=== PATIENT | female | born 1980 | race Caucasian/White ===

== ENCOUNTER → 2017-03-05 08:34 | Outpatient (CLI) | payer OTHER, SELFPAY ==
[2017-03-05 11:10] LABS: Color, Urine Yellow (Yellow); Glucose, Dipstick Normal (Normal); Ketone-Dipstick Negative (Negative); Leukocyte Esterase-Dipstick Negative /ul (Negative); Nitrite-Dipstick Negative (Negative); Occult Blood-Urine 150 /ul (Negative); Protein-Dipstick 15 mg/dl (Negative); Urine Bilirubin Dipstick Negative (Negative); Urine Clarity Clear (Clear); Urine Urobilinogen Normal (Normal)
[2017-03-05 11:21] LABS: Protein:Creat Ratio 314 mg/g CRE (0-200)
[2017-03-05 11:22] LABS: Hematocrit 36.5 % (37-47); Hemoglobin 11.8 g/dl (12.0-15.0); Mean Corp Hgb Conc 32.3 g/gl (32-36); Mean Corpuscular Volume 89.7 fL (81-99); Red Blood Count 4.07 M/mm3 (4.2-5.4)
[2017-03-05 11:23] LABS: Absolute Lymphocyte Count 0.65 X10^3/ul (0.83-4.51); Basophil# 0.01 X10^3/uL; Basophil% 0.3 % (0-1); Eosinophil# 0.11 X10^3/uL; Eosinophils% 3.7 % (0-5); Lymphocyte # 0.65 X10^3/ul (4.0); Lymphocyte % 21.9 % (19-41); Mean Platelet Vol. 11.8 fl (6.2-12.0); Monocyte# 0.16 X10^3/uL; Monocyte% 5.4 % (0-10); Neutrophil # 2.03 X10^3/uL (2.7-7.7); Neutrophil % 68.4 % (47-70); Platelet Count 138 K/mm3 (150-450); RBC Distribution Width SD 45.2 fl (35.1-43.9)
[2017-03-05 11:26] LABS: POSITIVE COUNT NO; POSITIVE DIFFERENTIAL NO; POSITIVE MORPHOLOGY NO
[2017-03-05 11:36] LABS: ALB/GLOB Ratio 0.8 RATIO (0.9-2.4); AST(SGOT) 31 U/L (15-37); Alanine Aminotransfer ALT/SGPT 32 U/L (13-56); Albumin, Serum 3.1 g/dL (3.2-5.0); Alkaline Phosphatase 56 U/L (45-117); Anion Gap 8 (5-15); BUN 14 mg/dL (7-18); Calcium,Total 8.2 mg/dL (8.5-10.1); Chloride 105 mmol/L (98-107); Creatinine, Serum 0.58 mg/dL (0.55-1.02); EST Glomerular Filtration Rate 124 mL/min (>60); Est Glom Filt Rate - Afr Amer 150 mL/min (>60); Globulin 3.9 g/dL (2.2-4.2); Glucose 83 mg/dL (70-110); Potassium 3.7 mmol/L (3.5-5.1); Sodium Level 140 mmol/L (136-145)
[2017-03-06 08:32] LABS: Complement C3 63 mg/dL (82-167)
[2017-03-06 16:20] LABS: Anti-dsDNA Ab 191 IU/mL (0-9)
== END ==
PROVIDERS: Family Provider Internal Medicine; PCP Internal Medicine; Visit Provider Internal Medicine Rheumatology
DX: M32.9 Systemic lupus erythematosus, unspecified (principal); M22.40 Chondromalacia patellae, unspecified knee; G40.909 Epilepsy, unspecified, not intractable, without status epilepticus; I10 Essential (primary) hypertension; M21.40 Flat foot [pes planus] (acquired), unspecified foot
CPT/HCPCS: 36415; 80053; 81002; 82570; 84156; 85025; 86160; 86225

== ENCOUNTER → 2017-05-25 07:34 | Outpatient (CLI) | payer OTHER, SELFPAY ==
[2017-05-25 10:05] LABS: Eosinophil# 0.14 X10^3/uL; Eosinophils% 4.4 % (0-5); Hemoglobin 11.6 g/dl (12.0-15.0); Lymphocyte % 22.2 % (19-41); Mean Corp Hgb Conc 33.1 g/gl (32-36); Mean Corpuscular Hgb 30.2 pg (27.0-32.0); Mean Corpuscular Volume 91.1 fL (81-99); Mean Platelet Vol. 11.2 fl (6.2-12.0); Monocyte# 0.31 X10^3/uL; Monocyte% 9.8 % (0-10); Neutrophil % 63.3 % (47-70); Platelet Count 159 K/mm3 (150-450); RBC Distribution Width CV 13.9 % (11.6-14.6); RBC Distribution Width SD 45.6 fl (35.1-43.9); Red Blood Count 3.84 M/mm3 (4.2-5.4); White Blood Count 3.2 K/mm3 (4.4-11.0)
[2017-05-25 10:07] LABS: POSITIVE COUNT NO; POSITIVE DIFFERENTIAL NO; POSITIVE MORPHOLOGY NO
[2017-05-25 10:14] LABS: Color, Urine Yellow (Yellow); Glucose, Dipstick Normal (Normal); Ketone-Dipstick Negative (Negative); Leukocyte Esterase-Dipstick Negative /ul (Negative); Nitrite-Dipstick Negative (Negative); Occult Blood-Urine 250 /ul (Negative); Protein-Dipstick 30 mg/dl (Negative); Urine Bilirubin Dipstick Negative (Negative); Urine Clarity Sl. Cloudy (Clear); Urine Urobilinogen Normal (Normal)
[2017-05-25 10:26] LABS: ALB/GLOB Ratio 0.8 RATIO (0.9-2.4); AST(SGOT) 34 U/L (15-37); Alanine Aminotransfer ALT/SGPT 35 U/L (13-56); Albumin, Serum 3.1 g/dL (3.2-5.0); Alkaline Phosphatase 60 U/L (45-117); Anion Gap 7 (5-15); BUN 13 mg/dL (7-18); BUN/Creat Ratio 23.7 RATIO (10-20); Calcium,Total 8.2 mg/dL (8.5-10.1); Chloride 111 mmol/L (98-107); Creatinine, Serum 0.55 mg/dL (0.55-1.02); EST Glomerular Filtration Rate 133 mL/min (>60); Est Glom Filt Rate - Afr Amer 161 mL/min (>60); Glucose 64 mg/dL (74-106); Potassium 3.7 mmol/L (3.5-5.1); Protein, Total 7.1 g/dL (6.4-8.2); Protein, Urine (Random) 58.7 mg/dL (<11.9); Protein:Creat Ratio 497 mg/g CRE (0-200); Sodium Level 145 mmol/L (136-145)
[2017-05-26 11:18] LABS: Complement C3 70 mg/dL (82-167)
[2017-05-29 11:09] LABS: Anti-dsDNA Ab 202 IU/mL (0-9)
== END ==
PROVIDERS: Family Provider Internal Medicine; PCP Internal Medicine; Visit Provider Internal Medicine Rheumatology
DX: M32.9 Systemic lupus erythematosus, unspecified (principal); M22.42 Chondromalacia patellae, left knee; M22.41 Chondromalacia patellae, right knee; G40.909 Epilepsy, unspecified, not intractable, without status epilepticus; I10 Essential (primary) hypertension; M21.40 Flat foot [pes planus] (acquired), unspecified foot
CPT/HCPCS: 36415; 80053; 81002; 82570; 84156; 85025; 86160; 86225

== ENCOUNTER → 2017-09-10 09:31 | Outpatient (CLI) | payer OTHER, SELFPAY ==
[2017-09-10 12:00] LABS: Color, Urine Yellow (Yellow); Glucose, Dipstick Normal (Normal); Ketone-Dipstick Negative (Negative); Leukocyte Esterase-Dipstick 25 /ul (Negative); Nitrite-Dipstick Negative (Negative); Occult Blood-Urine 250 /ul (Negative); Protein-Dipstick 100 mg/dl (Negative); Urine Bilirubin Dipstick Negative (Negative); Urine Clarity Cloudy (Clear); Urine Urobilinogen Normal (Normal)
[2017-09-10 12:06] LABS: ALB/GLOB Ratio 0.7 RATIO (0.9-2.4); AST(SGOT) 30 U/L (15-37); Absolute Lymphocyte Count 0.72 X10^3/ul (0.83-4.51); Absolute Neutrophil Count 2.1 X10^3/uL (2.0-7.7); Alanine Aminotransfer ALT/SGPT 27 U/L (13-56); Albumin, Serum 3.2 g/dL (3.2-5.0); Alkaline Phosphatase 68 U/L (45-117); Anion Gap 5 (5-15); BUN 13 mg/dL (7-18); BUN/Creat Ratio 21.5 RATIO (10-20); Basophil# 0.01 X10^3/uL; Basophil% 0.3 % (0-1); Calcium,Total 8.6 mg/dL (8.5-10.1); Chloride 109 mmol/L (98-107); EST Glomerular Filtration Rate 119 mL/min (>60); Eosinophil# 0.11 X10^3/uL; Eosinophils% 3.4 % (0-5); Est Glom Filt Rate - Afr Amer 144 mL/min (>60); Globulin 4.3 g/dL (2.2-4.2); Glucose 79 mg/dL (74-106); Hematocrit 35.2 % (37-47); Hemoglobin 11.4 g/dl (12.0-15.0); Lymphocyte # 0.72 X10^3/ul (4.0); Lymphocyte % 22.1 % (19-41); Mean Corp Hgb Conc 32.4 g/gl (32-36); Mean Corpuscular Hgb 29.7 pg (27.0-32.0); Mean Corpuscular Volume 91.7 fL (81-99); Mean Platelet Vol. 10.9 fl (6.2-12.0); Monocyte# 0.27 X10^3/uL; Monocyte% 8.3 % (0-10); Neutrophil # 2.14 X10^3/uL (2.7-7.7); Neutrophil % 65.6 % (47-70); Platelet Count 195 K/mm3 (150-450); Potassium 3.9 mmol/L (3.5-5.1); Protein, Total 7.5 g/dL (6.4-8.2); RBC Distribution Width CV 13.4 % (11.6-14.6); RBC Distribution Width SD 44.3 fl (35.1-43.9); Red Blood Count 3.84 M/mm3 (4.2-5.4); Sodium Level 143 mmol/L (136-145); White Blood Count 3.3 K/mm3 (4.4-11.0)
[2017-09-10 12:11] LABS: POSITIVE COUNT NO; POSITIVE DIFFERENTIAL NO; POSITIVE MORPHOLOGY NO
[2017-09-10 12:18] LABS: Protein, Urine (Random) 111.4 mg/dL (<11.9); Protein:Creat Ratio 675 mg/g CRE (0-200)
[2017-09-12 11:16] LABS: Anti-dsDNA Ab 153 IU/mL (0-9)
[2017-09-12 13:44] LABS: Complement C3 71 mg/dL (82-167)
== END ==
PROVIDERS: Family Provider Internal Medicine; PCP Internal Medicine; Visit Provider Internal Medicine Rheumatology
DX: M32.9 Systemic lupus erythematosus, unspecified (principal); M22.40 Chondromalacia patellae, unspecified knee; G40.909 Epilepsy, unspecified, not intractable, without status epilepticus; I10 Essential (primary) hypertension; M21.40 Flat foot [pes planus] (acquired), unspecified foot
CPT/HCPCS: 36415; 80053; 81002; 82570; 84156; 85025; 86160; 86225

== ENCOUNTER → 2018-02-13 11:12 | Outpatient (CLI) | payer OTHER, SELFPAY ==
[2018-02-13 14:50] LABS: Color, Urine Yellow (Yellow); Glucose, Dipstick Normal (Normal); Ketone-Dipstick Negative (Negative); Leukocyte Esterase-Dipstick Negative /ul (Negative); Nitrite-Dipstick Negative (Negative); Occult Blood-Urine 50 /ul (Negative); Protein-Dipstick Negative (Negative); Urine Bilirubin Dipstick Negative (Negative); Urine Clarity Sl. Cloudy (Clear); Urine Urobilinogen Normal (Normal)
[2018-02-13 15:01] LABS: Protein, Urine (Random) 25.6 mg/dL (<11.9)
[2018-02-13 15:02] LABS: Protein:Creat Ratio 318 mg/g CRE (0-200)
== END ==
PROVIDERS: Family Provider Internal Medicine; PCP Internal Medicine; Referring Provider Internal Medicine Rheumatology; Visit Provider Internal Medicine Rheumatology
DX: M32.9 Systemic lupus erythematosus, unspecified (principal); Z79.899 Other long term (current) drug therapy; M22.42 Chondromalacia patellae, left knee; M22.41 Chondromalacia patellae, right knee; G40.909 Epilepsy, unspecified, not intractable, without status epilepticus; I10 Essential (primary) hypertension; M21.40 Flat foot [pes planus] (acquired), unspecified foot
CPT/HCPCS: 81002; 82570; 84156

== ENCOUNTER → 2018-05-15 10:26 | Outpatient (CLI) | payer OTHER, SELFPAY ==
[2018-05-15 12:20] LABS: Absolute Lymphocyte Count 0.94 X10^3/ul (0.83-4.51); Absolute Neutrophil Count 2.6 X10^3/uL (2.0-7.7); Basophil# 0.01 X10^3/uL; Basophil% 0.2 % (0-1); Eosinophil# 0.23 X10^3/uL; Eosinophils% 5.7 % (0-5); Hematocrit 37.3 % (37-47); Lymphocyte # 0.94 X10^3/ul (4.0); Lymphocyte % 23.3 % (19-41); Mean Corp Hgb Conc 32.2 g/gl (32-36); Mean Corpuscular Hgb 28.8 pg (27.0-32.0); Mean Corpuscular Volume 89.7 fL (81-99); Mean Platelet Vol. 10.1 fl (6.2-12.0); Monocyte# 0.27 X10^3/uL; Monocyte% 6.7 % (0-10); Neutrophil # 2.59 X10^3/uL (2.7-7.7); Neutrophil % 64.1 % (47-70); Platelet Count 210 K/mm3 (150-450); RBC Distribution Width CV 13.7 % (11.6-14.6); RBC Distribution Width SD 44.8 fl (35.1-43.9); Red Blood Count 4.16 M/mm3 (4.2-5.4)
[2018-05-15 12:24] LABS: POSITIVE COUNT NO; POSITIVE DIFFERENTIAL NO; POSITIVE MORPHOLOGY NO
[2018-05-15 12:33] LABS: Protein, Urine (Random) 19.8 mg/dL (<11.9); Protein:Creat Ratio 234 mg/g CRE (0-200)
[2018-05-15 12:41] LABS: ALB/GLOB Ratio 0.8 RATIO (0.9-2.4); AST(SGOT) 26 U/L (15-37); Albumin, Serum 3.2 g/dL (3.2-5.0); Alkaline Phosphatase 87 U/L (45-117); BUN 10 mg/dL (7-18); BUN/Creat Ratio 14.8 RATIO (10-20); Calcium,Total 8.2 mg/dL (8.5-10.1); Creatinine, Serum 0.67 mg/dL (0.55-1.02); EST Glomerular Filtration Rate 104 mL/min (>60); Est Glom Filt Rate - Afr Amer 126 mL/min (>60); Globulin 3.9 g/dL (2.2-4.2); Glucose 84 mg/dL (74-106); Protein, Total 7.1 g/dL (6.4-8.2)
[2018-05-15 12:42] LABS: Alanine Aminotransfer ALT/SGPT 24 U/L (13-56); Anion Gap 7 (5-15); Chloride 105 mmol/L (98-107); Potassium 3.6 mmol/L (3.5-5.1); Sodium Level 142 mmol/L (136-145)
[2018-05-15 12:48] LABS: Color, Urine Yellow (Yellow); Glucose, Dipstick Normal (Normal); Ketone-Dipstick Negative (Negative); Leukocyte Esterase-Dipstick Negative /ul (Negative); Nitrite-Dipstick Negative (Negative); Occult Blood-Urine 50 /ul (Negative); Protein-Dipstick Negative (Negative); Specific Gravity, Urine 1.015 (1.002-1.030); Urine Bilirubin Dipstick Negative (Negative); Urine Clarity Clear (Clear); Urine Urobilinogen Normal (Normal)
== END ==
PROVIDERS: Family Provider Internal Medicine; PCP Internal Medicine; Referring Provider Internal Medicine Rheumatology; Visit Provider Internal Medicine Rheumatology
DX: M32.9 Systemic lupus erythematosus, unspecified (principal); M22.40 Chondromalacia patellae, unspecified knee; G40.909 Epilepsy, unspecified, not intractable, without status epilepticus; I10 Essential (primary) hypertension; M21.40 Flat foot [pes planus] (acquired), unspecified foot; Z79.899 Other long term (current) drug therapy
CPT/HCPCS: 36415; 80053; 81002; 82570; 84156; 85025

== ENCOUNTER → 2018-08-19 | Outpatient (CLI) | payer OTHER, SELFPAY ==
[2018-08-19 10:39] LABS: Absolute Lymphocyte Count 1.11 X10^3/ul (0.83-4.51); Absolute Neutrophil Count 3.3 X10^3/uL (2.0-7.7); Basophil# 0.01 X10^3/uL; Basophil% 0.2 % (0-1); Eosinophil# 0.15 X10^3/uL; Eosinophils% 3.1 % (0-5); Hematocrit 40.9 % (37-47); Hemoglobin 13.4 g/dl (12.0-15.0); Lymphocyte # 1.11 X10^3/ul (4.0); Lymphocyte % 22.9 % (19-41); Mean Corp Hgb Conc 32.8 g/gl (32-36); Mean Corpuscular Hgb 28.6 pg (27.0-32.0); Mean Corpuscular Volume 87.4 fL (81-99); Mean Platelet Vol. 10.5 fl (6.2-12.0); Monocyte# 0.28 X10^3/uL; Monocyte% 5.8 % (0-10); Neutrophil # 3.28 X10^3/uL (2.7-7.7); Neutrophil % 67.8 % (47-70); Platelet Count 207 K/mm3 (150-450); RBC Distribution Width SD 40.5 fl (35.1-43.9); Red Blood Count 4.68 M/mm3 (4.2-5.4); White Blood Count 4.8 K/mm3 (4.4-11.0)
[2018-08-19 10:40] LABS: POSITIVE COUNT NO; POSITIVE DIFFERENTIAL NO; POSITIVE MORPHOLOGY NO
[2018-08-19 10:42] LABS: Color, Urine Yellow (Yellow); Glucose, Dipstick Normal (Normal); Ketone-Dipstick Negative (Negative); Leukocyte Esterase-Dipstick Negative /ul (Negative); Nitrite-Dipstick Negative (Negative); Occult Blood-Urine 250 /ul (Negative); Protein-Dipstick 15 mg/dl (Negative); Urine Bilirubin Dipstick Negative (Negative); Urine Clarity Sl. Cloudy (Clear); Urine Urobilinogen Normal (Normal)
[2018-08-19 11:04] LABS: ALB/GLOB Ratio 0.8 RATIO (0.9-2.4); AST(SGOT) 24 U/L (15-37); Alanine Aminotransfer ALT/SGPT 23 U/L (13-56); Albumin, Serum 3.3 g/dL (3.2-5.0); Alkaline Phosphatase 87 U/L (45-117); Anion Gap 8 (5-15); BUN 14 mg/dL (7-18); BUN/Creat Ratio 26.2 RATIO (10-20); Chloride 105 mmol/L (98-107); Creatinine, Serum 0.53 mg/dL (0.55-1.02); EST Glomerular Filtration Rate 136 mL/min (>60); Est Glom Filt Rate - Afr Amer 165 mL/min (>60); Globulin 4.2 g/dL (2.2-4.2); Glucose 88 mg/dL (74-106); Potassium 3.6 mmol/L (3.5-5.1); Protein, Total 7.5 g/dL (6.4-8.2); Sodium Level 140 mmol/L (136-145)
[2018-08-19 11:11] LABS: Protein, Urine (Random) 35.1 mg/dL (<11.9); Protein:Creat Ratio 351 mg/g CRE (0-200)
[2018-08-20 12:19] LABS: Complement C3 102 mg/dL (82-167)
== END | disposition home or self-care (01) ==
LOC: MTLAB 08:35
PROVIDERS: Family Provider Internal Medicine; PCP Internal Medicine; Referring Provider Internal Medicine Rheumatology; Visit Provider Internal Medicine Rheumatology
DX: M32.9 Systemic lupus erythematosus, unspecified (principal); Z79.899 Other long term (current) drug therapy; M22.40 Chondromalacia patellae, unspecified knee; G40.909 Epilepsy, unspecified, not intractable, without status epilepticus; I10 Essential (primary) hypertension; M21.40 Flat foot [pes planus] (acquired), unspecified foot
CPT/HCPCS: 36415; 80053; 81002; 82570; 84156; 85025; 86160

== ENCOUNTER → 2018-11-26 09:15 | Outpatient (CLI) | payer OTHER, SELFPAY ==
[2018-11-26 10:42] LABS: Absolute Lymphocyte Count 1.07 X10^3/uL (0.83-4.51); Absolute Neutrophil Count 4.9 X10^3/uL (2.0-7.7); Basophil# 0.02 X10^3/uL; Basophil% 0.3 % (0-1); Eosinophil# 0.15 X10^3/uL; Eosinophils% 2.3 % (0-5); Hematocrit 40.4 % (37-47); Hemoglobin 12.8 g/dL (12.0-15.0); Lymphocyte # 1.07 X10^3/ul (4.0); Lymphocyte % 16.2 % (19-41); Mean Corp Hgb Conc 31.7 g/dL (32-36); Mean Corpuscular Hgb 28.7 pg (27.0-32.0); Mean Corpuscular Volume 90.6 fL (81-99); Mean Platelet Vol. 10.9 fl (6.2-12.0); Monocyte# 0.47 X10^3/uL; Monocyte% 7.1 % (0-10); NRBC Flagged by Analyzer 0 % (0-5); Neutrophil # 4.86 X10^3/uL (2.7-7.7); Neutrophil % 73.8 % (47-70); Platelet Count 182 K/mm3 (150-450); RBC Distribution Width SD 42.8 fl (35.1-43.9); Red Blood Count 4.46 M/mm3 (4.2-5.4); White Blood Count 6.6 K/mm3 (4.4-11.0)
[2018-11-26 10:52] LABS: Color, Urine Yellow (Yellow); Glucose, Dipstick Normal (Normal); Ketone-Dipstick Negative (Negative); Leukocyte Esterase-Dipstick Negative /ul (Negative); Nitrite-Dipstick Negative (Negative); Occult Blood-Urine 10 /ul (Negative); Protein-Dipstick Negative (Negative); Urine Bilirubin Dipstick Negative (Negative); Urine Clarity Sl. Cloudy (Clear); Urine Urobilinogen Normal (Normal)
[2018-11-26 11:02] LABS: ALB/GLOB Ratio 0.9 RATIO (0.9-2.4); AST(SGOT) 23 U/L (15-37); Alanine Aminotransfer ALT/SGPT 23 U/L (13-56); Albumin, Serum 3.4 g/dL (3.2-5.0); Alkaline Phosphatase 81 U/L (45-117); Anion Gap 4 (5-15); BUN 13 mg/dL (7-18); BUN/Creat Ratio 24.4 RATIO (10-20); Calcium,Total 8.8 mg/dL (8.5-10.1); Chloride 107 mmol/L (98-107); Creatinine, Serum 0.53 mg/dL (0.55-1.02); EST Glomerular Filtration Rate 137 mL/min (>60); Est Glom Filt Rate - Afr Amer 165 mL/min (>60); Globulin 3.8 g/dL (2.2-4.2); Glucose 79 mg/dL (74-106); Potassium 3.6 mmol/L (3.5-5.1); Protein, Total 7.2 g/dL (6.4-8.2); Sodium Level 141 mmol/L (136-145)
[2018-11-26 11:07] LABS: Vitamin D,25 Hydroxy 25.5 ng/mL (29.95-100.01)
[2018-11-26 11:14] LABS: Microalbumin,Random Urine 7.8 mg/L (NO RANGE EST.); Microalbumin:Creatinine Ratio 17.7 mg/g CRE (<30 mg/g CRE); Protein, Urine (Random) 12.8 mg/dL (<11.9); Protein:Creat Ratio 290 mg/g CRE (0-200)
[2018-11-27 15:28] LABS: Complement C3 90 mg/dL (82-167)
== END ==
PROVIDERS: Family Provider Internal Medicine; PCP Internal Medicine; Referring Provider Internal Medicine Rheumatology; Visit Provider Internal Medicine Rheumatology
DX: M32.9 Systemic lupus erythematosus, unspecified (principal); Z79.899 Other long term (current) drug therapy; M22.40 Chondromalacia patellae, unspecified knee; G40.909 Epilepsy, unspecified, not intractable, without status epilepticus; M21.40 Flat foot [pes planus] (acquired), unspecified foot; R80.9 Proteinuria, unspecified; I12.9 Hypertensive chronic kidney disease with stage 1 through stage 4 chronic kidney disease, or unspecified chronic kidney disease; N18.1 Chronic kidney disease, stage 1; D63.1 Anemia in chronic kidney disease; E55.9 Vitamin D deficiency, unspecified
CPT/HCPCS: 36415; 80053; 81002; 82043; 82306; 82570; 83970; 84100; 84156; 85025; 86160

== ENCOUNTER → 2019-02-18 10:37 | Outpatient (CLI) | payer OTHER, SELFPAY ==
[2019-02-18 12:13] LABS: Color, Urine Yellow (Yellow); Glucose, Dipstick Normal (Normal); Ketone-Dipstick Negative (Negative); Leukocyte Esterase-Dipstick Negative /ul (Negative); Nitrite-Dipstick Negative (Negative); Occult Blood-Urine 25 /ul (Negative); Protein-Dipstick Negative (Negative); Specific Gravity, Urine 1.025 (1.002-1.030); Urine Bilirubin Dipstick Negative (Negative); Urine Clarity Sl. Cloudy (Clear); Urine Urobilinogen Normal (Normal)
[2019-02-18 12:22] LABS: Absolute Lymphocyte Count 1.22 X10^3/uL (0.83-4.51); Absolute Neutrophil Count 4.3 X10^3/uL (2.0-7.7); Basophil# 0.03 X10^3/uL; Basophil% 0.5 % (0-1); Eosinophil# 0.19 X10^3/uL; Eosinophils% 3.1 % (0-5); Hematocrit 44.4 % (37-47); Hemoglobin 14.2 g/dL (12.0-15.0); Lymphocyte # 1.22 X10^3/ul (4.0); Lymphocyte % 19.9 % (19-41); Mean Corpuscular Hgb 28.6 pg (27.0-32.0); Mean Corpuscular Volume 89.3 fL (81-99); Mean Platelet Vol. 10.6 fl (6.2-12.0); Monocyte# 0.41 X10^3/uL; Monocyte% 6.7 % (0-10); NRBC Flagged by Analyzer 0 % (0-5); Neutrophil # 4.26 X10^3/uL (2.7-7.7); Neutrophil % 69.6 % (47-70); Platelet Count 205 K/mm3 (150-450); RBC Distribution Width SD 42.2 fl (35.1-43.9); Red Blood Count 4.97 M/mm3 (4.2-5.4); White Blood Count 6.1 K/mm3 (4.4-11.0)
[2019-02-18 12:27] LABS: Protein, Urine (Random) 16.1 mg/dL (<11.9); Protein:Creat Ratio 230 mg/g CRE (0-200)
[2019-02-18 12:44] LABS: ALB/GLOB Ratio 0.9 RATIO (0.9-2.4); AST(SGOT) 23 U/L (15-37); Alanine Aminotransfer ALT/SGPT 27 U/L (13-56); Albumin, Serum 3.6 g/dL (3.2-5.0); Alkaline Phosphatase 83 U/L (45-117); Anion Gap 3 (5-15); BUN 13 mg/dL (7-18); BUN/Creat Ratio 20.4 RATIO (10-20); Chloride 108 mmol/L (98-107); Creatinine, Serum 0.64 mg/dL (0.55-1.02); EST Glomerular Filtration Rate 111 mL/min (>60); Est Glom Filt Rate - Afr Amer 135 mL/min (>60); Globulin 4.2 g/dL (2.2-4.2); Glucose 90 mg/dL (74-106); Potassium 3.9 mmol/L (3.5-5.1); Protein, Total 7.8 g/dL (6.4-8.2); Sodium Level 140 mmol/L (136-145)
[2019-02-19 12:40] LABS: Complement C3 106 mg/dL (82-167)
== END ==
PROVIDERS: Family Provider Internal Medicine; PCP Internal Medicine; Referring Provider Internal Medicine Rheumatology; Visit Provider Internal Medicine Rheumatology
DX: M32.9 Systemic lupus erythematosus, unspecified (principal); Z79.899 Other long term (current) drug therapy; M22.40 Chondromalacia patellae, unspecified knee; G40.909 Epilepsy, unspecified, not intractable, without status epilepticus; I10 Essential (primary) hypertension; M21.40 Flat foot [pes planus] (acquired), unspecified foot
CPT/HCPCS: 36415; 80053; 81002; 82570; 84156; 85025; 86160

== ENCOUNTER → 2019-04-14 16:14 | Outpatient (CLI) | payer OTHER, SELFPAY ==
[2019-04-14 18:00] LABS: Absolute Lymphocyte Count 1.59 X10^3/uL (0.83-4.51); Absolute Neutrophil Count 4.4 X10^3/uL (2.0-7.7); Basophil# 0.02 X10^3/uL; Basophil% 0.3 % (0-1); Eosinophil# 0.15 X10^3/uL; Eosinophils% 2.2 % (0-5); Hematocrit 38.2 % (37-47); Hemoglobin 12.4 g/dL (12.0-15.0); Lymphocyte # 1.59 X10^3/ul (4.0); Lymphocyte % 23.8 % (19-41); Mean Corp Hgb Conc 32.5 g/dL (32-36); Mean Corpuscular Hgb 28.4 pg (27.0-32.0); Mean Corpuscular Volume 87.4 fL (81-99); Mean Platelet Vol. 10.7 fl (6.2-12.0); Monocyte# 0.47 X10^3/uL; NRBC Flagged by Analyzer 0 % (0-5); Neutrophil # 4.43 X10^3/uL (2.7-7.7); Neutrophil % 66.6 % (47-70); Platelet Count 184 K/mm3 (150-450); RBC Distribution Width CV 13.4 % (11.6-14.6); RBC Distribution Width SD 42.3 fl (35.1-43.9); Red Blood Count 4.37 M/mm3 (4.2-5.4); White Blood Count 6.7 K/mm3 (4.4-11.0)
[2019-04-14 18:11] LABS: ALB/GLOB Ratio 0.9 RATIO (0.9-2.4); AST(SGOT) 23 U/L (15-37); Alanine Aminotransfer ALT/SGPT 24 U/L (13-56); Albumin, Serum 3.5 g/dL (3.2-5.0); Alkaline Phosphatase 71 U/L (45-117); Anion Gap 6 (5-15); BUN 13 mg/dL (7-18); BUN/Creat Ratio 25.5 RATIO (10-20); Calcium,Total 8.6 mg/dL (8.5-10.1); Chloride 106 mmol/L (98-107); Creatinine, Serum 0.51 mg/dL (0.55-1.02); EST Glomerular Filtration Rate 143 mL/min (>60); Est Glom Filt Rate - Afr Amer 174 mL/min (>60); Globulin 3.8 g/dL (2.2-4.2); Glucose 78 mg/dL (74-106); Potassium 3.1 mmol/L (3.5-5.1); Protein, Total 7.3 g/dL (6.4-8.2); Sodium Level 140 mmol/L (136-145)
[2019-04-14 18:16] LABS: Protein, Urine (Random) 29.6 mg/dL (<11.9); Protein:Creat Ratio 210 mg/g CRE (0-200)
[2019-04-14 18:44] LABS: Color, Urine Yellow (Yellow); Glucose, Dipstick Normal (Normal); Ketone-Dipstick Negative (Negative); Leukocyte Esterase-Dipstick Negative /ul (Negative); Nitrite-Dipstick Negative (Negative); Occult Blood-Urine 25 /ul (Negative); Protein-Dipstick Negative (Negative); Specific Gravity, Urine 1.025 (1.002-1.030); Urine Bilirubin Dipstick Negative (Negative); Urine Clarity Clear (Clear); Urine Urobilinogen Normal (Normal)
[2019-04-16 13:14] LABS: Complement C3 97 mg/dL (82-167)
== END ==
PROVIDERS: PCP Internal Medicine; Referring Provider Internal Medicine Rheumatology; Visit Provider Internal Medicine Rheumatology
DX: M32.9 Systemic lupus erythematosus, unspecified (principal); Z79.899 Other long term (current) drug therapy; M22.40 Chondromalacia patellae, unspecified knee; G40.909 Epilepsy, unspecified, not intractable, without status epilepticus; I10 Essential (primary) hypertension; M21.40 Flat foot [pes planus] (acquired), unspecified foot
CPT/HCPCS: 36415; 80053; 81002; 82570; 84156; 85025; 86160

== ENCOUNTER → 2019-05-30 11:19 | Outpatient (CLI) | payer OTHER, SELFPAY ==
[2019-05-30 15:22] LABS: Absolute Lymphocyte Count 1.35 X10^3/uL (0.83-4.51); Absolute Neutrophil Count 3.2 X10^3/uL (2.0-7.7); Basophil# 0.03 X10^3/uL; Basophil% 0.6 % (0-1); Eosinophil# 0.21 X10^3/uL; Hematocrit 43.3 % (37-47); Hemoglobin 13.8 g/dL (12.0-15.0); Lymphocyte # 1.35 X10^3/ul (4.0); Lymphocyte % 25.8 % (19-41); Mean Corp Hgb Conc 31.9 g/dL (32-36); Mean Corpuscular Hgb 28.5 pg (27.0-32.0); Mean Corpuscular Volume 89.5 fL (81-99); Mean Platelet Vol. 10.7 fl (6.2-12.0); Monocyte% 7.6 % (0-10); NRBC Flagged by Analyzer 0 % (0-5); Neutrophil # 3.23 X10^3/uL (2.7-7.7); Neutrophil % 61.8 % (47-70); Platelet Count 218 K/mm3 (150-450); RBC Distribution Width CV 12.6 % (11.6-14.6); RBC Distribution Width SD 41.5 fl (35.1-43.9); Red Blood Count 4.84 M/mm3 (4.2-5.4); White Blood Count 5.2 K/mm3 (4.4-11.0)
[2019-05-30 15:37] LABS: Protein, Urine (Random) 10.1 mg/dL (<11.9); Protein:Creat Ratio 258 mg/g CRE (0-200)
[2019-05-30 15:41] LABS: Color, Urine Yellow (Yellow); Glucose, Dipstick Normal (Normal); Ketone-Dipstick Negative (Negative); Leukocyte Esterase-Dipstick Negative /ul (Negative); Nitrite-Dipstick Negative (Negative); Occult Blood-Urine 250 /ul (Negative); Protein-Dipstick Negative (Negative); Specific Gravity, Urine 1.015 (1.002-1.030); Urine Bilirubin Dipstick Negative (Negative); Urine Clarity Clear (Clear); Urine Urobilinogen Normal (Normal)
[2019-05-30 15:46] LABS: ALB/GLOB Ratio 0.9 RATIO (0.9-2.4); AST(SGOT) 24 U/L (15-37); Alanine Aminotransfer ALT/SGPT 27 U/L (13-56); Albumin, Serum 3.5 g/dL (3.2-5.0); Alkaline Phosphatase 80 U/L (45-117); Anion Gap 6 (5-15); BUN 13 mg/dL (7-18); BUN/Creat Ratio 26.9 RATIO (10-20); Calcium,Total 8.9 mg/dL (8.5-10.1); Chloride 107 mmol/L (98-107); Creatinine, Serum 0.48 mg/dL (0.55-1.02); EST Glomerular Filtration Rate 153 mL/min (>60); Est Glom Filt Rate - Afr Amer 185 mL/min (>60); Globulin 3.9 g/dL (2.2-4.2); Glucose 78 mg/dL (74-106); Potassium 3.8 mmol/L (3.5-5.1); Protein, Total 7.4 g/dL (6.4-8.2); Sodium Level 140 mmol/L (136-145)
[2019-06-01 08:45] LABS: Complement C3 105 mg/dL (82-167)
== END ==
PROVIDERS: PCP Internal Medicine; Referring Provider Internal Medicine Rheumatology; Visit Provider Internal Medicine Rheumatology
DX: M32.9 Systemic lupus erythematosus, unspecified (principal); Z79.899 Other long term (current) drug therapy; M22.40 Chondromalacia patellae, unspecified knee; G40.909 Epilepsy, unspecified, not intractable, without status epilepticus; I10 Essential (primary) hypertension; M21.40 Flat foot [pes planus] (acquired), unspecified foot; M32.10 Systemic lupus erythematosus, organ or system involvement unspecified
CPT/HCPCS: 36415; 80053; 81002; 82570; 84156; 85025; 86160

== ENCOUNTER → 2019-09-03 15:00 | Outpatient (CLI) | payer OTHER, SELFPAY ==
[2019-09-03 17:51] LABS: Color, Urine Yellow (Yellow); Glucose, Dipstick Normal (Normal); Ketone-Dipstick Negative (Negative); Leukocyte Esterase-Dipstick Negative /ul (Negative); Nitrite-Dipstick Negative (Negative); Occult Blood-Urine Negative /ul (Negative); Protein-Dipstick Negative (Negative); Urine Bilirubin Dipstick Negative (Negative); Urine Clarity Clear (Clear); Urine Urobilinogen Normal (Normal)
[2019-09-03 17:54] LABS: Absolute Neutrophil Count 4.2 X10^3/uL (2.0-7.7); Basophil# 0.03 X10^3/uL; Basophil% 0.4 % (0-1); Eosinophils% 2.9 % (0-5); Hemoglobin 13.3 g/dL (12.0-15.0); Lymphocyte % 26.5 % (19-41); Mean Corp Hgb Conc 32.4 g/dL (32-36); Mean Corpuscular Hgb 28.4 pg (27.0-32.0); Mean Corpuscular Volume 87.4 fL (81-99); Mean Platelet Vol. 11.3 fl (6.2-12.0); Monocyte# 0.52 X10^3/uL; Monocyte% 7.6 % (0-10); NRBC Flagged by Analyzer 0 % (0-5); Neutrophil # 4.23 X10^3/uL (2.7-7.7); Neutrophil % 62.3 % (47-70); Platelet Count 198 K/mm3 (150-450); RBC Distribution Width CV 12.9 % (11.6-14.6); RBC Distribution Width SD 40.8 fl (35.1-43.9); Red Blood Count 4.69 M/mm3 (4.2-5.4); White Blood Count 6.8 K/mm3 (4.4-11.0)
[2019-09-03 17:57] LABS: Protein, Urine (Random) 21.6 mg/dL (<11.9); Protein:Creat Ratio 234 mg/g CRE (0-200)
[2019-09-03 18:06] LABS: ALB/GLOB Ratio 0.9 RATIO (0.9-2.4); AST(SGOT) 24 U/L (15-37); Alanine Aminotransfer ALT/SGPT 29 U/L (13-56); Albumin, Serum 3.5 g/dL (3.2-5.0); Alkaline Phosphatase 69 U/L (45-117); Anion Gap 4 (5-15); BUN 11 mg/dL (7-18); BUN/Creat Ratio 20.4 RATIO (10-20); Calcium,Total 8.8 mg/dL (8.5-10.1); Chloride 106 mmol/L (98-107); Creatinine, Serum 0.54 mg/dL (0.55-1.02); EST Glomerular Filtration Rate 134 mL/min (>60); Est Glom Filt Rate - Afr Amer 162 mL/min (>60); Globulin 3.7 g/dL (2.2-4.2); Glucose 73 mg/dL (74-106); Potassium 3.1 mmol/L (3.5-5.1); Protein, Total 7.2 g/dL (6.4-8.2); Sodium Level 138 mmol/L (136-145)
[2019-09-10 20:43] LABS: Complement C3 95 mg/dL (82-167)
== END ==
PROVIDERS: PCP Internal Medicine; Referring Provider Internal Medicine Rheumatology; Visit Provider Internal Medicine Rheumatology
DX: M32.9 Systemic lupus erythematosus, unspecified (principal); Z79.899 Other long term (current) drug therapy; M22.40 Chondromalacia patellae, unspecified knee; G40.909 Epilepsy, unspecified, not intractable, without status epilepticus; I10 Essential (primary) hypertension; M21.40 Flat foot [pes planus] (acquired), unspecified foot
CPT/HCPCS: 36415; 80053; 81002; 82570; 84156; 85025; 86160

== ENCOUNTER → 2019-12-17 16:02 | Outpatient (CLI) | payer OTHER, SELFPAY ==
[2019-12-17 18:27] LABS: Absolute Lymphocyte Count 1.51 X10^3/uL (0.83-4.51); Absolute Neutrophil Count 5.5 X10^3/uL (2.0-7.7); Basophil# 0.02 X10^3/uL; Basophil% 0.3 % (0-1); Eosinophil# 0.19 X10^3/uL; Eosinophils% 2.4 % (0-5); Hematocrit 40.8 % (37-47); Hemoglobin 13.1 g/dL (12.0-15.0); Lymphocyte # 1.51 X10^3/ul (4.0); Lymphocyte % 19.1 % (19-41); Mean Corp Hgb Conc 32.1 g/dL (32-36); Mean Corpuscular Hgb 28.7 pg (27.0-32.0); Mean Corpuscular Volume 89.5 fL (81-99); Mean Platelet Vol. 10.8 fl (6.2-12.0); Monocyte# 0.64 X10^3/uL; Monocyte% 8.1 % (0-10); NRBC Flagged by Analyzer 0 % (0-5); Neutrophil # 5.54 X10^3/uL (2.7-7.7); Neutrophil % 69.8 % (47-70); Platelet Count 203 K/mm3 (150-450); RBC Distribution Width CV 12.9 % (11.6-14.6); Red Blood Count 4.56 M/mm3 (4.2-5.4); White Blood Count 7.9 K/mm3 (4.4-11.0)
[2019-12-17 18:40] LABS: Protein, Urine (Random) 46.2 mg/dL (<11.9); Protein:Creat Ratio 246 mg/g CRE (0-200)
[2019-12-17 18:47] LABS: ALB/GLOB Ratio 0.9 RATIO (0.9-2.4); AST(SGOT) 25 U/L (15-37); Alanine Aminotransfer ALT/SGPT 27 U/L (13-56); Albumin, Serum 3.5 g/dL (3.2-5.0); Alkaline Phosphatase 78 U/L (45-117); Anion Gap 6 (5-15); BUN 14 mg/dL (7-18); Calcium,Total 8.6 mg/dL (8.5-10.1); Chloride 106 mmol/L (98-107); Creatinine, Serum 0.64 mg/dL (0.55-1.02); EST Glomerular Filtration Rate 111 mL/min (>60); Est Glom Filt Rate - Afr Amer 134 mL/min (>60); Globulin 3.9 g/dL (2.2-4.2); Glucose 75 mg/dL (74-106); Potassium 3.6 mmol/L (3.5-5.1); Protein, Total 7.4 g/dL (6.4-8.2); Sodium Level 141 mmol/L (136-145)
[2019-12-17 18:49] LABS: Color, Urine Yellow (Yellow); Glucose, Dipstick Normal (Normal); Ketone-Dipstick Negative (Negative); Leukocyte Esterase-Dipstick Negative /ul (Negative); Nitrite-Dipstick Negative (Negative); Occult Blood-Urine 25 /ul (Negative); Protein-Dipstick 30 mg/dl (Negative); Specific Gravity, Urine 1.025 (1.002-1.030); Urine Bilirubin Dipstick Negative (Negative); Urine Clarity Clear (Clear); Urine Urobilinogen Normal (Normal)
[2019-12-19 08:49] LABS: Complement C3 106 mg/dL (82-167)
== END ==
PROVIDERS: PCP Internal Medicine; Referring Provider Internal Medicine Rheumatology; Visit Provider Internal Medicine Rheumatology
DX: M32.9 Systemic lupus erythematosus, unspecified (principal); Z79.899 Other long term (current) drug therapy; M22.40 Chondromalacia patellae, unspecified knee; G40.909 Epilepsy, unspecified, not intractable, without status epilepticus; I10 Essential (primary) hypertension; M21.40 Flat foot [pes planus] (acquired), unspecified foot
CPT/HCPCS: 36415; 80053; 81002; 82570; 84156; 85025; 86160

== ENCOUNTER → 2020-03-15 15:49 | Outpatient (CLI) | payer OTHER, SELFPAY ==
[2020-03-15 18:22] LABS: Color, Urine Yellow (Yellow); Glucose, Dipstick Normal (Normal); Ketone-Dipstick Negative (Negative); Leukocyte Esterase-Dipstick Negative /ul (Negative); Nitrite-Dipstick Negative (Negative); Occult Blood-Urine 150 /ul (Negative); Protein-Dipstick 30 mg/dl (Negative); Specific Gravity, Urine 1.025 (1.002-1.030); Urine Bilirubin Dipstick Negative (Negative); Urine Clarity Clear (Clear); Urine Urobilinogen Normal (Normal)
[2020-03-15 18:25] LABS: Absolute Lymphocyte Count 1.63 X10^3/uL (0.83-4.51); Absolute Neutrophil Count 4.2 X10^3/uL (2.0-7.7); Basophil# 0.05 X10^3/uL; Basophil% 0.8 % (0-1); Eosinophil# 0.24 X10^3/uL; Eosinophils% 3.7 % (0-5); Hemoglobin 13.9 g/dL (12.0-15.0); Lymphocyte # 1.63 X10^3/ul (4.0); Mean Corp Hgb Conc 32.3 g/dL (32-36); Mean Corpuscular Hgb 28.1 pg (27.0-32.0); Mean Platelet Vol. 10.8 fl (6.2-12.0); Monocyte% 6.1 % (0-10); NRBC Flagged by Analyzer 0 % (0-5); Neutrophil # 4.17 X10^3/uL (2.7-7.7); Neutrophil % 64.1 % (47-70); Platelet Count 204 K/mm3 (150-450); RBC Distribution Width CV 12.6 % (11.6-14.6); RBC Distribution Width SD 40.1 fl (35.1-43.9); Red Blood Count 4.94 M/mm3 (4.2-5.4); White Blood Count 6.5 K/mm3 (4.4-11.0)
[2020-03-15 18:43] LABS: Protein, Urine (Random) 49.9 mg/dL (<11.9); Protein:Creat Ratio 324 mg/g CRE (0-200)
[2020-03-15 18:51] LABS: AST(SGOT) 25 U/L (15-37); Alanine Aminotransfer ALT/SGPT 29 U/L (13-56); Albumin, Serum 3.6 g/dL (3.2-5.0); Alkaline Phosphatase 82 U/L (45-117); Anion Gap 6 (5-15); BUN 14 mg/dL (7-18); BUN/Creat Ratio 24.6 RATIO (10-20); Calcium,Total 8.6 mg/dL (8.5-10.1); Chloride 107 mmol/L (98-107); Creatinine, Serum 0.57 mg/dL (0.55-1.02); EST Glomerular Filtration Rate 126 mL/min (>60); Est Glom Filt Rate - Afr Amer 152 mL/min (>60); Globulin 3.7 g/dL (2.2-4.2); Glucose 82 mg/dL (74-106); Potassium 3.5 mmol/L (3.5-5.1); Protein, Total 7.3 g/dL (6.4-8.2); Sodium Level 141 mmol/L (136-145)
[2020-03-17 12:23] LABS: Complement C3 103 mg/dL (82-167)
== END ==
PROVIDERS: PCP Internal Medicine; Referring Provider Internal Medicine Rheumatology; Visit Provider Internal Medicine Rheumatology
DX: M32.9 Systemic lupus erythematosus, unspecified (principal); Z79.899 Other long term (current) drug therapy; M22.40 Chondromalacia patellae, unspecified knee; G40.909 Epilepsy, unspecified, not intractable, without status epilepticus; I10 Essential (primary) hypertension; M21.40 Flat foot [pes planus] (acquired), unspecified foot
CPT/HCPCS: 36415; 80053; 81002; 82570; 84156; 85025; 86160

== ENCOUNTER → 2020-06-11 16:02 | Outpatient (CLI) | payer OTHER, SELFPAY ==
[2020-06-11 17:23] LABS: Absolute Lymphocyte Count 1.77 X10^3/uL (0.83-4.51); Absolute Neutrophil Count 3.8 X10^3/uL (2.0-7.7); Basophil# 0.03 X10^3/uL; Basophil% 0.5 % (0-1); Eosinophil# 0.21 X10^3/uL; Eosinophils% 3.3 % (0-5); Hematocrit 41.4 % (37-47); Hemoglobin 13.1 g/dL (12.0-15.0); Lymphocyte # 1.77 X10^3/ul (0.83-4.51); Lymphocyte % 27.7 % (19-41); Mean Corp Hgb Conc 31.6 g/dL (32-36); Mean Corpuscular Hgb 28.2 pg (27.0-32.0); Mean Platelet Vol. 10.6 fl (6.2-12.0); Monocyte% 7.8 % (0-10); NRBC Flagged by Analyzer 0 % (0-5); Neutrophil # 3.84 X10^3/uL (2.7-7.7); Neutrophil % 60.2 % (47-70); Platelet Count 207 K/mm3 (150-450); RBC Distribution Width CV 13.4 % (11.6-14.6); RBC Distribution Width SD 43.6 fl (35.1-43.9); Red Blood Count 4.65 M/mm3 (4.2-5.4); White Blood Count 6.4 K/mm3 (4.4-11.0)
[2020-06-11 17:38] LABS: Color, Urine Yellow (Yellow); Glucose, Dipstick Normal (Normal); Ketone-Dipstick Negative (Negative); Leukocyte Esterase-Dipstick Negative /ul (Negative); Nitrite-Dipstick Negative (Negative); Occult Blood-Urine 10 /ul (Negative); Protein-Dipstick Negative (Negative); Specific Gravity, Urine 1.025 (1.002-1.030); Urine Bilirubin Dipstick Negative (Negative); Urine Clarity Clear (Clear); Urine Urobilinogen Normal (Normal)
[2020-06-11 17:49] LABS: AST(SGOT) 26 U/L (15-37); Alanine Aminotransfer ALT/SGPT 27 U/L (13-56); Albumin, Serum 3.6 g/dL (3.2-5.0); Alkaline Phosphatase 87 U/L (45-117); Anion Gap 5 (5-15); BUN 14 mg/dL (7-18); BUN/Creat Ratio 25.2 RATIO (10-20); Calcium,Total 8.5 mg/dL (8.5-10.1); Chloride 107 mmol/L (98-107); Creatinine, Serum 0.56 mg/dL (0.55-1.02); EST Glomerular Filtration Rate 129 mL/min (>60); Est Glom Filt Rate - Afr Amer 156 mL/min (>60); Globulin 3.7 g/dL (2.2-4.2); Glucose 78 mg/dL (74-106); Potassium 3.6 mmol/L (3.5-5.1); Protein, Total 7.3 g/dL (6.4-8.2); Sodium Level 141 mmol/L (136-145)
[2020-06-11 17:50] LABS: Protein, Urine (Random) 25.1 mg/dL (<11.9); Protein:Creat Ratio 273 mg/g CRE (0-200)
[2020-06-13 13:49] LABS: Complement C3 106 mg/dL (82-167)
== END ==
PROVIDERS: PCP Internal Medicine; Referring Provider Internal Medicine Rheumatology; Visit Provider Internal Medicine Rheumatology
DX: M32.9 Systemic lupus erythematosus, unspecified (principal); Z79.899 Other long term (current) drug therapy; M22.40 Chondromalacia patellae, unspecified knee; G40.909 Epilepsy, unspecified, not intractable, without status epilepticus; I10 Essential (primary) hypertension; M21.40 Flat foot [pes planus] (acquired), unspecified foot
CPT/HCPCS: 36415; 80053; 81002; 82570; 84156; 85025; 86160

== ENCOUNTER → 2020-09-13 15:50 | Outpatient (CLI) | payer OTHER, SELFPAY ==
[2020-09-13 19:44] LABS: Absolute Neutrophil Count 4.5 X10^3/uL (2.0-7.7); Basophil# 0.04 X10^3/uL; Basophil% 0.6 % (0-1); Eosinophil# 0.17 X10^3/uL; Eosinophils% 2.4 % (0-5); Hematocrit 44.1 % (37-47); Hemoglobin 14.3 g/dL (12.0-15.0); Lymphocyte % 27.7 % (19-41); Mean Corp Hgb Conc 32.4 g/dL (32-36); Mean Corpuscular Hgb 28.4 pg (27.0-32.0); Mean Corpuscular Volume 87.5 fL (81-99); Monocyte# 0.51 X10^3/uL; Monocyte% 7.1 % (0-10); NRBC Flagged by Analyzer 0 % (0-5); Neutrophil # 4.47 X10^3/uL (2.7-7.7); Neutrophil % 61.9 % (47-70); Platelet Count 223 K/mm3 (150-450); RBC Distribution Width CV 12.9 % (11.6-14.6); RBC Distribution Width SD 41.1 fl (35.1-43.9); Red Blood Count 5.04 M/mm3 (4.2-5.4); White Blood Count 7.2 K/mm3 (4.4-11.0)
[2020-09-13 19:51] LABS: Color, Urine Yellow (Yellow); Glucose, Dipstick Normal (Normal); Ketone-Dipstick Negative (Negative); Leukocyte Esterase-Dipstick Negative /ul (Negative); Nitrite-Dipstick Negative (Negative); Occult Blood-Urine 10 /ul (Negative); Protein-Dipstick 30 mg/dl (Negative); Specific Gravity, Urine 1.025 (1.002-1.030); Urine Bilirubin Dipstick Negative (Negative); Urine Clarity Clear (Clear); Urine Urobilinogen Normal (Normal)
[2020-09-13 20:01] LABS: Protein, Urine (Random) 32.9 mg/dL (<11.9); Protein:Creat Ratio 359 mg/g CRE (0-200)
[2020-09-13 20:07] LABS: ALB/GLOB Ratio 1.1 RATIO (0.9-2.4); AST(SGOT) 28 U/L (15-37); Alanine Aminotransfer ALT/SGPT 37 U/L (13-56); Albumin, Serum 3.9 g/dL (3.2-5.0); Alkaline Phosphatase 74 U/L (45-117); Anion Gap 6 (5-15); BUN 14 mg/dL (7-18); BUN/Creat Ratio 26.1 RATIO (10-20); Calcium,Total 8.8 mg/dL (8.5-10.1); Chloride 107 mmol/L (98-107); Creatinine, Serum 0.54 mg/dL (0.55-1.02); EST Glomerular Filtration Rate 134 mL/min (>60); Est Glom Filt Rate - Afr Amer 162 mL/min (>60); Globulin 3.5 g/dL (2.2-4.2); Glucose 76 mg/dL (74-106); Potassium 3.6 mmol/L (3.5-5.1); Protein, Total 7.4 g/dL (6.4-8.2); Sodium Level 140 mmol/L (136-145)
[2020-09-15 10:06] LABS: Complement C3 100 mg/dL (82-167)
== END ==
PROVIDERS: PCP Internal Medicine; Referring Provider Internal Medicine Rheumatology; Visit Provider Internal Medicine Rheumatology
DX: M32.9 Systemic lupus erythematosus, unspecified (principal); Z79.899 Other long term (current) drug therapy; M22.42 Chondromalacia patellae, left knee; M22.41 Chondromalacia patellae, right knee; G40.909 Epilepsy, unspecified, not intractable, without status epilepticus; I10 Essential (primary) hypertension; M21.40 Flat foot [pes planus] (acquired), unspecified foot
CPT/HCPCS: 36415; 80053; 81002; 82570; 84156; 85025; 86160

== ENCOUNTER → 2020-12-10 15:05 | Outpatient (CLI) | payer OTHER, SELFPAY ==
[2020-12-10 17:51] LABS: Absolute Neutrophil Count 5.8 X10^3/uL (2.0-7.7); Basophil# 0.04 X10^3/uL; Basophil% 0.5 % (0-1); Eosinophil# 0.17 X10^3/uL; Hematocrit 40.6 % (37-47); Hemoglobin 13.6 g/dL (12.0-15.0); Lymphocyte % 22.3 % (19-41); Mean Corp Hgb Conc 33.5 g/dL (32-36); Mean Corpuscular Hgb 29.6 pg (27.0-32.0); Mean Corpuscular Volume 88.5 fL (81-99); Mean Platelet Vol. 11.1 fl (6.2-12.0); Monocyte# 0.63 X10^3/uL; Monocyte% 7.4 % (0-10); NRBC Flagged by Analyzer 0 % (0-5); Neutrophil # 5.76 X10^3/uL (2.7-7.7); Neutrophil % 67.4 % (47-70); Platelet Count 182 K/mm3 (150-450); RBC Distribution Width CV 13.2 % (11.6-14.6); RBC Distribution Width SD 42.8 fl (35.1-43.9); Red Blood Count 4.59 M/mm3 (4.2-5.4); White Blood Count 8.5 K/mm3 (4.4-11.0)
[2020-12-10 17:52] LABS: Color, Urine Yellow (Yellow); Glucose, Dipstick Normal (Normal); Ketone-Dipstick Negative (Negative); Leukocyte Esterase-Dipstick Negative /ul (Negative); Nitrite-Dipstick Negative (Negative); Occult Blood-Urine 25 /ul (Negative); Protein-Dipstick 15 mg/dl (Negative); Specific Gravity, Urine 1.025 (1.002-1.030); Urine Bilirubin Dipstick Negative (Negative); Urine Clarity Clear (Clear); Urine Urobilinogen Normal (Normal)
[2020-12-10 18:02] LABS: Protein, Urine (Random) 24.9 mg/dL (<11.9); Protein:Creat Ratio 275 mg/g CRE (0-200)
[2020-12-10 18:14] LABS: ALB/GLOB Ratio 0.9 RATIO (0.9-2.4); AST(SGOT) 24 U/L (15-37); Alanine Aminotransfer ALT/SGPT 31 U/L (13-56); Albumin, Serum 3.3 g/dL (3.2-5.0); Alkaline Phosphatase 85 U/L (45-117); Anion Gap 2 (5-15); BUN 15 mg/dL (7-18); Calcium,Total 8.8 mg/dL (8.5-10.1); Chloride 107 mmol/L (98-107); Creatinine, Serum 0.71 mg/dL (0.55-1.02); EST Glomerular Filtration Rate 97 mL/min (>60); Est Glom Filt Rate - Afr Amer 117 mL/min (>60); Globulin 3.8 g/dL (2.2-4.2); Glucose 63 mg/dL (74-106); Potassium 3.5 mmol/L (3.5-5.1); Protein, Total 7.1 g/dL (6.4-8.2); Sodium Level 139 mmol/L (136-145)
[2020-12-12 12:03] LABS: Complement C3 103 mg/dL (82-167)
== END ==
PROVIDERS: PCP Internal Medicine; Referring Provider Internal Medicine Rheumatology; Visit Provider Internal Medicine Rheumatology
DX: M32.9 Systemic lupus erythematosus, unspecified (principal); Z79.899 Other long term (current) drug therapy; M22.40 Chondromalacia patellae, unspecified knee; G40.909 Epilepsy, unspecified, not intractable, without status epilepticus; I10 Essential (primary) hypertension; M21.40 Flat foot [pes planus] (acquired), unspecified foot
CPT/HCPCS: 36415; 80053; 81002; 82570; 84156; 85025; 86160

== ENCOUNTER 2021-03-14 14:42 | Outpatient (CLI) | payer OTHER, SELFPAY ==
[2021-03-14 17:44] LABS: Absolute Lymphocyte Count 1.92 X10^3/uL (0.83-4.51); Absolute Neutrophil Count 5.3 X10^3/uL (2.0-7.7); Basophil# 0.04 X10^3/uL; Basophil% 0.5 % (0-1); Eosinophils% 3.7 % (0-5); Hematocrit 39.3 % (37-47); Hemoglobin 13.2 g/dL (12.0-15.0); Lymphocyte # 1.92 X10^3/ul (0.83-4.51); Lymphocyte % 23.6 % (19-41); Mean Corp Hgb Conc 33.6 g/dL (32-36); Mean Corpuscular Hgb 29.5 pg (27.0-32.0); Mean Corpuscular Volume 87.9 fL (81-99); Mean Platelet Vol. 10.5 fl (6.2-12.0); Monocyte# 0.51 X10^3/uL; Monocyte% 6.3 % (0-10); NRBC Flagged by Analyzer 0 % (0-5); Neutrophil # 5.34 X10^3/uL (2.7-7.7); Neutrophil % 65.5 % (47-70); Platelet Count 199 K/mm3 (150-450); RBC Distribution Width SD 44.3 fl (35.1-43.9); Red Blood Count 4.47 M/mm3 (4.2-5.4); White Blood Count 8.1 K/mm3 (4.4-11.0)
[2021-03-14 17:58] LABS: Color, Urine Yellow (Yellow); Glucose, Dipstick Normal (Normal); Ketone-Dipstick Negative (Negative); Leukocyte Esterase-Dipstick Negative /ul (Negative); Nitrite-Dipstick Negative (Negative); Occult Blood-Urine Negative /ul (Negative); Protein-Dipstick 15 mg/dl (Negative); Urine Bilirubin Dipstick Negative (Negative); Urine Clarity Sl. Cloudy (Clear); Urine Urobilinogen Normal (Normal)
[2021-03-14 18:23] LABS: Protein, Urine (Random) 24.1 mg/dL (<11.9); Protein:Creat Ratio 256 mg/g CRE (0-200)
[2021-03-14 18:47] LABS: ALB/GLOB Ratio 0.8 RATIO (0.9-2.4); AST(SGOT) 24 U/L (15-37); Alanine Aminotransfer ALT/SGPT 32 U/L (13-56); Albumin, Serum 3.4 g/dL (3.2-5.0); Alkaline Phosphatase 72 U/L (45-117); Anion Gap 8 (5-15); BUN 15 mg/dL (7-18); BUN/Creat Ratio 27.1 RATIO (10-20); Calcium,Total 8.6 mg/dL (8.5-10.1); Chloride 107 mmol/L (98-107); Creatinine, Serum 0.55 mg/dL (0.55-1.02); EST Glomerular Filtration Rate 129 mL/min (>60); Est Glom Filt Rate - Afr Amer 156 mL/min (>60); Glucose 82 mg/dL (74-106); Potassium 3.3 mmol/L (3.5-5.1); Protein, Total 7.4 g/dL (6.4-8.2); Sodium Level 140 mmol/L (136-145)
[2021-03-16 13:39] LABS: Complement C3 99 mg/dL (82-167)
== END 2021-03-14 23:59 | disposition home or self-care (01) ==
PROVIDERS: PCP Internal Medicine; Referring Provider Internal Medicine Rheumatology; Visit Provider Internal Medicine Rheumatology
DX: M32.9 Systemic lupus erythematosus, unspecified (principal); G40.909 Epilepsy, unspecified, not intractable, without status epilepticus; Z79.899 Other long term (current) drug therapy; M22.40 Chondromalacia patellae, unspecified knee; I10 Essential (primary) hypertension; M21.40 Flat foot [pes planus] (acquired), unspecified foot
CPT/HCPCS: 36415; 80053; 81002; 82570; 84156; 85025; 86160

== ENCOUNTER → 2021-06-14 | Outpatient (CLI) | payer OTHER, SELFPAY ==
[2021-06-14 17:57] LABS: Absolute Lymphocyte Count 1.78 X10^3/uL (0.83-4.51); Absolute Neutrophil Count 4.5 X10^3/uL (2.0-7.7); Basophil# 0.03 X10^3/uL; Basophil% 0.4 % (0-1); Eosinophil# 0.21 X10^3/uL; Hematocrit 42.9 % (37-47); Hemoglobin 14.1 g/dL (12.0-15.0); Lymphocyte # 1.78 X10^3/ul (0.83-4.51); Lymphocyte % 25.7 % (19-41); Mean Corp Hgb Conc 32.9 g/dL (32-36); Mean Corpuscular Hgb 28.8 pg (27.0-32.0); Mean Corpuscular Volume 87.6 fL (81-99); Mean Platelet Vol. 10.7 fl (6.2-12.0); Monocyte# 0.43 X10^3/uL; Monocyte% 6.2 % (0-10); NRBC Flagged by Analyzer 0 % (0-5); Neutrophil # 4.45 X10^3/uL (2.7-7.7); Neutrophil % 64.3 % (47-70); Platelet Count 220 K/mm3 (150-450); RBC Distribution Width CV 12.4 % (11.6-14.6); RBC Distribution Width SD 39.8 fl (35.1-43.9); White Blood Count 6.9 K/mm3 (4.4-11.0)
[2021-06-14 18:25] LABS: AST(SGOT) 29 U/L (15-37); Alanine Aminotransfer ALT/SGPT 34 U/L (13-56); Albumin, Serum 3.7 g/dL (3.2-5.0); Alkaline Phosphatase 72 U/L (45-117); Anion Gap 8 (5-15); BUN 18 mg/dL (7-18); BUN/Creat Ratio 28.3 RATIO (10-20); Calcium,Total 9.1 mg/dL (8.5-10.1); Chloride 106 mmol/L (98-107); Creatinine, Serum 0.64 mg/dL (0.55-1.02); EST Glomerular Filtration Rate 110 mL/min (>60); Est Glom Filt Rate - Afr Amer 133 mL/min (>60); Globulin 3.6 g/dL (2.2-4.2); Glucose 85 mg/dL (74-106); Potassium 3.7 mmol/L (3.5-5.1); Protein, Total 7.3 g/dL (6.4-8.2); Sodium Level 141 mmol/L (136-145)
[2021-06-14 18:26] LABS: Protein, Urine (Random) 30.4 mg/dL (<11.9); Protein:Creat Ratio 253 mg/g CRE (0-200)
[2021-06-15 15:06] LABS: Color, Urine Yellow (Yellow); Glucose, Dipstick Normal (Normal); Ketone-Dipstick Negative (Negative); Leukocyte Esterase-Dipstick 25 /ul (Negative); Nitrite-Dipstick Negative (Negative); Occult Blood-Urine 10 /ul (Negative); Protein-Dipstick 15 mg/dl (Negative); Specific Gravity, Urine 1.025 (1.002-1.030); Urine Bilirubin Dipstick Negative (Negative); Urine Clarity Cloudy (Clear); Urine Urobilinogen Normal (Normal)
[2021-06-16 16:15] LABS: Complement C3 103 mg/dL (82-167)
== END | disposition home or self-care (01) ==
LOC: MTLAB 15:51
PROVIDERS: PCP Internal Medicine; Referring Provider Internal Medicine Rheumatology; Visit Provider Internal Medicine Rheumatology
DX: M32.9 Systemic lupus erythematosus, unspecified (principal); G40.909 Epilepsy, unspecified, not intractable, without status epilepticus; Z79.899 Other long term (current) drug therapy; M22.40 Chondromalacia patellae, unspecified knee; I10 Essential (primary) hypertension; M21.40 Flat foot [pes planus] (acquired), unspecified foot
CPT/HCPCS: 36415; 80053; 81002; 82570; 84156; 85025; 86160

== ENCOUNTER → 2021-09-09 | Outpatient (CLI) | payer OTHER, SELFPAY ==
[2021-09-09 17:34] LABS: Absolute Lymphocyte Count 1.85 X10^3/uL (0.83-4.51); Absolute Neutrophil Count 3.6 X10^3/uL (2.0-7.7); Basophil# 0.04 X10^3/uL; Basophil% 0.7 % (0-1); Eosinophil# 0.15 X10^3/uL; Eosinophils% 2.5 % (0-5); Hematocrit 41.9 % (37-47); Lymphocyte # 1.85 X10^3/ul (0.83-4.51); Lymphocyte % 30.6 % (19-41); Mean Corp Hgb Conc 33.4 g/dL (32-36); Mean Corpuscular Hgb 29.6 pg (27.0-32.0); Mean Corpuscular Volume 88.6 fL (81-99); Mean Platelet Vol. 10.6 fl (6.2-12.0); Monocyte# 0.38 X10^3/uL; Monocyte% 6.3 % (0-10); NRBC Flagged by Analyzer 0 % (0-5); Neutrophil # 3.62 X10^3/uL (2.7-7.7); Neutrophil % 59.7 % (47-70); Platelet Count 186 K/mm3 (150-450); RBC Distribution Width SD 42.4 fl (35.1-43.9); Red Blood Count 4.73 M/mm3 (4.2-5.4); White Blood Count 6.1 K/mm3 (4.4-11.0)
[2021-09-09 17:38] LABS: Color, Urine Yellow (Yellow); Glucose, Dipstick Normal (Normal); Ketone-Dipstick Negative (Negative); Leukocyte Esterase-Dipstick Negative /ul (Negative); Nitrite-Dipstick Negative (Negative); Occult Blood-Urine 10 /ul (Negative); Protein-Dipstick 30 mg/dl (Negative); Specific Gravity, Urine 1.025 (1.002-1.030); Urine Bilirubin Dipstick Negative (Negative); Urine Clarity Clear (Clear); Urine Urobilinogen Normal (Normal)
[2021-09-09 17:49] LABS: Protein, Urine (Random) 57.4 mg/dL (<11.9); Protein:Creat Ratio 445 mg/g CRE (0-200)
[2021-09-09 18:02] LABS: ALB/GLOB Ratio 1.1 RATIO (0.9-2.4); AST(SGOT) 24 U/L (15-37); Alanine Aminotransfer ALT/SGPT 31 U/L (13-56); Albumin, Serum 3.7 g/dL (3.2-5.0); Alkaline Phosphatase 66 U/L (45-117); Anion Gap 5 (5-15); BUN 16 mg/dL (7-18); BUN/Creat Ratio 25.9 RATIO (10-20); Calcium,Total 8.5 mg/dL (8.5-10.1); Chloride 108 mmol/L (98-107); Creatinine, Serum 0.62 mg/dL (0.55-1.02); EST Glomerular Filtration Rate 114 mL/min (>60); Est Glom Filt Rate - Afr Amer 138 mL/min (>60); Globulin 3.5 g/dL (2.2-4.2); Glucose 82 mg/dL (74-106); Potassium 3.4 mmol/L (3.5-5.1); Protein, Total 7.2 g/dL (6.4-8.2); Sodium Level 140 mmol/L (136-145)
[2021-09-11 10:50] LABS: Complement C3 104 mg/dL (82-167)
== END | disposition home or self-care (01) ==
LOC: MTLAB 14:41
PROVIDERS: PCP Internal Medicine; Referring Provider Internal Medicine Rheumatology; Visit Provider Internal Medicine Rheumatology
DX: M32.9 Systemic lupus erythematosus, unspecified (principal); G40.909 Epilepsy, unspecified, not intractable, without status epilepticus; M22.40 Chondromalacia patellae, unspecified knee; I10 Essential (primary) hypertension; M21.40 Flat foot [pes planus] (acquired), unspecified foot; Z79.899 Other long term (current) drug therapy
CPT/HCPCS: 36415; 80053; 81002; 82570; 84156; 85025; 86160

== ENCOUNTER → 2021-12-07 | Outpatient (CLI) | payer OTHER, SELFPAY ==
[2021-12-07 10:33] LABS: Color, Urine Yellow (Yellow); Glucose, Dipstick Normal (Normal); Ketone-Dipstick Negative (Negative); Leukocyte Esterase-Dipstick Negative /ul (Negative); Nitrite-Dipstick Negative (Negative); Occult Blood-Urine 10 /ul (Negative); Protein-Dipstick 15 mg/dl (Negative); Specific Gravity, Urine 1.025 (1.002-1.030); Urine Bilirubin Dipstick Negative (Negative); Urine Clarity Sl. Cloudy (Clear); Urine Urobilinogen Normal (Normal)
[2021-12-07 10:38] LABS: Absolute Lymphocyte Count 1.84 X10^3/uL (0.83-4.51); Absolute Neutrophil Count 4.4 X10^3/uL (2.0-7.7); Basophil# 0.04 X10^3/uL; Basophil% 0.6 % (0-1); Eosinophil# 0.18 X10^3/uL; Eosinophils% 2.5 % (0-5); Hematocrit 42.6 % (37-47); Hemoglobin 14.3 g/dL (12.0-15.0); Lymphocyte # 1.84 X10^3/ul (0.83-4.51); Mean Corp Hgb Conc 33.6 g/dL (32-36); Mean Corpuscular Hgb 29.9 pg (27.0-32.0); Mean Corpuscular Volume 89.1 fL (81-99); Mean Platelet Vol. 11.2 fl (6.2-12.0); Monocyte# 0.57 X10^3/uL; Monocyte% 8.1 % (0-10); NRBC Flagged by Analyzer 0 % (0-5); Neutrophil # 4.43 X10^3/uL (2.7-7.7); Neutrophil % 62.5 % (47-70); Platelet Count 200 K/mm3 (150-450); RBC Distribution Width CV 12.8 % (11.6-14.6); RBC Distribution Width SD 41.7 fl (35.1-43.9); Red Blood Count 4.78 M/mm3 (4.2-5.4); White Blood Count 7.1 K/mm3 (4.4-11.0)
[2021-12-07 10:49] LABS: Protein, Urine (Random) 28.4 mg/dL (<11.9); Protein:Creat Ratio 263 mg/g CRE (0-200)
[2021-12-07 11:03] LABS: ALB/GLOB Ratio 0.9 RATIO (0.9-2.4); AST(SGOT) 21 U/L (15-37); Alanine Aminotransfer ALT/SGPT 28 U/L (13-56); Albumin, Serum 3.5 g/dL (3.2-5.0); Alkaline Phosphatase 87 U/L (45-117); Anion Gap 5 (5-15); BUN 18 mg/dL (7-18); BUN/Creat Ratio 32.8 RATIO (10-20); Calcium,Total 8.8 mg/dL (8.5-10.1); Chloride 107 mmol/L (98-107); Creatinine, Serum 0.55 mg/dL (0.55-1.02); EST Glomerular Filtration Rate 130 mL/min (>60); Est Glom Filt Rate - Afr Amer 157 mL/min (>60); Glucose 90 mg/dL (74-106); Potassium 3.5 mmol/L (3.5-5.1); Protein, Total 7.5 g/dL (6.4-8.2); Sodium Level 140 mmol/L (136-145)
[2021-12-08 16:19] LABS: Complement C3 113 mg/dL (82-167)
== END | disposition home or self-care (01) ==
PROVIDERS: PCP Internal Medicine; Referring Provider Internal Medicine Rheumatology; Visit Provider Internal Medicine Rheumatology
DX: M32.9 Systemic lupus erythematosus, unspecified (principal); G40.909 Epilepsy, unspecified, not intractable, without status epilepticus; M22.40 Chondromalacia patellae, unspecified knee; I10 Essential (primary) hypertension; M21.40 Flat foot [pes planus] (acquired), unspecified foot; Z79.899 Other long term (current) drug therapy
CPT/HCPCS: 36415; 80053; 81002; 82570; 84156; 85025; 86160

== ENCOUNTER → 2022-03-07 | Outpatient (CLI) | payer OTHER, SELFPAY ==
[2022-03-07 10:08] LABS: Absolute Lymphocyte Count 1.79 X10^3/uL (0.83-4.51); Absolute Neutrophil Count 3.6 X10^3/uL (2.0-7.7); Basophil# 0.03 X10^3/uL; Basophil% 0.5 % (0-1); Eosinophil# 0.19 X10^3/uL; Eosinophils% 3.1 % (0-5); Hematocrit 41.9 % (37-47); Hemoglobin 13.8 g/dL (12.0-15.0); Lymphocyte # 1.79 X10^3/ul (0.83-4.51); Lymphocyte % 29.5 % (19-41); Mean Corp Hgb Conc 32.9 g/dL (32-36); Mean Corpuscular Hgb 28.9 pg (27.0-32.0); Mean Corpuscular Volume 87.7 fL (81-99); Mean Platelet Vol. 10.7 fl (6.2-12.0); Monocyte# 0.48 X10^3/uL; Monocyte% 7.9 % (0-10); NRBC Flagged by Analyzer 0 % (0-5); Neutrophil # 3.57 X10^3/uL (2.7-7.7); Neutrophil % 58.8 % (47-70); Platelet Count 172 K/mm3 (150-450); RBC Distribution Width CV 12.9 % (11.6-14.6); RBC Distribution Width SD 41.4 fl (35.1-43.9); Red Blood Count 4.78 M/mm3 (4.2-5.4); White Blood Count 6.1 K/mm3 (4.4-11.0)
[2022-03-07 10:16] LABS: Protein, Urine (Random) 15.8 mg/dL (<11.9); Protein:Creat Ratio 216 mg/g CRE (0-200)
[2022-03-07 10:24] LABS: AST(SGOT) 19 U/L (15-37); Alanine Aminotransfer ALT/SGPT 24 U/L (13-56); Albumin, Serum 3.4 g/dL (3.2-5.0); Alkaline Phosphatase 68 U/L (45-117); Anion Gap 6 (5-15); BUN 14 mg/dL (7-18); BUN/Creat Ratio 23.7 RATIO (10-20); Calcium,Total 8.7 mg/dL (8.5-10.1); Chloride 107 mmol/L (98-107); Creatinine, Serum 0.59 mg/dL (0.55-1.02); EST Glomerular Filtration Rate 119 mL/min (>60); Est Glom Filt Rate - Afr Amer 144 mL/min (>60); Globulin 3.4 g/dL (2.2-4.2); Glucose 82 mg/dL (74-106); Potassium 3.9 mmol/L (3.5-5.1); Protein, Total 6.8 g/dL (6.4-8.2); Sodium Level 141 mmol/L (136-145)
[2022-03-07 10:39] LABS: Color, Urine Yellow (Yellow); Glucose, Dipstick Normal (Normal); Ketone-Dipstick Negative (Negative); Leukocyte Esterase-Dipstick Negative /ul (Negative); Nitrite-Dipstick Negative (Negative); Occult Blood-Urine Negative /ul (Negative); Protein-Dipstick Negative (Negative); Urine Bilirubin Dipstick Negative (Negative); Urine Clarity Clear (Clear); Urine Urobilinogen Normal (Normal)
[2022-03-10 21:25] LABS: Complement C3 101 mg/dL (82-167)
== END | disposition home or self-care (01) ==
LOC: MTLAB 07:57
PROVIDERS: PCP Internal Medicine; Referring Provider Internal Medicine Rheumatology; Visit Provider Internal Medicine Rheumatology
DX: M32.9 Systemic lupus erythematosus, unspecified (principal); Z79.899 Other long term (current) drug therapy
CPT/HCPCS: 36415; 80053; 81002; 82570; 84156; 85025; 86160

== ENCOUNTER → 2022-05-31 | Outpatient (CLI) | payer OTHER, SELFPAY ==
[2022-05-31 10:33] LABS: Color, Urine Yellow (Yellow); Glucose, Dipstick Normal (Normal); Ketone-Dipstick Negative (Negative); Leukocyte Esterase-Dipstick Negative /ul (Negative); Nitrite-Dipstick Negative (Negative); Occult Blood-Urine 10 /ul (Negative); Protein-Dipstick 15 mg/dl (Negative); Specific Gravity, Urine 1.025 (1.002-1.030); Urine Bilirubin Dipstick Negative (Negative); Urine Clarity Clear (Clear); Urine Urobilinogen Normal (Normal)
[2022-05-31 10:36] LABS: Absolute Lymphocyte Count 1.67 X10^3/uL (0.83-4.51); Absolute Neutrophil Count 4.7 X10^3/uL (2.0-7.7); Basophil# 0.03 X10^3/uL; Basophil% 0.4 % (0-1); Eosinophil# 0.13 X10^3/uL; Eosinophils% 1.8 % (0-5); Hematocrit 44.1 % (37-47); Hemoglobin 14.2 g/dL (12.0-15.0); Lymphocyte # 1.67 X10^3/ul (0.83-4.51); Lymphocyte % 23.3 % (19-41); Mean Corp Hgb Conc 32.2 g/dL (32-36); Mean Corpuscular Hgb 28.8 pg (27.0-32.0); Mean Corpuscular Volume 89.5 fL (81-99); Mean Platelet Vol. 10.5 fl (6.2-12.0); Monocyte# 0.66 X10^3/uL; Monocyte% 9.2 % (0-10); NRBC Flagged by Analyzer 0 % (0-5); Neutrophil # 4.67 X10^3/uL (2.7-7.7); Neutrophil % 65.2 % (47-70); Platelet Count 216 K/mm3 (150-450); RBC Distribution Width CV 13.1 % (11.6-14.6); RBC Distribution Width SD 42.8 fl (35.1-43.9); Red Blood Count 4.93 M/mm3 (4.2-5.4); White Blood Count 7.2 K/mm3 (4.4-11.0)
[2022-05-31 11:03] LABS: AST(SGOT) 23 U/L (15-37); Alanine Aminotransfer ALT/SGPT 32 U/L (13-56); Albumin, Serum 3.7 g/dL (3.2-5.0); Alkaline Phosphatase 63 U/L (45-117); Anion Gap 4 (5-15); BUN 17 mg/dL (7-18); BUN/Creat Ratio 28.5 RATIO (10-20); Calcium,Total 8.9 mg/dL (8.5-10.1); Chloride 106 mmol/L (98-107); EST Glomerular Filtration Rate 118 mL/min (>60); Est Glom Filt Rate - Afr Amer 143 mL/min (>60); Globulin 3.6 g/dL (2.2-4.2); Glucose 80 mg/dL (74-106); Potassium 3.9 mmol/L (3.5-5.1); Protein, Total 7.3 g/dL (6.4-8.2); Sodium Level 137 mmol/L (136-145)
[2022-05-31 11:08] LABS: Protein, Urine (Random) 27.9 mg/dL (<11.9); Protein:Creat Ratio 211 mg/g CRE (0-200)
[2022-06-01 05:07] LABS: Complement C3 100 mg/dL (82-167)
== END | disposition home or self-care (01) ==
LOC: MTLAB 08:39
PROVIDERS: PCP Internal Medicine; Referring Provider Internal Medicine Rheumatology; Visit Provider Internal Medicine Rheumatology
DX: M32.9 Systemic lupus erythematosus, unspecified (principal); G40.909 Epilepsy, unspecified, not intractable, without status epilepticus; Z79.899 Other long term (current) drug therapy; M22.40 Chondromalacia patellae, unspecified knee; I10 Essential (primary) hypertension; M21.40 Flat foot [pes planus] (acquired), unspecified foot
CPT/HCPCS: 36415; 80053; 81002; 82570; 84156; 85025; 86160

== ENCOUNTER → 2022-08-22 | Outpatient (CLI) | payer OTHER, SELFPAY ==
[2022-08-22 13:02] LABS: ALB/GLOB Ratio 0.9 RATIO (0.9-2.4); AST(SGOT) 21 U/L (15-37); Alanine Aminotransfer ALT/SGPT 23 U/L (13-56); Albumin, Serum 3.3 g/dL (3.2-5.0); Alkaline Phosphatase 70 U/L (45-117); Anion Gap 6 (5-15); BUN 14 mg/dL (7-18); BUN/Creat Ratio 21.7 RATIO (10-20); Calcium,Total 8.6 mg/dL (8.5-10.1); Chloride 111 mmol/L (98-107); Creatinine, Serum 0.64 mg/dL (0.55-1.02); EST Glomerular Filtration Rate 108 mL/min (>60); Est Glom Filt Rate - Afr Amer 130 mL/min (>60); Globulin 3.6 g/dL (2.2-4.2); Glucose 105 mg/dL (74-106); Potassium 3.8 mmol/L (3.5-5.1); Protein, Total 6.9 g/dL (6.4-8.2); Sodium Level 140 mmol/L (136-145)
[2022-08-22 13:45] LABS: Color, Urine Yellow (Yellow); Glucose, Dipstick Normal (Normal); Ketone-Dipstick Negative (Negative); Leukocyte Esterase-Dipstick Negative /ul (Negative); Nitrite-Dipstick Negative (Negative); Occult Blood-Urine Negative /ul (Negative); Protein-Dipstick Negative (Negative); Specific Gravity, Urine 1.015 (1.002-1.030); Urine Bilirubin Dipstick Negative (Negative); Urine Clarity Clear (Clear); Urine Urobilinogen Normal (Normal)
[2022-08-22 13:49] LABS: Absolute Lymphocyte Count 1.65 X10^3/uL (0.83-4.51); Absolute Neutrophil Count 4.7 X10^3/uL (2.0-7.7); Basophil# 0.03 X10^3/uL; Basophil% 0.4 % (0-1); Eosinophil# 0.15 X10^3/uL; Eosinophils% 2.2 % (0-5); Hematocrit 42.2 % (37-47); Hemoglobin 13.5 g/dL (12.0-15.0); Lymphocyte # 1.65 X10^3/ul (0.83-4.51); Lymphocyte % 23.7 % (19-41); Mean Corpuscular Hgb 28.6 pg (27.0-32.0); Mean Corpuscular Volume 89.4 fL (81-99); Mean Platelet Vol. 10.3 fl (6.2-12.0); Monocyte# 0.44 X10^3/uL; Monocyte% 6.3 % (0-10); NRBC Flagged by Analyzer 0 % (0-5); Neutrophil # 4.66 X10^3/uL (2.7-7.7); Platelet Count 185 K/mm3 (150-450); RBC Distribution Width SD 42.5 fl (35.1-43.9); Red Blood Count 4.72 M/mm3 (4.2-5.4)
[2022-08-22 14:13] LABS: Protein, Urine (Random) 11.4 mg/dL (<11.9); Protein:Creat Ratio 173 mg/g CRE (0-200)
[2022-08-23 05:07] LABS: Complement C3 113 mg/dL (82-167)
== END | disposition home or self-care (01) ==
LOC: MTLAB 10:46
PROVIDERS: PCP Internal Medicine; Referring Provider Internal Medicine Rheumatology; Visit Provider Internal Medicine Rheumatology
DX: M32.9 Systemic lupus erythematosus, unspecified (principal); Z79.899 Other long term (current) drug therapy
CPT/HCPCS: 36415; 80053; 81002; 82570; 84156; 85025; 86160

== ENCOUNTER → 2023-02-08 | Outpatient (CLI) | payer OTHER, SELFPAY ==
--- OUTSIDE RECORDS SUMMARY | 2023-02-08 07:52 | XMS RPT_ITS | CCD ---
Author Name Unknown Address [address] [place] [address] Organization [facility] Care Team Providers Care Deicer Element Winder Machine Name Role Phone EFRAIN PEREA Unavailable Unavailable EFRAIN PEREA Unavailable Unavailable Luis Enrique CUENCA, Rhett Lafleur Primary Care Provider [phone] Rhett Dudley MD Primary Care Provider [phone] Rhett Dudley MD Primary Care Provider [phone] RHETT DUDLEY Primary Care Unavailable FLEDAVID, RHETT LAFLEUR Primary Care Unavailable LUIS ENRIQUE, RHETT LAFLEUR Primary Care Unavailable RHETT DUDLEY Referring Unavailable FLEDAVID, RHETT LAFLEUR Primary Care Unavailable FLEAK, RHETT LAFLEUR Primary Care Unavailable LUIS ENRIQUE, RHETT LAFLEUR Primary Care Unavailable Rhett Dudley MD Primary Care Provider [phone] Rhett Dudley MD Primary Care Provider [phone] RHETT DUDLEY Primary Care Unavailable FLEDAVID, RHETT MIQUEL Primary Care Unavailable FLEDAVID, RHETT MIQUEL Primary Care Unavailable FLEAK, RHETT MIQUEL Primary Care Unavailable FLEAK, RHETT MIQUEL Primary Care Unavailable FLEAK, RHETT MIQUEL Primary Care Unavailable JACK, TERA Attending Unavailable LUIS ENRIQUE, RHETT LAFLEUR Primary Care Unavailable FLEDAVID, RHETT MIQUEL Primary Care Unavailable FLEDAVID, RHETT MIQUEL Primary Care Unavailable FLEAK, RHETT MIQUEL Primary Care Unavailable RHETT DUDLEY Attending Unavailable FLEAK, RHETT MIQUEL Primary Care Unavailable FLEAK, RHETT MIQUEL Primary Care Unavailable RHETT DUDLEY Primary Care Unavailable RHETT DUDLEY MD Referring Unavailable DIDI MCCARTY DO Admitting Unavailable DIDI MCCARTY DO Primary Care Unavailable DIDI MCCARTY DO Attending Unavailable RHETT DUDLEY MD Consulting Unavailable PROVIDER, UNKNOWN Consulting Unavailable RHETT DUDLEY MD Consulting Unavailable JAKOB DOVER MD Admitting Unava ilable STANISLAW, JAKOB CUENCA Primary Care Unava ilable JAKOB DOVER MD Attending Unava ilable PROVIDER, UNKNOWN Consulting Unavailable JAKOB DOVER MD Admitting Unava ilable BUCKTOWARSINFlavio, JAKOB CUENCA Primary Care Unava ilable STANISLAW, JAKOB CUENCA Attending Unava ilable AINL GRIFFITH MD Referring Unavailable RHETT DUDLEY MD Consulting Unavailable PROVIDER, UNKNOWN Consulting Unavailable RHETT DUDLEY Primary Care Unavailable RHETT DUDLEY Primary Care Unavailable RHETT DUDLEY Primary Care Unavailable RHETT DUDLEY Primary Care Unavailable RHETT DUDLEY Attending Unavailable RHETT DUDLEY Primary Care Unavailable RHETT DUDLEY Primary Care Unavailable Allergies Allergy Classification Reported Allergen(s) Allergy Type Date of Onset Reaction(s) Facility (1 source) Adhesive Tape; Translations: [ADHESIVE TAPE (ROSINS)] Propensity to adverse reactions (disorder) [facility] Repository (20 sources) cephalexin; Translations: [CEPHALEXIN] Drug Allergy 8 [facility] Repository (20 sources) etidronate; Translations: [ETIDRONATE DISODIUM] Drug Allergy 8 [facility] Repository (20 sources) levoFLOXacin; Translations: [LEVOFLOXACIN] Drug Allergy 8 [facility] Repository (20 sources) Acetaminophen / HYDROcodone; Translations: [HYDROCODONE-ACET AMINOPHEN] Drug Allergy 1 [facility] (20 sources) Adhesive Tape-Silicones; Translations: [ADHESIVE TAPE-SILICONES] Drug Allergy 9 [facility] (20 sources) Adhesive agent; Translations: [ADHESIVE] Drug Allergy 2 [facility] (1 source) Adhesive Tape; Translations: [TAPE] Propensity to adverse reactions (disorder) [facility] Repository (1 source) Cephalexin Drug Allergy [facility] Repository Medications Current Medications Medication Drug Class(es) Dates Sig (Normalized) Sig (Original) warfarin sodium 10 mg oral tablet (20 sources) Vitamin K Antagonist Start: 04-25-2022 End: 06-17-2023 take 1 tablet by mouth once daily warfarin (COUMADIN) 10 mg tablet Take 1 tablet by mouth once daily. 90 tablet 1 12/19/2022 06/17/2023 Active Completed/Discontinued Medications Medication Drug Class(es) Dates Sig (Normalized) Sig (Original) amLODIPine 10 mg oral tablet (20 sources) Dihydropyridine Calcium Channel David Start: 12-24-2020 take 1 tablet by mouth once daily amLODIPine (NORVASC) 10 mg tablet Take 10 mg by mouth once daily. 0 12/24/2020 Active Problems Active Problems Problem Classification Problem Date Documented Date Episodic/Chronic Chronic kidney disease (20 sources) Chronic kidney disease stage 1; Translations: [Anemia] Onset: 8 08-19-2021 Chronic Coagulation and hemorrhagic disorders (20 sources) Antiphospholipid syndrome; Translations: [Antiphospholipid syndrome] Onset: 2 08-19-2021 Chronic Epilepsy; convulsions (20 sources) Generalized epilepsy; Translations: [Generalized idiopathic epilepsy and epileptic syndromes, not intractable, without status epilepticus] Onset: 7 01-07-2021 Chronic Essential hypertension (20 sources) Essential hypertension; Translations: [Essential (primary) hypertension] Onset: 7 08-19-2021 Chronic Hypertension with complications and secondary hypertension (20 sources) Chronic kidney disease due to hypertension; Translations: [Hypertensive chronic kidney disease with stage 1 through stage 4 chronic kidney disease, or unspecified chronic kidney disease] Onset: 2 08-19-2021 Chronic Nutritional deficiencies (20 sources) Vitamin D deficiency; Translations: [Vitamin D deficiency, unspecified] Onset: 2 08-19-2021 Chronic Other inflammatory condition of skin (20 sources) Lupus erythematosus; Translations: [Discoid lupus erythematosus] Onset: 7 08-19-2021 Chronic Other nervous system disorders (20 sources) Idiopathic peripheral neuropathy; Translations: [Hereditary and idiopathic neuropathy, unspecified] Onset: 8 08-19-2021 Chronic Other nervous system disorders (2 sources) Hereditary and idiopathic neuropathy, unspecified; Translations: [Idiopathic neuropathy] Onset: 2 Chronic Other nervous system disorders (1 source) Neuropathy; Translations: [Hereditary and idiopathic neuropathy, unspecified] 12-18-2022 Chronic Other nutritional; endocrine; and metabolic disorders (20 sources) Obesity; Translations: [Obesity, unspecified] Onset: 7 08-19-2021 Chronic Other screening for suspected conditions (not mental disorders or infectious disease) (2 sources) Patient encounter status; Translations: [Encounter for screening mammogram for malignant neoplasm of breast] Onset: 3 12-19-2022 Episodic Phlebitis; thrombophlebitis and thromboembolism (20 sources) History of thromboembolism of vein; Translations: [Personal history of other venous thrombosis and embolism] Onset: 7 Episodic Systemic lupus erythematosus and connective tissue disorders (20 sources) SLE glomerulonephritis syndrome; 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] Onset: 2 08-19-2021 Chronic Unclassified (1 source) Unknown / UNK(Unknown) Onset: 8 Unclassified (1 source) Cough, unspecified; Translations: [Cough, unspecified] Onset: 3 Past or Other Problems Problem Classification Problem Date Documented Da te Episodic/Chronic Genitourinary symptoms and ill-defined conditions (20 sources) Proteinuria; Translations: [Proteinuria, unspecified] Onset: 08-19-2021 08-19-2021 Episodic Other aftercare (1 source) buttermaker (current) use of anticoagulants; Translations: [buttermaker (current) use of anticoagulants] Onset: 05-16-2022 Episodic Other ear and sense organ disorders (20 sources) Impacted cerumen; Translations: [Impacted cerumen, unspecified ear] Onset: 12-07-2006 08-19-2021 Episodic Unclassified (1 source) Cough, unspecified; Translations: [Cough, unspecified] Onset: 05-16-2022 Viral infection (1 source) Viral infection, unspecified; Translations: [Viral infection, unspecified] Onset: 05-16-2022 Episodic Results Test Name Value Interpretation Reference Range Facil ity Vital Signs Date Time Vital Sign Value Performing Clinician Mike hardin 12-19-2022 08:54-0500 Body height 180.3 cm Rhett Dudley MD Work Phone: [facility] 12-19-2022 08:54-0500 Body weight 127.01 kg Rhett Dudley MD Work Phone: [facility] 12-19-2022 08:54-0500 Diastolic blood pressure 83 mm[Hg] Rhett Dudley MD Work Phone: [facility] 12-19-2022 08:54-0500 Heart rate 70 /min Rhett Dudley MD Work Phone: [facility] 12-19-2022 08:54-0500 Respiratory rate 15 /min Rhett Dudley MD Work Phone: [facility] 12-19-2022 08:54-0500 SaO2% (BldA) [Mass fraction] 99 % Rhett Dudley MD Work Phone: [facility] 12-19-2022 08:54-0500 Systolic blood pressure 119 mm[Hg] Rhett Dudley MD Work Phone: [facility] 09-02-2021 15:29-0400 Body height 171.5 cm Nurse [facility] 09-02-2021 15:29-0400 Body weight 119.75 kg Nurse [facility] 08-19-2021 15:31-0400 Body height 171.5 cm Nurse [facility] 08-19-2021 15:31-0400 Body weight 119.75 kg Nurse [facility] Encounters Encounter Date Encounter Type Care Provider Facility Start: 01-16-2023 End: 01-16-2023 ambulatory RHETT DUDLEY Facility:[id number] Start: 01-16-2023 End: 01-16-2023 Patient encounter procedure Nurse Chana Abel Work Phone: [facility] Internal Medicine Procedures Date Procedure Procedure Detail Performing Clinician Start: 01-16-2023 Prothrombin time [facility] ovider Start: 01-02-2023 Prothrombin time [facility] ov[facility] Start: 12-14-2022 Prothrombin time [facility] ov[facility] Start: 12-05-2022 Prothrombin time [facility] ov[facility] Start: 11-13-2022 Urinalysis RHETT ROQUE CARMENVivek Plan of Treatment Date Care Activity Detail Author Start: 03-16-2025 PAP TESTING PAP TESTING [facility] Start: 03-16-2025 Screening for malign ant neoplasm of cervix Pap Testing [facility] Start: 12-20-2023 Annual PCP Team Human Resources Consultant elan Disease Visit Annual PCP Team Chronic Disease Visit [facility] Start: 12-20-2023 Covid-19 Vaccine (#1) Covid-19 Vacci ne (#1) [facility] Payers Date Payer Category Payer Unknown [id number] 2020 Unknown [id number] 2020 Unknown [id number] 1981 Unknown [id number] 1981 Unknown [id number] 1981 Unknown [id number] Unknown [id number] Social History Date Type Detail Facility Start: 01-07-2021 End: 12-13-2021 Tobacco smoking status NHIS Ex-smoker [facility] History of tobacco use Cigarette Smoker [facility] Start: 01-07-2021 End: 12-13-2021 Tobacco use and exposure [facility] Start: 03-31-2021 End: 12-19-2022 Alcohol intake Ex-drinker (finding) [facility] Start: 01-07-2021 History SDOH Alcohol Comment occasionally [facility] Start: 01-07-2021 End: 12-13-2021 Tobacco Comment off and on smoker previously [facility] Start: 1980 Sex Assigned At Not on file [facility] Start: 07-16-2021 End: 12-20-2021 Exposure to SARS-CoV-2 (event) Not sure [facility] History of tobacco use Current smoker [facility] Start: 02-21-2022 End: 07-04-2022 History of Social function [facility] Start: 02-21-2022 End: 07-04-2022 Tobacco use panel [facility] Adult Depression Screening Assessment 0 [facility] Tobacco smoking stat us [facility] Tobacco smoking consumption unknown [facility] Clinical Notes 07-26-2021 to 01-16-2023 Paty Matthew LPN - 01/16/2023 11:26 AM ESTPatient Paty Calero LPN - 01/02/2023 10:18 AM ESTPatient Rhett Ignacio MD - 12/19/2022 9:15 AM EST Note Date & Type Note Facility 01-16-2023 Note HNO ID: [id number] Author: Paty Matthew LPN Service: ? Author Type: LICENSED NURSE Type: Progress Notes Filed: 01/16/2023 11:27 AM Note Text: INR 2.1 no change RECHECK 1 MONTH Paty Matthew LPN [facility] 01-16-2023 History of Presen t illness Narrative INR 2.1 no change RECHECK 1 MONTH Paty Matthew LPN documented in this encounter [facility] 01-16-2023 Instructions Paty Matthew LPN - 01/16/2023 11:06 AM EST PT TO CONTINUE 5MG DAILY EXCEPT 10MG MONDAYS/WEDNESDAYS/FRIDAYS documented in this encounter [facility] 01-02-2023 Note HNO ID: [id number] Author: Paty Matthew LPN Service: ? Author Type: LICENSED NURSE Type: Progress Notes Filed: 01/02/2023 10:19 AM Note Text: INR 3.0 decrease TO TAKE 5MG DAILY EXCEPT 10MG MON/SUN/SUN. RECHECK 2 WEEKS. Paty Matthew LPN [facility] 01-02-2023 History of Presen t illness Narrative INR 3.0 decrease TO TAKE 5MG DAILY EXCEPT 10MG MON/SUN/SUN. RECHECK 2 WEEKS. Paty Matthew LPN documented in this encounter [facility] 01-02-2023 Instructions Paty Matthew LPN - 01/02/2023 10:16 AM EST PT TO TAKE 5MG DAILY EXCEPT 10MG MONDAYS/WEDNESDAYS/FRIDAYS documented in this encounter [facility] 12-19-2022 Note HNO ID: [id number] Author: Rhett Dudley MD Service: ? Author Type: Physician Type: Progress Notes Filed: 12/19/2022 9:11 AM Note Text: VISIT TYPE: ANNUAL WELL VISIT Nursing Notes: Ant Araya MA 12/19/2022 9:01 AM Signed physical CHIEF COMPLAINT: Patient presents with: Physical Hypertension HPI: Rogers Rodríguez is a 41 year old female here for an Annual Well Visit. No new issues/complaints. History reviewed below. Hypertension. Taking medication as prescribed. No medication side effects noted. Present for years. Condition has been well controlled since last visit. Average out of office BP has been 130/80. SLE. Following with Dr Griffith, manager purchasing in [place] for her Lupus. She is still on Plaquenil. She underwent renal biopsy. She was dx with nephritis and put on cellcept. Following with Dr Cross. 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 He added lisinopril due to increased protein. Seizure Disorder. Following with Dr Pozo. Stable on dilantin for years. She went back for a follow up and he advised she stay on this. Recurrent DVT/chronic coumadin. Patient remains stable on coumadin. She says they are using condoms for control. DUB. Had DANDC in 06/[address] Pena. She improved for awhile, but then it got worse again. She underewent lap hyster 04/15/20. No complications. No issues since. fatigue/mild [place]. Deferred CPAP and wanted to work on behavioral modifications. hypokalemia. Nephro started on replacement. REVIEW OF SYSTEMS: Review of Systems Constitutional: Negative for chills, fatigue, fever and unexpected weight change. HENT: Negative for ear pain, sinus pressure, sinus pain and sore throat. Eyes: Negative for visual disturbance. Respiratory: Negative for cough, shortness of breath and wheezing. Cardiovascular: Negative for chest pain, palpitations and leg swelling. Gastrointestinal: Negative for abdominal pain, constipation, diarrhea, nausea and vomiting. Endocrine: Negative for cold intolerance and heat intolerance. Genitourinary: Negative for dysuria and frequency. Musculoskeletal: Negative for arthralgias and myalgias. Allergic/Immunologic: Negative for environmental allergies. Neurological: Negative for dizziness, weakness and headaches. Psychiatric/Behavioral: Negative for sleep disturbance. The patient is not nervous/anxious. Current Outpatient Medications Medication Sig Dispense Refill ferrous sulfate (SLOW FE) 140 mg (45 mg iron) TbER Take 1 tablet by mouth once daily. warfarin (COUMADIN) 10 mg tablet Take 1 tablet by mouth once daily. 30 tablet 3 phenytoin ER (DILANTIN) 100 mg ER capsule Take 2 capsules by mouth twice daily. 120 capsule 11 lisinopril (ZESTRIL, PRINIVIL) 5 mg tablet Take 5 mg by mouth once daily. amLODIPine (NORVASC) 10 mg tablet Take 10 mg by mouth once daily. mycophenolate Mofetil (CELLCEPT) 500 mg tablet Take 1,000 mg by mouth twice daily. potassium chloride 20 mEq TbER Take 1 tablet by mouth once daily. predniSONE (DELTASONE) 10 mg tablet as needed. gabapentin (NEURONTIN) 300 mg capsule Take 300 mg by mouth daily at bedtime. hydrOXYchloroQUINE (PLAQUENIL) 200 mg tablet Take 2 tablets by mouth once daily. No current facility-administered medications for this visit. ALLERGIES Allergen Reactions Adhesive Unknown Adhesive Tape-Silic* Rash Didronel [Etidronat* Rash Keflex [Cephalexin] Hives Levaquin [Levofloxa* Hives [place] [Hydrocodone-* Hives PAST MEDICAL HISTORY Diagnosis Date DUB (dysfunctional uterine bleeding) Dr Pena HTN (hypertension) Hypokalemia Idiopathic peripheral neuropathy Lupus (HCC) Sees Dr Inder koo [place] (obstructive sleep apnea) Mild- deferred CPAP Recurrent deep vein thrombosis (DVT) (HCC) Seizure disorder (HCC) PAST SURGICAL HISTORY Procedure Laterality Date HYSTERECTOMY HX 04/15/2020 for DUB KIDNEY BIOPSY 2018 RENAL BIOPSY 2003 FAMILY HISTORY Problem Relation Age of Onset Hyperlipidemia Mother Hypertension Mother Diabetes Mother No Known Problems Father Social History Tobacco Use Smoking status: Former Types: Cigarettes Smokeless tobacco: Never Tobacco comments: off and on smoker previously Vaping Use Vaping Use: Never used Substance Use Topics Alcohol use: Not Currently Comment: occasionally Drug use: Never Employer And Job Title: [employer] Years Of Education Completed: Not specified Marital Status: with no children Social History Social History Narrative Mother lives with her and her . PHYSICAL EXAM BP 119/83 (BP Site: Right Arm, BP Position: Sitting, BP Cuff Size: Large Adult) Pulse 70 Resp 15 Ht 180.3 cm (5' 11 ) Wt 127 kg (280 lb) SpO2 99% BMI 39.05 kg/m? Physical Exam Constitutional: General: She is not in acute distress. Appearance: Normal appearance. She is obese. HENT: Head: Normoceph (more 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 [facility] 12-19-2022 History of Presen t illness Narrative VISIT TYPE: ANNUAL WELL VISIT Nursing Notes: Ant Araya MA 12/19/2022 9:01 AM Signed physical CHIEF COMPLAINT: Patient presents with: Physical Hypertension HPI: Rogers Rodríguez is a 41 year old female here for an Annual Well Visit. No new issues/complaints. History reviewed below. Hypertension. Taking medication as prescribed. No medication side effects noted. Present for years. Condition has been well controlled since last visit. Average out of office BP has been 130/80. SLE. Following with Dr Griffith, manager purchasing in [place] for her Lupus. She is still on Plaquenil. She underwent renal biopsy. She was dx with nephritis and put on cellcept. Following with Dr Cross. 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 He added lisinopril due to increased protein. Seizure Disorder. Following with Dr Pozo. Stable on dilantin for years. She went back for a follow up and he advised she stay on this. Recurrent DVT/chronic coumadin. Patient remains stable on coumadin. She says they are using condoms for control. DUB. Had D&C in 06/[address] Pena. She improved for awhile, but then it got worse again. She underewent lap hyster 04/15/20. No complications. No issues since. fatigue/mild [place]. Deferred CPAP and wanted to work on behavioral modifications. hypokalemia. Nephro started on replacement. REVIEW OF SYSTEMS: Review of Systems Constitutional: Negative for chills, fatigue, fever and unexpected weight change. HENT: Negative for ear pain, sinus pressure, sinus pain and sore throat. Eyes: Negative for visual disturbance. Respiratory: Negative for cough, shortness of breath and wheezing. Cardiovascular: Negative for chest pain, palpitations and leg swelling. Gastrointestinal: Negative for abdominal pain, constipation, diarrhea, nausea and vomiting. Endocrine: Negative for cold intolerance and heat intolerance. Genitourinary: Negative for dysuria and frequency. Musculoskeletal: Negative for arthralgias and myalgias. Allergic/Immunologic: Negative for environmental allergies. Neurological: Negative for dizziness, weakness and headaches. Psychiatric/Behavioral: Negative for sleep disturbance. The patient is not nervous/anxious. Current Outpatient Medications Medication Sig Dispense Refill ferrous sulfate (SLOW FE) 140 mg (45 mg iron) TbER Take 1 tablet by mouth once daily. warfarin (COUMADIN) 10 mg tablet Take 1 tablet by mouth once daily. 30 tablet 3 phenytoin ER (DILANTIN) 100 mg ER capsule Take 2 capsules by mouth twice daily. 120 capsule 11 lisinopril (ZESTRIL, PRINIVIL) 5 mg tablet Take 5 mg by mouth once daily. amLODIPine (NORVASC) 10 mg tablet Take 10 mg by mouth once daily. mycophenolate Mofetil (CELLCEPT) 500 mg tablet Take 1,000 mg by mouth twice daily. potassium chloride 20 mEq TbER Take 1 tablet by mouth once daily. predniSONE (DELTASONE) 10 mg tablet as needed. gabapentin (NEURONTIN) 300 mg capsule Take 300 mg by mouth daily at bedtime. hydrOXYchloroQUINE (PLAQUENIL) 200 mg tablet Take 2 tablets by mouth once daily. No current facility-administered medications for this visit. ALLERGIES Allergen Reactions Adhesive Unknown Adhesive Tape-Silic* Rash Didronel [Etidronat* Rash Keflex [Cephalexin] Hives Levaquin [Levofloxa* Hives [place] [Hydrocodone-* Hives PAST MEDICAL HISTORY Diagnosis Date DUB (dysfunctional uterine bleeding) Dr Pena HTN (hypertension) Hypokalemia Idiopathic peripheral neuropathy Lupus (HCC) Sees Dr Inder koo [place] (obstructive sleep apnea) Mild- deferred CPAP Recurrent deep vein thrombosis (DVT) (HCC) Seizure disorder (HCC) PAST SURGICAL HISTORY Procedure Laterality Date HYSTERECTOMY HX 04/15/2020 for DUB KIDNEY BIOPSY 2018 RENAL BIOPSY 2003 FAMILY HISTORY Problem Relation Age of Onset Hyperlipidemia Mother Hypertension Mother Diabetes Mother No Known Problems Father Social History Tobacco Use Smoking status: Former Types: Cigarettes Smokeless tobacco: Never Tobacco comments: off and on smoker previously Vaping Use Vaping Use: Never used Substance Use Topics Alcohol use: Not Currently Comment: occasionally Drug use: Never Employer And Job Title: [employer] Years Of Education Completed: Not specified Marital Status: with no children Social History Social History Narrative Mother lives with her and her . PHYSICAL EXAM BP 119/83 (BP Site: Right Arm, BP Position: Sitting, BP Cuff Size: Large Adult) Pulse 70 Resp 15 Ht 180.3 cm (5' 11 ) Wt 127 kg (280 lb) SpO2 99% BMI 39.05 kg/m Physical Exam Constitutional: General: She is not in acute distress. Appearance: Normal appearance. She is obese. HENT: Head: Normocephalic and atraumatic. Right Ear: Ear canal and external ear normal. There is impacted cerumen. Left Ear: Ear canal and external ear normal. There is impacted cerumen. Ears: Comments: Tms not visible Nose: Nose normal. Mouth/Throat: Mouth: Mucous membranes are moist. Pharynx: Oropharynx is clear. No oropharyngeal exudate or posterior oropharyngeal erythema. Eyes: Extraocular Movements: Extraocular movements intact. Conjunctiva/sclera: Conjunctivae normal. Pupils: Pupils are equal, round, and reactive to light. Neck: Vascular: No carotid bruit. Cardiovascular: Rate and Rhythm: Normal rate and regular rhythm. Pulses: Normal pulses. Heart sounds: Normal heart sounds. No murmur heard. Pulmonary: Effort: Pulmonary effort is normal. No respiratory distress. Breath sounds: Normal breath sounds. No wheezing, rhonchi or rales. Abdominal: General: Abdomen is flat. Bowel sounds are normal. There is no distension. Palpations: Abdomen is soft. Tenderness: There is no abdominal tenderness. There is no guarding or rebound. Musculoskeletal: General: No swelling. Normal range of motion. Cervical back: Normal range of motion and neck supple. No tenderness. Skin: General: Skin is warm and dry. Neurological: General: No focal deficit present. Mental Status: She is alert and oriented to person, place, and time. Psychiatric: Mood and Affect: Mood normal. Behavior: Behavior normal. Thought Content: Thought content normal. Judgment: Judgment normal. DIAGNOSTICS REVIEWED Labs done through Nephrology - see progress note 11/22/22 under scanned documents. IMPRESSION / PLAN ASSESSMENT/PLAN: 1. Wellness examination - ICD9: V70.0, ICD10: Z00.00 (primary diagnosis) Here for annual wellness exam. History and physical reviewed and updated. Health maintenance screenings and vaccine recommendations were reviewed. Chronic issues addressed below. 2. Essential hypertension, benign - ICD9: 401.1, ICD10: I10 On norvasc and lisinopril - Controlled - Continue current medications - Recommend home blood pressure monitoring, to bring results to next visit - Encouraged sodium restriction, DASH or Mediterranean diet - Recommend regular aerobic exercise 3. Systemic lupus erythematosus, unspecified SLE type, unspecified organ involvement status (HCC) - ICD9: 710.0, ICD10: M32.[address] Griffith in [place]. On plaquenil, prednisone and mycophenolate. 4. Idiopathic neuropathy - ICD9: 355.9, ICD10: G60.9 On gabapentin. 5. Other generalized epilepsy, not intractable, without status epilepticus (HCC) - ICD9: 345.90, ICD10: G40.409 On dilantin. Follows with Dr Pozo. 6. Personal history of other venous thrombosis and embolism - ICD9: V12.51, ICD10: Z86.718 On lifelong anticoagulation with coumadin. Rhett Dudley MD Follow up 1 year. documented in this encounter [facility] 12-19-2022 Nurse Note physical documented in this encounter [facility] 12-14-2022 Note HNO ID: [id number] Author: Paty Matthew LPN Service: ? Author Type: LICENSED NURSE Type: Progress Notes Filed: 12/14/2022 10:36 AM Note Text: INR 2.0 increase TO TAKE 10MG DAILY EXCEPT 5MG TUES/THURS/SAT. RECHECK 2 WEEKS. Paty Matthew LPN [facility] 12-14-2022 History of Presen t illness Narrative INR 2.0 increase TO TAKE 10MG DAILY EXCEPT 5MG TUES/THURS/SAT. RECHECK 2 WEEKS. Paty Matthew LPN documented in this encounter [facility] 12-14-2022 Instructions Paty Matthew LPN - 12/14/2022 10:28 AM EST PT TO TAKE 10MG DAILY EXCEPT 5MG TUESDAYS/THURSDAYS/SATURDAYS documented in this encounter [facility] 12-07-2022 Note HNO ID: [id number] Author: Paty Matthew LPN Service: ? Author Type: LICENSED NURSE Type: Progress Notes Filed: 12/07/2022 10:44 AM Note Text: INR 2.0 PT TO TAKE 5MG DAILY EXCEPT 10MG MON/SUN/FRI. RECHECK 1 WEEK. Paty Matthew LPN [facility] 12-05-2022 Note HNO ID: [id number] Author: Paty Matthew LPN Service: ? Author Type: LICENSED NURSE Type: Progress Notes Filed: 12/05/2022 11:09 AM Note Text: INR 5.4 HOLD X 2 RECHECK SUNDAY. Paty Matthew LPN [facility] 12-05-2022 History of Presen t illness Narrative INR 5.4 HOLD X 2 RECHECK SUNDAY. Paty Matthew LPN documented in this encounter [facility] 12-05-2022 Instructions Paty Matthew LPN - 12/05/2022 11:05 AM EDT PT TO HOLD TODAY AND TOMORROW AND RECHECK SUNDAY documented in this encounter [facility] 10-12-2022 Miscellaneous Notes Patient phones requesting refills as follows: Requested Prescriptions Pending Prescriptions Disp Refills warfarin (COUMADIN) 10 mg tablet 30 tablet 3 Sig: Take 1 tablet by mouth once daily. Please review and advise. Nicol Aleman LPN documented in this encounter [facility] 10-03-2022 Note HNO ID: [id number] Author: Paty Matthew LPN Service: ? Author Type: LICENSED NURSE Type: Progress Notes Filed: 10/03/2022 11:00 AM Note Text: INR 2.2 no change RECHECK 1 MONTH Paty Matthew LPN [facility] 10-03-2022 History of Presen t illness Narrative INR 2.2 no change RECHECK 1 MONTH Paty Matthew LPN documented in this encounter [facility] 10-03-2022 Instructions Paty Matthew LPN - 10/03/2022 10:47 AM EDT PT TO CONTINUE 10MG DAILY EXCEPT 5MG SATURDAYS/SUNDAYS documented in this encounter [facility] 08-30-2022 Note HNO ID: [id number] Author: Paty Matthew LPN Service: ? Author Type: LICENSED NURSE Type: Progress Notes Filed: 08/30/2022 10:34 AM Note Text: INR 2.1 no change RECHECK 1 MONTH Paty Matthew LPN [facility] 08-02-2022 Note HNO ID: [id number] Author: Paty Matthew LPN Service: ? Author Type: LICENSED NURSE Type: Progress Notes Filed: 08/02/2022 10:35 AM Note Text: INR 2.4 no change RECHECK 1 MONTH Paty Matthew LPN [facility] 08-02-2022 History of Presen t illness Narrative INR 2.4 no change RECHECK 1 MONTH Paty Matthew LPN documented in this encounter [facility] 08-02-2022 Instructions Paty Matthew LPN - 08/02/2022 10:31 AM EDT PT TO CONTINUE 10MG DAILY EXCEPT 5MG SATURDAYS/SUNDAYS documented in this encounter [facility] 07-05-2022 Note HNO ID: [id number] Author: Paty Matthew LPN Service: ? Author Type: LICENSED NURSE Type: Progress Notes Filed: 07/05/2022 9:54 AM Note Text: INR 2.6 no change RECHECK 1 MONTH Paty Matthew LPN [facility] 07-05-2022 History of Presen t illness Narrative INR 2.6 no change RECHECK 1 MONTH Paty Matthew LPN documented in this encounter [facility] 07-05-2022 Instructions Paty Matthew LPN - 07/05/2022 9:51 AM EDT PT TO CONTINUE 10MG DAILY EXCEPT 5MG SATURDAYS/SUNDAYS documented in this encounter [facility] 05-30-2022 Note HNO ID: [id number] Author: Paty Matthew LPN Service: ? Author Type: LICENSED NURSE Type: Progress Notes Filed: 05/30/2022 11:32 AM Note Text: INR 2.7 no change RECHECK 1 MONTH Paty Matthew LPN [facility] 05-30-2022 History of Presen t illness Narrative INR 2.7 no change RECHECK 1 MONTH Paty Matthew LPN documented in this encounter [facility] 05-30-2022 Instructions Paty Matthew LPN - 05/30/2022 11:07 AM EDT PT TO CONTINUE 10MG DAILY EXCEPT 5MG SATURDAYS/SUNDAYS documented in this encounter [facility] 05-25-2022 Miscellaneous Notes Summary: REFILL Patient phones requesting refills as follows: Requested Prescriptions Pending Prescriptions Disp Refills warfarin (COUMADIN) 10 mg tablet 30 tablet 3 Sig: Take 1 tablet by mouth once daily. Please review and advise. Elizabeth Barbosa MA documented in this encounter [facility] 05-02-2022 Note HNO ID: [id number] Author: Paty Matthew LPN Service: ? Author Type: LICENSED NURSE Type: Progress Notes Filed: 05/02/2022 11:23 AM Note Text: INR 2.5 no change RECHECK 1 MONTH Paty Matthew LPN [facility] 04-04-2022 Note HNO ID: [id number] Author: Paty Matthew LPN Service: ? Author Type: LICENSED NURSE Type: Progress Notes Filed: 04/04/2022 11:06 AM Note Text: INR 2.3 no change RECHECK 1 MONTH Paty Matthew LPN [facility] 04-04-2022 History of Presen t illness Narrative INR 2.3 no change RECHECK 1 MONTH Paty Matthew LPN documented in this encounter [facility] 04-04-2022 Instructions Paty Matthew LPN - 04/04/2022 11:03 AM EST PT TO CONTINUE 10MG DAILY EXCEPT 5MG SATURDAYS/SUNDAYS documented in this encounter [facility] 03-07-2022 Note HNO ID: [id number] Author: Paty Matthew LPN Service: ? Author Type: LICENSED NURSE Type: Progress Notes Filed: 03/07/2022 11:13 AM Note Text: INR 2.0 no change RECHECK 1 MONTH Paty Matthew LPN [facility] 03-07-2022 History of Presen t illness Narrative INR 2.0 no change RECHECK 1 MONTH Paty Matthew LPN documented in this encounter [facility] 03-07-2022 Instructions Paty Matthew LPN - 03/07/2022 11:02 AM EST PT TO CONTINUE 10MG DAILY EXCEPT 5MG SATURDAYS/SUNDAYS documented in this encounter [facility] 02-23-2022 Miscellaneous Notes Patient called needing a jury duty excuse. Letter was faxed to the court at [phone] and patient was advised. documented in this encounter [facility] 02-21-2022 Miscellaneous Notes Pharmacy called and stated that they cannot get Dilantin 200 mg capsules, so we have to order it as 100 mg 2 capsules twice daily New order is attached. documented in this encounter [facility] 02-21-2022 Note HNO ID: [id number] Author: Tera Pozo MD Service: ? Author Type: Physician Type: Progress Notes Filed: 02/21/2022 8:56 AM Note Text: Referring Provider: No ref. provider found Date: February 21, 2022 Chief Complaint: Seizures HISTORY OF PRESENT ILLNESS: Rogers Rodríguez is a 41 year old female who follows for seizures. Patient is a left handed, woman. 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 She has been to Dr. Pozo previously in the for seizures and was put on Dilantin. She is currently living with her mother and . The patient is taking Dilantin 100 mg 2 capsules twice daily with no medication side effects. She has been seizures free but she has been getting frequent headaches. She takes tylenol for them which relieve them. She denies any nausea, light or noise sensitivity, and any depression. I, Lori Tony MA, transcribing for Tera Pozo MD. ALLERGIES Allergen Reactions Adhesive Unknown Adhesive Tape-Silic* Rash Didronel [Etidronat* Rash Keflex [Cephalexin] Hives Levaquin [Levofloxa* Hives [place] [Hydrocodone-* Hives PAST MEDICAL HISTORY: PAST MEDICAL HISTORY Diagnosis Date DUB (dysfunctional uterine bleeding) Dr Pena HTN (hypertension) Hypokalemia Idiopathic peripheral neuropathy Lupus (HCC) Sees Dr Inder koo [place] (obstructive sleep apnea) Mild- deferred CPAP Recurrent deep vein thrombosis (DVT) (HCC) Seizure disorder (HCC) PAST SURGICAL HISTORY Procedure Laterality Date HYSTERECTOMY HX 04/15/2020 for DUB KIDNEY BIOPSY 2018 RENAL BIOPSY 2003 FAMILY HISTORY Problem Relation Age of Onset Hyperlipidemia Mother Hypertension Mother No Known Problems Father SOCIAL HISTORY: Tobacco Use: Types: Cigarettes Alcohol Use: Not Currently (occasionally) Drug Use: Never Employer And Job Title: [employer] Years Of Education Completed: Not specified Marital Status: MEDICATIONS: Current Outpatient Medications Medication Sig warfarin (COUMADIN) 10 mg tablet Take 1 tablet by mouth daily as directed. lisinopril (ZESTRIL, PRINIVIL) 5 mg tablet Take 5 mg by mouth once daily. phenytoin ER (DILANTIN) 100 mg ER capsule Take 2 capsules by mouth twice daily. amLODIPine (NORVASC) 10 mg tablet Take 10 mg by mouth once daily. potassium chloride 20 mEq TbER Take 1 tablet by mouth once daily. predniSONE (DELTASONE) 10 mg tablet as needed. gabapentin (NEURONTIN) 300 mg capsule Take 300 mg by mouth daily at bedtime. hydrOXYchloroQUINE (PLAQUENIL) 200 mg tablet Take 2 tablets by mouth once daily. ferrous sulfate 325 mg (65 mg iron) tablet Take 325 mg by mouth daily with breakfast. mycophenolate Mofetil (CELLCEPT) 500 mg tablet Take 1,000 mg by mouth twice daily. No current facility-administered medications for this visit. I have personally reviewed the patients past medical history including social, family, surgical, diagnostics, and medications./AB Review of Systems Constitutional: Negative for chills, fever and unexpected weight change. HENT: Negative for congestion, facial swelling, trouble swallowing and voice change. Eyes: Negative for visual disturbance. Respiratory: Negative for shortness of breath. Cardiovascular: Negative for chest pain. Gastrointestinal: Negative for diarrhea, nausea and vomiting. Musculoskeletal: Negative for gait problem and myalgias. Allergic/Immunologic: Negative. Negative for immunocompromised state. Neurological: Positive for seizures. Negative for dizziness, syncope and light-headedness. Psychiatric/Behavioral: Negative. Negative for hallucinations and self-injury. Vitals: BP 119/80 Pulse (!) 59 Ht 180.3 cm (5' 11 ) Wt 122 kg (269 lb) BMI 37.52 kg/m? PHYSICAL EXAM:: The physical exam findings are as follows: General General Appearance - Well groomed. Obese. Orientation: Oriented to time, oriented to place, and oriented to person. Higher Cortical Function: Awake and alert. Language functions are intact. Patient names well and repeats well, spontaneous speech as well as comprehension is normal and fund of knowledge is intact for the patient level of education. Attention span and concentration are normal and as expected for patient's age. Neurologic CRANIAL NERVES: ll - Makes and sustains eye contact. Visual meier are full to confrontation testing. lll, lV, Vl - Pupils are 2 -3 mm in size and reactive. External ocular movements are full and there is no nystagmus. V - Facial sensation to light touch and pin prick, normal. Vll - No facial asymmetry Vlll - Normal hearing. lX - Palatal movements, normal. Xl - Good and equal shoulder shrugs. Xll - Tongue protrusion, midline. Motor Exam Bulk/Size: Normal Strength Exam: Upper Extremity Right Left Deltoid 5 5 Biceps 5 5 Triceps 5 5 Wrist Extensor 5 5 Wrist Flexor 5 5 APB 5 5 FDI 5 5 Lower Extremity Right Left Flexor hip (more 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 [facility] 02-02-2022 Note HNO ID: [id number] Author: Paty Matthew LPN Service: ? Author Type: LICENSED NURSE Type: Progress Notes Filed: 02/02/2022 11:14 AM Note Text: INR 2.8 no change RECHECK 1 MONTH Paty Matthew LPN [facility] 02-02-2022 History of Presen t illness Narrative INR 2.8 no change RECHECK 1 MONTH Paty Matthew LPN documented in this encounter [facility] 02-02-2022 Instructions Paty Matthew LPN - 02/02/2022 11:12 AM EST PT TO CONTINUE 10MG DAILY EXCEPT 5MG SATURDAYS/SUNDAYS documented in this encounter [facility] 01-05-2022 Note HNO ID: [id number] Author: Paty Matthew LPN Service: ? Author Type: LICENSED NURSE Type: Progress Notes Filed: 01/05/2022 3:36 PM Note Text: INR 2.3 no change RECHECK 1 MONTH Paty Matthew LPN [facility] 01-05-2022 History of Presen t illness Narrative INR 2.3 no change RECHECK 1 MONTH Paty Matthew LPN documented in this encounter [facility] 01-05-2022 Instructions Paty Matthew LPN - 01/05/2022 1:54 PM EST PT TO CONTINUE 10MG DAILY EXCEPT 5MG SATURDAYS/SUNDAYS documented in this encounter [facility] 01-05-2022 Miscellaneous Notes DDM CALEB Patient phones requesting refills as follows: Requested Prescriptions Pending Prescriptions Disp Refills warfarin (COUMADIN) 10 mg tablet 30 tablet 3 Sig: Take 1 tablet by mouth daily as directed. Please review and advise. Ayesha Freedman MA documented in this encounter [facility] 12-20-2021 Note HNO ID: [id number] Author: Paty Matthew LPN Service: ? Author Type: LICENSED NURSE Type: Progress Notes Filed: 12/20/2021 11:15 AM Note Text: INR 3.0 decrease TO TAKE 10MG DAILY EXCEPT 5MG SAT/SUN. RECHECK 2 WEEKS. Paty Matthew LPN [facility] 12-20-2021 History of Presen t illness Narrative INR 3.0 decrease TO TAKE 10MG DAILY EXCEPT 5MG SAT/SUN. RECHECK 2 WEEKS. Paty Matthew LPN documented in this encounter [facility] 12-20-2021 Instructions Paty Matthew LPN - 12/20/2021 11:09 AM EST PT TO TAKE 10MG DAILY EXCEPT 5MG SATURDAYS AND SUNDAYS documented in this encounter [facility] 12-13-2021 Note HNO ID: [id number] Author: Rhett Dudley MD Service: ? Author Type: Physician Type: Progress Notes Filed: 12/13/2021 11:20 AM Note Text: VISIT TYPE: ANNUAL WELL VISIT Nursing Notes: Nisa Ruiz LPN 12/13/2021 10:34 AM Signed No concerns Has not had blood work done, patient is fasting today CHIEF COMPLAINT: Patient presents with: Physical HPI: Rogers Rodríguez is a 41 year old female here for an Annual Well Visit. No new issues/complaints. History reviewed below. Hypertension. Taking medication as prescribed. No medication side effects noted. Present for years. Condition has been well controlled since last visit. Average out of office BP has been 130/80. SLE. Following with Dr Griffith, manager purchasing in [place] for her Lupus. She is still on Plaquenil. She underwent renal biopsy. She was dx with nephritis and put on cellcept. Following with Dr Cross. 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 He added lisinopril due to increased protein. Seizure Disorder. Following with Dr Pozo. Stable on dilantin for years. She went back for a follow up and he advised she stay on this. Recurrent DVT/chronic coumadin. Patient remains stable on coumadin. She says they are using condoms for control. DUB. Had DANDC in 06/[address] Pena. She improved for awhile, but then it got worse again. She underewent lap hyster 04/15/20. No complications. No issues since. fatigue/mild [place]. Deferred CPAP and wanted to work on behavioral modifications. hypokalemia. Nephro started on replacement. REVIEW OF SYSTEMS: Review of Systems Constitutional: Negative for chills, fatigue, fever and unexpected weight change. HENT: Negative for ear pain, sinus pressure, sinus pain and sore throat. Eyes: Negative for visual disturbance. Respiratory: Negative for cough, shortness of breath and wheezing. Cardiovascular: Negative for chest pain, palpitations and leg swelling. Gastrointestinal: Negative for abdominal pain, constipation, diarrhea, nausea and vomiting. Endocrine: Negative for cold intolerance and heat intolerance. Genitourinary: Negative for dysuria and frequency. Musculoskeletal: Negative for arthralgias and myalgias. Allergic/Immunologic: Negative for environmental allergies. Neurological: Negative for dizziness, weakness and headaches. Psychiatric/Behavioral: Negative for sleep disturbance. The patient is not nervous/anxious. Current Outpatient Medications Medication Sig Dispense Refill lisinopril (ZESTRIL, PRINIVIL) 5 mg tablet Take 5 mg by mouth once daily. phenytoin ER (DILANTIN) 100 mg ER capsule Take 2 capsules by mouth twice daily. 120 capsule 11 amLODIPine (NORVASC) 10 mg tablet Take 10 mg by mouth once daily. mycophenolate Mofetil (CELLCEPT) 500 mg tablet Take 1,000 mg by mouth twice daily. potassium chloride 20 mEq TbER Take 1 tablet by mouth once daily. predniSONE (DELTASONE) 10 mg tablet as needed. gabapentin (NEURONTIN) 300 mg capsule Take 300 mg by mouth daily at bedtime. hydrOXYchloroQUINE (PLAQUENIL) 200 mg tablet Take 2 tablets by mouth once daily. warfarin (COUMADIN) 10 mg tablet Take 10 mg by mouth daily as directed. ferrous sulfate 325 mg (65 mg iron) tablet Take 325 mg by mouth daily with breakfast. No current facility-administered medications for this visit. ALLERGIES Allergen Reactions Adhesive Unknown Adhesive Tape-Silic* Rash Didronel [Etidronat* Rash Keflex [Cephalexin] Hives Levaquin [Levofloxa* Hives [place] [Hydrocodone-* Hives PAST MEDICAL HISTORY Diagnosis Date DUB (dysfunctional uterine bleeding) Dr Pena HTN (hypertension) Hypokalemia Idiopathic peripheral neuropathy Lupus (HCC) Sees Dr Inder koo [place] (obstructive sleep apnea) Mild- deferred CPAP Recurrent deep vein thrombosis (DVT) (HCC) Seizure disorder (HCC) PAST SURGICAL HISTORY Procedure Laterality Date HYSTERECTOMY HX 04/15/2020 for DUB KIDNEY BIOPSY 2018 RENAL BIOPSY 2003 FAMILY HISTORY Problem Relation Age of Onset Hyperlipidemia Mother Hypertension Mother No Known Problems Father Social History Tobacco Use Smoking status: Former Types: Cigarettes Smokeless tobacco: Never Tobacco comments: off and on smoker previously Vaping Use Vaping Use: Never used Substance Use Topics Alcohol use: Not Currently Comment: occasionally Drug use: Never Employer And Job Title: [employer] Years Of Education Completed: Not specified Marital Status: Social History Social History Narrative Not on file PHYSICAL EXAM BP 112/77 (BP Site: Left Arm, BP Position: Sitting, BP Cuff Size: Regular Adult) Pulse 66 Resp 16 Ht 180.3 cm (5' 11 ) Wt 122.4 kg (269 lb 12.8 oz) SpO2 98% BMI 37.63 kg/m? Physical Exam Constitutional: General: She is not in acute distress. Appearance: Normal appearance. She is obese. HENT: Head: Normocephalic and atraumatic. Ri (more 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 [facility] 11-29-2021 Note HNO ID: [id number] Author: Paty Matthew LPN Service: ? Author Type: LICENSED NURSE Type: Progress Notes Filed: 11/29/2021 11:29 AM Note Text: INR 1.9 no change RECHECK 2 WEEKS. Paty Matthew LPN [facility] 11-15-2021 Note HNO ID: [id number] Author: Paty Matthew LPN Service: ? Author Type: LICENSED NURSE Type: Progress Notes Filed: 11/15/2021 11:17 AM Note Text: INR 1.8 increase TO 10MG DAILY EXCEPT 5MG SAT. RECHECK 2 WEEKS. Paty Matthew LPN [facility] 11-15-2021 History of Presen t illness Narrative INR 1.8 increase TO 10MG DAILY EXCEPT 5MG SAT. RECHECK 2 WEEKS. Paty Matthew LPN documented in this encounter [facility] 11-15-2021 Instructions Paty Matthew LPN - 11/15/2021 11:07 AM EDT PT TO TAKE 10MG DAILY EXCEPT 5MG ON SATURDAYS documented in this encounter [facility] 11-01-2021 Note HNO ID: [id number] Author: Paty Matthew LPN Service: ? Author Type: LICENSED NURSE Type: Progress Notes Filed: 11/01/2021 9:04 AM Note Text: INR 1.8 increase TO 10MG DAILY EXCEPT 5MG SAT/SUN. RECHECK 2 WEEKS. Paty Matthew LPN [facility] 11-01-2021 History of Presen t illness Narrative INR 1.8 increase TO 10MG DAILY EXCEPT 5MG SAT/SUN. RECHECK 2 WEEKS. Paty Matthew LPN documented in this encounter [facility] 11-01-2021 Instructions Paty Matthew LPN - 11/01/2021 9:00 AM EDT PT TO TAKE 10MG DAILY EXCEPT 5MG SATURDAYS/SUNDAYS documented in this encounter [facility] 09-29-2021 Note HNO ID: [id number] Author: Paty Matthew LPN Service: ? Author Type: LICENSED NURSE Type: Progress Notes Filed: 09/29/2021 8:21 AM Note Text: INR 2.7 no change RECHECK 1 MONTH Paty Matthew LPN [facility] 09-29-2021 History of Presen t illness Narrative INR 2.7 no change RECHECK 1 MONTH Paty Matthew LPN documented in this encounter [facility] 09-29-2021 Instructions Paty Matthew LPN - 09/29/2021 8:07 AM EDT PT TO CONTINUE 10MG DAILY EXCEPT 5MG WEDNESDAYS/SATURDAYS/SUNDAYS documented in this encounter [facility] 08-25-2021 Note HNO ID: [id number] Author: Paty Matthew LPN Service: ? Author Type: LICENSED NURSE Type: Progress Notes Filed: 08/25/2021 3:58 PM Note Text: INR 2.1 no change RECHECK 1 MONTH Paty Matthew LPN [facility] 07-27-2021 Instructions Paty Matthew LPN - 07/27/2021 11:03 AM EDT PT TO CONTINUE 10MG DAILY EXCEPT 5MG SUN/SUN/SUN. documented in this encounter [facility] 07-26-2021 History of Presen t illness Narrative INR 2.0 no change RECHECK 1 MONTH Paty Matthew LPN documented in this encounter [facility] Diagnosis Personal history of venous thrombosis and embolism- Primary [facility] Diagnosis Personal history of venous thrombosis and embolism- Primary [facility] Diagnosis Personal history of DVT (deep vein thrombosis)- Primary Personal history of venous thrombosis and embolism [facility] Diagnosis Generalized epilepsy (HCC) Unspecified epilepsy without mention of intractable epilepsy [facility] Diagnosis Personal history of other venous thrombosis and embolism- Primary [facility] Diagnosis Personal history of other venous thrombosis and embolism- Primary [facility] Diagnosis Personal history of other venous thrombosis and embolism- Primary [facility] Diagnosis Wellness examination- Primary Essential hypertension, benign Systemic lupus erythematosus, unspecified SLE type, unspecified organ involvement status (HCC) Idiopathic neuropathy Mononeuritis of unspecified site Other generalized epilepsy, not intractable, without status epilepticus (HCC) Personal history of other venous thrombosis and embolism Encounter for screening mammogram for malignant neoplasm of breast Other screening mammogram [facility] referral (narrative)* Diagnostic Procedure Only (Routine) - Authorized Specialty Diagnoses / Procedures Referred By Yan atkinson Referred To Contact [facility] Diagnoses Encounter for screening mammogram for malignant neoplasm of breast Procedures [facility] SCREENING SCREENING MAMMOGRAPHY BI 2-VIEW BREAST INC CAD Rhett Dudley MD [address] [place] [address] [phone] [facility] [address] [place] [address] Referral ID Status Reason Start Date Expiration Date Visits Requested Visits Authorized [id number] Authorized Auto-Generat ed Referral 3 01/18/2024 1 1 [facility] Summary Purpose Family History No Family History Records FoundNo Family History Records FoundNo Family History Records FoundNo Family History Records FoundNo Family History Records FoundNo Family History Records FoundNo Family History Records FoundNo Family History Records Found Advance Directives No Advanced Directives Records FoundDocuments on File Type Date Recorded Patient Director Mission Expl anation Advance Directive(s) 11/06/2017 7:21 AM Documents on File Type Date Recorded Patient Director Mission Expl anation Advance Directive(s) 11/06/2017 7:21 AM Health Concerns Infection Onset Date Last Indicated Resolved Time COVID-19 Rule-Out 04/12/2020 04/12/2020 04/13/2020 2:42 PM EST Additional Source Comments INFORMATION SOURCE (unrecogn ized section and content) DATE CREATED AUTHOR AUTHOR'S ORGANIZ ATION 11/06/2019 [facility] DATE CREATED AUTHOR AUTHOR'S ORGANIZ ATION 12/10/2020 [facility] DATE CREATED AUTHOR AUTHOR'S ORGANIZ ATION 07/13/2021 [facility] DATE CREATED AUTHOR AUTHOR'S ORGANIZ ATION 11/30/2021 [facility] DATE CREATED AUTHOR AUTHOR'S ORGANIZ ATION 11/15/2022 [facility] DATE CREATED AUTHOR AUTHOR'S ORGANIZ ATION 11/17/[address] [facility] DATE CREATED AUTHOR AUTHOR'S ORGANIZ ATION 01/18/2023 [facility] Source Comments (unrecognize d section and content) In the event this informatio n is protected by the Federal Confidentiality of Alcohol and Drug Abuse Patient Records regulations: The Federal rules restrict any use of the information to criminally investigate or prosecute any alcohol or drug abuse patient.[facility] the event this information is protected by the Federal Confidentiality of Alcohol and Drug Abuse Patient Records regulations: The Federal rules restrict any use of the information to criminally investigate or prosecute any alcohol or drug abuse patient.[facility] Hospital[facility] the event this information is protected by the Federal Confidentiality of Alcohol and Drug Abuse Patient Records regulations: The Federal rules restrict any use of the information to criminally investigate or prosecute any alcohol or drug abuse patient.[facility] Hospital[facility] the event this information is protected by the Federal Confidentiality of Alcohol and Drug Abuse Patient Records regulations: The Federal rules restrict any use of the information to criminally investigate or prosecute any alcohol or drug abuse patient.[facility] Hospital[facility] the event this information is protected by the Federal Confidentiality of Alcohol and Drug Abuse Patient Records regulations: The Federal rules restrict any use of the information to criminally investigate or prosecute any alcohol or drug abuse patient.[facility] Hospital[facility] the event this information is protected by the Federal Confidentiality of Alcohol and Drug Abuse Patient Records regulations: The Federal rules restrict any use of the information to criminally investigate or prosecute any alcohol or drug abuse patient.[facility] Hospital[facility] the event this information is protected by the Federal Confidentiality of Alcohol and Drug Abuse Patient Records regulations: The Federal rules restrict any use of the information to criminally investigate or prosecute any alcohol or drug abuse patient.[facility] Hospital[facility] the event this information is protected by the Federal Confidentiality of Alcohol and Drug Abuse Patient Records regulations: The Federal rules restrict any use of the information to criminally investigate or prosecute any alcohol or drug abuse patient.[facility] Hospital[facility] the event this information is protected by the Federal Confidentiality of Alcohol and Drug Abuse Patient Records regulations: The Federal rules restrict any use of the information to criminally investigate or prosecute any alcohol or drug abuse patient.[facility] Hospital[facility] the event this information is protected by the Federal Confidentiality of Alcohol and Drug Abuse Patient Records regulations: The Federal rules restrict any use of the information to criminally investigate or prosecute any alcohol or drug abuse patient.[facility] HospitalIn the event this information is protected by the Federal Confidentiality of Alcohol and Drug Abuse Patient Records regulations: The Federal rules restrict any use of the information to criminally investigate or prosecute any alcohol or drug abuse patient.[facility] HospitalIn the event this information is protected by the Federal Confidentiality of Alcohol and Drug Abuse Patient Records regulations: The Federal rules restrict any use of the information to criminally investigate or prosecute any alcohol or drug abuse patient.[facility] Hospital[facility] the event this information is protected by the Federal Confidentiality of Alcohol and Drug Abuse Patient Records regulations: The Federal rules restrict any use of the information to criminally investigate or prosecute any alcohol or drug abuse patient.[facility] HospitalIn the event this information is protected by the Federal Confidentiality of Alcohol and Drug Abuse Patient Records regulations: The Federal rules restrict any use of the information to criminally investigate or prosecute any alcohol or drug abuse patient.[facility] HospitalIn the event this information is protected by the Federal Confidentiality of Alcohol and Drug Abuse Patient Records regulations: The Federal rules restrict any use of the information to criminally investigate or prosecute any alcohol or drug abuse patient.[facility] HospitalIn the event this information is protected by the Federal Confidentiality of Alcohol and Drug Abuse Patient Records regulations: The Federal rules restrict any use of the information to criminally investigate or prosecute any alcohol or drug abuse patient.[facility] HospitalIn the event this information is protected by the Federal Confidentiality of Alcohol and Drug Abuse Patient Records regulations: The Federal rules restrict any use of the information to criminally investigate or prosecute any alcohol or drug abuse patient.[facility] HospitalIn the event this information is protected by the Federal Confidentiality of Alcohol and Drug Abuse Patient Records regulations: The Federal rules restrict any use of the information to criminally investigate or prosecute any alcohol or drug abuse patient.[facility] HospitalIn the event this information is protected by the Federal Confidentiality of Alcohol and Drug Abuse Patient Records regulations: The Federal rules restrict any use of the information to criminally investigate or prosecute any alcohol or drug abuse patient.[facility] HospitalIn the event this information is protected by the Federal Confidentiality of Alcohol and Drug Abuse Patient Records regulations: The Federal rules restrict any use of the information to criminally investigate or prosecute any alcohol or drug abuse patient.[facility] HospitalIn the event this information is protected by the Federal Confidentiality of Alcohol and Drug Abuse Patient Records regulations: The Federal rules restrict any use of the information to criminally investigate or prosecute any alcohol or drug abuse patient.[facility] HospitalIn the event this information is protected by the Federal Confidentiality of Alcohol and Drug Abuse Patient Records regulations: The Federal rules restrict any use of the information to criminally investigate or prosecute any alcohol or drug abuse patient.[facility] HospitalIn the event this information is protected by the Federal Confidentiality of Alcohol and Drug Abuse Patient Records regulations: The Federal rules restrict any use of the information to criminally investigate or prosecute any alcohol or drug abuse patient.[facility] HospitalIn the event this information is protected by the Federal Confidentiality of Alcohol and Drug Abuse Patient Records regulations: The Federal rules restrict any use of the information to criminally investigate or prosecute any alcohol or drug abuse patient.[facility] HospitalIn the event this information is protected by the Federal Confidentiality of Alcohol and Drug Abuse Patient Records regulations: The Federal rules restrict any use of the information to criminally investigate or prosecute any alcohol or drug abuse patient.[facility] HospitalIn the event this information is protected by the Federal Confidentiality of Alcohol and Drug Abuse Patient Records regulations: The Federal rules restrict any use of the information to criminally investigate or prosecute any alcohol or drug abuse patient.[facility] HospitalIn the event this information is protected by the Federal Confidentiality of Alcohol and Drug Abuse Patient Records regulations: The Federal rules restrict any use of the information to criminally investigate or prosecute any alcohol or drug abuse patient.[facility] Care Teams (unrecognized sec tion and content) [employer] Relationship Specialty Start Date End Date Rhett Dudley MD [address] [employer] [address] [phone] PCP - General Internal Medicine 10/23/17 [employer] Relationship Specialty Start Date End Date Rhett Dudley MD [address] [phone] PCP - General Internal Medicine 10/23/17 [employer] Relationship Specialty Start Date End Date Rhett Dudley MD [address] [place] [phone] PCP - General Internal Medicine 10/23/17 [employer] Relationship Specialty Start Date End Date Rhett Dudley MD [address] [place] [phone] PCP - General Internal Medicine 10/23/17 [employer] Relationship Specialty Start Date End Date Rhett Dudley MD [address] [place] [phone] PCP - General Internal Medicine 10/23/17 [employer] Relationship Specialty Start Date End Date Rhett Dudley MD [address] [place] [phone] PCP - General Internal Medicine 10/23/17 [employer] Relationship Specialty Start Date End Date Rhett Dudley MD [address] [place] [phone] PCP - General Internal Medicine 10/23/17 [employer] Relationship Specialty Start Date End Date Rhett Dudley MD [address] [place] [phone] PCP - General Internal Medicine 10/23/17 [employer] Relationship Specialty Start Date End Date Rhett Dudley MD [address] [place] [phone] PCP - General Internal Medicine 10/23/17 [employer] Relationship Specialty Start Date End Date Rhett Dudley MD [address] [place] [phone] PCP - General Internal Medicine 10/23/17 [employer] Relationship Specialty Start Date End Date Rhett Dudley MD [address], [address] [phone] PCP - General Internal Medicine 10/23/17 [employer] Relationship Specialty Start Date End Date Rhett Dudley MD [address] [place] [address] AVE, [address] [phone] PCP - General Internal Medicine 10/23/17 [employer] Relationship Specialty Start Date End Date Rhett Dudley MD [address] [place], [place] [address]E, [address] [phone] PCP - General Internal Medicine 10/23/17 [employer] Relationship Specialty Start Date End Date Rhett Dudley MD [address] [place] [address], [address] [phone] PCP - General Internal Medicine 10/23/17 Reason for Visit (unrecogniz ed section and content) Referral ID Status Reason Start Date Expiration Date Visits Re quested Visits Authorized [id number] Closed 07/26/2021 02/04/2022 1 1 Specialty Diagnoses / Procedures Referred By Contac t Referred To Contact [facility] Diagnoses 1 MON Procedures NURSE VISIT Self, [address] [phone] Referral ID Status Reason Start Date Expiration Date Visits Re quested Visits Authorized [id number] Closed 07/26/2021 02/04/2022 2 2 Specialty Diagnoses / Procedures Referred By Contac t Referred To Contact [facility] Diagnoses Protime monitoring PROTIME Procedures OFFICE/OUTPATIENT ESTABLISHED MOD MDM 30-39 MIN NURSE VISIT Self Intm [address] [phone] Referral ID Status Reason Start Date Expiration Date Visits Re quested Visits Authorized [id number] Closed 11/01/2021 02/04/2022 1 1 Specialty Diagnoses / Procedures Referred By Contac t Referred To Contact [facility] Diagnoses PROTIME Procedures OFFICE/OUTPATIENT ESTABLISHED MOD MDM 30-39 MIN NURSE VISIT Self Intm [address] [facility] [address] [place] [address] Referral ID Status Reason Start Date Expiration Date V isits Requested Visits Authorized [id number] Authorized 11/15/2021 02/04/2022 2 2 Reason Onset Date Comments Refill Request 01/05/2022 Reason Comments Medication Problem Reason Comments Letter Reason Onset Date Comments Refill Request 05/25/2022 Reason Onset Date Comments Refill Request 10/12/2022 Reason Comments Physical Hypertension FOR RECORDS PERTAINING TO PATIENTS WHO ARE OR HAVE BEEN ENROLLED IN A CHEMICAL DEPENDENCY/SUBSTANCEABUSE PROGRAM, SOME INFORMATION MAY BE OMITTED. This clinical summary was aggregated from multiple sources. Caution should be exercised in using it in the provision of clinical care. This summary normalizes information from multiple sources, and as a consequence, information in this document may materially change the coding, format and clinical context of patient data. In addition, data may be omitted in some cases. CLINICAL DECISIONS SHOULD BE BASED ON THE PRIMARY CLINICAL RECORDS. [facility] [employer] [facility]. provides no warranty or guarantee of the accuracy or completeness of information in this document.
[2023-02-08 10:25] LABS: Absolute Lymphocyte Count 2.17 X10^3/uL (0.83-4.51); Absolute Neutrophil Count 4.9 X10^3/uL (2.0-7.7); Basophil# 0.05 X10^3/uL; Basophil% 0.6 % (0-1); Eosinophil# 0.18 X10^3/uL; Eosinophils% 2.3 % (0-5); Hemoglobin 13.3 g/dL (12.0-15.0); Lymphocyte # 2.17 X10^3/ul (0.83-4.51); Lymphocyte % 27.4 % (19-41); Mean Corp Hgb Conc 31.7 g/dL (32-36); Mean Corpuscular Hgb 28.4 pg (27.0-32.0); Mean Corpuscular Volume 89.6 fL (81-99); Mean Platelet Vol. 10.8 fl (6.2-12.0); Monocyte# 0.64 X10^3/uL; Monocyte% 8.1 % (0-10); NRBC Flagged by Analyzer 0 % (0-5); Neutrophil # 4.88 X10^3/uL (2.7-7.7); Neutrophil % 61.5 % (47-70); Platelet Count 202 K/mm3 (150-450); RBC Distribution Width SD 42.3 fl (35.1-43.9); Red Blood Count 4.69 M/mm3 (4.2-5.4); White Blood Count 7.9 K/mm3 (4.4-11.0)
[2023-02-08 10:32] LABS: Protein, Urine (Random) 27.1 mg/dL (<11.9); Protein:Creat Ratio 207 mg/g CRE (0-200)
[2023-02-08 10:37] LABS: Glucose, Dipstick Normal (Normal); Ketone-Dipstick Negative (Negative); Leukocyte Esterase-Dipstick Negative /ul (Negative); Nitrite-Dipstick Negative (Negative); Occult Blood-Urine Negative /ul (Negative); Protein-Dipstick Negative (Negative); Specific Gravity, Urine 1.025 (1.002-1.030); Urine Bilirubin Dipstick Negative (Negative); Urine Urobilinogen Normal (Normal)
[2023-02-08 10:53] LABS: Color, Urine Yellow (Yellow); Urine Clarity Clear (Clear)
[2023-02-08 11:01] LABS: ALB/GLOB Ratio 0.9 RATIO (0.9-2.4); AST(SGOT) 25 U/L (15-37); Alanine Aminotransfer ALT/SGPT 25 U/L (13-56); Albumin, Serum 3.4 g/dL (3.2-5.0); Alkaline Phosphatase 72 U/L (45-117); Anion Gap 6 (5-15); BUN 13 mg/dL (7-18); BUN/Creat Ratio 20.3 RATIO (10-20); Calcium,Total 8.6 mg/dL (8.5-10.1); Chloride 107 mmol/L (98-107); Creatinine, Serum 0.64 mg/dL (0.55-1.02); EST Glomerular Filtration Rate 108 mL/min (>60); Est Glom Filt Rate - Afr Amer 131 mL/min (>60); Globulin 3.7 g/dL (2.2-4.2); Glucose 81 mg/dL (74-106); Potassium 3.9 mmol/L (3.5-5.1); Protein, Total 7.1 g/dL (6.4-8.2); Sodium Level 139 mmol/L (136-145)
[2023-02-09 04:06] LABS: Complement C3 105 mg/dL (82-167)
== END | disposition home or self-care (01) ==
LOC: MTLAB 07:32
PROVIDERS: PCP Internal Medicine; Referring Provider Internal Medicine Rheumatology; Visit Provider Internal Medicine Rheumatology
DX: M32.9 Systemic lupus erythematosus, unspecified (principal); Z79.899 Other long term (current) drug therapy
CPT/HCPCS: 36415; 80053; 81002; 82570; 84156; 85025; 86160

== ENCOUNTER → 2023-04-26 | Outpatient (CLI) | payer OTHER, SELFPAY ==
[2023-04-26 15:14] LABS: Absolute Neutrophil Count 4.6 X10^3/uL (2.0-7.7); Basophil# 0.04 X10^3/uL; Basophil% 0.6 % (0-1); Eosinophil# 0.16 X10^3/uL; Eosinophils% 2.2 % (0-5); Hematocrit 42.2 % (37-47); Hemoglobin 13.2 g/dL (12.0-15.0); Lymphocyte % 23.7 % (19-41); Mean Corp Hgb Conc 31.3 g/dL (32-36); Mean Corpuscular Hgb 27.8 pg (27.0-32.0); Mean Corpuscular Volume 88.8 fL (81-99); Mean Platelet Vol. 10.8 fl (6.2-12.0); Monocyte# 0.68 X10^3/uL; Monocyte% 9.5 % (0-10); NRBC Flagged by Analyzer 0 % (0-5); Neutrophil # 4.57 X10^3/uL (2.7-7.7); Neutrophil % 63.7 % (47-70); Platelet Count 186 K/mm3 (150-450); RBC Distribution Width CV 12.8 % (11.6-14.6); Red Blood Count 4.75 M/mm3 (4.2-5.4); White Blood Count 7.2 K/mm3 (4.4-11.0)
[2023-04-26 15:28] LABS: Color, Urine Yellow (Yellow); Glucose, Dipstick Normal (Normal); Ketone-Dipstick Negative (Negative); Leukocyte Esterase-Dipstick Negative /ul (Negative); Nitrite-Dipstick Negative (Negative); Occult Blood-Urine 10 /ul (Negative); Protein-Dipstick 15 mg/dl (Negative); Specific Gravity, Urine 1.015 (1.002-1.030); Urine Bilirubin Dipstick Negative (Negative); Urine Clarity Clear (Clear); Urine Urobilinogen Normal (Normal); Urine pH 6.5 (5.0 - 8.0)
[2023-04-26 15:32] LABS: Protein, Urine (Random) 21.2 mg/dL (<11.9); Protein:Creat Ratio 214 mg/g CRE (0-200)
[2023-04-26 15:42] LABS: ALB/GLOB Ratio 0.9 RATIO (0.9-2.4); AST(SGOT) 20 U/L (15-37); Alanine Aminotransfer ALT/SGPT 30 U/L (13-56); Albumin, Serum 3.2 g/dL (3.2-5.0); Alkaline Phosphatase 67 U/L (45-117); Anion Gap 5 (5-15); BUN 14 mg/dL (7-18); BUN/Creat Ratio 26.4 RATIO (10-20); Calcium,Total 8.4 mg/dL (8.5-10.1); Chloride 109 mmol/L (98-107); Creatinine, Serum 0.53 mg/dL (0.55-1.02); EST Glomerular Filtration Rate 134 mL/min (>60); Est Glom Filt Rate - Afr Amer 163 mL/min (>60); Globulin 3.6 g/dL (2.2-4.2); Glucose 80 mg/dL (74-106); Potassium 3.9 mmol/L (3.5-5.1); Protein, Total 6.8 g/dL (6.4-8.2); Sodium Level 141 mmol/L (136-145)
[2023-04-28 05:07] LABS: Complement C3 102 mg/dL (82-167)
== END | disposition home or self-care (01) ==
LOC: MTLAB 12:31
PROVIDERS: PCP Internal Medicine; Referring Provider Internal Medicine Rheumatology; Visit Provider Internal Medicine Rheumatology
DX: M32.9 Systemic lupus erythematosus, unspecified (principal); Z79.899 Other long term (current) drug therapy
CPT/HCPCS: 36415; 80053; 81002; 82570; 84156; 85025; 86160

== ENCOUNTER → 2023-08-01 | Outpatient (CLI) | payer OTHER, SELFPAY ==
[2023-08-01 10:18] LABS: Absolute Lymphocyte Count 2.19 X10^3/uL (0.83-4.51); Absolute Neutrophil Count 4.6 X10^3/uL (2.0-7.7); Basophil# 0.06 X10^3/uL; Basophil% 0.8 % (0-1); Color, Urine Yellow (Yellow); Eosinophil# 0.16 X10^3/uL; Eosinophils% 2.1 % (0-5); Glucose, Dipstick Normal (Normal); Hematocrit 40.8 % (37-47); Ketone-Dipstick Negative (Negative); Leukocyte Esterase-Dipstick Negative /ul (Negative); Lymphocyte # 2.19 X10^3/ul (0.83-4.51); Lymphocyte % 28.6 % (19-41); Mean Corp Hgb Conc 31.9 g/dL (32-36); Mean Corpuscular Volume 87.7 fL (81-99); Mean Platelet Vol. 10.9 fl (6.2-12.0); Monocyte# 0.66 X10^3/uL; Monocyte% 8.6 % (0-10); NRBC Flagged by Analyzer 0 % (0-5); Neutrophil # 4.57 X10^3/uL (2.7-7.7); Neutrophil % 59.6 % (47-70); Nitrite-Dipstick Negative (Negative); Occult Blood-Urine Negative /ul (Negative); Platelet Count 199 K/mm3 (150-450); Protein-Dipstick Negative (Negative); RBC Distribution Width CV 12.9 % (11.6-14.6); RBC Distribution Width SD 41.1 fl (35.1-43.9); Red Blood Count 4.65 M/mm3 (4.2-5.4); Specific Gravity, Urine 1.025 (1.002-1.030); Urine Bilirubin Dipstick Negative (Negative); Urine Clarity Clear (Clear); Urine Urobilinogen Normal (Normal); White Blood Count 7.7 K/mm3 (4.4-11.0)
[2023-08-01 10:25] LABS: Protein, Urine (Random) 28.6 mg/dL (<11.9); Protein:Creat Ratio 207 mg/g CRE (0-200)
[2023-08-01 10:48] LABS: AST(SGOT) 16 U/L (15-37); Alanine Aminotransfer ALT/SGPT 26 U/L (13-56); Albumin, Serum 3.3 g/dL (3.2-5.0); Alkaline Phosphatase 65 U/L (45-117); Anion Gap 3 (5-15); BUN 13 mg/dL (7-18); BUN/Creat Ratio 20.2 RATIO (10-20); Calcium,Total 8.6 mg/dL (8.5-10.1); Chloride 108 mmol/L (98-107); Creatinine, Serum 0.64 mg/dL (0.55-1.02); EST Glomerular Filtration Rate 108 mL/min (>60); Est Glom Filt Rate - Afr Amer 130 mL/min (>60); Globulin 3.2 g/dL (2.2-4.2); Glucose 83 mg/dL (74-106); Potassium 3.9 mmol/L (3.5-5.1); Protein, Total 6.5 g/dL (6.4-8.2); Sodium Level 137 mmol/L (136-145)
[2023-08-02 05:07] LABS: Complement C3 101 mg/dL (82-167)
== END | disposition home or self-care (01) ==
LOC: MTLAB 08:22
PROVIDERS: PCP Internal Medicine; Referring Provider Internal Medicine Rheumatology; Visit Provider Internal Medicine Rheumatology
DX: M32.9 Systemic lupus erythematosus, unspecified (principal); Z79.899 Other long term (current) drug therapy
CPT/HCPCS: 36415; 80053; 81002; 82570; 84156; 85025; 86160

== ENCOUNTER → 2023-11-02 | Outpatient (CLI) | payer OTHER, SELFPAY ==
[2023-11-02 15:14] LABS: Absolute Lymphocyte Count 1.53 X10^3/uL (0.83-4.51); Absolute Neutrophil Count 3.3 X10^3/uL (2.0-7.7); Basophil# 0.05 X10^3/uL; Basophil% 0.9 % (0-1); Eosinophil# 0.11 X10^3/uL; Hematocrit 42.5 % (37-47); Hemoglobin 13.3 g/dL (12.0-15.0); Lymphocyte # 1.53 X10^3/ul (0.83-4.51); Lymphocyte % 27.9 % (19-41); Mean Corp Hgb Conc 31.3 g/dL (32-36); Mean Corpuscular Hgb 28.1 pg (27.0-32.0); Mean Corpuscular Volume 89.7 fL (81-99); Mean Platelet Vol. 10.5 fl (6.2-12.0); Monocyte# 0.43 X10^3/uL; Monocyte% 7.8 % (0-10); NRBC Flagged by Analyzer 0 % (0-5); Neutrophil # 3.34 X10^3/uL (2.7-7.7); Neutrophil % 60.9 % (47-70); Platelet Count 171 K/mm3 (150-450); RBC Distribution Width CV 13.3 % (11.6-14.6); RBC Distribution Width SD 43.7 fl (35.1-43.9); Red Blood Count 4.74 M/mm3 (4.2-5.4); White Blood Count 5.5 K/mm3 (4.4-11.0)
[2023-11-02 15:36] LABS: Color, Urine Yellow (Yellow); Glucose, Dipstick Normal (Normal); Ketone-Dipstick Negative (Negative); Leukocyte Esterase-Dipstick Negative /ul (Negative); Nitrite-Dipstick Negative (Negative); Occult Blood-Urine Negative /ul (Negative); Protein-Dipstick Negative (Negative); Specific Gravity, Urine 1.015 (1.002-1.030); Urine Bilirubin Dipstick Negative (Negative); Urine Clarity Clear (Clear); Urine Urobilinogen Normal (Normal)
[2023-11-02 15:47] LABS: Protein, Urine (Random) 10.1 mg/dL (<11.9); Protein:Creat Ratio 197 mg/g CRE (0-200)
[2023-11-02 16:03] LABS: ALB/GLOB Ratio 0.9 RATIO (0.9-2.4); AST(SGOT) 15 U/L (15-37); Alanine Aminotransfer ALT/SGPT 25 U/L (13-56); Albumin, Serum 3.4 g/dL (3.2-5.0); Alkaline Phosphatase 63 U/L (45-117); Anion Gap 4 (5-15); BUN 13 mg/dL (7-18); BUN/Creat Ratio 19.5 RATIO (10-20); Calcium,Total 9.1 mg/dL (8.5-10.1); Chloride 108 mmol/L (98-107); Creatinine, Serum 0.67 mg/dL (0.55-1.02); EST Glomerular Filtration Rate 103 mL/min (>60); Est Glom Filt Rate - Afr Amer 124 mL/min (>60); Globulin 3.6 g/dL (2.2-4.2); Glucose 74 mg/dL (74-106); Potassium 3.9 mmol/L (3.5-5.1); Sodium Level 140 mmol/L (136-145)
[2023-11-04 07:07] LABS: Complement C3 123 mg/dL (82-167)
== END | disposition home or self-care (01) ==
LOC: MTLAB 11:30
PROVIDERS: PCP Internal Medicine; Referring Provider Internal Medicine Rheumatology; Visit Provider Internal Medicine Rheumatology
DX: M32.9 Systemic lupus erythematosus, unspecified (principal); G40.909 Epilepsy, unspecified, not intractable, without status epilepticus; Z79.899 Other long term (current) drug therapy; M22.40 Chondromalacia patellae, unspecified knee; I10 Essential (primary) hypertension
CPT/HCPCS: 36415; 80053; 81002; 82570; 84156; 85025; 86160

== ENCOUNTER → 2024-02-04 | Outpatient (CLI) | payer OTHER, SELFPAY ==
[2024-02-04 10:11] LABS: Color, Urine Yellow (Yellow); Glucose, Dipstick Normal (Normal); Ketone-Dipstick Negative (Negative); Leukocyte Esterase-Dipstick 25 /ul (Negative); Nitrite-Dipstick Negative (Negative); Occult Blood-Urine Negative /ul (Negative); Protein-Dipstick Negative (Negative); Specific Gravity, Urine 1.015 (1.002-1.030); Urine Bilirubin Dipstick Negative (Negative); Urine Clarity Clear (Clear); Urine Urobilinogen Normal (Normal)
[2024-02-04 10:14] LABS: Protein, Urine (Random) 13.6 mg/dL (<11.9); Protein:Creat Ratio 252 mg/g CRE (0-200)
[2024-02-04 10:19] LABS: Absolute Lymphocyte Count 1.81 X10^3/uL (0.83-4.51); Absolute Neutrophil Count 3.3 X10^3/uL (2.0-7.7); Basophil# 0.05 X10^3/uL; Basophil% 0.9 % (0-1); Eosinophil# 0.13 X10^3/uL; Eosinophils% 2.3 % (0-5); Hematocrit 41.2 % (37-47); Hemoglobin 13.1 g/dL (12.0-15.0); Lymphocyte # 1.81 X10^3/ul (0.83-4.51); Lymphocyte % 31.9 % (19-41); Mean Corp Hgb Conc 31.8 g/dL (32-36); Mean Corpuscular Hgb 28.4 pg (27.0-32.0); Mean Corpuscular Volume 89.4 fL (81-99); Mean Platelet Vol. 10.7 fl (6.2-12.0); Monocyte# 0.42 X10^3/uL; Monocyte% 7.4 % (0-10); NRBC Flagged by Analyzer 0 % (0-5); Neutrophil # 3.26 X10^3/uL (2.7-7.7); Neutrophil % 57.3 % (47-70); Platelet Count 165 K/mm3 (150-450); RBC Distribution Width CV 12.9 % (11.6-14.6); RBC Distribution Width SD 42.1 fl (35.1-43.9); Red Blood Count 4.61 M/mm3 (4.2-5.4); White Blood Count 5.7 K/mm3 (4.4-11.0)
[2024-02-04 10:27] LABS: ALB/GLOB Ratio 0.9 RATIO (0.9-2.4); AST(SGOT) 23 U/L (15-37); Alanine Aminotransfer ALT/SGPT 32 U/L (13-56); Albumin, Serum 3.3 g/dL (3.2-5.0); Alkaline Phosphatase 65 U/L (45-117); Anion Gap 5 (5-15); BUN 17 mg/dL (7-18); BUN/Creat Ratio 25.2 RATIO (10-20); Calcium,Total 8.8 mg/dL (8.5-10.1); Chloride 109 mmol/L (98-107); Creatinine, Serum 0.68 mg/dL (0.55-1.02); EST Glomerular Filtration Rate 101 mL/min (>60); Est Glom Filt Rate - Afr Amer 123 mL/min (>60); Globulin 3.5 g/dL (2.2-4.2); Glucose 96 mg/dL (74-106); Protein, Total 6.8 g/dL (6.4-8.2); Sodium Level 140 mmol/L (136-145)
[2024-02-05 04:06] LABS: Complement C3 118 mg/dL (82-167)
== END | disposition home or self-care (01) ==
PROVIDERS: PCP Internal Medicine; Referring Provider Internal Medicine Rheumatology; Visit Provider Internal Medicine Rheumatology
DX: M32.9 Systemic lupus erythematosus, unspecified (principal); Z79.899 Other long term (current) drug therapy
CPT/HCPCS: 36415; 80053; 81002; 82570; 84156; 85025; 86160

== ENCOUNTER → 2024-04-18 | Outpatient (CLI) | payer OTHER, SELFPAY ==
[2024-04-18 10:22] LABS: Absolute Lymphocyte Count 1.61 X10^3/uL (0.83-4.51); Absolute Neutrophil Count 3.5 X10^3/uL (2.0-7.7); Basophil# 0.04 X10^3/uL; Basophil% 0.7 % (0-1); Eosinophil# 0.15 X10^3/uL; Eosinophils% 2.6 % (0-5); Hematocrit 43.6 % (37-47); Hemoglobin 13.9 g/dL (12.0-15.0); Lymphocyte # 1.61 X10^3/ul (0.83-4.51); Lymphocyte % 27.7 % (19-41); Mean Corp Hgb Conc 31.9 g/dL (32-36); Mean Corpuscular Hgb 28.9 pg (27.0-32.0); Mean Corpuscular Volume 90.6 fL (81-99); Mean Platelet Vol. 10.7 fl (6.2-12.0); Monocyte# 0.47 X10^3/uL; Monocyte% 8.1 % (0-10); NRBC Flagged by Analyzer 0 % (0-5); Neutrophil # 3.54 X10^3/uL (2.7-7.7); Neutrophil % 60.7 % (47-70); Platelet Count 189 K/mm3 (150-450); RBC Distribution Width CV 13.5 % (11.6-14.6); RBC Distribution Width SD 45.2 fl (35.1-43.9); Red Blood Count 4.81 M/mm3 (4.2-5.4); White Blood Count 5.8 K/mm3 (4.4-11.0)
[2024-04-18 10:40] LABS: ALB/GLOB Ratio 1.4 RATIO (0.9-2.4); AST(SGOT) 24 U/L (<=31); Alanine Aminotransfer ALT/SGPT 20 U/L (<=34); Albumin, Serum 4.2 g/dL (3.5-5.0); Alkaline Phosphatase 67 U/L (35-104); Anion Gap 11 (5-15); BUN 13 mg/dL (4-19); BUN/Creat Ratio 20.5 RATIO (10-20); Calcium,Total 8.8 mg/dL (7.6-11.0); Carbon Dioxide 22.8 mmol/L (21.0-32.0); Chloride 105 mmol/L (98-108); Creatinine, Serum 0.62 mg/dL (0.70-1.20); EST Glomerular Filtration Rate 113 (>60); Globulin 3.1 g/dL (2.2-4.2); Glucose 93 mg/dL (70-99); Potassium 4.3 mmol/L (3.3-5.1); Protein, Total 7.3 g/dL (5.9-8.4); Sodium Level 139 mmol/L (133-145); Total Bilirubin 0.28 mg/dL (0.00-1.30)
[2024-04-18 10:51] LABS: Color, Urine Yellow (Yellow); Glucose, Dipstick Normal (Normal); Ketone-Dipstick Negative (Negative); Leukocyte Esterase-Dipstick Negative /ul (Negative); Nitrite-Dipstick Negative (Negative); Occult Blood-Urine 10 /ul (Negative); Protein-Dipstick Negative (Negative); Urine Bilirubin Dipstick Negative (Negative); Urine Clarity Clear (Clear); Urine Urobilinogen Normal (Normal)
[2024-04-18 11:16] LABS: Protein, Urine (Random) 14.4 mg/dL (0.0-12.0); Protein:Creat Ratio 135 mg/g CRE (0-200)
[2024-04-19 09:08] LABS: Complement C3 115 mg/dL (82-167)
== END | disposition home or self-care (01) ==
LOC: MTLAB 08:31
PROVIDERS: PCP Internal Medicine; Referring Provider Internal Medicine Rheumatology; Visit Provider Internal Medicine Rheumatology
DX: M32.9 Systemic lupus erythematosus, unspecified (principal); Z79.899 Other long term (current) drug therapy
CPT/HCPCS: 36415; 80053; 81002; 82570; 84156; 85025; 86160

== ENCOUNTER → 2024-07-14 | Outpatient (CLI) | payer OTHER, SELFPAY ==
[2024-07-14 12:17] LABS: Absolute Lymphocyte Count 1.81 X10^3/uL (0.83-4.51); Absolute Neutrophil Count 4.5 X10^3/uL (2.0-7.7); Basophil# 0.04 X10^3/uL; Basophil% 0.6 % (0-1); Eosinophil# 0.18 X10^3/uL; Eosinophils% 2.5 % (0-5); Hematocrit 40.3 % (37-47); Hemoglobin 13.1 g/dL (12.0-15.0); Lymphocyte # 1.81 X10^3/ul (0.83-4.51); Lymphocyte % 25.1 % (19-41); Mean Corp Hgb Conc 32.5 g/dL (32-36); Mean Corpuscular Volume 89.4 fL (81-99); Mean Platelet Vol. 10.6 fl (6.2-12.0); Monocyte# 0.65 X10^3/uL; NRBC Flagged by Analyzer 0 % (0-5); Neutrophil % 62.4 % (47-70); Platelet Count 197 K/mm3 (150-450); RBC Distribution Width CV 12.9 % (11.6-14.6); RBC Distribution Width SD 42.3 fl (35.1-43.9); Red Blood Count 4.51 M/mm3 (4.2-5.4); White Blood Count 7.2 K/mm3 (4.4-11.0)
[2024-07-14 12:45] LABS: Color, Urine Yellow (Yellow); Glucose, Dipstick Normal (Normal); Ketone-Dipstick Negative (Negative); Leukocyte Esterase-Dipstick Negative /ul (Negative); Nitrite-Dipstick Negative (Negative); Occult Blood-Urine Negative /ul (Negative); Protein-Dipstick 15 mg/dl (Negative); Specific Gravity, Urine 1.015 (1.002-1.030); Urine Bilirubin Dipstick Negative (Negative); Urine Clarity Sl. Cloudy (Clear); Urine Urobilinogen Normal (Normal)
[2024-07-14 12:52] LABS: ALB/GLOB Ratio 1.4 RATIO (0.9-2.4); AST(SGOT) 24 U/L (<=31); Alanine Aminotransfer ALT/SGPT 22 U/L (<=34); Alkaline Phosphatase 69 U/L (35-104); Anion Gap 10 (5-15); BUN 17 mg/dL (4-19); BUN/Creat Ratio 24.6 RATIO (10-20); Calcium,Total 9.1 mg/dL (7.6-11.0); Carbon Dioxide 25.6 mmol/L (21.0-32.0); Chloride 104 mmol/L (98-108); Creatinine, Serum 0.67 mg/dL (0.70-1.20); EST Glomerular Filtration Rate 111 (>60); Globulin 2.8 g/dL (2.2-4.2); Glucose 80 mg/dL (70-99); Potassium 4.2 mmol/L (3.3-5.1); Protein, Total 6.8 g/dL (5.9-8.4); Sodium Level 140 mmol/L (133-145); Total Bilirubin 0.18 mg/dL (0.00-1.30)
[2024-07-14 13:05] LABS: Protein, Urine (Random) 9.1 mg/dL (0.0-12.0); Protein:Creat Ratio 122 mg/g CRE (0-200)
[2024-07-15 05:07] LABS: Complement C3 121 mg/dL (82-167)
== END | disposition home or self-care (01) ==
LOC: MTLAB 10:31
PROVIDERS: PCP Internal Medicine; Referring Provider Internal Medicine Rheumatology; Visit Provider Internal Medicine Rheumatology
DX: M32.9 Systemic lupus erythematosus, unspecified (principal); Z79.899 Other long term (current) drug therapy
CPT/HCPCS: 36415; 80053; 81002; 82570; 84156; 85025; 86160

== ENCOUNTER → 2024-10-02 | Outpatient (CLI) | payer OTHER, SELFPAY ==
[2024-10-02 16:14] LABS: Hematocrit 39.8 % (37-47); Hemoglobin 13.3 g/dL (12.0-15.0); Immature Granulocytes Count 0.010 X10^3/uL (0.0-0.0); Mean Corp Hgb Conc 33.4 g/dL (32-36); Mean Corpuscular Volume 87.5 fL (81-99); Mean Platelet Vol. 11.1 fl (6.2-12.0); NRBC Flagged by Analyzer 0 % (0-5); Platelet Count 200 K/mm3 (150-450); RBC Distribution Width CV 13.0 % (11.6-14.6); RBC Distribution Width SD 41.3 fl (35.1-43.9); Red Blood Count 4.55 M/mm3 (4.2-5.4); White Blood Count 6.4 K/mm3 (4.4-11.0)
[2024-10-02 16:29] LABS: Color, Urine Yellow (Yellow); Glucose, Dipstick Normal (Normal); Ketone-Dipstick Negative (Negative); Leukocyte Esterase-Dipstick Negative /ul (Negative); Nitrite-Dipstick Negative (Negative); Occult Blood-Urine 10 /ul (Negative); Protein-Dipstick 15 mg/dl (Negative); Specific Gravity, Urine 1.025 (1.002-1.030); Urine Bilirubin Dipstick Negative (Negative)
[2024-10-02 17:00] LABS: AST(SGOT) 28 U/L (<=31); Alanine Aminotransfer ALT/SGPT 26 U/L (<=34); Albumin, Serum 4.2 g/dL (3.5-5.0); Alkaline Phosphatase 69 U/L (35-104); Anion Gap 11 (5-15); BUN 15 mg/dL (4-19); BUN/Creat Ratio 23.7 RATIO (10-20); Calcium,Total 9.0 mg/dL (7.6-11.0); Carbon Dioxide 23.7 mmol/L (21.0-32.0); Chloride 105 mmol/L (98-108); Globulin 3.0 g/dL (2.2-4.2); Glucose 86 mg/dL (70-99); Potassium 3.9 mmol/L (3.3-5.1)
[2024-10-02 17:05] LABS: Creatinine, Urine (random) 162.00 mg/dL (28.00-217.00); Protein, Urine (Random) 11.4 mg/dL (0.0-12.0); Protein:Creat Ratio 70 mg/g CRE (0-200)
== END | disposition home or self-care (01) ==
LOC: MTLAB 11:14
PROVIDERS: PCP Internal Medicine; Referring Provider Internal Medicine Rheumatology; Visit Provider Internal Medicine Rheumatology
DX: M32.9 Systemic lupus erythematosus, unspecified (principal); Z79.899 Other long term (current) drug therapy
CPT/HCPCS: 36415; 80053; 81002; 82570; 84156; 85025; 86160

== ENCOUNTER → 2025-01-02 | Outpatient (CLI) | payer OTHER, SELFPAY ==
--- OUTSIDE RECORDS SUMMARY | 2025-01-02 07:08 | XMS RPT_ITS | CCD ---
Author Organization [facility] Care Team Providers Care Legend Maker Name Role Phone EFRAIN PEREA Unavailable Unavailable EFRAIN PEREA Unavailable Unavailable Elva CUENCA, Rhett Velez Primary Care Provider [phone] Rhett Stevenson MD Primary Care Provider [phone] Rhett Stevenson MD Primary Care Provider [phone] RHETT STEVENSON Primary Care Unavailable RHETT STEVENSON Primary Care Unavailable RHETT STEVENSON Primary Care Unavailable RHETT STEVENSON Referring Unavailable RHETT STEVENSON Primary Care Unavailable RHETT STEVENSON Primary Care Unavailable ELVA, RHETT VELEZ Primary Care Unavailable Rhett Stevenson MD Primary Care Provider [phone] Rhett Stevenson MD Primary Care Provider [phone] RHETT STEVENSON Primary Care Unavailable RHETT STEVENSON Primary Care Unavailable FLEDAVID, RHETT MIQUEL Primary Care Unavailable FLEDAIVD, RHETT MIQUEL Primary Care Unavailable FLERHETT HERNANDEZ Primary Care Unavailable FLERHETT HERNANDEZ Primary Care Unavailable NELSON POZO Attending Unavailable RHETT STEVENSON Primary Care Unavailable RHETT STEVENSON Primary Care Unavailable FLEDAVID, RHETT VELEZ Primary Care Unavailable ELVA, RHETT MIQUEL Primary Care Unavailable RHETT STEVENSON Attending Unavailable RHETT STEVENSON MIQUEL Primary Care Unavailable RHETT STEVENSON Primary Care Unavailable RHETT STEVENSON MIQUEL Primary Care Unavailable RHETT STEVENSON MD Referring Unavailable VENCZEL, JOSÉ DO Admitting Unavailable VENCZEL, JOSÉ DO Primary Care Unavailable VENLUCIE, JOSÉ DO Attending Unavailable RHETT STEVENSON MD Consulting Unavailable PROVIDER, UNKNOWN Consulting Unavailable RHETT STEVENSON MD Consulting Unavailable LOVELYTOJAKOB PEREZ MD Admitting Unava ilable BUCKTOWARSINFlavio, JAKOB CUENCA Primary Care Unava ilable JOSE, JAKOB CUENCA Attending Unava ilable PROVIDER, UNKNOWN Consulting Unavailable BUCKTOCHRIS, JAKOB CUENCA Admitting Unava ilable BUCKTOWARSINFlavio, JAKOB CUENCA Primary Care Unava ilable LOVELYTOWARESTELITA, JAKOB CUENCA Attending Unava ilable VONNIE GRIFFITH MD Referring Unavailable RHETT STEVENSON MD Consulting Unavailable PROVIDER, UNKNOWN Consulting Unavailable Elva CUENCA, Rhett Velez Primary Care Provider Vonnie Griffith L Unavailable Sánchez CUENCA, Nelson Unavailable Jose CUENCA, Rodnish Unavailable [phone] Elva CUENCA, Dr. Delaney Primary Care Provider Dr. Vonnie Griffith MD Attending Provider Nacho CUENCA, Dr. Shankar Referring Provider Elva CUENCA, Dr. Delaney Primary Care Provider Dr. Vonnie Griffith MD Attending Provider Dr. Vonnie Griffith MD Referring Provider Elva CUENCA, Dr. Delaney Primary Care Provider Nacho CUENCA, Dr. Shankar Attending Provider Nacho CUENCA, Dr. Shankar Referring Provider Vonnie Griffith Attending Unavailable Vonnie Griffith Referring Unavailable Rhett Stevenson Primary Care Unavailable Vonnie Griffith Attending Unavailable Vonnie Griffith Referring Unavailable Rhett Stevenson Primary Care Unavailable Vonnie Griffith Referring Unavailable Vonnie Griffith Attending Unavailable Rhett Stevenson Primary Care Unavailable Vonnie Griffith Referring Unavailable Vonnie Griffith Attending Unavailable Fleak, Rhett Primary Care Unavailable Vellanki, Vonnie Attending Unavailable Vellanki, Vonnie Referring Unavailable Fleak, Rhett Primary Care Unavailable FLEAK, RHETT MIQUEL Referring Unavailable FLEAK, RHETT MIQUEL Primary Care Unavailable FLEAK, RHETT MIQUEL Referring Unavailable FLEAK, RHETT MIQUEL Primary Care Unavailable FLEAK, RHETT MIQUEL Referring Unavailable FLEAK, RHETT MIQUEL Primary Care Unavailable FLEAK, RHETT MIQUEL Referring Unavailable FLEAK, RHETT MIQUEL Primary Care Unavailable FLEAK, RHETT MIQUEL Referring Unavailable FLEAK, RHETT MIQUEL Primary Care Unavailable FLEAK, RHETT MIQUEL Referring Unavailable FLEAK, RHETT MIQUEL Primary Care Unavailable FLEAK, RHETT MIQUEL Referring Unavailable FLEAK, RHETT MIQUEL Primary Care Unavailable FLEAK, RHETT MIQUEL Referring Unavailable FLEAK, RHETT MIQUEL Primary Care Unavailable FLEAK, RHETT MIQUEL Referring Unavailable FLEAK, RHETT MIQUEL Primary Care Unavailable FLEAK, RHETT MIQUEL Referring Unavailable FLEAK, RHETT MIQUEL Primary Care Unavailable FLEAK, RHETT MIQUEL Referring Unavailable FLEAK, RHETT MIQUEL Primary Care Unavailable SÁNCHEZ, NELSON Attending Unavailable FLEAK, RHETT MIQUEL Primary Care Unavailable FLEAK, RHETT MIQUEL Referring Unavailable FLEAK, RHETT MIQUEL Primary Care Unavailable FLEAK, RHETT MIQUEL Referring Unavailable FLEAK, RHETT MIQUEL Primary Care Unavailable FLEAK, RHETT MIQUEL Referring Unavailable FLEAK, RHETT MIQUEL Primary Care Unavailable FLEAK, RHETT MIQUEL Attending Unavailable FLEAK, RHETT MIQUEL Primary Care Unavailable FLEAK, RHETT MIQUEL Primary Care Unavailable Allergies Allergy Classification Reported Allergen(s) Allergy Type Date of Onset Reaction(s) Facility (1 source) Adhesive Tape; Translations: [ADHESIVE TAPE (ROSINS)] Propensity to adverse reactions (disorder) [facility] Repository (20 sources) cephalexin; Translations: [CEPHALEXIN] Drug Allergy 8 [facility] Repository (20 sources) etidronate; Translations: [ETIDRONATE DISODIUM] Drug Allergy 8 Rash [facility] Repository (20 sources) levoFLOXacin; Translations: [LEVOFLOXACIN] Drug Allergy 8 [facility] Repository (20 sources) Acetaminophen / HYDROcodone; Translations: [HYDROCODONE-ACET AMINOPHEN] Drug Allergy 1 Hives [facility] (20 sources) Adhesive Tape-Silicones; Translations: [ADHESIVE TAPE-SILICONES] Drug Allergy 9 Rash [facility] (20 sources) Adhesive agent; Translations: [ADHESIVE] Drug Allergy 2 Unknown [facility] (1 source) Adhesive Tape; Translations: [TAPE] Propensity to adverse reactions (disorder) [facility] Repository (1 source) Cephalexin Drug Allergy [facility] Repository (4 sources) Adhesive agent Drug Allergy 2 Unknown [facility] Medications Current Medications Medication Drug Class(es) Dates Sig (Normalized) Sig (Original) amLODIPine 10 mg oral tablet (20 sources) Dihydropyridine Calcium Channel David Start: 12-24-2020 End: 10-11-2024 take 1 tablet by mouth once daily amLODIPine (NORVASC) 10 mg tablet Indications: Essential hypertension, benign TAKE 1 TABLET BY MOUTH ONCE DAILY 90 tablet 1 08/01/2024 Active Comment on above: Take 10 mg by mouth once daily. ferrous sulfate 140 mg extended release oral tablet (20 sources) take 1 tablet by mouth once daily ferrous sulfate (SLOW FE) 140 mg (45 mg iron) TbER Take 1 tablet by mouth once daily. Active End: 12-19-2022 take 1 tablet by mouth once daily at breakfast ferrous sulfate 325 mg (65 mg iron) tablet Take 325 mg by mouth daily with breakfast. 0 12/19/2022 Discontinued (Dosage adjustment) Comment on above: Take 325 mg by mouth daily with breakfast. Take 1 tablet by thi once daily. gabapentin 300 mg oral capsule (20 sources) Anti-epileptic Agent Start: 2020 take 1 capsule by mouth once daily at bedtime gabapentin (NEURONTIN) 300 mg capsule Take 300 mg by mouth daily at bedtime. 11/23/2020 Active Comment on above: Take 300 mg by mouth daily at bedtime. hydroxychloroquine sulfate 200 mg oral tablet (20 sources) Antimalarial, Antirheumatic Agent take 2 tablets by mouth once daily hydrOXYchloroQUINE (PLAQUENIL) 200 mg tablet Take 2 tablets by mouth once daily. Active Comment on above: Take 2 tablets by mo [facility] once daily. lisinopril 5 mg oral tablet (20 sources) Angiotensin Converting Enzyme Inhibitor Start: 2021 End: 2025 take 1 tablet by mouth once daily lisinopril (ZESTRIL) 5 mg tablet Take 1 tablet by mouth once daily. 90 tablet 1 10/17/2024 04/15/2025 Active Comment on above: Take 5 mg by mouth o nce daily. mycophenolate mofetil 500 mg oral tablet (20 sources) Start: 2020 take 2 tablets by mouth twice daily mycophenolate Mofetil (CELLCEPT) 500 mg tablet Take 1,000 mg by mouth twice daily. 12/03/2020 Active Comment on above: Take 1,000 mg by thi th twice daily. phenytoin sodium 100 mg extended release oral capsule (20 sources) Anti-epileptic Agent Start: 2023 End: 2025 take 2 capsules by mouth twice daily phenytoin ER (DILANTIN) 100 mg ER capsule Take 2 capsules by mouth two times a day. 360 capsule 3 02/28/2024 02/27/2025 Active Start: 02-21-2022 End: 02-21-2022 take 1 capsule by mouth twice daily phenytoin ER 200 mg ER capsule Indications: Generalized epilepsy (HCC) Take 1 capsule by mouth twice daily. 60 capsule 11 02/21/2022 02/21/2022 Discontinued (Course of therapy completed) Start: 03-31-2021 End: 03-31-2022 take 2 capsules by mouth twice daily phenytoin ER (DILANTIN) 100 mg ER capsule Indications: epilepsy Take 2 capsules by mouth twice daily. 120 capsule 11 02/22/2022 Active Comment on above: Take 2 capsules by m outh twice daily. Take 1 capsule by mo uth twice daily. Take 2 capsules by m outh two times a day. potassium chloride 20 meq extended release oral tablet (20 sources) Start: 12-24-2020 End: 01-07-2025 take 1 tablet by mouth once daily potassium chloride 20 mEq TbER Take 1 tablet by mouth once daily. 90 tablet 10/09/2024 01/07/2025 Active Comment on above: Take 1 tablet by thi th once daily. predniSONE 10 mg oral tablet (20 sources) Start: 12-20-2020 predniSONE (DELTASONE) 10 mg tablet as needed. 12/20/2020 Active Comment on above: as needed. Take by mouth. warfarin sodium 10 mg oral tablet (20 sources) Vitamin K Antagonist Start: 04-25-2022 End: 11-05-2024 take 1 tablet by mouth once daily warfarin (COUMADIN) 10 mg tablet Take 1 tablet by mouth once daily. 90 tablet 1 05/09/2024 11/05/2024 Active Start: 01-05-2022 End: 01-05-2022 take 1 tablet by mouth once daily warfarin (COUMADIN) 10 mg tablet Take 1 tablet by mouth daily as directed. 30 tablet 3 01/05/2022 Active Comment on above: Take 10 mg by mouth daily as directed. Take 1 tablet by thi th daily as directed. Take 1 tablet by thi th once daily. TAKE 1 TABLET BY THI TH ONCE DAILY DIRECTED Completed/Discontinued Medications Medication Drug Class(es) Dates Sig (Normalized) Sig (Original) cefuroxime 250 mg oral tablet (5 sources) Cephalosporin Antibacterial cefUROXime (CEFTIN) 250 mg tablet Problems Active Problems Problem Classification Problem Date [...] Onset: 2 Chronic Other nervous system disorders (2 sources) Neuropathy; Translations: [Hereditary and idiopathic neuropathy, unspecified] 12-18-2022 Chronic Other nutritional; endocrine; and metabolic disorders (20 sources) Obesity; Translations: [Obesity, unspecified] Onset: 7 08-19-2021 Chronic Phlebitis; thrombophlebitis and thromboembolism (2 sources) Chronic deep venous thrombosis of left lower extremity; Translations: [Chronic embolism and thrombosis of unspecified deep veins of left lower extremity] Onset: 5 02-28-2024 Chronic Systemic lupus erythematosus and connective tissue disorders [...] 08-19-2021 08-19-2021 Episodic Other aftercare (1 source) 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; Translations: [MCFP (current) use of anticoagulants] Onset: 05-16-2022 Episodic Other ear and sense organ disorders (20 sources) Impacted cerumen; Translations: [Impacted cerumen, unspecified ear] Onset: 12-07-2006 08-19-2021 Episodic Other screening for suspected conditions (not mental disorders or infectious disease) (7 sources) Patient encounter status; Translations: [Encounter for screening mammogram for malignant neoplasm of breast] Onset: 04-08-2024 12-19-2022 Episodic Phlebitis; thrombophlebitis and thromboembolism (20 sources) History of thromboembolism of vein; Translations: [Personal history of other venous thrombosis and embolism] Onset: 12-07-2006 Episodic Screening and history of mental health and substance abuse codes (2 sources) Encounter for screening for depression; Translations: [Encounter for screening examination for other mental health and behavioral disorders] Onset: 01-10-2024 Episodic Unclassified (1 source) Cough, unspecified; Translations: [Cough, unspecified] Onset: 05-16-2022 Viral infection (1 source) Viral infection, unspecified; Translations: [Viral infection, unspecified] Onset: 05-16-2022 Episodic Results Test Name Value Interpretation Reference Range Facility PT panel Coag (PPP)on 2024 INR Coag (PPP) [Relative time] 2.1 {INR} High 0.9-1.3 [facility] Comment on above: Order Comment: Bob rogers Type: BLOOD SPECIMENOrdering Facility: [facility] Address: [address] [place] [address] Result Comment: Celina min K Antagonist (VKA) Therapeutic Range: INR 2 to 3 (Target INR of 2.5) Note: For patients treated with VKA drugs, such as warfarin, the [place] [employer] 2012 Guideline recommends a therapeutic INR range of 2 to 3 (target INR of 2.5). This recommendation includes high-risk patients with antiphospholipid syndrome with previous arterial or venous thromboembolism, current-generation mechanical or bioprosthetic aortic heart valve replacement. Note: Patients with mechanical aortic valve replacement and additional risk factors for thromboembolic events (atrial fibrillation, previous thromboembolism, LV dysfunction, hypercoagulable conditions) or an older generation mechanical AVR (i.e., ball in-Cage) or any mechanical MVR should have a INR therapeutic range of 2.5 to 3.5 (target INR of 3). Olimpia MORENO, et al. Chest 2012, 141:7S-47S Miguel Angel RA, et al. JACC 2017, 70: 252-289 Performed By: #### 3 4528-0 ####[facility] [id number] [place] [address] [place] PT Coag (PPP) [Time] 22.8 s High 9.4-12.5 [facility] Comment on above: Order Comment: Bob rogers Type: BLOOD SPECIMENOrdering Facility: [facility] Address: [address] [place] [address] Performed By: #### 3 4528-0 ####[facility] LABIA [id number] [place] [address] [facility] ROGERS CORTES ([id number]) 1980 F Date Time Provider Department 11/17/24 RHETT STEVENSON INTMUQue During your visit today, we recorded the following information about you: Paty Matthew LPN 11/17/2024 4:03 PM Signed HOME INR: 2.2 PATIENT TAKES 5MG DAILY EXCEPT 10MG MON/SUN/FRI. PATIENT TO CONTINUE SAME. RECHECK 1 MONTH. RAVINDRA Newman Michele Dawn, MD 11/17/2024 4:18 PM Signed ok Allergies As of Date: 11/17/2024 Noted Allergy Reaction ADHESIVE 09/02/2021 16 - Unknown ADHESIVE TAPE-SILICONES 06/18/2018 2 - Rash DIDRONEL (ETIDRONATE DISODIUM) 11/06/2017 2 - Rash KEFLEX (CEPHALEXIN) 11/05/2017 4 - Hives LEVAQUIN (LEVOFLOXACIN) 11/05/2017 4 - Hives NORCO (HYDROCODONE-ACETAMINOPHEN ) 01/07/2021 4 - Hives Date Reviewed: 02/28/2024 Reviewed by: Gabbi Meza MA - Fully Assessed Reason for Visit: Results [95] Cmt: INR Prescriptions as of 11/17/2024 - lisinopril (ZESTRIL) 5 mg tablet Take 1 tablet by mouth once daily. - potassium chloride 20 mEq TbER Take 1 tablet by mouth once daily. - amLODIPine (NORVASC) 10 mg tablet TAKE 1 TABLET BY MOUTH ONCE DAILY - warfarin (COUMADIN) 10 mg tablet Take 1 tablet by mouth once daily. - phenytoin ER (DILANTIN) 100 mg ER capsule Take 2 capsules by mouth two times a day. - ferrous sulfate (SLOW FE) 140 mg (45 mg iron) TbER Take 1 tablet by mouth once daily. - mycophenolate Mofetil (CELLCEPT) 500 mg tablet Take 1,000 mg by mouth twice daily. - predniSONE (DELTASONE) 10 mg tablet as needed. - gabapentin (NEURONTIN) 300 mg capsule Take 300 mg by mouth daily at bedtime. - hydrOXYchloroQUINE (PLAQUENIL) 200 mg tablet Take 2 tablets by mouth once daily. 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] 08/19/2021 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 Stage 1 chronic kidney disease [N18.1] 08/19/2021 Vitamin D deficiency [E55.9] 08/19/2021 Epileptic seizures (HCC) [G40.909] 10/24/2017 Generalized convulsive epilepsy (HCC) [G40.309] 12/07/2006 Encounter Status:Closed by PATY MATTHEW on 11/17/24 [facility] PT panel Coag (PPP)on 2024 INR Coag (PPP) [Relative time] 2.2 {INR} High 0.9-1.3 [facility] Comment on above: Order Comment: Speci men Type: BLOOD SPECIMENOrdering Facility: [facility] Address: [address] [place] [id number] Result Comment: Celina min K Antagonist (VKA) Therapeutic Range: INR 2 to 3 (Target INR of 2.5) Note: For patients treated with VKA drugs, such as warfarin, the [place] [employer] 2012 Guideline recommends a therapeutic INR range of 2 to 3 (target INR of 2.5). This recommendation includes high-risk patients with antiphospholipid syndrome with previous arterial or venous thromboembolism, current-generation mechanical or bioprosthetic aortic heart valve replacement. Note: Patients with mechanical aortic valve replacement and additional risk factors for thromboembolic events (atrial fibrillation, previous thromboembolism, LV dysfunction, hypercoagulable conditions) or an older generation mechanical AVR (i.e., ball in-Cage) or any mechanical MVR should have a INR therapeutic range of 2.5 to 3.5 (target INR of 3). Olimpia MORENO, et al. Chest 2012, 141:7S-47S Miguel Angel RA, et al. [facility] 2017, 70: 252-289 Performed By: #### 3 4528-0 ####[facility] [id number] [place] [address] [place] PT Coag (PPP) [Time] 23.4 s High 9.4-12.5 [facility] Comment on above: Order Comment: Speci men Type: BLOOD SPECIMENOrdering Facility: [facility] Address: [address] [place] [address] Performed By: #### 3 4528-0 ####[facility] [id number] [address] [place] 10-16-2024 [facility] Telephone ([facility]) -- ROGERS CORTES ([id number]) 1980 F Date Time Provider Department 10/16/24 RHETT STEVENSON During your visit today, we recorded the following information about you: Paty Matthew LPN 10/16/2024 3:20 PM Signed 10/13/24 HOME INR: 2.3 PATIENT TAKES 5MG DAILY EXCEPT 10MG MON/SUN/FRI. PATIENT TO CONTINUE SAME. RECHECK 1 MONTH. CALLED CELL # AND LM ADVISING. RAVINDRA Newman Michele Dawn, MD 10/17/2024 6:40 AM Signed ok Allergies As of Date: 10/16/2024 Noted Allergy Reaction ADHESIVE 09/02/2021 16 - Unknown ADHESIVE TAPE-SILICONES 06/18/2018 2 - Rash DIDRONEL (ETIDRONATE DISODIUM) 11/06/2017 2 - Rash KEFLEX (CEPHALEXIN) 11/05/2017 4 - Hives LEVAQUIN (LEVOFLOXACIN) 11/05/2017 4 - Hives NORCO (HYDROCODONE-ACETAMINOPHEN ) 01/07/2021 4 - Hives Date Reviewed: 02/28/2024 Reviewed by: Gabbi Meza MA - Fully Assessed Reason for Visit: Results [95] Cmt: INR Prescriptions as of 10/17/2024 - lisinopril (ZESTRIL) 5 mg tablet Take 1 tablet by mouth once daily. - potassium chloride 20 mEq TbER Take 1 tablet by mouth once daily. - amLODIPine (NORVASC) 10 mg tablet TAKE 1 TABLET BY MOUTH ONCE DAILY - warfarin (COUMADIN) 10 mg tablet Take 1 tablet by mouth once daily. - phenytoin ER (DILANTIN) 100 mg ER capsule Take 2 capsules by mouth two times a day. - ferrous sulfate (SLOW FE) 140 mg (45 mg iron) TbER Take 1 tablet by mouth once daily. - mycophenolate Mofetil (CELLCEPT) 500 mg tablet Take 1,000 mg by mouth twice daily. - predniSONE (DELTASONE) 10 mg tablet as needed. - gabapentin (NEURONTIN) 300 mg capsule Take 300 mg by mouth daily at bedtime. - hydrOXYchloroQUINE (PLAQUENIL) 200 mg tablet Take 2 tablets by mouth once daily. 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] 08/19/2021 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 Stage 1 chronic kidney disease [N18.1] 08/19/2021 Vitamin D deficiency [E55.9] 08/19/2021 Epileptic seizures (HCC) [G40.909] 10/24/2017 Generalized convulsive epilepsy (HCC) [G40.309] 12/07/2006 Encounter Status:Closed by NICOL SILVA on 10/17/24 [facility] PT panel Coag (PPP)on 2024 INR Coag (PPP) [Relative time] 2.3 {INR} High 0.9-1.3 [facility] Comment on above: Order Comment: Speci men Type: BLOOD SPECIMEN [facility] Address: [address] [place] [address] Result Comment: Celina min K Antagonist (VKA) Therapeutic Range: INR 2 to 3 (Target INR of 2.5) Note: For patients treated with VKA drugs, such as warfarin, the [employer] [employer] 2012 Guideline recommends a therapeutic INR range of 2 to 3 (target INR of 2.5). This recommendation includes high-risk patients with antiphospholipid syndrome with previous arterial or venous thromboembolism, current-generation mechanical or bioprosthetic aortic heart valve replacement. Note: Patients with mechanical aortic valve replacement and additional risk factors for thromboembolic events (atrial fibrillation, previous thromboembolism, LV dysfunction, hypercoagulable conditions) or an older generation mechanical AVR (i.e., ball in-Cage) or any mechanical MVR should have a INR therapeutic range of 2.5 to 3.5 (target INR of 3). Olimpia GH, et al. Chest 2012, 141:7S-47S Miguel Angel RA, et al. [facility] 2017, 70: 252-289 Performed By: #### 3 4528-0 #### [facility] CLIA [id number] [address] [place] [address] [place] PT Coag (PPP) [Time] 25.2 s High 9.4-12.5 [facility] Comment on above: Order Comment: Speci men Type: BLOOD SPECIMEN [facility] Address: [address] [place] [address] Performed By: #### 3 4528-0 #### [facility] CLIA [id number] [address] [place] [address] [place] Complement C3on 10-04-2024 COMP C3 118 mg/dL Normal 82-167 [facility] Comment on above: Result Comment: Perf ormed at: CB - [facility] [place] [id number] [place], [place] [id number] [employer]plant[employer] Crew: Dionisio Guevara PhD, Phone: [phone] Performed By: #### L 400.2010, L500.4050, L501.0900, L3100.5700, L3100.5800, L100.0100 #### [facility] [address] [place], [place], [id number] Complement C4on 10-04-2024 COMPLEMENT, C4 20 mg/dL Normal 12-38 [facility] Comment on above: Performed By: #### L 400.2010, L500.4050, L501.0900, L3100.5700, L3100.5800, L100.0100 #### [facility] [address] [place], [place], [id number] Absolute lymphocyte countOrd ered By: Vonnie Griffith on 10-02-2024 Lymphocytes Auto (Unsp spec) [#/Vol] 1.71 10*3/uL 0.83-4.51 [facility] Absolute neutrophil countOrd ered By: Vonnie Griffith on 10-02-2024 Neutrophils (Bld) [#/Vol] 3.9 10*3/uL 2.0-7.7 [facility] Anion gap in Serum or Plasma Ordered By: Vonnie Griffith on 10-02-2024 Anion gap [Moles/Vol] 11 mmol/L 5-15 [facility] Automated lymphocyte count a s percentage of total leukocytesOrdered By: Vonnie Griffith on 10-02-2024 Lymphocytes/100 WBC Auto (Unsp spec) 26.9 % 19-41 [facility] BUN/creatinine ratioOrdered By: Vonnievazquez Griffith on 10-02-2024 Urea nitrogen/Creatinine [Mass ratio] 23.7 mg/mg High 10-20 [facility] Basophil percentageOrdered B y: Vonnie Griffith on 10-02-2024 Basophils/100 WBC (Bld) 0.6 % 0-1 [facility] Bilirubin Test strip Ql (U)O rdered By: Vonnie Griffith on 10-02-2024 Bilirubin Ql (U) Negative Negative [facility] Bilirubin, totalOrdered By: Vonnievazquez Griffith on 10-02-2024 Bilirubin [Mass/Vol] 0.25 mg/dL Normal 0.00-1.30 [facility] Comment on above: Performed By: #### L , L500.4050, L501.0900, L3100.5700, L3100.5800, L100.0100 #### [facility] [address] [place], [place], [id number] CBC W/Diff, Automatedon 09-06 Absolute Lymph 1.71 X10 3/uL Normal 0.83-4.51 [facility] Comment on above: Performed By: #### L 400.2010, L500.4050, L501.0900, L3100.5700, L3100.5800, L100.0100 #### [facility] [address] [place], [address] Absolute Neut 3.9 X10 3/uL Normal 2.0-7.7 [facility] Comment on above: Performed By: #### L 400.2010, L500.4050, L501.0900, L3100.5700, L3100.5800, L100.0100 #### [facility] [address] [place], [address] Basophils/100 WBC (Bld) 0.6 % Normal 0-1 [facility] Comment on above: Performed By: #### L 400, L500.4050, L501.0900, L3100.5700, L3100.5800, L100.0100 #### [facility] [address] [place], [address] Eosinophils/100 WBC (Bld) 2.2 % Normal 0-5 [facility] Comment on above: Performed By: #### L 400, L500.4050, L501.0900, L3100.5700, L3100.5800, L100.0100 #### [facility] [address] [place], [address] Erythrocyte distribution width (RBC) [Ratio] 13.0 % Normal 11.6-14.6 [facility] Comment on above: Performed By: #### L 400, L500.4050, L501.0900, L3100.5700, L3100.5800, L100.0100 #### [facility] [address] [place], [address] Hematocrit (Bld) [Volume fraction] 39.8 % Normal 37-47 [facility] Comment on above: Performed By: #### L 400, L500.4050, L501.0900, L3100.5700, L3100.5800, L100.0100 #### [facility] [address] [place], [address] Hemoglobin (Bld) [Mass/Vol] 13.3 g/dL Normal 12.0-15.0 [facility] Comment on above: Performed By: #### L 400.2010, L500.4050, L501.0900, L3100.5700, L3100.5800, L100.0100 #### [facility] [address] [place], [address] IG% 0.200 Normal 0.0-0.9 [facility] Comment on above: Result Comment: IG% - Immature Granulocytes (promyelocytes, myelocytes and metamyelocytes) > 1% indicates that a LEFT SHIFT is Present. Performed By: #### L 400.2010, L500.4050, L501.0900, L3100.5700, L3100.5800, L100.0100 #### [facility] [address] [place], [address] Lymphocytes/100 WBC (Bld) 26.9 % Normal 19-41 [facility] Comment on above: Performed By: #### L 400, L500.4050, L501.0900, L3100.5700, L3100.5800, L100.0100 #### [facility] [address] [place], [address] MCH (RBC) [Entitic mass] 29.2 pg Normal 27.0-32.0 [facility] Comment on above: Performed By: #### L 400, L500.4050, L501.0900, L3100.5700, L3100.5800, L100.0100 #### [facility] [address] [place], [address] MCHC (RBC) [Mass/Vol] 33.4 g/dL Normal 32-36 [facility] Comment on above: Performed By: #### L 400, L500.4050, L501.0900, L3100.5700, L3100.5800, L100.0100 #### [facility] [address] [place], [address] MCV (RBC) [Entitic vol] 87.5 fL Normal 81-99 [facility] Comment on above: Performed By: #### L 400.2010, L500.4050, L501.0900, L3100.5700, L3100.5800, L100.0100 #### [facility] [address] [place], [address] Monocytes/100 WBC (Bld) 8.6 % Normal 0-10 [facility] Comment on above: Performed By: #### L 400, L500.4050, L501.0900, L3100.5700, L3100.5800, L100.0100 #### [facility] [address] [place], [address] Neutrophils/100 WBC (Bld) 61.5 % Normal 47-70 [facility] Comment on above: Performed By: #### L , L500.4050, L501.0900, L3100.5700, L3100.5800, L100.0100 #### [facility] [address] [place], [address] Nucleated RBC (Bld) [#/Vol] 0 10*3/uL Normal 0-5 [facility] Comment on above: Performed By: #### L , L500.4050, L501.0900, L3100.5700, L3100.5800, L100.0100 #### [facility] [address] [place], [address] Platelet mean volume (Bld) [Entitic vol] 11.1 fL Normal 6.2-12.0 [facility] Comment on above: Performed By: #### L 400, L500.4050, L501.0900, L3100.5700, L3100.5800, L100.0100 #### [facility] [address] [place], [address] Platelets (Bld) [#/Vol] 200 10*3/uL Normal 150-450 [facility] Comment on above: Performed By: #### L 400.2010, L500.4050, L501.0900, L3100.5700, L3100.5800, L100.0100 #### [facility] [address] [place], [address] RBC (Bld) [#/Vol] 4.55 10*6/uL Normal 4.2-5.4 [facility] Comment on above: Performed By: #### L 400.2010, L500.4050, L501.0900, L3100.5700, L3100.5800, L100.0100 #### [facility] [address] [place], [address] RDW SD 41.3 fl Normal 35.1-43.9 [facility] Comment on above: Performed By: #### L 400, L500.4050, L501.0900, L3100.5700, L3100.5800, L100.0100 #### [facility] [address] [place], [address] WBC (Bld) [#/Vol] 6.4 10*3/uL Normal 4.4-11.0 [facility] Comment on above: Performed By: #### L 400.2010, L500.4050, L501.0900, L3100.5700, L3100.5800, L100.0100 #### [facility] [address] [place], [address] Carbon dioxide, total [Moles /volume] in Central venous bloodOrdered By: Vonnie Griffith on 10-02-2024 CO2 [Moles/Vol] 23.7 mmol/L Normal 21.0-32.0 [facility] Comment on above: Performed By: #### L 400, L500.4050, L501.0900, L3100.5700, L3100.5800, L100.0100 #### [facility] [address] [place], [address] Chloride assayOrdered By: Jim Griffith on 10-02-2024 Chloride [Moles/Vol] 105 mmol/L Normal 98-108 [facility] Comment on above: Performed By: #### L 400.2010, L500.4050, L501.0900, L3100.5700, L3100.5800, L100.0100 #### [facility] [address] [place], [address] Comprehensive Metabolic Prof ilon 10-02-2024 ALK PHOS 69 U/L Normal 35-104 [facility] Comment on above: Performed By: #### L 400.2010, L500.4050, L501.0900, L3100.5700, L3100.5800, L100.0100 #### [facility] [address] [place], [address] BUN/CRE 23.7 RATIO High 10-20 [facility] Comment on above: Performed By: #### L 400.2010, L500.4050, L501.0900, L3100.5700, L3100.5800, L100.0100 #### [facility] [address] [place], [address] GAP 11 Normal 5-15 [facility] Comment on above: Performed By: #### L 400.2010, L500.4050, L501.0900, L3100.5700, L3100.5800, L100.0100 #### [facility] [address] [place], [address] Potassium [Moles/Vol] 3.9 mmol/L Normal 3.3-5.1 [facility] Comment on above: Performed By: #### L 400.2010, L500.4050, L501.0900, L3100.5700, L3100.5800, L100.0100 #### [facility] [address] [place], [address] T PROT 7.2 g/dL Normal 5.9-8.4 [facility] Comment on above: Performed By: #### L 400.2010, L500.4050, L501.0900, L3100.5700, L3100.5800, L100.0100 #### [facility] [address] [place], [address] Comprehensive Metabolic Prof ilOrdered By: Vonnie Griffith on 10-02-2024 AST [Catalytic activity/Vol] 28 U/L Normal <=31 [facility] Comment on above: Performed By: #### L 400.2010, L500.4050, L501.0900, L3100.5700, L3100.5800, L100.0100 #### [facility] [address] [place], [place], [id number] Eosinophil percentageOrdered By: Vonnie Griffith on 10-02-2024 Eosinophils/100 WBC (Bld) 2.2 % 0-5 [facility] Erythrocyte distribution wid th ratioOrdered By: Vonnie Griffith on 10-02-2024 Erythrocyte distribution width (RBC) [Ratio] 13.0 % 11.6-14.6 [facility] Erythrocyte distribution wid th standard deviationOrdered By: Vonnie Griffith on 10-02-2024 Erythrocyte distribution width (RBC) [Ratio] 41.3 fl 35.1-43.9 [facility] Glomerular filtration rate ( GFR) estimation/1.73 sq m using serum, plasma, or whole bOrdered By: Vonnie Griffith on 10-02-2024 GFR/1.73 sq M.predicted among non-blacks MDRD (S/P/Bld) [Vol rate/Area] 113 mL/min/{1.73_m2} Normal >60 [facility] Comment on above: mL/min/1.73m2 CKD-EP I Creatinine Equation (2020) Result Comment: mL/m in/1.73m2 CKD-EPI Creatinine Equation (2020) Performed By: #### L 400.2010, L500.4050, L501.0900, L3100.5700, L3100.5800, L100.0100 #### [facility] [address] [place], [address] Hematocrit Auto (Bld) [Volum e fraction]Ordered By: Vonnie Griffith on 10-02-2024 Hematocrit (Bld) [Volume fraction] 39.8 % 37-47 [facility] Hemoglobin measurementOrdere d By: Vonnie Griffith on 10-02-2024 Hemoglobin (Bld) [Mass/Vol] 13.3 g/dL 12.0-15.0 [facility] Immature granulocytes/100 WB C Auto (Bld)Ordered By: Vonnie Griffith on 10-02-2024 Immature granulocytes/100 WBC (Bld) 0.200 % 0.0-0.9 [facility] Comment on above: IG% - Immature Granu locytes (promyelocytes, myelocytes and metamyelocytes) > 1% indicates that a LEFT SHIFT is Present. Ketones Test strip Ql (U)Ord ered By: Vonnie Griffith on 10-02-2024 Ketones Ql (U) Negative Negative [facility] MCV (mean corpuscular volume ) determinationOrdered By: Vonnie Griffith on 10-02-2024 MCV (RBC) [Entitic vol] 87.5 fL 81-99 [facility] Mean corpuscular hemoglobin (MCH) determinationOrdered By: Vonnie Griffith 10-02-2024 MCH (RBC) [Entitic mass] 29.2 pg 27.0-32.0 [facility] Mean corpuscular hemoglobin concentration (MCHC) determinationOrdered By: Vonnie Griffith on 10-02-2024 MCHC (RBC) [Mass/Vol] 33.4 g/dL 32-36 [facility] Mean platelet volume determi nationOrdered By: Vonnie Griffith on 10-02-2024 Platelet mean volume (Bld) [Entitic vol] 11.1 fL 6.2-12.0 [facility] Monocyte percentageOrdered B y: oVnnie Griffith on 10-02-2024 Monocytes/100 WBC (Bld) 8.6 % 0-10 [facility] Neutrophil percentageOrdered By: Vonnie Griffith on 10-02-2024 Neutrophils/100 WBC (Bld) 61.5 % 47-70 [facility] Nitrite Test strip Ql (U)Ord ered By: Vonnie Griffith on 10-02-2024 Nitrite Ql (U) Negative Negative [facility] Nucleated red blood cell per centageOrdered By: Vonnie Griffith on 10-02-2024 Nucleated RBC/100 WBC (Bld) [Ratio] 0 % 0-5 [facility] Platelet countOrdered By: Jim Griffith on 10-02-2024 Platelets (Bld) [#/Vol] 200 10*3/uL 150-450 [facility] Potassium measurement (mass/ volume)Ordered By: Vonnie Griffith on 10-02-2024 Potassium (Unsp spec) [Mass/Vol] 3.9 mmol/L 3.3-5.1 [facility] Protein Test strip Ql (U)Ord ered By: Vonnie Griffith on 10-02-2024 Protein Ql (U) 15 mg/dl High Negative [facility] Protein+Creatinine Ratio,Uri neon 10-02-2024 PROT:CRE RATIO 70 mg/g CRE Normal 0-200 [facility] Comment on above: Performed By: #### L 400.2010, L500.4050, L501.0900, L3100.5700, L3100.5800, L100.0100 #### [facility] [address] [place], [address] Protein (U) [Mass/Vol] 11.4 mg/dL Normal 0.0-12.0 [facility] Comment on above: Performed By: #### L 400.2010, L500.4050, L501.0900, L3100.5700, L3100.5800, L100.0100 #### [facility] [address] [place], [address] UR CREAT 162.00 mg/dL Normal 28.00-217.0 0 [facility] Comment on above: Performed By: #### L 400.2010, L500.4050, L501.0900, L3100.5700, L3100.5800, L100.0100 #### [facility] [address] [place], [place], [id number] (141) RBC Auto (Bld) [#/Vol]Ordere d By: Vonnie Griffith on 10-02-2024 RBC (Bld) [#/Vol] 4.55 10*6/uL 4.2-5.4 [facility] Random urine creatinine raj urement (mass/volume)Ordered By: Vonnie Griffith on 10-02-2024 Creatinine Unsp time (U) [Mass/Vol] 162.00 mg/dL 28.00-217.0 0 [facility] Serum creatinine measurement (mass/volume)Ordered By: Vonnie Griffith on 10-02-2024 Creatinine [Mass/Vol] 0.63 mg/dL Low 0.70-1.20 [facility] Comment on above: Performed By: #### L 400.2010, L500.4050, L501.0900, L3100.5700, L3100.5800, L100.0100 #### [facility] [address] [place], [place], [phone] Serum globulin measurementOr dered By: Vonnie Griffith on 10-02-2024 Globulin (S) [Mass/Vol] 3.0 g/dL Normal 2.2-4.2 [facility] Comment on above: Performed By: #### L 400.2010, L500.4050, L501.0900, L3100.5700, L3100.5800, L100.0100 #### [facility] [address] [place], [address] Serum glucose measurement (m ass/volume)Ordered By: Vonnie Griffith on 10-02-2024 Glucose [Mass/Vol] 86 mg/dL Normal 70-99 [facility] Comment on above: Performed By: #### L 400, L500.4050, L501.0900, L3100.5700, L3100.5800, L100.0100 #### [facility] [address] [place], [place], [id number] (489) Serum or plasma alanine bo otransferase (ALT) measurementOrdered By: Vonnie Griffith on 10-02-2024 ALT [Catalytic activity/Vol] 26 U/L Normal <=34 [facility] Comment on above: Performed By: #### L 400.2010, L500.4050, L501.0900, L3100.5700, L3100.5800, L100.0100 #### [facility] [address] [place], [place], [id number] (833) Serum or plasma albumin raj urement (mass/volume)Ordered By: Vonnie Griffith on 10-02-2024 Albumin [Mass/Vol] 4.2 g/dL Normal 3.5-5.0 [facility] Comment on above: Performed By: #### L 400.2010, L500.4050, L501.0900, L3100.5700, L3100.5800, L100.0100 #### [facility] [address] [facility] [place], [place], [phone] (585) Serum or plasma albumin/glob ulin mass ratioOrdered By: Vonnie Griffith on 10-02-2024 Albumin/Globulin [Mass ratio] 1.4 {ratio} Normal 0.9-2.4 [facility] Comment on above: Performed By: #### L 400.2010, L500.4050, L501.0900, L3100.5700, L3100.5800, L100.0100 #### [facility] [address] [facility] [place], [place], [id number] Serum or plasma alkaline aaron sphatase measurementOrdered By: Vonnie Griffith on 10-02-2024 ALP [Catalytic activity/Vol] 69 U/L 35-104 [facility] Serum or plasma calcium raj urement (mass/volume)Ordered By: Vonnie Griffith on 10-02-2024 Calcium [Mass/Vol] 9.0 mg/dL Normal 7.6-11.0 [facility] Comment on above: Performed By: #### L 400.2010, L500.4050, L501.0900, L3100.5700, L3100.5800, L100.0100 #### [facility] [address] [place], [address] Serum or plasma complement C 4 measurement (mass/volume)Ordered By: Vonnie Griffith on 10-02-2024 Complement C4 [Mass/Vol] 20 mg/dL 12-38 [facility] Serum or plasma urea nitroge n measurement (mass/volume)Ordered By: Vonnie Griffith on 10-02-2024 Urea nitrogen [Mass/Vol] 15 mg/dL Normal 4-19 [facility] Comment on above: Performed By: #### L 400, L500.4050, L501.0900, L3100.5700, L3100.5800, L100.0100 #### [facility] [address] [place], [place], [id number] Sodium levelOrdered By: Marisa Griffith on 10-02-2024 Sodium [Moles/Vol] 139 mmol/L Normal 133-145 [facility] Comment on above: Performed By: #### L 400.2010, L500.4050, L501.0900, L3100.5700, L3100.5800, L100.0100 #### [facility] [address] [place], [address] Total proteinOrdered By: Yun Griffith on 10-02-2024 Protein [Mass/Vol] 7.2 g/dL 5.9-8.4 [facility] Urinalysis, Routine (Dipstic k)on 10-02-2024 BILIRUBIN URINE Negative Normal Negative [facility] Comment on above: Order Comment: Urine , Random Performed By: #### L 400.2010, L500.4050, L501.0900, L3100.5700, L3100.5800, L100.0100 #### [facility] [address] [place], [address] Clarity (U) Clear Normal Clear [facility] Comment on above: Order Comment: Urine , Random Performed By: #### L 400.2010, L500.4050, L501.0900, L3100.5700, L3100.5800, L100.0100 #### [facility] [address] [place], [address] Color (U) Yellow Normal Yellow [facility] Comment on above: Order Comment: Urine , Random Performed By: #### L 400.2010, L500.4050, L501.0900, L3100.5700, L3100.5800, L100.0100 #### [facility] [address] [place], [address] GLUCOSE, UR Normal Normal Normal [facility] Comment on above: Order Comment: Urine , Random Performed By: #### L 400.2010, L500.4050, L501.0900, L3100.5700, L3100.5800, L100.0100 #### [facility] [address] [place], [address] KETONE UR Negative Normal Negative [facility] Comment on above: Order Comment: Urine , Random Performed By: #### L 400.2010, L500.4050, L501.0900, L3100.5700, L3100.5800, L100.0100 #### [facility] [address] [place], [address] LEUK ESTERASE Negative Normal Negative [facility] Comment on above: Order Comment: Urine , Random Performed By: #### L 400.2010, L500.4050, L501.0900, L3100.5700, L3100.5800, L100.0100 #### [facility] [address] [place], [address] Nitrite Ql (U) Negative Normal Negative [facility] Comment on above: Order Comment: Urine , Random Performed By: #### L 400.2010, L500.4050, L501.0900, L3100.5700, L3100.5800, L100.0100 #### [facility] [address] [place], [address] OCCULT BLOOD-UR 10 /ul Abnormal Negative [facility] Comment on above: Order Comment: Urine , Random Performed By: #### L 400.2010, L500.4050, L501.0900, L3100.5700, L3100.5800, L100.0100 #### [facility] [address] [place], [address] pH UR 5.0 Normal 5.0 - 8.0 [facility] Comment on above: Order Comment: Urine , Random Performed By: #### L 400, L500.4050, L501.0900, L3100.5700, L3100.5800, L100.0100 #### [facility] [address] [place], [address] PROT DIPSTX 15 mg/dl Abnormal Negative [facility] Comment on above: Order Comment: Urine , Random Performed By: #### L 400, L500.4050, L501.0900, L3100.5700, L3100.5800, L100.0100 #### [facility] [address] [place], [address] SP.GR. DIPSTX 1.025 Normal 1.002-1.030 [facility] Comment on above: Order Comment: Urine , Random Performed By: #### L 400, L500.4050, L501.0900, L3100.5700, L3100.5800, L100.0100 #### [facility] [address] [place], [address] UROBILI Normal Normal Normal [facility] Comment on above: Order Comment: Urine , Random Performed By: #### L 400.2011, L500.4050, L501.0900, L3100.5700, L3100.5800, L100.0100 #### [facility] [address] [place], [address] Urine clarityOrdered By: Yun Griffith on 10-02-2024 Clarity (U) Clear Clear [facility] Urine color determinationOrd ered By: Vonnie Griffith on 10-02-2024 Color (U) Yellow Yellow [facility] Urine glucose detectionOrder ed By: Vonnie Griffith on 10-02-2024 Glucose Ql (U) Normal mg/dl Normal [facility] Urine leukocyte esterase det ection by dipstickOrdered By: Vonnie Griffith on 10-02-2024 Leukocyte esterase Test strip Ql (U) Negative Negative [facility] Urine pHOrdered By: Vonnie wang on 10-02-2024 pH (U) 5.0 [pH] 5.0 - 8.0 [facility] Urine protein measurement (m ass/volume)Ordered By: Vonnie Griffith on 10-02-2024 Protein (U) [Mass/Vol] 11.4 mg/dL 0.0-12.0 [facility] Urine protein/creatinine mas s ratioOrdered By: Vonnie Griffith on 10-02-2024 Protein/Creatinine (U) [Mass ratio] 70 mg/g CRE 0-200 [facility] Urine specific gravity measu rementOrdered By: Vonnie Griffith on 10-02-2024 Specific gravity (U) [Rel density] 1.025 1.002-1.030 [facility] Urine urobilinogen measureme ntOrdered By: Vonnie Griffith on 10-02-2024 Urobilinogen Ql (U) Normal mg/dl Normal [facility] White blood cell (WBC) count Ordered By: Vonnie Griffith on 10-02-2024 WBC (Bld) [#/Vol] 6.4 10*3/uL 4.4-11.0 [facility] CNPNon 09-16-2024 CNPN Telephone ([facility]) -- ROGERS CORTES ([id number]) 1980 F Date Time Provider Department 09/16/24 RHETT STEVENSON During your visit today, we recorded the following information about you: Paty Matthew LPN 09/16/2024 2:43 PM Signed INR: 1.9 PATIENT TAKES 5MG DAILY EXCEPT 10MG MON/SUN/SUN. PATIENT TO CONTINUE SAME. RECHECK 1 MONTH. CALLED CELL # AND LMTCB ON VOICEMAIL. RAVINDRA Newman Heather S, LPN 09/17/2024 1:47 PM Signed CALLED HUSBANDS CELL # AND LMTCB ON VOICEMAIL. RAVINDRA Newman Kelli, RN 09/18/2024 8:42 AM Signed I spoke with Rogers and relayed, INR: 1.9 PATIENT TAKES 5MG DAILY EXCEPT 10MG MON/SUN/SUN. PATIENT TO CONTINUE SAME. RECHECK 1 MONTH. CALLED CELL # AND LMTCB ON VOICEMAIL. Paty Matthew LPN She denies questions. Allergies As of Date: 09/16/2024 Noted Allergy Reaction ADHESIVE 09/02/2021 16 - Unknown ADHESIVE TAPE-SILICONES 06/18/2018 2 - Rash DIDRONEL (ETIDRONATE DISODIUM) 11/06/2017 2 - Rash KEFLEX (CEPHALEXIN) 11/05/2017 4 - Hives LEVAQUIN (LEVOFLOXACIN) 11/05/2017 4 - Hives NORCO (HYDROCODONE-ACETAMINOPHEN ) 01/07/2021 4 - Hives Date Reviewed: 02/28/2024 Reviewed by: Gabbi Meza MA - Fully Assessed Reason for Visit: Results [95] Cmt: INR Prescriptions as of 09/18/2024 - amLODIPine (NORVASC) 10 mg tablet TAKE 1 TABLET BY MOUTH ONCE DAILY - warfarin (COUMADIN) 10 mg tablet Take 1 tablet by mouth once daily. - potassium chloride 20 mEq TbER Take 1 tablet by mouth once daily. - lisinopril (ZESTRIL) 5 mg tablet Take 1 tablet by mouth once daily. - phenytoin ER (DILANTIN) 100 mg ER capsule Take 2 capsules by mouth two times a day. - ferrous sulfate (SLOW FE) 140 mg (45 mg iron) TbER Take 1 tablet by mouth once daily. - mycophenolate Mofetil (CELLCEPT) 500 mg tablet Take 1,000 mg by mouth twice daily. - predniSONE (DELTASONE) 10 mg tablet as needed. - gabapentin (NEURONTIN) 300 mg capsule Take 300 mg by mouth daily at bedtime. - hydrOXYchloroQUINE (PLAQUENIL) 200 mg tablet Take 2 tablets by mouth once daily. 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] 08/19/2021 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 Stage 1 chronic kidney disease [N18.1] 08/19/2021 Vitamin D deficiency [E55.9] 08/19/2021 Epileptic seizures (HCC) [G40.909] 10/24/2017 Generalized convulsive epilepsy (HCC) [G40.309] 12/07/2006 Encounter Status:Closed by NICOL SILVA on 09/18/24 [facility] PT panel Coag (PPP)on 2024 INR Coag (PPP) [Relative time] 1.9 {INR} High 0.9-1.3 [facility] Comment on above: Order Comment: Bob rogers Type: BLOOD SPECIMENOrdering Facility: [facility] Address: [address] [place] [address] Result Comment: Celina min K Antagonist (VKA) Therapeutic Range: INR 2 to 3 (Target INR of 2.5) Note: For patients treated with VKA drugs, such as warfarin, the [employer] 2012 Guideline recommends a therapeutic INR range of 2 to 3 (target INR of 2.5). This recommendation includes high-risk patients with antiphospholipid syndrome with previous arterial or venous thromboembolism, current-generation mechanical or bioprosthetic aortic heart valve replacement. Note: Patients with mechanical aortic valve replacement and additional risk factors for thromboembolic events (atrial fibrillation, previous thromboembolism, LV dysfunction, hypercoagulable conditions) or an older generation mechanical AVR (i.e., ball in-Cage) or any mechanical MVR should have a INR therapeutic range of 2.5 to 3.5 (target INR of 3). Olimpia GH, et al. Chest 2012, 141:7S-47S Miguel Angel RA, et al. [facility] 2017, 70: 252-289 Performed By: #### 3 4528-0 ####[facility] [id number] [place] [address] [place] PT Coag (PPP) [Time] 20.9 s High 9.4-12.5 [facility] Comment on above: Order Comment: Bob rogers Type: BLOOD SPECIMENOrdering Facility: [facility] Address: [address] [place] [address] Performed By: #### 3 4528-0 ####[facility] LABIA [id number] [place] [address] [place] Johnna 08-22-2024 [place] Telephone ([place]) -- ANDREY CORTESISSA A ([id number]) 1980 F Date Time Provider Department 08/22/24 NELSON POZO During your visit today, we recorded the following information about you: Adrianne Corley 08/22/2024 10:44 AM Signed Patient left vm wanting to know what her bill was? Left message for patient to call the office. Patient needs notified she needs to call the number on her bill. Allergies As of Date: 08/22/2024 Noted Allergy Reaction ADHESIVE 09/02/2021 16 - Unknown ADHESIVE TAPE-SILICONES 06/18/2018 2 - Rash DIDRONEL (ETIDRONATE DISODIUM) 11/06/2017 2 - Rash KEFLEX (CEPHALEXIN) 11/05/2017 4 - Hives LEVAQUIN (LEVOFLOXACIN) 11/05/2017 4 - Hives NORCO (HYDROCODONE-ACETAMINOPHEN ) 01/07/2021 4 - Hives Date Reviewed: 02/28/2024 Reviewed by: Gabbi Meza MA - Fully Assessed Reason for Visit: Patient Question [8737] Prescriptions as of 08/22/2024 - amLODIPine (NORVASC) 10 mg tablet TAKE 1 TABLET BY MOUTH ONCE DAILY - warfarin (COUMADIN) 10 mg tablet Take 1 tablet by mouth once daily. - potassium chloride 20 mEq TbER Take 1 tablet by mouth once daily. - lisinopril (ZESTRIL) 5 mg tablet Take 1 tablet by mouth once daily. - phenytoin ER (DILANTIN) 100 mg ER capsule Take 2 capsules by mouth two times a day. - ferrous sulfate (SLOW FE) 140 mg (45 mg iron) TbER Take 1 tablet by mouth once daily. - mycophenolate Mofetil (CELLCEPT) 500 mg tablet Take 1,000 mg by mouth twice daily. - predniSONE (DELTASONE) 10 mg tablet as needed. - gabapentin (NEURONTIN) 300 mg capsule Take 300 mg by mouth daily at bedtime. - hydrOXYchloroQUINE (PLAQUENIL) 200 mg tablet Take 2 tablets by mouth once daily. 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] 08/19/2021 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 Stage 1 chronic kidney disease [N18.1] 08/19/2021 Vitamin D deficiency [E55.9] 08/19/2021 Epileptic seizures (HCC) [G40.909] 10/24/2017 Generalized convulsive epilepsy (HCC) [G40.309] 12/07/2006 Encounter Status:Closed by ADRIANNE CORLEY on 08/22/24 [facility] 08-11-2024 [facility] Telephone ([place]) -- ROGERS CORTES ([id number]) 1980 F Date Time Provider Department 08/11/24 RHETT STEVENSON INTM[place] During your visit today, we recorded the following information about you: Paty Matthew LPN 08/11/2024 4:42 PM Signed HOME INR: 2.4 PATIENT TAKES 5MG DAILY EXCEPT 10MG MON/SUN/SUN. PATIENT TO CONTINUE SAME. RECHECK 1 MONTH. PT ADVISED. RAVINDRA Newman Michele Dawn, MD 08/12/2024 10:21 AM Signed ok Allergies As of Date: 08/11/2024 Noted Allergy Reaction ADHESIVE 09/02/2021 16 - Unknown ADHESIVE TAPE-SILICONES 06/18/2018 2 - Rash DIDRONEL (ETIDRONATE DISODIUM) 11/06/2017 2 - Rash KEFLEX (CEPHALEXIN) 11/05/2017 4 - Hives LEVAQUIN (LEVOFLOXACIN) 11/05/2017 4 - Hives NORCO (HYDROCODONE-ACETAMINOPHEN ) 01/07/2021 4 - Hives Date Reviewed: 02/28/2024 Reviewed by: Gabbi Meza MA - Fully Assessed Reason for Visit: Results [95] Cmt: INR Prescriptions as of 08/12/2024 - amLODIPine (NORVASC) 10 mg tablet TAKE 1 TABLET BY MOUTH ONCE DAILY - warfarin (COUMADIN) 10 mg tablet Take 1 tablet by mouth once daily. - potassium chloride 20 mEq TbER Take 1 tablet by mouth once daily. - lisinopril (ZESTRIL) 5 mg tablet Take 1 tablet by mouth once daily. - phenytoin ER (DILANTIN) 100 mg ER capsule Take 2 capsules by mouth two times a day. - ferrous sulfate (SLOW FE) 140 mg (45 mg iron) TbER Take 1 tablet by mouth once daily. - mycophenolate Mofetil (CELLCEPT) 500 mg tablet Take 1,000 mg by mouth twice daily. - predniSONE (DELTASONE) 10 mg tablet as needed. - gabapentin (NEURONTIN) 300 mg capsule Take 300 mg by mouth daily at bedtime. - hydrOXYchloroQUINE (PLAQUENIL) 200 mg tablet Take 2 tablets by mouth once daily. 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] 08/19/2021 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 Stage 1 chronic kidney disease [N18.1] 08/19/2021 Vitamin D deficiency [E55.9] 08/19/2021 Epileptic seizures (HCC) [G40.909] 10/24/2017 Generalized convulsive epilepsy (HCC) [G40.309] 12/07/2006 Encounter Status:Closed by PATY MATTHEW on 08/12/24 [facility] PT panel Coag (PPP)on 2024 INR Coag (PPP) [Relative time] 2.4 {INR} High 0.9-1.3 [facility] Comment on above: Order Comment: Bob rogers Type: BLOOD SPECIMENOrdering Facility: [facility] Address: [address] [place] [address] Result Comment: Celina min K Antagonist (VKA) Therapeutic Range: INR 2 to 3 (Target INR of 2.5) Note: For patients treated with VKA drugs, such as warfarin, the [employer] [employer] 2012 Guideline recommends a therapeutic INR range of 2 to 3 (target INR of 2.5). This recommendation includes high-risk patients with antiphospholipid syndrome with previous arterial or venous thromboembolism, current-generation mechanical or bioprosthetic aortic heart valve replacement. Note: Patients with mechanical aortic valve replacement and additional risk factors for thromboembolic events (atrial fibrillation, previous thromboembolism, LV dysfunction, hypercoagulable conditions) or an older generation mechanical AVR (i.e., ball in-Cage) or any mechanical MVR should have a INR therapeutic range of 2.5 to 3.5 (target INR of 3). Olimpia MORENO, et al. Chest 2012, 141:7S-47S Miguel Angel RA, et al. [facility] 2017, 70: 252-289 Performed By: #### 3 4528-0 ####[facility] LABCLIA [id number] [address] [place] PT Coag (PPP) [Time] 25.7 s High 9.4-12.5 [facility] Comment on above: Order Comment: Bob rogers Type: BLOOD SPECIMENOrdering Facility: [facility] Address: [address] [place] [id number] Performed By: #### 3 4528-0 ####[facility] [id number] [place] [address] [place] PT panel Coag (PPP)on 2024 INR Coag (PPP) [Relative time] 1.8 {INR} High 0.9-1.3 [facility] Comment on above: Order Comment: Speci men Type: BLOOD SPECIMENOrdering Facility: [facility] Address: [address] [place] [address] Result Comment: Celina min K Antagonist (VKA) Therapeutic Range: INR 2 to 3 (Target INR of 2.5) Note: For patients treated with VKA drugs, such as warfarin, the [employer] [employer] 2012 Guideline recommends a therapeutic INR range of 2 to 3 (target INR of 2.5). This recommendation includes high-risk patients with antiphospholipid syndrome with previous arterial or venous thromboembolism, current-generation mechanical or bioprosthetic aortic heart valve replacement. Note: Patients with mechanical aortic valve replacement and additional risk factors for thromboembolic events (atrial fibrillation, previous thromboembolism, LV dysfunction, hypercoagulable conditions) or an older generation mechanical AVR (i.e., ball in-Cage) or any mechanical MVR should have a INR therapeutic range of 2.5 to 3.5 (target INR of 3). Olimpia MORENO, et al. Chest 2012, 141:7S-47S Miguel Angel RA, et al. [facility] 2017, 70: 252-289 Performed By: #### 3 4528-0 ####[facility] [id number] [place] [address] [place] PT Coag (PPP) [Time] 20.0 s High 9.4-12.5 [facility] Comment on above: Order Comment: Speci men Type: BLOOD SPECIMENOrdering Facility: [facility] Address: [address] [id number] Performed By: #### 3 4528-0 ####[facility] [id number] [place] [address] [place] CNPNon 07-18-2024 [facility] Telephone ([place]) -- ROGERS CORTES ([id number]) 1980 F Date Time Provider Department 07/18/24 RHETT STEVENSON IN[place] During your visit today, we recorded the following information about you: Matty Winston MA 07/18/2024 10:28 AM Signed INR 1.9 PATIENT TAKES 5MG DAILY EXCEPT 10MG MON/SUN/SUN. PATIENT TO CONTINUE SAME. RECHECK 1 MONTH. Allergies As of Date: 07/18/2024 Noted Allergy Reaction ADHESIVE 09/02/2021 16 - Unknown ADHESIVE TAPE-SILICONES 06/18/2018 2 - Rash DIDRONEL (ETIDRONATE DISODIUM) 11/06/2017 2 - Rash KEFLEX (CEPHALEXIN) 11/05/2017 4 - Hives LEVAQUIN (LEVOFLOXACIN) 11/05/2017 4 - Hives NORCO (HYDROCODONE-ACETAMINOPHEN ) 01/07/2021 4 - Hives Date Reviewed: 02/28/2024 Reviewed by: Gabbi Meza MA - Fully Assessed Reason for Visit: Results [95] Cmt: inr Prescriptions as of 07/18/2024 - warfarin (COUMADIN) 10 mg tablet Take 1 tablet by mouth once daily. - potassium chloride 20 mEq TbER Take 1 tablet by mouth once daily. - amLODIPine (NORVASC) 10 mg tablet Take 1 tablet by mouth once daily. - lisinopril (ZESTRIL) 5 mg tablet Take 1 tablet by mouth once daily. - phenytoin ER (DILANTIN) 100 mg ER capsule Take 2 capsules by mouth two times a day. - ferrous sulfate (SLOW FE) 140 mg (45 mg iron) TbER Take 1 tablet by mouth once daily. - mycophenolate Mofetil (CELLCEPT) 500 mg tablet Take 1,000 mg by mouth twice daily. - predniSONE (DELTASONE) 10 mg tablet as needed. - gabapentin (NEURONTIN) 300 mg capsule Take 300 mg by mouth daily at bedtime. - hydrOXYchloroQUINE (PLAQUENIL) 200 mg tablet Take 2 tablets by mouth once daily. 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] 08/19/2021 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 Stage 1 chronic kidney disease [N18.1] 08/19/2021 Vitamin D deficiency [E55.9] 08/19/2021 Epileptic seizures (HCC) [G40.909] 10/24/2017 Generalized convulsive epilepsy (HCC) [G40.309] 12/07/2006 Encounter Status:Closed by MATTY WINSTON on 07/18/24 [facility] PT panel Coag (PPP)on 2024 INR Coag (PPP) [Relative time] 1.9 {INR} High 0.9-1.3 [facility] Comment on above: Order Comment: Speci men Type: BLOOD SPECIMENOrdering Facility: [facility] Address: [address] [place] [address] [place] [address] Result Comment: Celina min K Antagonist (VKA) Therapeutic Range: INR 2 to 3 (Target INR of 2.5) Note: For patients treated with VKA drugs, such as warfarin, the [employer] [employer] 2012 Guideline recommends a therapeutic INR range of 2 to 3 (target INR of 2.5). This recommendation includes high-risk patients with antiphospholipid syndrome with previous arterial or venous thromboembolism, current-generation mechanical or bioprosthetic aortic heart valve replacement. Note: Patients with mechanical aortic valve replacement and additional risk factors for thromboembolic events (atrial fibrillation, previous thromboembolism, LV dysfunction, hypercoagulable conditions) or an older generation mechanical AVR (i.e., ball in-Cage) or any mechanical MVR should have a INR therapeutic range of 2.5 to 3.5 (target INR of 3). Olimpia GH, et al. Chest 2012, 141:7S-47S Miguel Angel RA, et al. [facility] 2017, 70: 252-289 Performed By: #### 3 4528-0 ####[facility] [id number] [place] [address] [place] PT Coag (PPP) [Time] 20.7 s High 9.4-12.5 [facility] Comment on above: Order Comment: Speci men Type: BLOOD SPECIMENOrdering Facility: [facility] Address: [address] [place], [place] [id number] Performed By: #### 3 4528-0 ####[facility] [id number] [place] [address] [place] Complement C3on 07-15-2024 COMP C3 121 mg/dL Normal 82-167 [facility] Comment on above: Result Comment: Perf ormed at: CB - [facility] [address] [id number] [employer] Crew: Dionisio Guevara PhD, Phone: [phone] Performed By: #### L 400.2010, L500.4050, L501.0900, L3100.5700, L3100.5800, L100.0100 #### [facility] [address] [facility], [address] Complement C4on 07-15-2024 COMPLEMENT, C4 18 mg/dL Normal 12-38 [facility] Comment on above: Performed By: #### L 400.2010, L500.4050, L501.0900, L3100.5700, L3100.5800, L100.0100 #### [facility] [address] [place], [address] Absolute lymphocyte countOrd ered By: Vonnie Griffith on 07-14-2024 Lymphocytes Auto (Unsp spec) [#/Vol] 1.81 10*3/uL 0.83-4.51 [facility] Absolute neutrophil countOrd ered By: Vonnievazquez Griffith on 07-14-2024 Neutrophils (Bld) [#/Vol] 4.5 10*3/uL 2.0-7.7 [facility] Anion gap in Serum or Plasma Ordered By: Vonnie Griffith on 07-14-2024 Anion gap [Moles/Vol] 10 mmol/L 5-15 [facility] Automated lymphocyte count a s percentage of total leukocytesOrdered By: Vonnie Griffith on 07-14-2024 Lymphocytes/100 WBC Auto (Unsp spec) 25.1 % 19-41 [facility] BUN/creatinine ratioOrdered By: Vonnievazquez Griffith on 07-14-2024 Urea nitrogen/Creatinine [Mass ratio] 24.6 mg/mg High 10-20 [facility] Basophil percentageOrdered B y: Vonnie Griffith on 07-14-2024 Basophils/100 WBC (Bld) 0.6 % 0-1 [facility] Bilirubin Test strip Ql (U)O rdered By: Vonnie Griffith on 07-14-2024 Bilirubin Ql (U) Negative Negative [facility] Bilirubin, totalOrdered By: Vonnie Griffith on 07-14-2024 Bilirubin [Mass/Vol] 0.18 mg/dL 0.00-1.30 [facility] CBC W/Diff, Automatedon Absolute Lymph 1.81 X10 3/uL Normal 0.83-4.51 [facility] Comment on above: Performed By: #### L 400.2011, L500.4050, L501.0900, L3100.5700, L3100.5800, L100.0100 #### [facility] [address] [place], [address] Absolute Neut 4.5 X10 3/uL Normal 2.0-7.7 [facility] Comment on above: Performed By: #### L 400.2010, L500.4050, L501.0900, L3100.5700, L3100.5800, L100.0100 #### [facility] [address] [place], [address] Basophils/100 WBC (Bld) 0.6 % Normal 0-1 [facility] Comment on above: Performed By: #### L 400, L500.4050, L501.0900, L3100.5700, L3100.5800, L100.0100 #### [facility] [address] [place], [address] Eosinophils/100 WBC (Bld) 2.5 % Normal 0-5 [facility] Comment on above: Performed By: #### L 400, L500.4050, L501.0900, L3100.5700, L3100.5800, L100.0100 #### [facility] [address] [place], [address] Erythrocyte distribution width (RBC) [Ratio] 12.9 % Normal 11.6-14.6 [facility] Comment on above: Performed By: #### L 400, L500.4050, L501.0900, L3100.5700, L3100.5800, L100.0100 #### [facility] [address] [place], [address] Hematocrit (Bld) [Volume fraction] 40.3 % Normal 37-47 [facility] Comment on above: Performed By: #### L 400, L500.4050, L501.0900, L3100.5700, L3100.5800, L100.0100 #### [facility] [address] [place], [address] Hemoglobin (Bld) [Mass/Vol] 13.1 g/dL Normal 12.0-15.0 [facility] Comment on above: Performed By: #### L 400, L500.4050, L501.0900, L3100.5700, L3100.5800, L100.0100 #### [facility] [address] [place], [address] IG% 0.400 Normal 0.0-0.9 [facility] Comment on above: Result Comment: IG% - Immature Granulocytes (promyelocytes, myelocytes and metamyelocytes) > 1% indicates that a LEFT SHIFT is Present. Performed By: #### L 400, L500.4050, L501.0900, L3100.5700, L3100.5800, L100.0100 #### [facility] [address] [place], [address] Lymphocytes/100 WBC (Bld) 25.1 % Normal 19-41 [facility] Comment on above: Performed By: #### L 400, L500.4050, L501.0900, L3100.5700, L3100.5800, L100.0100 #### [facility] [address] [place], [address] MCH (RBC) [Entitic mass] 29.0 pg Normal 27.0-32.0 [facility] Comment on above: Performed By: #### L 400, L500.4050, L501.0900, L3100.5700, L3100.5800, L100.0100 #### [facility] [address] [place], [address] MCHC (RBC) [Mass/Vol] 32.5 g/dL Normal 32-36 [facility] Comment on above: Performed By: #### L 400, L500.4050, L501.0900, L3100.5700, L3100.5800, L100.0100 #### [facility] [address] [place], [address] MCV (RBC) [Entitic vol] 89.4 fL Normal 81-99 [facility] Comment on above: Performed By: #### L 400.2010, L500.4050, L501.0900, L3100.5700, L3100.5800, L100.0100 #### [facility] [address] [place], [address] Monocytes/100 WBC (Bld) 9.0 % Normal 0-10 [facility] Comment on above: Performed By: #### L 400, L500.4050, L501.0900, L3100.5700, L3100.5800, L100.0100 #### [facility] [address] [place], [address] Neutrophils/100 WBC (Bld) 62.4 % Normal 47-70 [facility] Comment on above: Performed By: #### L 400, L500.4050, L501.0900, L3100.5700, L3100.5800, L100.0100 #### [facility] [address] [place], [address] Nucleated RBC (Bld) [#/Vol] 0 10*3/uL Normal 0-5 [facility] Comment on above: Performed By: #### L 400, L500.4050, L501.0900, L3100.5700, L3100.5800, L100.0100 #### [facility] [address] [place], [address] Platelet mean volume (Bld) [Entitic vol] 10.6 fL Normal 6.2-12.0 [facility] Comment on above: Performed By: #### L 400, L500.4050, L501.0900, L3100.5700, L3100.5800, L100.0100 #### [facility] [address] [place], [address] Platelets (Bld) [#/Vol] 197 10*3/uL Normal 150-450 [facility] Comment on above: Performed By: #### L 400.2010, L500.4050, L501.0900, L3100.5700, L3100.5800, L100.0100 #### [facility] [address] [place], [address] RBC (Bld) [#/Vol] 4.51 10*6/uL Normal 4.2-5.4 [facility] Comment on above: Performed By: #### L 400.2010, L500.4050, L501.0900, L3100.5700, L3100.5800, L100.0100 #### [facility] [address] [place], [address] RDW SD 42.3 fl Normal 35.1-43.9 [facility] Comment on above: Performed By: #### L 400.2010, L500.4050, L501.0900, L3100.5700, L3100.5800, L100.0100 #### [facility] [address] [place], [address] WBC (Bld) [#/Vol] 7.2 10*3/uL Normal 4.4-11.0 [facility] Comment on above: Performed By: #### L 400, L500.4050, L501.0900, L3100.5700, L3100.5800, L100.0100 #### [facility] [address] [place], [address] Carbon dioxide, total [Moles /volume] in Central venous bloodOrdered By: Vonnie Griffith on 07-14-2024 CO2 [Moles/Vol] 25.6 mmol/L 21.0-32.0 [facility] Chloride assayOrdered By: Jim Griffith on 07-14-2024 Chloride [Moles/Vol] 104 mmol/L 98-108 [facility] Comprehensive Metabolic Prof ilon 07-14-2024 Albumin [Mass/Vol] 4.0 g/dL Normal 3.5-5.0 [facility] Comment on above: Performed By: #### L 400, L500.4050, L501.0900, L3100.5700, L3100.5800, L100.0100 #### [facility] [address] [place], [address] Albumin/Globulin [Mass ratio] 1.4 {ratio} Normal 0.9-2.4 [facility] Comment on above: Performed By: #### L 400, L500.4050, L501.0900, L3100.5700, L3100.5800, L100.0100 #### [facility] [address] [place], [address] ALK PHOS 69 U/L Normal 35-104 [facility] Comment on above: Performed By: #### L 400, L500.4050, L501.0900, L3100.5700, L3100.5800, L100.0100 #### [facility] [address] [place], [address] ALT [Catalytic activity/Vol] 22 U/L Normal <=34 [facility] Comment on above: Performed By: #### L 400, L500.4050, L501.0900, L3100.5700, L3100.5800, L100.0100 #### [facility] [address] [place], [address] AST [Catalytic activity/Vol] 24 U/L Normal <=31 [facility] Comment on above: Performed By: #### L 400, L500.4050, L501.0900, L3100.5700, L3100.5800, L100.0100 #### [facility] [address] [place], [address] Bilirubin [Mass/Vol] 0.18 mg/dL Normal 0.00-1.30 [facility] Comment on above: Performed By: #### L 400.2010, L500.4050, L501.0900, L3100.5700, L3100.5800, L100.0100 #### [facility] [address] [place], [address] BUN/CRE 24.6 RATIO High 10-20 [facility] Comment on above: Performed By: #### L 400.2010, L500.4050, L501.0900, L3100.5700, L3100.5800, L100.0100 #### [facility] [address] [place], [address] Calcium [Mass/Vol] 9.1 mg/dL Normal 7.6-11.0 [facility] Comment on above: Performed By: #### L 400, L500.4050, L501.0900, L3100.5700, L3100.5800, L100.0100 #### [facility] [address] [place], [address] Chloride [Moles/Vol] 104 mmol/L Normal 98-108 [facility] Comment on above: Performed By: #### L 400, L500.4050, L501.0900, L3100.5700, L3100.5800, L100.0100 #### [facility] [address] [place], [address] CO2 [Moles/Vol] 25.6 mmol/L Normal 21.0-32.0 [facility] Comment on above: Performed By: #### L 400, L500.4050, L501.0900, L3100.5700, L3100.5800, L100.0100 #### [facility] [address] [place], [address] Creatinine [Mass/Vol] 0.67 mg/dL Low 0.70-1.20 [facility] Comment on above: Performed By: #### L 400.2010, L500.4050, L501.0900, L3100.5700, L3100.5800, L100.0100 #### [facility] [address] [place], [address] GAP 10 Normal 5-15 [facility] Comment on above: Performed By: #### L 400, L500.4050, L501.0900, L3100.5700, L3100.5800, L100.0100 #### [facility] [address] [place], [address] GFR/1.73 sq M.predicted among non-blacks MDRD (S/P/Bld) [Vol rate/Area] 111 mL/min/{1.73_m2} Normal >60 [facility] Comment on above: Result Comment: mL/m in/1.73m2 CKD-EPI Creatinine Equation (2020) Performed By: #### L 400, L500.4050, L501.0900, L3100.5700, L3100.5800, L100.0100 #### [facility] [address] [place], [address] Globulin (S) [Mass/Vol] 2.8 g/dL Normal 2.2-4.2 [facility] Comment on above: Performed By: #### L 400, L500.4050, L501.0900, L3100.5700, L3100.5800, L100.0100 #### [facility] [address] [place], [address] Glucose [Mass/Vol] 80 mg/dL Normal 70-99 [facility] Comment on above: Performed By: #### L 400, L500.4050, L501.0900, L3100.5700, L3100.5800, L100.0100 #### [facility] [address] [place], [address] Potassium [Moles/Vol] 4.2 mmol/L Normal 3.3-5.1 [facility] Comment on above: Performed By: #### L 400.2010, L500.4050, L501.0900, L3100.5700, L3100.5800, L100.0100 #### [facility] [address] [place], [address] Sodium [Moles/Vol] 140 mmol/L Normal 133-145 [facility] Comment on above: Performed By: #### L 400.2010, L500.4050, L501.0900, L3100.5700, L3100.5800, L100.0100 #### [facility] [address] [place], [address] T PROT 6.8 g/dL Normal 5.9-8.4 [facility] Comment on above: Performed By: #### L 400.2010, L500.4050, L501.0900, L3100.5700, L3100.5800, L100.0100 #### [facility] [address] [place], [address] Urea nitrogen [Mass/Vol] 17 mg/dL Normal 4-19 [facility] Comment on above: Performed By: #### L 400, L500.4050, L501.0900, L3100.5700, L3100.5800, L100.0100 #### [facility] [address] [place], [address] Eosinophil percentageOrdered By: Vonnie Griffith on 07-14-2024 Eosinophils/100 WBC (Bld) 2.5 % 0-5 [facility] Erythrocyte distribution wid th ratioOrdered By: Vonnie Griffith on 07-14-2024 Erythrocyte distribution width (RBC) [Ratio] 12.9 % 11.6-14.6 [facility] Erythrocyte distribution wid th standard deviationOrdered By: Vonnie Griffith on 07-14-2024 Erythrocyte distribution width (RBC) [Ratio] 42.3 fl 35.1-43.9 [facility] Glomerular filtration rate ( GFR) estimation/1.73 sq m using serum, plasma, or whole bOrdered By: Vonnie Griffith on 07-14-2024 GFR/1.73 sq M.predicted among non-blacks MDRD (S/P/Bld) [Vol rate/Area] 111 mL/min/{1.73_m2} >60 [facility] Comment on above: mL/min/1.73m2 CKD-EP I Creatinine Equation (2020) Hematocrit Auto (Bld) [Volum e fraction]Ordered By: Vonnie Griffith on 07-14-2024 Hematocrit (Bld) [Volume fraction] 40.3 % 37-47 [facility] Hemoglobin measurementOrdere d By: Vonnie Griffith on 07-14-2024 Hemoglobin (Bld) [Mass/Vol] 13.1 g/dL 12.0-15.0 [facility] Immature granulocytes/100 WB C Auto (Bld)Ordered By: Vonnie Griffith on 07-14-2024 Immature granulocytes/100 WBC (Bld) 0.400 % 0.0-0.9 [facility] Comment on above: IG% - Immature Granu locytes (promyelocytes, myelocytes and metamyelocytes) > 1% indicates that a LEFT SHIFT is Present. Ketones Test strip Ql (U)Ord ered By: Vonnie Griffith on 07-14-2024 Ketones Ql (U) Negative Negative [facility] - Chemistry and C hemistry - challengeOrdered By: Vonnie Griffith on 07-14-2024 AST [Catalytic activity/Vol] 24 U/L <32 [facility] MCV (mean corpuscular volume ) determinationOrdered By: Vonnie Griffith on 07-14-2024 MCV (RBC) [Entitic vol] 89.4 fL 81-99 [facility] Mean corpuscular hemoglobin (MCH) determinationOrdered By: Vonnie Griffith on 07-14-2024 MCH (RBC) [Entitic mass] 29.0 pg 27.0-32.0 [facility] Mean corpuscular hemoglobin concentration (MCHC) determinationOrdered By: Vonnie Griffith on 07-14-2024 MCHC (RBC) [Mass/Vol] 32.5 g/dL 32-36 [facility] Mean platelet volume determi nationOrdered By: Vonnie Griffith on 07-14-2024 Platelet mean volume (Bld) [Entitic vol] 10.6 fL 6.2-12.0 [facility] Monocyte percentageOrdered B y: Vonnie Griffith on 07-14-2024 Monocytes/100 WBC (Bld) 9.0 % 0-10 [facility] Neutrophil percentageOrdered By: Vonnie Griffith on 07-14-2024 Neutrophils/100 WBC (Bld) 62.4 % 47-70 [facility] Nitrite Test strip Ql (U)Ord ered By: Vonnie Griffith on 07-14-2024 Nitrite Ql (U) Negative Negative [facility] Nucleated red blood cell per centageOrdered By: Vonnie Griffith on 07-14-2024 Nucleated RBC/100 WBC (Bld) [Ratio] 0 % 0-5 [facility] Platelet countOrdered By: Jim Griffith on 07-14-2024 Platelets (Bld) [#/Vol] 197 10*3/uL 150-450 [facility] Potassium measurement (mass/ volume)Ordered By: Vonnie Griffith on 07-14-2024 Potassium (Unsp spec) [Mass/Vol] 4.2 mmol/L 3.3-5.1 [facility] Protein Test strip Ql (U)Ord ered By: Vonnie Griffith on 07-14-2024 Protein Ql (U) 15 mg/dl High Negative [facility] Protein+Creatinine Ratio,Uri neon 07-14-2024 PROT:CRE RATIO 122 mg/g CRE Normal 0-200 [facility] Comment on above: Performed By: #### L 400.2011, L500.4050, L501.0900, L3100.5700, L3100.5800, L100.0100 #### [facility] [address] [place], [address] Protein (U) [Mass/Vol] 9.1 mg/dL Normal 0.0-12.0 [facility] Comment on above: Performed By: #### L 400.2010, L500.4050, L501.0900, L3100.5700, L3100.5800, L100.0100 #### [facility] [address] [place], [address] UR CREAT 74.40 mg/dL Normal 28.00-217.0 0 [facility] Comment on above: Performed By: #### L 400.2010, L500.4050, L501.0900, L3100.5700, L3100.5800, L100.0100 #### [facility] [address] [place], [address] RBC Auto (Bld) [#/Vol]Ordere d By: Vonnie Griffith on 07-14-2024 RBC (Bld) [#/Vol] 4.51 10*6/uL 4.2-5.4 [facility] Random urine creatinine raj urement (mass/volume)Ordered By: Vonnie Griffith on 07-14-2024 Creatinine Unsp time (U) [Mass/Vol] 74.40 mg/dL 28.00-217.0 0 [facility] Serum creatinine measurement (mass/volume)Ordered By: Vonnie Griffith on 07-14-2024 Creatinine [Mass/Vol] 0.67 mg/dL Low 0.70-1.20 [facility] Serum globulin measurementOr dered By: Vonnie Griffith on 07-14-2024 Globulin (S) [Mass/Vol] 2.8 g/dL 2.2-4.2 [facility] Serum glucose measurement (m ass/volume)Ordered By: Vonnie Griffith on 07-14-2024 Glucose [Mass/Vol] 80 mg/dL 70-99 [facility] Serum or plasma alanine bo otransferase (ALT) measurementOrdered By: Vonnie Griffith on 07-14-2024 ALT [Catalytic activity/Vol] 22 U/L <35 [facility] Serum or plasma albumin raj urement (mass/volume)Ordered By: Vonnie Griffith on 07-14-2024 Albumin [Mass/Vol] 4.0 g/dL 3.5-5.0 [facility] Serum or plasma albumin/glob ulin mass ratioOrdered By: Vonnie Griffith on 07-14-2024 Albumin/Globulin [Mass ratio] 1.4 {ratio} 0.9-2.4 [facility] Serum or plasma alkaline aaron sphatase measurementOrdered By: Vonnie Griffith on 07-14-2024 ALP [Catalytic activity/Vol] 69 U/L 35-104 [facility] Serum or plasma calcium raj urement (mass/volume)Ordered By: Vonnie Griffith on 07-14-2024 Calcium [Mass/Vol] 9.1 mg/dL 7.6-11.0 [facility] Serum or plasma complement C 4 measurement (mass/volume)Ordered By: Vonnie Griffith on 07-14-2024 Complement C4 [Mass/Vol] 18 mg/dL 12-38 [facility] Serum or plasma urea nitroge n measurement (mass/volume)Ordered By: Vonnie Griffith on 07-14-2024 Urea nitrogen [Mass/Vol] 17 mg/dL 4-19 [facility] Sodium levelOrdered By: Marisa Griffith on 07-14-2024 Sodium [Moles/Vol] 140 mmol/L 133-145 [facility] Total proteinOrdered By: Yun Griffith on 07-14-2024 Protein [Mass/Vol] 6.8 g/dL 5.9-8.4 [facility] Urinalysis, Routine (Dipstic k)on 07-14-2024 BILIRUBIN URINE Negative Normal Negative [facility] Comment on above: Order Comment: Urine , Random Performed By: #### L , L500.4050, L501.0900, L3100.5700, L3100.5800, L100.0100 #### [facility] [address] [place], [place], [id number] Clarity (U) Sl. Cloudy Normal Clear [facility] Comment on above: Order Comment: Urine , Random Performed By: #### L 400, L500.4050, L501.0900, L3100.5700, L3100.5800, L100.0100 #### [facility] [address] [place], [address] Color (U) Yellow Normal Yellow [facility] Comment on above: Order Comment: Urine , Random Performed By: #### L 400.2010, L500.4050, L501.0900, L3100.5700, L3100.5800, L100.0100 #### [facility] [address] [place], [address] GLUCOSE, UR Normal Normal Normal [facility] Comment on above: Order Comment: Urine , Random Performed By: #### L 400.2010, L500.4050, L501.0900, L3100.5700, L3100.5800, L100.0100 #### [facility] [address] [place], [address] KETONE UR Negative Normal Negative [facility] Comment on above: Order Comment: Urine , Random Performed By: #### L 400.2010, L500.4050, L501.0900, L3100.5700, L3100.5800, L100.0100 #### [facility] [address] [place], [address] LEUK ESTERASE Negative Normal Negative [facility] Comment on above: Order Comment: Urine , Random Performed By: #### L 400.2010, L500.4050, L501.0900, L3100.5700, L3100.5800, L100.0100 #### [facility] [address] [place], [address] Nitrite Ql (U) Negative Normal Negative [facility] Comment on above: Order Comment: Urine , Random Performed By: #### L 400.2010, L500.4050, L501.0900, L3100.5700, L3100.5800, L100.0100 #### [facility] [address] [place], [address] OCCULT BLOOD-UR Negative Normal Negative [facility] Comment on above: Order Comment: Urine , Random Performed By: #### L 400.2010, L500.4050, L501.0900, L3100.5700, L3100.5800, L100.0100 #### [facility] [address] [place], [address] pH UR 6.0 Normal 5.0 - 8.0 [facility] Comment on above: Order Comment: Urine , Random Performed By: #### L 400.2010, L500.4050, L501.0900, L3100.5700, L3100.5800, L100.0100 #### [facility] [address] [place], [address] PROT DIPSTX 15 mg/dl Abnormal Negative [facility] Comment on above: Order Comment: Urine , Random Performed By: #### L 400.2010, L500.4050, L501.0900, L3100.5700, L3100.5800, L100.0100 #### [facility] [address] [place], [address] SP.GR. DIPSTX 1.015 Normal 1.002-1.030 [facility] Comment on above: Order Comment: Urine , Random Performed By: #### L 400.2010, L500.4050, L501.0900, L3100.5700, L3100.5800, L100.0100 #### [facility] [address] [place], [address] UROBILI Normal Normal Normal [facility] Comment on above: Order Comment: Urine , Random Performed By: #### L 400.2010, L500.4050, L501.0900, L3100.5700, L3100.5800, L100.0100 #### [facility] [address] [place], [address] Urine clarityOrdered By: Yun Griffith on 07-14-2024 Clarity (U) Sl. Cloudy Clear [facility] Urine color determinationOrd ered By: Vonnie Griffith on 07-14-2024 Color (U) Yellow Yellow [facility] Urine glucose detectionOrder ed By: Vonnie Griffith on 07-14-2024 Glucose Ql (U) Normal mg/dl Normal [facility] Urine leukocyte esterase det ection by dipstickOrdered By: Vonnie Griffith on 07-14-2024 Leukocyte esterase Test strip Ql (U) Negative Negative [facility] Urine pHOrdered By: Vonnie wang on 07-14-2024 pH (U) 6.0 [pH] 5.0 - 8.0 [facility] Urine protein measurement (m ass/volume)Ordered By: Vonnie Griffith on 07-14-2024 Protein (U) [Mass/Vol] 9.1 mg/dL 0.0-12.0 [facility] Urine protein/creatinine mas s ratioOrdered By: Vonnie Griffith on 07-14-2024 Protein/Creatinine (U) [Mass ratio] 122 mg/g CRE 0-200 [facility] Urine specific gravity measu rementOrdered By: Vonnie Griffith on 07-14-2024 Specific gravity (U) [Rel density] 1.015 1.002-1.030 [facility] Urine urobilinogen measureme ntOrdered By: Vonnie Griffith on 07-14-2024 Urobilinogen Ql (U) Normal mg/dl Normal [facility] White blood cell (WBC) count Ordered By: Vonnie Griffith on 07-14-2024 WBC (Bld) [#/Vol] 7.2 10*3/uL 4.4-11.0 [facility] CNPNon 06-16-2024 CNPN Telephone ([facility]) -- ROGERS CORTES ([id number]) 1980 F Date Time Provider Department 06/16/24 RHETT STEVENSON During your visit today, we recorded the following information about you: Paty Matthew LPN 06/16/2024 3:17 PM Signed INR: 2.3 PATIENT TAKES 5MG DAILY EXCEPT 10MG MON/WED/FRI. PATIENT TO CONTINUE SAME. RECHECK 1 MONTH. PT ADVISED. RAVINDRA Newman Michele Dawn, MD 06/16/2024 3:57 PM Signed ok Allergies As of Date: 06/16/2024 Noted Allergy Reaction ADHESIVE 09/02/2021 16 - Unknown ADHESIVE TAPE-SILICONES 06/18/2018 2 - Rash DIDRONEL (ETIDRONATE DISODIUM) 11/06/2017 2 - Rash KEFLEX (CEPHALEXIN) 11/05/2017 4 - Hives LEVAQUIN (LEVOFLOXACIN) 11/05/2017 4 - Hives NORCO (HYDROCODONE-ACETAMINOPHEN ) 01/07/2021 4 - Hives Date Reviewed: 02/28/2024 Reviewed by: Gabbi Meza MA - Fully Assessed Reason for Visit: Results [95] Cmt: INR Prescriptions as of 06/16/2024 - warfarin (COUMADIN) 10 mg tablet Take 1 tablet by mouth once daily. - potassium chloride 20 mEq TbER Take 1 tablet by mouth once daily. - amLODIPine (NORVASC) 10 mg tablet Take 1 tablet by mouth once daily. - lisinopril (ZESTRIL) 5 mg tablet Take 1 tablet by mouth once daily. - phenytoin ER (DILANTIN) 100 mg ER capsule Take 2 capsules by mouth two times a day. - ferrous sulfate (SLOW FE) 140 mg (45 mg iron) TbER Take 1 tablet by mouth once daily. - mycophenolate Mofetil (CELLCEPT) 500 mg tablet Take 1,000 mg by mouth twice daily. - predniSONE (DELTASONE) 10 mg tablet as needed. - gabapentin (NEURONTIN) 300 mg capsule Take 300 mg by mouth daily at bedtime. - hydrOXYchloroQUINE (PLAQUENIL) 200 mg tablet Take 2 tablets by mouth once daily. 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] 08/19/2021 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 Stage 1 chronic kidney disease [N18.1] 08/19/2021 Vitamin D deficiency [E55.9] 08/19/2021 Epileptic seizures (HCC) [G40.909] 10/24/2017 Generalized convulsive epilepsy (HCC) [G40.309] 12/07/2006 Encounter Status:Closed by PATY MATTHEW on 06/16/24 Normal [facility] PT panel Coag (PPP)on 2024 INR Coag (PPP) [Relative time] 2.3 {INR} High 0.9-1.3 [facility] Comment on above: Order Comment: Speci men Type: BLOOD SPECIMENOrdering Facility: [facility] Address: [address] [place] [address] Result Comment: Celina min K Antagonist (VKA) Therapeutic Range: INR 2 to 3 (Target INR of 2.5) Note: For patients treated with VKA drugs, such as warfarin, the [employer] [employer] 2012 Guideline recommends a therapeutic INR range of 2 to 3 (target INR of 2.5). This recommendation includes high-risk patients with antiphospholipid syndrome with previous arterial or venous thromboembolism, current-generation mechanical or bioprosthetic aortic heart valve replacement. Note: Patients with mechanical aortic valve replacement and additional risk factors for thromboembolic events (atrial fibrillation, previous thromboembolism, LV dysfunction, hypercoagulable conditions) or an older generation mechanical AVR (i.e., ball in-Cage) or any mechanical MVR should have a INR therapeutic range of 2.5 to 3.5 (target INR of 3). Guyatt GH, et al. Chest 2012, 141:7S-47S Miguel Angel RA, et al. [facility] 2017, 70: 252-289 Performed By: #### 3 4528-0 ####[facility] [id number] [place] [address] [facility] PT Coag (PPP) [Time] 24.5 s High 9.4-12.5 [facility] Comment on above: Order Comment: Speci men Type: BLOOD SPECIMENOrdering Facility: [facility] Address: [facility] [place] [address] Performed By: #### 3 4528-0 ####[facility] [id number] [place] [address] [facility] Johnna 05-29-2024 CNPN Telephone ([facility]) -- ROGERS CORTES ([id number]) 1980 F Date Time Provider Department 05/29/24 RHETT STEVENSON [facility] During your visit today, we recorded the following information about you: Paty Matthew LPN 05/29/2024 2:45 PM Signed HOME INR: 2.1 PATIENT TOOK 5MG DAILY EXCEPT 10MG MON/WED/THURS/FRI LAST WEEK. PATIENT TO RESUME NORMAL DOSING OF 5MG DAILY EXCEPT 10MG MON/WED/FRI. RECHECK 2 WEEKS. CALLED CELL # AND LMTCB ON VOICEMAIL. (NEED TO VERIFY ABOVE WITH PT AND IF CORRECT, RELAY THE REST OF MESSAGE) RAVINDRA Newman Christina 05/29/2024 2:48 PM Signed Patient called back and the call dropped, please call back. Thank you. Yany Armendariz 05/29/2024 2:51 PM Signed Patient called, transferred call to Norman at the office. Thank you Paty Matthew LPN 05/29/2024 2:53 PM Signed PT VERIFIED DOSING AND WILL RECHECK INR @ [facility] IN 2 WEEKS. RAVINDRA Newman Michele Dawn, MD 05/29/2024 3:02 PM Signed ok Allergies As of Date: 05/29/2024 Noted Allergy Reaction ADHESIVE 09/02/2021 16 - Unknown ADHESIVE TAPE-SILICONES 06/18/2018 2 - Rash DIDRONEL (ETIDRONATE DISODIUM) 11/06/2017 2 - Rash KEFLEX (CEPHALEXIN) 11/05/2017 4 - Hives LEVAQUIN (LEVOFLOXACIN) 11/05/2017 4 - Hives NORCO (HYDROCODONE-ACETAMINOPHEN ) 01/07/2021 4 - Hives Date Reviewed: 02/28/2024 Reviewed by: Gabbi Meza MA - Fully Assessed Reason for Visit: Results [95] Cmt: INR Prescriptions as of 05/29/2024 - warfarin (COUMADIN) 10 mg tablet Take 1 tablet by mouth once daily. - potassium chloride 20 mEq TbER Take 1 tablet by mouth once daily. - amLODIPine (NORVASC) 10 mg tablet Take 1 tablet by mouth once daily. - lisinopril (ZESTRIL) 5 mg tablet Take 1 tablet by mouth once daily. - phenytoin ER (DILANTIN) 100 mg ER capsule Take 2 capsules by mouth two times a day. - ferrous sulfate (SLOW FE) 140 mg (45 mg iron) TbER Take 1 tablet by mouth once daily. - mycophenolate Mofetil (CELLCEPT) 500 mg tablet Take 1,000 mg by mouth twice daily. - predniSONE (DELTASONE) 10 mg tablet as needed. - gabapentin (NEURONTIN) 300 mg capsule Take 300 mg by mouth daily at bedtime. - hydrOXYchloroQUINE (PLAQUENIL) 200 mg tablet Take 2 tablets by mouth once daily. 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] 08/19/2021 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 Stage 1 chronic kidney disease [N18.1] 08/19/2021 Vitamin D deficiency [E55.9] 08/19/2021 Epileptic seizures (HCC) [G40.909] 10/24/2017 Generalized convulsive epilepsy (HCC) [G40.309] 12/07/2006 Encounter Status:Closed by PATY MATTHEW on 05/29/24 Normal [facility] PT panel Coag (PPP)on 2024 INR Coag (PPP) [Relative time] 2.1 {INR} High 0.9-1.3 [facility] Comment on above: Order Comment: Speci men Type: BLOOD SPECIMENOrdering Facility: [facility] Address: [address] [place], [place] [id number] Result Comment: Celina min K Antagonist (VKA) Therapeutic Range: INR 2 to 3 (Target INR of 2.5) Note: For patients treated with VKA drugs, such as warfarin, the [place] [employer] 2012 Guideline recommends a therapeutic INR range of 2 to 3 (target INR of 2.5). This recommendation includes high-risk patients with antiphospholipid syndrome with previous arterial or venous thromboembolism, current-generation mechanical or bioprosthetic aortic heart valve replacement. Note: Patients with mechanical aortic valve replacement and additional risk factors for thromboembolic events (atrial fibrillation, previous thromboembolism, LV dysfunction, hypercoagulable conditions) or an older generation mechanical AVR (i.e., ball in-Cage) or any mechanical MVR should have a INR therapeutic range of 2.5 to 3.5 (target INR of 3). Olimpia GH, et al. Chest 2012, 141:7S-47S Miguel Angel LANGLEY et al. [facility] 2017, 70: 252-289 Performed By: #### 3 4528-0 ####[facility] [id number] [place] [address] [facility] PT Coag (PPP) [Time] 23.2 s High 9.4-12.5 [facility] Comment on above: Order Comment: Speci men Type: BLOOD SPECIMENOrdering Facility: [facility] Address: [address] [place] [address] Performed By: #### 3 4528-0 ####[facility] LABCLIA [id number] [place] [address] [facility] Johnna 05-21-2024 CNPN Telephone ([facility]) -- ROGERS CORTES ([id number]) 1980 F Date Time Provider Department 05/21/24 RHETT STEVENSON During your visit today, we recorded the following information about you: Paty Matthew LPN 05/21/2024 1:48 PM Signed HAD INR DRAWN AT [facility] 05/20/24 HOME INR: 1.8 PATIENT TAKES 5MG DAILY EXCEPT 10MG MONDAYS/WEDNESDAYS/FRIDAYS . CALLED CELL # AND LMTCB ON VOICEMAIL. PLEASE SEND CALL TO ME AT THE OFFICE. RAVINDRA Newman Josie L, MA 05/22/2024 11:29 AM Signed Please advise on how to dose patients inr? When to recheck? Rhett Stevenson MD 05/22/2024 11:40 AM Signed Have her take 10mg today, tomorrow and Sunday and then resume previous dose Check INR in 1 week Yany Armendariz 05/22/2024 12:34 PM Signed Patient called, triage nurse not available and MA not available. Patient is requesting a call back to advise of message. Please advise. Thank you Ayesha Worthington MA 05/22/2024 2:55 PM Signed PATIENT ADVISED EXPRESSED UNDERSTANDING. Ayesha Worthington MA Allergies As of Date: 05/21/2024 Noted Allergy Reaction ADHESIVE 09/02/2021 16 - Unknown ADHESIVE TAPE-SILICONES 06/18/2018 2 - Rash DIDRONEL (ETIDRONATE DISODIUM) 11/06/2017 2 - Rash KEFLEX (CEPHALEXIN) 11/05/2017 4 - Hives LEVAQUIN (LEVOFLOXACIN) 11/05/2017 4 - Hives NORCO (HYDROCODONE-ACETAMINOPHEN ) 01/07/2021 4 - Hives Date Reviewed: 02/28/2024 Reviewed by: Gabbi Meza MA - Fully Assessed Reason for Visit: Results [95] Cmt: INR Prescriptions as of 05/22/2024 - warfarin (COUMADIN) 10 mg tablet Take 1 tablet by mouth once daily. - potassium chloride 20 mEq TbER Take 1 tablet by mouth once daily. - amLODIPine (NORVASC) 10 mg tablet Take 1 tablet by mouth once daily. - lisinopril (ZESTRIL) 5 mg tablet Take 1 tablet by mouth once daily. - phenytoin ER (DILANTIN) 100 mg ER capsule Take 2 capsules by mouth two times a day. - ferrous sulfate (SLOW FE) 140 mg (45 mg iron) TbER Take 1 tablet by mouth once daily. - mycophenolate Mofetil (CELLCEPT) 500 mg tablet Take 1,000 mg by mouth twice daily. - predniSONE (DELTASONE) 10 mg tablet as needed. - gabapentin (NEURONTIN) 300 mg capsule Take 300 mg by mouth daily at bedtime. - hydrOXYchloroQUINE (PLAQUENIL) 200 mg tablet Take 2 tablets by mouth once daily. 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] 08/19/2021 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 Stage 1 chronic kidney disease [N18.1] 08/19/2021 Vitamin D deficiency [E55.9] 08/19/2021 Epileptic seizures (HCC) [G40.909] 10/24/2017 Generalized convulsive epilepsy (HCC) [G40.309] 12/07/2006 Encounter Status:Closed by AYESHA WORTHINGTON on 05/22/24 Normal [facility] PT panel Coag (PPP)on 2024 INR Coag (PPP) [Relative time] 1.8 {INR} High 0.9-1.3 [facility] Comment on above: Order Comment: Speci men Type: BLOOD SPECIMENOrdering Facility: [facility] Address: [address] [place] [address] Result Comment: Celina min K Antagonist (VKA) Therapeutic Range: INR 2 to 3 (Target INR of 2.5) Note: For patients treated with VKA drugs, such as warfarin, the [employer] [employer] 2012 Guideline recommends a therapeutic INR range of 2 to 3 (target INR of 2.5). This recommendation includes high-risk patients with antiphospholipid syndrome with previous arterial or venous thromboembolism, current-generation mechanical or bioprosthetic aortic heart valve replacement. Note: Patients with mechanical aortic valve replacement and additional risk factors for thromboembolic events (atrial fibrillation, previous thromboembolism, LV dysfunction, hypercoagulable conditions) or an older generation mechanical AVR (i.e., ball in-Cage) or any mechanical MVR should have a INR therapeutic range of 2.5 to 3.5 (target INR of 3). Olimpia GH, et al. Chest 2012, 141:7S-47S Miguel Angel RA, et al. [facility] 2017, 70: 252-289 Performed By: #### 3 4528-0 ####[facility] LABCLIA [id number] [place] [address] [facility] PT Coag (PPP) [Time] 20.1 s High 9.4-12.5 [facility] Comment on above: Order Comment: Speci men Type: BLOOD SPECIMENOrdering Facility: [facility] Address: [facility] [place] [address] Performed By: #### 3 4528-0 ####[facility] LABCLIA [id number] [place] [address] [facility] CNPNon 04-21-2024 CNPN Telephone ([facility]) -- ROGERS CORTES ([id number]) 1980 F Date Time Provider Department 04/21/24 RHETT STEVENSON During your visit today, we recorded the following information about you: Paty Matthew LPN 04/21/2024 10:44 AM Signed HAD INR DRAWN AT [facility] 04/17/24 INR: 2.1 PATIENT TAKES 5MG DAILY EXCEPT 10MG MONDAYS/WEDNESDAYS/FRIDAYS . PATIENT TO CONTINUE SAME. RECHECK 1 MONTH. PT ADVISED. RAVINDRA Newman Michele Dawn, MD 04/21/2024 10:59 AM Signed ok Allergies As of Date: 04/21/2024 Noted Allergy Reaction ADHESIVE 09/02/2021 16 - Unknown ADHESIVE TAPE-SILICONES 06/18/2018 2 - Rash DIDRONEL (ETIDRONATE DISODIUM) 11/06/2017 2 - Rash KEFLEX (CEPHALEXIN) 11/05/2017 4 - Hives LEVAQUIN (LEVOFLOXACIN) 11/05/2017 4 - Hives NORCO (HYDROCODONE-ACETAMINOPHEN ) 01/07/2021 4 - Hives Date Reviewed: 02/28/2024 Reviewed by: Gabbi Meza MA - Fully Assessed Reason for Visit: Results [95] Cmt: INR Prescriptions as of 04/21/2024 - potassium chloride 20 mEq TbER Take 1 tablet by mouth once daily. - amLODIPine (NORVASC) 10 mg tablet Take 1 tablet by mouth once daily. - lisinopril (ZESTRIL) 5 mg tablet Take 1 tablet by mouth once daily. - phenytoin ER (DILANTIN) 100 mg ER capsule Take 2 capsules by mouth two times a day. - warfarin (COUMADIN) 10 mg tablet Take 1 tablet by mouth once daily. - ferrous sulfate (SLOW FE) 140 mg (45 mg iron) TbER Take 1 tablet by mouth once daily. - mycophenolate Mofetil (CELLCEPT) 500 mg tablet Take 1,000 mg by mouth twice daily. - predniSONE (DELTASONE) 10 mg tablet as needed. - gabapentin (NEURONTIN) 300 mg capsule Take 300 mg by mouth daily at bedtime. - hydrOXYchloroQUINE (PLAQUENIL) 200 mg tablet Take 2 tablets by mouth once daily. 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] 08/19/2021 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 Stage 1 chronic kidney disease [N18.1] 08/19/2021 Vitamin D deficiency [E55.9] 08/19/2021 Epileptic seizures (HCC) [G40.909] 10/24/2017 Generalized convulsive epilepsy (HCC) [G40.309] 12/07/2006 Encounter Status:Closed by AYESHA WORTHINGTON on 04/21/24 [facility] Complement C3on 04-19-2024 COMP C3 115 mg/dL Normal 82-167 [facility] Comment on above: Result Comment: Perf ormed at: - [facility] [address] [id number] [employer] Crew: Dionisio Guevara PhD, Phone: [phone] Performed By: #### L 400.2010, L500.4050, L501.0900, L3100.5700, L3100.5800, L100.0100 #### [facility] [address] [place], [place], [id number] Complement C4on 04-19-2024 COMPLEMENT, C4 19 mg/dL Normal 12-38 [facility] Comment on above: Performed By: #### L 400.2010, L500.4050, L501.0900, L3100.5700, L3100.5800, L100.0100 #### [facility] [address] [place], [place], [id number] Absolute lymphocyte countOrd ered By: Vonnie Griffith on 04-18-2024 Lymphocytes Auto (Unsp spec) [#/Vol] 1.61 10*3/uL 0.83-4.51 [facility] Absolute neutrophil countOrd ered By: Vonnie Griffith on 04-18-2024 Neutrophils (Bld) [#/Vol] 3.5 10*3/uL 2.0-7.7 [facility] Anion gap in Serum or Plasma Ordered By: Vonnie Griffith on 04-18-2024 Anion gap [Moles/Vol] 11 mmol/L 5-15 [facility] Automated lymphocyte count a s percentage of total leukocytesOrdered By: Vonnie Griffith on 04-18-2024 Lymphocytes/100 WBC Auto (Unsp spec) 27.7 % 19-41 [facility] BUN/creatinine ratioOrdered By: Vonnie Griffith on 04-18-2024 Urea nitrogen/Creatinine [Mass ratio] 20.5 mg/mg High 10-20 [facility] Basophil percentageOrdered B y: Vonnie Nacho on 04-18-2024 Basophils/100 WBC (Bld) 0.7 % 0-1 [facility] Bilirubin Test strip Ql (U)O rdered By: Vonnie Nacho on 04-18-2024 Bilirubin Ql (U) Negative Negative [facility] Bilirubin, totalOrdered By: Vonnie Nacho on 04-18-2024 Bilirubin [Mass/Vol] 0.28 mg/dL 0.00-1.30 [facility] CBC W/Diff, Automatedon 04-05-2024 Absolute Lymph 1.61 X10 3/uL Normal 0.83-4.51 [facility] Comment on above: Performed By: #### L 400.2010, L500.4050, L501.0900, L3100.5700, L3100.5800, L100.0100 #### [facility] [address] [place], [address] Absolute Neut 3.5 X10 3/uL Normal 2.0-7.7 [facility] Comment on above: Performed By: #### L 400, L500.4050, L501.0900, L3100.5700, L3100.5800, L100.0100 #### [facility] [address] [place], [address] Basophils/100 WBC (Bld) 0.7 % Normal 0-1 [facility] Comment on above: Performed By: #### L 400.2010, L500.4050, L501.0900, L3100.5700, L3100.5800, L100.0100 #### [facility] [address] [place], [address] Eosinophils/100 WBC (Bld) 2.6 % Normal 0-5 [facility] Comment on above: Performed By: #### L 400, L500.4050, L501.0900, L3100.5700, L3100.5800, L100.0100 #### [facility] [address] [place], [address] Erythrocyte distribution width (RBC) [Ratio] 13.5 % Normal 11.6-14.6 [facility] Comment on above: Performed By: #### L 400, L500.4050, L501.0900, L3100.5700, L3100.5800, L100.0100 #### [facility] [address] [place], [address] Hematocrit (Bld) [Volume fraction] 43.6 % Normal 37-47 [facility] Comment on above: Performed By: #### L 400, L500.4050, L501.0900, L3100.5700, L3100.5800, L100.0100 #### [facility] [address] [place], [address] Hemoglobin (Bld) [Mass/Vol] 13.9 g/dL Normal 12.0-15.0 [facility] Comment on above: Performed By: #### L 400, L500.4050, L501.0900, L3100.5700, L3100.5800, L100.0100 #### [facility] [address] [place], [address] IG% 0.200 Normal 0.0-0.9 [facility] Comment on above: Result Comment: IG% - Immature Granulocytes (promyelocytes, myelocytes and metamyelocytes) > 1% indicates that a LEFT SHIFT is Present. Performed By: #### L 400, L500.4050, L501.0900, L3100.5700, L3100.5800, L100.0100 #### [facility] [address] [place], [address] Lymphocytes/100 WBC (Bld) 27.7 % Normal 19-41 [facility] Comment on above: Performed By: #### L 400, L500.4050, L501.0900, L3100.5700, L3100.5800, L100.0100 #### [facility] [address] [place], [address] MCH (RBC) [Entitic mass] 28.9 pg Normal 27.0-32.0 [facility] Comment on above: Performed By: #### L 400.2010, L500.4050, L501.0900, L3100.5700, L3100.5800, L100.0100 #### [facility] [address] [place], [address] MCHC (RBC) [Mass/Vol] 31.9 g/dL Low 32-36 [facility] Comment on above: Performed By: #### L 400, L500.4050, L501.0900, L3100.5700, L3100.5800, L100.0100 #### [facility] [address] [place], [address] MCV (RBC) [Entitic vol] 90.6 fL Normal 81-99 [facility] Comment on above: Performed By: #### L 400.2010, L500.4050, L501.0900, L3100.5700, L3100.5800, L100.0100 #### [facility] [address] [place], [address] Monocytes/100 WBC (Bld) 8.1 % Normal 0-10 [facility] Comment on above: Performed By: #### L 400, L500.4050, L501.0900, L3100.5700, L3100.5800, L100.0100 #### [facility] [address] [place], [address] Neutrophils/100 WBC (Bld) 60.7 % Normal 47-70 [facility] Comment on above: Performed By: #### L 400, L500.4050, L501.0900, L3100.5700, L3100.5800, L100.0100 #### [facility] [address] [place], [address] Nucleated RBC (Bld) [#/Vol] 0 10*3/uL Normal 0-5 [facility] Comment on above: Performed By: #### L 400.2010, L500.4050, L501.0900, L3100.5700, L3100.5800, L100.0100 #### [facility] [address] [place], [address] Platelet mean volume (Bld) [Entitic vol] 10.7 fL Normal 6.2-12.0 [facility] Comment on above: Performed By: #### L 400, L500.4050, L501.0900, L3100.5700, L3100.5800, L100.0100 #### [facility] [address] [place], [address] Platelets (Bld) [#/Vol] 189 10*3/uL Normal 150-450 [facility] Comment on above: Performed By: #### L 400, L500.4050, L501.0900, L3100.5700, L3100.5800, L100.0100 #### [facility] [address] [place], [address] RBC (Bld) [#/Vol] 4.81 10*6/uL Normal 4.2-5.4 [facility] Comment on above: Performed By: #### L 400, L500.4050, L501.0900, L3100.5700, L3100.5800, L100.0100 #### [facility] [address] [place], [address] RDW SD 45.2 fl High 35.1-43.9 [facility] Comment on above: Performed By: #### L 400, L500.4050, L501.0900, L3100.5700, L3100.5800, L100.0100 #### [facility] [address] [place], [address] WBC (Bld) [#/Vol] 5.8 10*3/uL Normal 4.4-11.0 [facility] Comment on above: Performed By: #### L 400.2010, L500.4050, L501.0900, L3100.5700, L3100.5800, L100.0100 #### [facility] [address] [place], [address] Carbon dioxide, total [Moles /volume] in Central venous bloodOrdered By: Vonnie Griffith on 04-18-2024 CO2 [Moles/Vol] 22.8 mmol/L 21.0-32.0 [facility] Chloride assayOrdered By: Jim Griffith on 04-18-2024 Chloride [Moles/Vol] 105 mmol/L 98-108 [facility] Complement C3 assayOrdered B y: Vonnie Griffith on 04-18-2024 Complement C3 115 mg/dL 82-167 [facility] Comment on above: Performed at: [place] [id number] Director: Dionisio Guevara PhD, Phone: [phone] Complement C4 [Mass/Vol]Orde red By: Vonnie Griffith on 04-18-2024 Complement C4 19 mg/dL 12-38 [facility] Comprehensive Metabolic Prof ilon 04-18-2024 Albumin [Mass/Vol] 4.2 g/dL Normal 3.5-5.0 [facility] Comment on above: Performed By: #### L 400, L500.4050, L501.0900, L3100.5700, L3100.5800, L100.0100 #### [facility] [address] [place], [address] Albumin/Globulin [Mass ratio] 1.4 {ratio} Normal 0.9-2.4 [facility] Comment on above: Performed By: #### L 400.2010, L500.4050, L501.0900, L3100.5700, L3100.5800, L100.0100 #### [facility] [address] [place], [address] ALK PHOS 67 U/L Normal 35-104 [facility] Comment on above: Performed By: #### L 400.2010, L500.4050, L501.0900, L3100.5700, L3100.5800, L100.0100 #### [facility] [address] [place], [address] ALT [Catalytic activity/Vol] 20 U/L Normal <=34 [facility] Comment on above: Performed By: #### L 400, L500.4050, L501.0900, L3100.5700, L3100.5800, L100.0100 #### [facility] [address] [place], [address] AST [Catalytic activity/Vol] 24 U/L Normal <=31 [facility] Comment on above: Performed By: #### L 400, L500.4050, L501.0900, L3100.5700, L3100.5800, L100.0100 #### [facility] [address] [place], [address] Bilirubin [Mass/Vol] 0.28 mg/dL Normal 0.00-1.30 [facility] Comment on above: Performed By: #### L 400, L500.4050, L501.0900, L3100.5700, L3100.5800, L100.0100 #### [facility] [address] [place], [address] BUN/CRE 20.5 RATIO High 10-20 [facility] Comment on above: Performed By: #### L 400, L500.4050, L501.0900, L3100.5700, L3100.5800, L100.0100 #### [facility] [address] [place], [address] Calcium [Mass/Vol] 8.8 mg/dL Normal 7.6-11.0 [facility] Comment on above: Performed By: #### L 400.2010, L500.4050, L501.0900, L3100.5700, L3100.5800, L100.0100 #### [facility] [address] [place], [address] Chloride [Moles/Vol] 105 mmol/L Normal 98-108 [facility] Comment on above: Performed By: #### L 400, L500.4050, L501.0900, L3100.5700, L3100.5800, L100.0100 #### [facility] [address] [place], [address] CO2 [Moles/Vol] 22.8 mmol/L Normal 21.0-32.0 [facility] Comment on above: Performed By: #### L 400, L500.4050, L501.0900, L3100.5700, L3100.5800, L100.0100 #### [facility] [address] [place], [address] Creatinine [Mass/Vol] 0.62 mg/dL Low 0.70-1.20 [facility] Comment on above: Performed By: #### L 400, L500.4050, L501.0900, L3100.5700, L3100.5800, L100.0100 #### [facility] [address] [place], [address] GAP 11 Normal 5-15 [facility] Comment on above: Performed By: #### L 400, L500.4050, L501.0900, L3100.5700, L3100.5800, L100.0100 #### [facility] [address] [place], [address] GFR/1.73 sq M.predicted among non-blacks MDRD (S/P/Bld) [Vol rate/Area] 113 mL/min/{1.73_m2} Normal >60 [facility] Comment on above: Result Comment: mL/m in/1.73m2 CKD-EPI Creatinine Equation (2020) Performed By: #### L 400.2010, L500.4050, L501.0900, L3100.5700, L3100.5800, L100.0100 #### [facility] [address] [place], [address] Globulin (S) [Mass/Vol] 3.1 g/dL Normal 2.2-4.2 [facility] Comment on above: Performed By: #### L 400, L500.4050, L501.0900, L3100.5700, L3100.5800, L100.0100 #### [facility] [address] [place], [address] Glucose [Mass/Vol] 93 mg/dL Normal 70-99 [facility] Comment on above: Performed By: #### L 400, L500.4050, L501.0900, L3100.5700, L3100.5800, L100.0100 #### [facility] [address] [place], [address] Potassium [Moles/Vol] 4.3 mmol/L Normal 3.3-5.1 [facility] Comment on above: Performed By: #### L 400, L500.4050, L501.0900, L3100.5700, L3100.5800, L100.0100 #### [facility] [address] [place], [address] Sodium [Moles/Vol] 139 mmol/L Normal 133-145 [facility] Comment on above: Performed By: #### L 400.2010, L500.4050, L501.0900, L3100.5700, L3100.5800, L100.0100 #### [facility] [address] [place], [address] T PROT 7.3 g/dL Normal 5.9-8.4 [facility] Comment on above: Performed By: #### L 400.2010, L500.4050, L501.0900, L3100.5700, L3100.5800, L100.0100 #### [facility] [address] [place], [address] Urea nitrogen [Mass/Vol] 13 mg/dL Normal 4-19 [facility] Comment on above: Performed By: #### L 400.2010, L500.4050, L501.0900, L3100.5700, L3100.5800, L100.0100 #### [facility] [address] [place], [address] Creatinine Unsp time (U) [Ma ss/Vol]Ordered By: Vonnie Griffith on 04-18-2024 Creatinine (U) [Mass/Vol] 107.00 mg/dL 28-217 [facility] Eosinophil percentageOrdered By: Vonnie Griffith on 04-18-2024 Eosinophils/100 WBC (Bld) 2.6 % 0-5 [facility] Erythrocyte distribution wid th ratioOrdered By: Vonnie Griffith on 04-18-2024 Erythrocyte distribution width (RBC) [Ratio] 13.5 % 11.6-14.6 [facility] Erythrocyte distribution wid th standard deviationOrdered By: Vonnie Griffith on 04-18-2024 Erythrocyte distribution width (RBC) [Entitic vol] 45.2 fL High 35.1-43.9 [facility] Erythrocyte distribution width (RBC) [Ratio] 45.2 fl High 35.1-43.9 [facility] GFR/1.73 sq M.predicted christ g non-blacks MDRD (S/P/Bld) [Vol rate/Area]Ordered By: Vonnie Griffith on 04-18-2024 Estimated GFR (MDRD) Non-Af Amer 113 >60 [facility] Comment on above: mL/min/1.73m2 CKD-EP I Creatinine Equation (2020) Glomerular filtration rate ( GFR) estimation/1.73 sq m using serum, plasma, or whole bOrdered By: Vonnie Griffith on 04-18-2024 GFR/1.73 sq M.predicted among non-blacks MDRD (S/P/Bld) [Vol rate/Area] 113 mL/min/{1.73_m2} >60 [facility] Comment on above: mL/min/1.73m2 CKD-EP I Creatinine Equation (2020) Glucose Ql (U)Ordered By: Jim Griffith on 04-18-2024 Urine Glucose (UA) Normal mg/dl Normal [facility] Hematocrit Auto (Bld) [Volum e fraction]Ordered By: Vonnie Griffith on 04-18-2024 Hematocrit (Bld) [Volume fraction] 43.6 % 37-47 [facility] Hemoglobin measurementOrdere d By: Vonnie Griffith on 04-18-2024 Hemoglobin (Bld) [Mass/Vol] 13.9 g/dL 12.0-15.0 [facility] Immature granulocytes/100 WB C Auto (Bld)Ordered By: Vonnie Griffith on 04-18-2024 Immature granulocytes/100 WBC (Bld) 0.200 % 0.0-0.9 [facility] Comment on above: IG% - Immature Granu locytes (promyelocytes, myelocytes and metamyelocytes) > 1% indicates that a LEFT SHIFT is Present. Ketones Test strip Ql (U)Ord ered By: Vonnie Griffith on 04-18-2024 Ketones Ql (U) Negative Negative [facility] - Chemistry and C hemistry - challengeOrdered By: Vonnie Griffith on 04-18-2024 AST [Catalytic activity/Vol] 24 U/L <32 [facility] Lymphocytes Auto (Unsp spec) [#/Vol]Ordered By: Vonnie Griffith on 04-18-2024 Lymphocytes (Bld) [#/Vol] 1.61 10*3/uL 0.83-4.51 [facility] Lymphocytes/100 WBC Auto (Un sp spec)Ordered By: Vonnie Griffith on 04-18-2024 Lymphocytes/100 WBC (Bld) 27.7 % 19-41 [facility] MCV (mean corpuscular volume ) determinationOrdered By: Vonnie Griffith on 04-18-2024 MCV (RBC) [Entitic vol] 90.6 fL 81-99 [facility] Mean corpuscular hemoglobin (MCH) determinationOrdered By: Vonnie Griffith on 04-18-2024 MCH (RBC) [Entitic mass] 28.9 pg 27.0-32.0 [facility] Mean corpuscular hemoglobin concentration (MCHC) determinationOrdered By: Vonnie Griffith on 04-18-2024 MCHC (RBC) [Mass/Vol] 31.9 g/dL Low 32-36 [facility] Mean platelet volume determi nationOrdered By: Vonnie Griffith on 04-18-2024 Platelet mean volume (Bld) [Entitic vol] 10.7 fL 6.2-12.0 [facility] Monocyte percentageOrdered B y: Vonnie Griffith on 04-18-2024 Monocytes/100 WBC (Bld) 8.1 % 0-10 [facility] Neutrophil percentageOrdered By: Vonnie Griffith on 04-18-2024 Neutrophils/100 WBC (Bld) 60.7 % 47-70 [facility] Nitrite Test strip Ql (U)Ord ered By: Vonnie Griffith on 04-18-2024 Nitrite Ql (U) Negative Negative [facility] Nucleated red blood cell per centageOrdered By: Vonnie Griffith on 04-18-2024 Nucleated RBC/100 WBC (Bld) [Ratio] 0 % 0-5 [facility] Platelet countOrdered By: Jim Griffith on 04-18-2024 Platelets (Bld) [#/Vol] 189 10*3/uL 150-450 [facility] Potassium (Unsp spec) [Mass/ Vol]Ordered By: Vonnie Griffith on 04-18-2024 Potassium [Moles/Vol] 4.3 mmol/L 3.3-5.1 [facility] Potassium measurement (mass/ volume)Ordered By: Vonnie Griffith on 04-18-2024 Potassium (Unsp spec) [Mass/Vol] 4.3 mmol/L 3.3-5.1 [facility] Protein Test strip Ql (U)Ord ered By: Vonnie Griffith on 04-18-2024 Protein Ql (U) Negative Negative [facility] Protein+Creatinine Ratio,Uri neon 04-18-2024 PROT:CRE RATIO 135 mg/g CRE Normal 0-200 [facility] Comment on above: Performed By: #### L 400.2010, L500.4050, L501.0900, L3100.5700, L3100.5800, L100.0100 #### [facility] [address] [place], [address] Protein (U) [Mass/Vol] 14.4 mg/dL High 0.0-12.0 [facility] Comment on above: Performed By: #### L 400.2010, L500.4050, L501.0900, L3100.5700, L3100.5800, L100.0100 #### [facility] [address] [place], [address] UR CREAT 107.00 mg/dL Normal 28-217 [facility] Comment on above: Performed By: #### L 400.2010, L500.4050, L501.0900, L3100.5700, L3100.5800, L100.0100 #### [facility] [address] [place], [address] Protein/Creatinine (U) [Mass ratio]Ordered By: Vonnie Griffith on 04-18-2024 Urine Protein/Creatinine Ratio 135 mg/g CRE 0-200 [facility] RBC Auto (Bld) [#/Vol]Ordere d By: Vonnie Griffith on 04-18-2024 RBC (Bld) [#/Vol] 4.81 10*6/uL 4.2-5.4 [facility] Random urine creatinine raj urement (mass/volume)Ordered By: Vonnie Griffith on 04-18-2024 Creatinine Unsp time (U) [Mass/Vol] 107.00 mg/dL 28-217 [facility] Serum creatinine measurement (mass/volume)Ordered By: Vonnie Griffith on 04-18-2024 Creatinine [Mass/Vol] 0.62 mg/dL Low 0.70-1.20 [facility] Serum globulin measurementOr dered By: Vonnie Griffith on 04-18-2024 Globulin (S) [Mass/Vol] 3.1 g/dL 2.2-4.2 [facility] Serum glucose measurement (m ass/volume)Ordered By: Vonnie Griffith on 04-18-2024 Glucose [Mass/Vol] 93 mg/dL 70-99 [facility] Serum or plasma alanine bo otransferase (ALT) measurementOrdered By: Vonnie Griffith on 04-18-2024 ALT [Catalytic activity/Vol] 20 U/L <35 [facility] Serum or plasma albumin raj urement (mass/volume)Ordered By: Vonnie Griffith on 04-18-2024 Albumin [Mass/Vol] 4.2 g/dL 3.5-5.0 [facility] Serum or plasma albumin/glob ulin mass ratioOrdered By: Vonnie Griffith on 04-18-2024 Albumin/Globulin [Mass ratio] 1.4 {ratio} 0.9-2.4 [facility] Serum or plasma alkaline aaron sphatase measurementOrdered By: oVnnie Griffith on 04-18-2024 ALP [Catalytic activity/Vol] 67 U/L 35-104 [facility] Serum or plasma calcium raj urement (mass/volume)Ordered By: Vonnie Griffith on 04-18-2024 Calcium [Mass/Vol] 8.8 mg/dL 7.6-11.0 [facility] Serum or plasma complement C 4 measurement (mass/volume)Ordered By: Vonnie Griffith on 04-18-2024 Complement C4 [Mass/Vol] 19 mg/dL 12-38 [facility] Serum or plasma urea nitroge n measurement (mass/volume)Ordered By: Vonnie Griffith on 04-18-2024 Urea nitrogen [Mass/Vol] 13 mg/dL 4-19 [facility] Sodium levelOrdered By: Marisa Griffith on 04-18-2024 Sodium [Moles/Vol] 139 mmol/L 133-145 [facility] Total proteinOrdered By: Yun Griffith on 04-18-2024 Protein [Mass/Vol] 7.3 g/dL 5.9-8.4 [facility] Urinalysis, Routine (Dipstic k)on 04-18-2024 BILIRUBIN URINE Negative Normal Negative [facility] Comment on above: Order Comment: CLEAN CATCH Performed By: #### L 400.2010, L500.4050, L501.0900, L3100.5700, L3100.5800, L100.0100 #### [facility] [address] [place], [address] Clarity (U) Clear Normal Clear [facility] Comment on above: Order Comment: CLEAN CATCH Performed By: #### L 400.2010, L500.4050, L501.0900, L3100.5700, L3100.5800, L100.0100 #### [facility] [address] [place], [address] Color (U) Yellow Normal Yellow [facility] Comment on above: Order Comment: CLEAN CATCH Performed By: #### L 400.2010, L500.4050, L501.0900, L3100.5700, L3100.5800, L100.0100 #### [facility] [address] [place], [address] GLUCOSE, UR Normal Normal Normal [facility] Comment on above: Order Comment: CLEAN CATCH Performed By: #### L 400.2010, L500.4050, L501.0900, L3100.5700, L3100.5800, L100.0100 #### [facility] [address] [place], [address] KETONE UR Negative Normal Negative [facility] Comment on above: Order Comment: CLEAN CATCH Performed By: #### L 400.2010, L500.4050, L501.0900, L3100.5700, L3100.5800, L100.0100 #### [facility] [address] [place], [address] LEUK ESTERASE Negative Normal Negative [facility] Comment on above: Order Comment: CLEAN CATCH Performed By: #### L 400.2010, L500.4050, L501.0900, L3100.5700, L3100.5800, L100.0100 #### [facility] [address] [place], [address] Nitrite Ql (U) Negative Normal Negative [facility] Comment on above: Order Comment: CLEAN CATCH Performed By: #### L 400, L500.4050, L501.0900, L3100.5700, L3100.5800, L100.0100 #### [facility] [address] [place], [address] OCCULT BLOOD-UR 10 /ul Abnormal Negative [facility] Comment on above: Order Comment: CLEAN CATCH Performed By: #### L 400, L500.4050, L501.0900, L3100.5700, L3100.5800, L100.0100 #### [facility] [address] [place], [address] pH UR 5.0 Normal 5.0 - 8.0 [facility] Comment on above: Order Comment: CLEAN CATCH Performed By: #### L 400, L500.4050, L501.0900, L3100.5700, L3100.5800, L100.0100 #### [facility] [address] [place], [address] PROT DIPSTX Negative Normal Negative [facility] Comment on above: Order Comment: CLEAN CATCH Performed By: #### L 400, L500.4050, L501.0900, L3100.5700, L3100.5800, L100.0100 #### [facility] [address] [place], [address] SP.GR. DIPSTX 1.020 Normal 1.002-1.030 [facility] Comment on above: Order Comment: CLEAN CATCH Performed By: #### L 400.2010, L500.4050, L501.0900, L3100.5700, L3100.5800, L100.0100 #### [facility] [address] [place], [address] UROBILI Normal Normal Normal [facility] Comment on above: Order Comment: CLEAN CATCH Performed By: #### L 400.2010, L500.4050, L501.0900, L3100.5700, L3100.5800, L100.0100 #### [facility] [address] [place], [address] Urine blood detectionOrdered By: Vonnie Griffith on 04-18-2024 Urine Occult Blood 10 /ul High Negative [facility] Urine clarityOrdered By: Yun Griffith on 04-18-2024 Clarity (U) Clear Clear [facility] Urine color determinationOrd ered By: Vonnie Griffith on 04-18-2024 Color (U) Yellow Yellow [facility] Urine glucose detectionOrder ed By: Vonnie Griffith on 04-18-2024 Glucose Ql (U) Normal mg/dl Normal [facility] Urine leukocyte esterase det ection by dipstickOrdered By: Vonnie Griffith on 04-18-2024 Leukocyte esterase Test strip Ql (U) Negative Negative [facility] Urine pHOrdered By: Vonnie wang on 04-18-2024 pH (U) 5.0 [pH] 5.0 - 8.0 [facility] Urine protein measurement (m ass/volume)Ordered By: Vonnie Griffith on 04-18-2024 Protein (U) [Mass/Vol] 14.4 mg/dL High 0.0-12.0 [facility] Urine protein/creatinine mas s ratioOrdered By: Vonnie Griffith on 04-18-2024 Protein/Creatinine (U) [Mass ratio] 135 mg/g CRE 0-200 [facility] Urine specific gravity measu rementOrdered By: Vonnie Griffith on 04-18-2024 Specific gravity (U) [Rel density] 1.020 1.002-1.030 [facility] Urine urobilinogen measureme ntOrdered By: Vonnievazquez Griffith on 04-18-2024 Urobilinogen Ql (U) Normal mg/dl Normal [facility] Urobilinogen Ql (U)Ordered B y: Vonnie Griffith on 04-18-2024 Urine Urobilinogen Normal mg/dl Normal [facility] White blood cell (WBC) count Ordered By: Vonnie Griffith on 04-18-2024 WBC (Bld) [#/Vol] 5.8 10*3/uL 4.4-11.0 [facility] PT panel Coag (PPP)on 2024 INR Coag (PPP) [Relative time] 2.1 {INR} High 0.9-1.3 [facility] Comment on above: Order Comment: Speci men Type: BLOOD SPECIMEN Ordering Facility[facility] Address: [address] [place] [address] Result Comment: Celina min K Antagonist (VKA) Therapeutic Range: INR 2 to 3 (Target INR of 2.5) Note: For patients treated with VKA drugs, such as warfarin, the [employer] [employer] 2012 Guideline recommends a therapeutic INR range of 2 to 3 (target INR of 2.5). This recommendation includes high-risk patients with antiphospholipid syndrome with previous arterial or venous thromboembolism, current-generation mechanical or bioprosthetic aortic heart valve replacement. Note: Patients with mechanical aortic valve replacement and additional risk factors for thromboembolic events (atrial fibrillation, previous thromboembolism, LV dysfunction, hypercoagulable conditions) or an older generation mechanical AVR (i.e., ball in-Cage) or any mechanical MVR should have a INR therapeutic range of 2.5 to 3.5 (target INR of 3). Olimpia MORENO, et al. Chest 2012, 141:7S-47S Miguel Angel LANGLEY et al. JAC 2017, 70: 252-289 Performed By: #### 3 4528-0 #### [facility] CLIA [id number] [address] [place] [address] [place] PT Coag (PPP) [Time] 22.5 s High 9.4-12.5 [facility] Comment on above: Order Comment: Speci men Type: BLOOD SPECIMEN Ordering Facility: [facility] Address: [facility] [place] [address] Performed By: #### 3 4528-0 #### [facility] CLIA [id number] [address] [place], [place] [address] [facility] [place] CNPNon 04-14-2024 CNPN Telephone (INTMUD) -- ROGERS CORTES ([id number]) 1980 F Date Time Provider Department 04/14/24 RHETT STEVENSON During your visit today, we recorded the following information about you: Tory Leija 04/14/2024 2:59 PM Signed Patient calls She said she had been seeing a kidney specialist that has been prescribing meds. He cannot see her until 2025 and won't fill her meds until he does see her. She asked if Dr. Stevenson with prescribe them. Thank you. Potassium 20 meq daily Amlodipine 10 mg daily Lisinopril [address] [facility] Rhett Goldberg MD 04/14/2024 3:40 PM Signed Yes, I will refill Allergies As of Date: 04/14/2024 Noted Allergy Reaction ADHESIVE 09/02/2021 16 - Unknown ADHESIVE TAPE-SILICONES 06/18/2018 2 - Rash DIDRONEL (ETIDRONATE DISODIUM) 11/06/2017 2 - Rash KEFLEX (CEPHALEXIN) 11/05/2017 4 - Hives LEVAQUIN (LEVOFLOXACIN) 11/05/2017 4 - Hives NORCO (HYDROCODONE-ACETAMINOPHEN ) 01/07/2021 4 - Hives Date Reviewed: 02/28/2024 Reviewed by: Gabbi Meza MA - Fully Assessed Reason for Visit: Patient Question [7147] Order(s):potassium chloride 20 mEq TbERTake 1 tablet by mouth once daily.Disp: 90 tabletRfl: 1 amLODIPine (NORVASC) 10 mg tabletTake 1 tablet by mouth once daily.Disp: 90 tabletRfl: 1 lisinopril (ZESTRIL) 5 mg tabletTake 1 tablet by mouth once daily.Disp: 90 tabletRfl: 1 Prescriptions as of 05/22/2024 - warfarin (COUMADIN) 10 mg tablet Take 1 tablet by mouth once daily. - potassium chloride 20 mEq TbER Take 1 tablet by mouth once daily. - amLODIPine (NORVASC) 10 mg tablet Take 1 tablet by mouth once daily. - lisinopril (ZESTRIL) 5 mg tablet Take 1 tablet by mouth once daily. - phenytoin ER (DILANTIN) 100 mg ER capsule Take 2 capsules by mouth two times a day. - ferrous sulfate (SLOW FE) 140 mg (45 mg iron) TbER Take 1 tablet by mouth once daily. - mycophenolate Mofetil (CELLCEPT) 500 mg tablet Take 1,000 mg by mouth twice daily. - predniSONE (DELTASONE) 10 mg tablet as needed. - gabapentin (NEURONTIN) 300 mg capsule Take 300 mg by mouth daily at bedtime. - hydrOXYchloroQUINE (PLAQUENIL) 200 mg tablet Take 2 tablets by mouth once daily. 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 AMLODIPINE 10 MG TABLET 90 t* 1 04/14/2024 10/11/2024 Route: ORAL Sig: Take 1 tablet by mouth once daily. LISINOPRIL 5 MG TABLET 90 t* 1 04/14/2024 10/11/2024 Route: ORAL Sig: Take 1 tablet by mouth once daily. Medications Discontinued During This Encounter Prescriptions - amLODIPine (NORVASC) 10 mg tablet (Discontinued) Take 10 mg by mouth once daily. - potassium chloride 20 mEq TbER (Discontinued) Take 1 tablet by mouth once daily. - lisinopril (ZESTRIL, PRINIVIL) 5 mg tablet (Discontinued) Take 5 mg by mouth once daily. Encounter Status:Closed by TORY LEIJA on 05/22/24 [facility] SCREENING W TOMOon 04-08 [facility] SCREENING W AURY * * *Final Report* * * DATE OF EXAM: Apr 08 2024 10:00AM [facility] 0582 - [facility] SCREENING W AURY / PROCEDURE REASON: Encounter for screening mammogram for malignant neoplasm of breast * * * * Physician Interpretation * * * * [place] [address] #[id number] - [facility] SCREENING W AURY HISTORY: 44 year-old patient seen for screening. No current complaints. Patient states no personal history of breast cancer. The patient has a family history of breast cancer. COMPARISON STUDIES: The present examination has been compared to prior imaging studies dated 07/06/2021 (mammogram) and 03/08/2023 (mammogram). MAMMOGRAM TECHNIQUE: The study was acquired using full field digital technology and interpreted from soft copy. Digital Breast Tomosynthesis (DBT) images were obtained and used to assist in the interpretation of this examination. MAMMOGRAM FINDINGS: The breasts are almost entirely fatty. No suspicious masses, calcifications or other abnormalities are seen in either breast. There are no significant interval changes. IMPRESSION: There is no mammographic evidence of malignancy in either breast. Routine screening mammogram is recommended. Annual mammogram will be due in 1 year. BI-RADS Category 1: Negative RISK: Based on the Tyrer-Cuzick (TC) risk assessment model, this patient has a 10.1% lifetime risk of developing breast cancer, meaning they are at average risk for developing breast cancer. However, this is only an estimate based on available history provided on the patient's questionnaire. We encourage all patients to talk with their providers about these results, further recommendations for managing breast health, and appropriate supplemental screening options if the patient has dense breast tissue. Interpreting Radiologist: Gertrude Weathers M.D. Electronically signed on: 04/09/2024 Family Resource Coordinator: VERN Transcribe Date/Time: Apr 08 2024 9:45A Dictated by : GERTRUDE WEATHERS MD This examination was interpreted and the report reviewed and electronically signed by: GERTRUDE WEATHERS MD on Apr 09 2024 4:10PM EST [id number] [facility] 04-04-2024 SAVANAN Telephone (INTMUD) -- ROGERS CORTES ([id number]) 1980 F Date Time Provider Department 04/04/24 RHETT STEVENSON INTMUQue During your visit today, we recorded the following information about you: Nicol Silva LPN 04/04/2024 2:47 PM Signed Bunny from INR calling [phone] Ext:[phone] States they can not reach the patient about getting her home INR machine. Also wanted to let us know the deductible is very high $238/month until her $5000 deductible is met then it will be covered at 100% RAVINDRA Austin Heather S, LPN 04/07/2024 9:24 AM Signed PT ALREADY STATED IT WASN'T AFFORDABLE AND HAS BEEN GOING TO [facility] TO HAVE INR DRAWN. Paty Matthew LPN Allergies As of Date: 04/04/2024 Noted Allergy Reaction ADHESIVE 09/02/2021 16 - Unknown ADHESIVE TAPE-SILICONES 06/18/2018 2 - Rash DIDRONEL (ETIDRONATE DISODIUM) 11/06/2017 2 - Rash KEFLEX (CEPHALEXIN) 11/05/2017 4 - Hives LEVAQUIN (LEVOFLOXACIN) 11/05/2017 4 - Hives NORCO (HYDROCODONE-ACETAMINOPHEN ) 01/07/2021 4 - Hives Date Reviewed: 02/28/2024 Reviewed by: Gabbi Meza MA - Fully Assessed Reason for Visit: Patient Update [1234] Cmt: Home INR Prescriptions as of 04/07/2024 - phenytoin ER (DILANTIN) 100 mg ER capsule Take 2 capsules by mouth two times a day. - warfarin (COUMADIN) 10 mg tablet Take 1 tablet by mouth once daily. - ferrous sulfate (SLOW FE) 140 mg (45 mg iron) TbER Take 1 tablet by mouth once daily. - lisinopril (ZESTRIL, PRINIVIL) 5 mg tablet Take 5 mg by mouth once daily. - amLODIPine (NORVASC) 10 mg tablet Take 10 mg by mouth once daily. - mycophenolate Mofetil (CELLCEPT) 500 mg tablet Take 1,000 mg by mouth twice daily. - potassium chloride 20 mEq TbER Take 1 tablet by mouth once daily. - predniSONE (DELTASONE) 10 mg tablet as needed. - gabapentin (NEURONTIN) 300 mg capsule Take 300 mg by mouth daily at bedtime. - hydrOXYchloroQUINE (PLAQUENIL) 200 mg tablet Take 2 tablets by mouth once daily. 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] 08/19/2021 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 Stage 1 chronic kidney disease [N18.1] 08/19/2021 Vitamin D deficiency [E55.9] 08/19/2021 Epileptic seizures (HCC) [G40.909] 10/24/2017 Generalized convulsive epilepsy (HCC) [G40.309] 12/07/2006 Encounter Status:Closed by PATY MATTHEW on 04/07/24 [facility] 03-24-2024 [facility] Telephone (INTMUD) -- ROGERS CORTES ([id number]) 1980 F Date Time Provider Department 03/24/24 RHETT STEVENSON INTMUQue During your visit today, we recorded the following information about you: Paty Matthew LPN 03/24/2024 1:36 PM Signed HAD INR DRAWN AT [facility] 03/21/24 HOME INR: 2.8 PATIENT TAKES 5MG DAILY EXCEPT 10MG MONDAYS/WEDNESDAYS/FRIDAYS . PATIENT TO CONTINUE SAME. RECHECK 1 MONTH. PT ADVISED. RAVINDRA Newman Michele Dawn, MD 03/24/2024 1:41 PM Signed ok Allergies As of Date: 03/24/2024 Noted Allergy Reaction ADHESIVE 09/02/2021 16 - Unknown ADHESIVE TAPE-SILICONES 06/18/2018 2 - Rash DIDRONEL (ETIDRONATE DISODIUM) 11/06/2017 2 - Rash KEFLEX (CEPHALEXIN) 11/05/2017 4 - Hives LEVAQUIN (LEVOFLOXACIN) 11/05/2017 4 - Hives NORCO (HYDROCODONE-ACETAMINOPHEN ) 01/07/2021 4 - Hives Date Reviewed: 02/28/2024 Reviewed by: Gabbi Meza MA - Fully Assessed Reason for Visit: Results [95] Cmt: INR Prescriptions as of 03/24/2024 - phenytoin ER (DILANTIN) 100 mg ER capsule Take 2 capsules by mouth two times a day. - warfarin (COUMADIN) 10 mg tablet Take 1 tablet by mouth once daily. - ferrous sulfate (SLOW FE) 140 mg (45 mg iron) TbER Take 1 tablet by mouth once daily. - lisinopril (ZESTRIL, PRINIVIL) 5 mg tablet Take 5 mg by mouth once daily. - amLODIPine (NORVASC) 10 mg tablet Take 10 mg by mouth once daily. - mycophenolate Mofetil (CELLCEPT) 500 mg tablet Take 1,000 mg by mouth twice daily. - potassium chloride 20 mEq TbER Take 1 tablet by mouth once daily. - predniSONE (DELTASONE) 10 mg tablet as needed. - gabapentin (NEURONTIN) 300 mg capsule Take 300 mg by mouth daily at bedtime. - hydrOXYchloroQUINE (PLAQUENIL) 200 mg tablet Take 2 tablets by mouth once daily. 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] 08/19/2021 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 Stage 1 chronic kidney disease [N18.1] 08/19/2021 Vitamin D deficiency [E55.9] 08/19/2021 Epileptic seizures (HCC) [G40.909] 10/24/2017 Generalized convulsive epilepsy (HCC) [G40.309] 12/07/2006 Encounter Status:Closed by AYESHA WORTHINGTON on 03/24/24 Normal [facility] PT panel Coag (PPP)on 2024 INR Coag (PPP) [Relative time] 2.8 {INR} High 0.9-1.3 [facility] Comment on above: Order Comment: Speci men Type: BLOOD SPECIMENOrdering Facility: [facility] Address: [address] [place] [address] Result Comment: Celina min K Antagonist (VKA) Therapeutic Range: INR 2 to 3 (Target INR of 2.5) Note: For patients treated with VKA drugs, such as warfarin, the [employer] [employer] 2012 Guideline recommends a therapeutic INR range of 2 to 3 (target INR of 2.5). This recommendation includes high-risk patients with antiphospholipid syndrome with previous arterial or venous thromboembolism, current-generation mechanical or bioprosthetic aortic heart valve replacement. Note: Patients with mechanical aortic valve replacement and additional risk factors for thromboembolic events (atrial fibrillation, previous thromboembolism, LV dysfunction, hypercoagulable conditions) or an older generation mechanical AVR (i.e., ball in-Cage) or any mechanical MVR should have a INR therapeutic range of 2.5 to 3.5 (target INR of 3). Olimpia GH, et al. Chest 2012, 141:7S-47S Miguel Angel RA et al. [facility] 2017, 70: 252-289 Performed By: #### 3 4528-0 ####[facility] [id number] [place] [address] [facility] [place] PT Coag (PPP) [Time] 30.0 s High 9.4-12.5 [facility] Comment on above: Order Comment: Speci men Type: BLOOD SPECIMENOrdering Facility: [facility] Address: [address] [place] [address] Performed By: #### 3 4528-0 ####[facility] [id number] [place] [address] [facility]-28-[facility]24 CNOV Office Visit (NEUUPD ) -- ROGERS CORTES ([id number]) 1980 F Date Time Provider Department 02/28/24 2:15 PM NELSON POZO During your visit today, we recorded the following information about you: Pulse Blood pressure Weight Height 64/minute 125/80 129.3 kg 1.803 m Nelson Pozo MD 02/28/2024 2:47 PM Signed Referring Provider: No ref. provider found Date: February 28, 2024 Chief Complaint: Seizures HISTORY OF PRESENT ILLNESS: Rogers Cortes is a 43 year old female who follows for seizures. Patient is a left handed, woman who lives with her and mother. 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 She has been to Dr. Pozo previously in the for seizures and was put on Dilantin. The patient is taking Dilantin ER 200 mg 1 capsule twice daily with no medication side effects at this time. She is not interested in discontinuing her mediatation due to fears of having a seizure as she did the last time she attempted to stop taking it. She is pleased and would like to make no changes to her current plan of care at this time. I, Gabbi Meza MA, transcribing for Nelson Pozo MD. ALLERGIES Allergen Reactions Adhesive Unknown Adhesive Tape-Silic* Rash Didronel [Etidronat* Rash Keflex [Cephalexin] Hives Levaquin [Levofloxa* Hives [place] [Hydrocodone-* Hives PAST MEDICAL HISTORY: PAST MEDICAL HISTORY Diagnosis Date DUB (dysfunctional uterine bleeding) Dr Driscoll HTN (hypertension) Hypokalemia Idiopathic peripheral neuropathy Lupus Sees Dr Inder koo [place] (obstructive sleep apnea) Mild- deferred CPAP Recurrent deep vein thrombosis (DVT) (HCC) Seizure disorder (HCC) PAST SURGICAL HISTORY Procedure Laterality Date HYSTERECTOMY HX 04/15/2020 for DUB KIDNEY BIOPSY 2018 RENAL BIOPSY 2003 FAMILY HISTORY Problem Relation Age of Onset Hyperlipidemia Mother Hypertension Mother Diabetes Mother No Known Problems Father SOCIAL HISTORY: Tobacco Use: Types: Cigarettes Alcohol Use: Not Currently (occasionally) Drug Use: Never Employer And Job Title: [employer] Years Of Education Completed: Not specified Marital Status: with no children MEDICATIONS: Current Outpatient Medications Medication Sig phenytoin ER (DILANTIN) 100 mg ER capsule TAKE 2 CAPSULES BY MOUTH TWICE DAILY warfarin (COUMADIN) 10 mg tablet Take 1 tablet by mouth once daily. ferrous sulfate (SLOW FE) 140 mg (45 mg iron) TbER Take 1 tablet by mouth once daily. lisinopril (ZESTRIL, PRINIVIL) 5 mg tablet Take [...] Negative for hallucinations and self-injury. Vitals: BP 125/80 Pulse 64 Ht 180.3 cm (5' 11) Wt 129.3 kg (285 lb) BMI 39.75 kg/m? PHYSICAL EXAM:: The physical exam findings are as follows: General General Appearance - Well groomed Orientation: Oriented to time, oriented to place, [...] No facial asymmetry Vlll - Normal hearing. l (more 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 [facility] 02-21-2024 [facility] Telephone (INTMUD) -- ROGERS CORTES ([id number]) 1980 F Date Time Provider Department 02/21/24 RHETT STEVENSON INTMUD During your visit today, we recorded the following information about you: Paty Matthew LPN 02/21/2024 1:45 PM Signed HAD INR DRAWN AT THIS MORNIN.1 PATIENT TAKES 5MG DAILY EXCEPT 10MG MONDAYS/WEDNESDAYS/FRIDAYS . CALLED HOME # AND LMTCB ON VOICEMAIL. NEED TO VERIFY THAT DOSING IS CORRECT ABOVE. WOULD LIKE TO ASK ABOUT STATUS OF HOME INR MACHINE SEND CALL TO ME PLEASE. RAVINDRA Newman Josie L, MA 02/21/2024 3:14 PM Signed VERIFIED DOSE IN CORRECT HOME INR IS NOT COVERED BY INSURANCE PATIENT WILL CONTINUE TO GO TO CC TO HAVE INR DRAWN PATIENT ADVISED TO GO TO [facility] TO HAVE DRAWN AGAIN IN 1 MONTH. Ayesha Worthington MA Allergies As of Date: 02/21/2024 Noted Allergy Reaction ADHESIVE 09/02/2021 16 - Unknown ADHESIVE TAPE-SILICONES 06/18/2018 2 - Rash DIDRONEL (ETIDRONATE DISODIUM) 11/06/2017 2 - Rash KEFLEX (CEPHALEXIN) 11/05/2017 4 - Hives LEVAQUIN (LEVOFLOXACIN) 11/05/2017 4 - Hives NORCO (HYDROCODONE-ACETAMINOPHEN ) 01/07/2021 4 - Hives Date Reviewed: 01/10/2024 Reviewed by: Matty Winston MA - Fully Assessed Reason for Visit: Results [95] Cmt: INR Prescriptions as of 02/21/2024 - phenytoin ER (DILANTIN) 100 mg ER capsule TAKE 2 CAPSULES BY MOUTH TWICE DAILY - warfarin (COUMADIN) 10 mg tablet Take 1 tablet by mouth once daily. - ferrous sulfate (SLOW FE) 140 mg (45 mg iron) TbER Take 1 tablet by mouth once daily. - lisinopril (ZESTRIL, PRINIVIL) 5 mg tablet Take 5 mg by mouth once daily. - amLODIPine (NORVASC) 10 mg tablet Take 10 mg by mouth once daily. - mycophenolate Mofetil (CELLCEPT) 500 mg tablet Take 1,000 mg by mouth twice daily. - potassium chloride 20 mEq TbER Take 1 tablet by mouth once daily. - predniSONE (DELTASONE) 10 mg tablet as needed. - gabapentin (NEURONTIN) 300 mg capsule Take 300 mg by mouth daily at bedtime. - hydrOXYchloroQUINE (PLAQUENIL) 200 mg tablet Take 2 tablets by mouth once daily. 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] 08/19/2021 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 Stage 1 chronic kidney disease [N18.1] 08/19/2021 Vitamin D deficiency [E55.9] 08/19/2021 Epileptic seizures (HCC) [G40.909] 10/24/2017 Generalized convulsive epilepsy (HCC) [G40.309] 12/07/2006 Encounter Status:Closed by AYESHA WORTHINGTON on 02/21/24 Normal [facility] PT panel Coag (PPP)on 2024 INR Coag (PPP) [Relative time] 2.1 {INR} High 0.9-1.3 [facility] Comment on above: Order Comment: Speci men Type: BLOOD SPECIMEN Ordering Facility: [facility] Address: [address] [place] [address] Result Comment: Celina min K Antagonist (VKA) Therapeutic Range: INR 2 to 3 (Target INR of 2.5) Note: For patients treated with VKA drugs, such as warfarin, the [place] [employer] 2012 Guideline recommends a therapeutic INR range of 2 to 3 (target INR of 2.5). This recommendation includes high-risk patients with antiphospholipid syndrome with previous arterial or venous thromboembolism, current-generation mechanical or bioprosthetic aortic heart valve replacement. Note: Patients with mechanical aortic valve replacement and additional risk factors for thromboembolic events (atrial fibrillation, previous thromboembolism, LV dysfunction, hypercoagulable conditions) or an older generation mechanical AVR (i.e., ball in-Cage) or any mechanical MVR should have a INR therapeutic range of 2.5 to 3.5 (target INR of 3). Olimpia MORENO, et al. Chest 2012, 141:7S-47S Miguel Angel LANGLEY et al. JAC 2017, 70: 252-289 Performed By: #### 3 4528-0 #### [facility] CLIA [id number] [address] [place] [address] [place] PT Coag (PPP) [Time] 22.4 s High 9.4-12.5 [facility] Comment on above: Order Comment: Speci men Type: BLOOD SPECIMEN Ordering Facility: [facility] Address: [facility] [place] [address] Performed By: #### 3 4528-0 #### [facility] CLIA [id number] [address] [place], [place] [address] [facility] CNPNon 02-14-2024 CNPN Telephone (INTMUD) -- ROGERS CORTES ([id number]) 1980 F Date Time Provider Department 02/14/24 RHETT STEVENSON INTMUD During your visit today, we recorded the following information about you: Ayesha Worthington MA 02/14/2024 1:54 PM Signed [facility] IRN FOR REFAXED. Ayesha Worthington MA DONE THROUGH [facility] SEE COMMUNICATION ATTACHED. Allergies As of Date: 02/14/2024 Noted Allergy Reaction ADHESIVE 09/02/2021 16 - Unknown ADHESIVE TAPE-SILICONES 06/18/2018 2 - Rash DIDRONEL (ETIDRONATE DISODIUM) 11/06/2017 2 - Rash KEFLEX (CEPHALEXIN) 11/05/2017 4 - Hives LEVAQUIN (LEVOFLOXACIN) 11/05/2017 4 - Hives NORCO (HYDROCODONE-ACETAMINOPHEN ) 01/07/2021 4 - Hives Date Reviewed: 01/10/2024 Reviewed by: Matty Winston MA - Fully Assessed Prescriptions as of 02/14/2024 - warfarin (COUMADIN) 10 mg tablet Take 1 tablet by mouth once daily. - phenytoin ER (DILANTIN) 100 mg ER capsule Take 2 capsules by mouth two times a day. - ferrous sulfate (SLOW FE) 140 mg (45 mg iron) TbER Take 1 tablet by mouth once daily. - lisinopril (ZESTRIL, PRINIVIL) 5 mg tablet Take 5 mg by mouth once daily. - amLODIPine (NORVASC) 10 mg tablet Take 10 mg by mouth once daily. - mycophenolate Mofetil (CELLCEPT) 500 mg tablet Take 1,000 mg by mouth twice daily. - potassium chloride 20 mEq TbER Take 1 tablet by mouth once daily. - predniSONE (DELTASONE) 10 mg tablet as needed. - gabapentin (NEURONTIN) 300 mg capsule Take 300 mg by mouth daily at bedtime. - hydrOXYchloroQUINE (PLAQUENIL) 200 mg tablet Take 2 tablets by mouth once daily. 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] 08/19/2021 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 Stage 1 chronic kidney disease [N18.1] 08/19/2021 Vitamin D deficiency [E55.9] 08/19/2021 Epileptic seizures (HCC) [G40.909] 10/24/2017 Generalized convulsive epilepsy (HCC) [G40.309] 12/07/2006 Encounter Status:Closed by AYESHA WORTHINGTON on 02/14/24 [facility] Complement C3on 02-05-2024 COMP C3 118 mg/dL Normal 82-167 [facility] Comment on above: Result Comment: Perf ormed at: CB - [facility] [address] [id number] [employer] Crew: Dionisio Guevara PhD, Phone: [phone] Performed By: #### L 400.2010, L500.4050, L501.0900, L3100.5700, L3100.5800, L100.0100 #### [facility] [address] [place], [place], [id number] Complement C4on 02-05-2024 COMPLEMENT, C4 18 mg/dL Normal [facility] Comment on above: Performed By: #### L 400, L500.4050, L501.0900, L3100.5700, L3100.5800, L100.0100 #### [facility] [address] [place], [place], [id number] Absolute neutrophil countOrd ered By: Vonnie Griffith on 02-04-2024 Neutrophils (Bld) [#/Vol] 3.3 10*3/uL 2.0-7.7 [facility] Albumin to globulin ratioOrd ered By: Vonnie Griffith on 02-04-2024 Albumin/Globulin [Mass ratio] 0.9 {ratio} 0.9-2.4 [facility] Basophil percentageOrdered B y: Vonnie Griffith on 02-04-2024 Basophils/100 WBC (Bld) 0.9 % 0-1 [facility] Bilirubin Test strip Ql (U)O rdered By: Vonnie Griffith on 02-04-2024 Bilirubin Ql (U) Negative Negative [facility] Bilirubin, totalOrdered By: Vonnie Griffith on 02-04-2024 Bilirubin [Mass/Vol] 0.40 mg/dL 0.20-1.00 [facility] Comment on above: For patients on eltr ombopag therapy, use of Dimension [place] TBIL is not recommended. Blood urea nitrogen (BUN)/cr eatinine ratioOrdered By: Vonnie Griffith on 02-04-2024 Urea nitrogen/Creatinine [Mass ratio] 25.2 mg/mg High 10-20 [facility] CBC W/Diff, Automatedon 12-3 0-2024 Absolute Lymph 1.81 X10 3/uL Normal 0.83-4.51 [facility] Comment on above: Performed By: #### L 3100.5700, L3100.5800, L400.2010, L100.0100, L501.0900, L500.4050 #### [facility] [address] [place], [address] Absolute Neut 3.3 X10 3/uL Normal 2.0-7.7 [facility] Comment on above: Performed By: #### L 3100.5700, L3100.5800, L400.2010, L100.0100, L501.0900, L500.4050 #### [facility] [address] [place], [address] Basophils/100 WBC (Bld) 0.9 % Normal 0-1 [facility] Comment on above: Performed By: #### L 3100.5700, L3100.5800, L400.2010, L100.0100, L501.0900, L500.4050 #### [facility] [address] [place], [address] Eosinophils/100 WBC (Bld) 2.3 % Normal 0-5 [facility] Comment on above: Performed By: #### L 3100.5700, L3100.5800, L400.2010, L100.0100, L501.0900, L500.4050 #### [facility] [address] [place], [address] Erythrocyte distribution width (RBC) [Ratio] 12.9 % Normal 11.6-14.6 [facility] Comment on above: Performed By: #### L 3100.5700, L3100.5800, L400.2010, L100.0100, L501.0900, L500.4050 #### [facility] [address] [place], [address] Hematocrit (Bld) [Volume fraction] 41.2 % Normal 37-47 [facility] Comment on above: Performed By: #### L 3100.5700, L3100.5800, L400.2010, L100.0100, L501.0900, L500.4050 #### [facility] [address] [place], [address] Hemoglobin (Bld) [Mass/Vol] 13.1 g/dL Normal 12.0-15.0 [facility] Comment on above: Performed By: #### L 3100.5700, L3100.5800, L400.2010, L100.0100, L501.0900, L500.4050 #### [facility] [address] [place], [address] IG% 0.200 Normal 0.0-0.9 [facility] Comment on above: Result Comment: IG% - Immature Granulocytes (promyelocytes, myelocytes and metamyelocytes) > 1% indicates that a LEFT SHIFT is Present. Performed By: #### L 3100.5700, L3100.5800, L400.2010, L100.0100, L501.0900, L500.4050 #### [facility] [address] [place], [address] Lymphocytes/100 WBC (Bld) 31.9 % Normal 19-41 [facility] Comment on above: Performed By: #### L 3100.5700, L3100.5800, L400.2010, L100.0100, L501.0900, L500.4050 #### [facility] [address] [place], [address] MCH (RBC) [Entitic mass] 28.4 pg Normal 27.0-32.0 [facility] Comment on above: Performed By: #### L 3100.5700, L3100.5800, L400.2010, L100.0100, L501.0900, L500.4050 #### [facility] [address] [place], [address] MCHC (RBC) [Mass/Vol] 31.8 g/dL Low 32-36 [facility] Comment on above: Performed By: #### L 3100.5700, L3100.5800, L400.2010, L100.0100, L501.0900, L500.4050 #### [facility] [address] [place], [address] MCV (RBC) [Entitic vol] 89.4 fL Normal 81-99 [facility] Comment on above: Performed By: #### L 3100.5700, L3100.5800, L400.2010, L100.0100, L501.0900, L500.4050 #### [facility] [address] [place], [address] Monocytes/100 WBC (Bld) 7.4 % Normal 0-10 [facility] Comment on above: Performed By: #### L 3100.5700, L3100.5800, L400.2010, L100.0100, L501.0900, L500.4050 #### [facility] [address] [place], [address] Neutrophils/100 WBC (Bld) 57.3 % Normal 47-70 [facility] Comment on above: Performed By: #### L 3100.5700, L3100.5800, L400.2010, L100.0100, L501.0900, L500.4050 #### [facility] [address] [place], [address] Nucleated RBC (Bld) [#/Vol] 0 10*3/uL Normal 0-5 [facility] Comment on above: Performed By: #### L 3100.5700, L3100.5800, L400.2010, L100.0100, L501.0900, L500.4050 #### [facility] [address] [place], [address] Platelet mean volume (Bld) [Entitic vol] 10.7 fL Normal 6.2-12.0 [facility] Comment on above: Performed By: #### L 3100.5700, L3100.5800, L400.2010, L100.0100, L501.0900, L500.4050 #### [facility] [address] [place], [address] Platelets (Bld) [#/Vol] 165 10*3/uL Normal 150-450 [facility] Comment on above: Performed By: #### L 3100.5700, L3100.5800, L400.2010, L100.0100, L501.0900, L500.4050 #### [facility] [address] [place], [address] RBC (Bld) [#/Vol] 4.61 10*6/uL Normal 4.2-5.4 [facility] Comment on above: Performed By: #### L 3100.5700, L3100.5800, L400.2010, L100.0100, L501.0900, L500.4050 #### [facility] [address] [place], [address] RDW SD 42.1 fl Normal 35.1-43.9 [facility] Comment on above: Performed By: #### L 3100.5700, L3100.5800, L400.2010, L100.0100, L501.0900, L500.4050 #### [facility] [address] [place], [address] WBC (Bld) [#/Vol] 5.7 10*3/uL Normal 4.4-11.0 [facility] Comment on above: Performed By: #### L 3100.5700, L3100.5800, L400.2010, L100.0100, L501.0900, L500.4050 #### [facility] [address] [place], [address] Carbon dioxide measurementOr dered By: Vonnie Griffith on 02-04-2024 CO2 [Moles/Vol] 27.0 mmol/L 21.0-32.0 [facility] Chloride measurementOrdered By: Vonnie Griffith on 02-04-2024 Chloride [Moles/Vol] 109 mmol/L High 98-107 [facility] Complement C3 assayOrdered B y: Vonnie Griffith on 02-04-2024 Complement C3 118 mg/dL 82-167 [facility] Comment on above: Performed at: [address] [id number] Director: Dionisio Guevara PhD, Phone: [phone] Complement C4 [Mass/Vol]Orde red By: Vonnie Griffith on 02-04-2024 Complement C4 18 mg/dL 12-38 [facility] Comprehensive Metabolic Prof ilon 02-04-2024 Albumin [Mass/Vol] 3.3 g/dL Normal 3.2-5.0 [facility] Comment on above: Performed By: #### L 3100.5700, L3100.5800, L400.2010, L100.0100, L501.0900, L500.4050 #### [facility] [address] [place], [address] Albumin/Globulin [Mass ratio] 0.9 {ratio} Normal 0.9-2.4 [facility] Comment on above: Performed By: #### L 3100.5700, L3100.5800, L400.2010, L100.0100, L501.0900, L500.4050 #### [facility] [address] [place], [address] ALK P 65 U/L Normal 45-117 [facility] Comment on above: Performed By: #### L 3100.5700, L3100.5800, L400.2010, L100.0100, L501.0900, L500.4050 #### [facility] [address] [place], [address] ALT [Catalytic activity/Vol] 32 U/L Normal 13-56 [facility] Comment on above: Performed By: #### L 3100.5700, L3100.5800, L400.2010, L100.0100, L501.0900, L500.4050 #### [facility] [address] [place], [address] AST [Catalytic activity/Vol] 23 U/L Normal 15-37 [facility] Comment on above: Performed By: #### L 3100.5700, L3100.5800, L400.2010, L100.0100, L501.0900, L500.4050 #### [facility] [address] [place], [address] Bilirubin [Mass/Vol] 0.40 mg/dL Normal 0.20-1.00 [facility] Comment on above: Result Comment: For patients on eltrombopag therapy, use of Dimension [place] TBIL is not recommended. Performed By: #### L 3100.5700, L3100.5800, L400.2010, L100.0100, L501.0900, L500.4050 #### [facility] [address] [place], [address] BUN/CRE 25.2 RATIO High 10-20 [facility] Comment on above: Performed By: #### L 3100.5700, L3100.5800, L400.2010, L100.0100, L501.0900, L500.4050 #### [facility] [address] [place], [address] CA,Total 8.8 mg/dL Normal 8.5-10.1 [facility] Comment on above: Performed By: #### L 3100.5700, L3100.5800, L400.2010, L100.0100, L501.0900, L500.4050 #### [facility] [address] [place], [address] Chloride [Moles/Vol] 109 mmol/L High 98-107 [facility] Comment on above: Performed By: #### L 3100.5700, L3100.5800, L4, L100.0100, L501.0900, L500.4050 #### [facility] [address] [place], [address] CO2 [Moles/Vol] 27.0 mmol/L Normal 21.0-32.0 [facility] Comment on above: Performed By: #### L 3100.5700, L3100.5800, L4, L100.0100, L501.0900, L500.4050 #### [facility] [address] [place], [address] Creatinine [Mass/Vol] 0.68 mg/dL Normal 0.55-1.02 [facility] Comment on above: Result Comment: The validity of the calculated GFR GFRAA in patients over 70 years has not been determined. Clinical correlation is essential. Performed By: #### L 3100.5700, L3100.5800, L4, L100.0100, L501.0900, L500.4050 #### [facility] [address] [place], [address] EST GFR - AA 123 mL/min Normal >60 [facility] Comment on above: Result Comment: Afri can Palauan GFR Calc Performed By: #### L 3100.5700, L3100.5800, L400.2010, L100.0100, L501.0900, L500.4050 #### [facility] [address] [place], [address] GAP 5 Normal 5-15 [facility] Comment on above: Performed By: #### L 3100.5700, L3100.5800, L400.2010, L100.0100, L501.0900, L500.4050 #### [facility] [address] [place], [address] GFR/1.73 sq M.predicted among non-blacks MDRD (S/P/Bld) [Vol rate/Area] 101 mL/min/{1.73_m2} Normal >60 [facility] Comment on above: Result Comment: Non- GFR Calc Performed By: #### L 3100.5700, L3100.5800, L400.2010, L100.0100, L501.0900, L500.4050 #### [facility] [address] [place], [address] Globulin (S) [Mass/Vol] 3.5 g/dL Normal 2.2-4.2 [facility] Comment on above: Performed By: #### L 3100.5700, L3100.5800, L400.2010, L100.0100, L501.0900, L500.4050 #### [facility] [address] [place], [address] Glucose [Mass/Vol] 96 mg/dL Normal 74-106 [facility] Comment on above: Performed By: #### L 3100.5700, L3100.5800, L4.2010, L100.0100, L501.0900, L500.4050 #### [facility] [address] [place], [address] Potassium [Moles/Vol] 4.0 mmol/L Normal 3.5-5.1 [facility] Comment on above: Performed By: #### L 3100.5700, L3100.5800, L400.2010, L100.0100, L501.0900, L500.4050 #### [facility] [address] [place], [address] Sodium [Moles/Vol] 140 mmol/L Normal 136-145 [facility] Comment on above: Performed By: #### L 3100.5700, L3100.5800, L400.2011, L100.0100, L501.0900, L500.4050 #### [facility] [address] [place], [address] T PROT 6.8 g/dL Normal 6.4-8.2 [facility] Comment on above: Performed By: #### L 3100.5700, L3100.5800, L400.2010, L100.0100, L501.0900, L500.4050 #### [facility] [address] [place], [address] Urea nitrogen [Mass/Vol] 17 mg/dL Normal 7-18 [facility] Comment on above: Performed By: #### L 3100.5700, L3100.5800, L400.2010, L100.0100, L501.0900, L500.4050 #### [facility] [address] [place], [address] Eosinophil percentageOrdered By: Vonnie Griffith on 02-04-2024 Eosinophils/100 WBC (Bld) 2.3 % 0-5 [facility] Erythrocyte distribution wid th ratioOrdered By: Vonnie Griffith on 02-04-2024 Erythrocyte distribution width (RBC) [Ratio] 12.9 % 11.6-14.6 [facility] Erythrocyte distribution wid th standard deviationOrdered By: Vonnie Griffith on 02-04-2024 Erythrocyte distribution width (RBC) [Entitic vol] 42.1 fL 35.1-43.9 [facility] Estimated glomerular filtrat ion rate (GFR) AmericanOrdered By: Vonnie Griffith on 02-04-2024 Estimated GFR (MDRD) Amer 123 mL/min >60 [facility] Comment on above: GFR Calc Glomerular filtration rate ( GFR) estimationOrdered By: Vonnie Griffith on 02-04-2024 Estimated GFR (MDRD) Non-Af Amer 101 mL/min >60 [facility] Comment on above: Non- GFR Calc Glucose Ql (U)Ordered By: Jim Griffith on 02-04-2024 Urine Glucose (UA) Normal mg/dl Normal [facility] Glucose measurementOrdered B y: Vonnie Griffith on 02-04-2024 Glucose [Mass/Vol] 96 mg/dL 74-106 [facility] Hematocrit Auto (Bld) [Volum e fraction]Ordered By: Vonnie Griffith on 02-04-2024 Hematocrit (Bld) [Volume fraction] 41.2 % 37-47 [facility] Hemoglobin measurementOrdere d By: Vonnie Griffith on 02-04-2024 Hemoglobin (Bld) [Mass/Vol] 13.1 g/dL 12.0-15.0 [facility] Immature granulocytes/100 WB C Auto (Bld)Ordered By: Vonnie Griffith on 02-04-2024 Immature granulocytes/100 WBC (Bld) 0.200 % 0.0-0.9 [facility] Comment on above: IG% - Immature Granu locytes (promyelocytes, myelocytes and metamyelocytes) > 1% indicates that a LEFT SHIFT is Present. Ketones Test strip Ql (U)Ord ered By: Vonnie Griffith on 02-04-2024 Ketones Ql (U) Negative Negative [facility] - Chemistry and C hemistry - challengeOrdered By: Vonnie Griffith on 02-04-2024 AST [Catalytic activity/Vol] 23 U/L 15-37 [facility] Lymphocytes Auto (Unsp spec) [#/Vol]Ordered By: Vonnie Griffith on 02-04-2024 Lymphocytes (Bld) [#/Vol] 1.81 10*3/uL 0.83-4.51 [facility] Lymphocytes/100 WBC Auto (Un sp spec)Ordered By: Vonnie Griffith on 02-04-2024 Lymphocytes/100 WBC (Bld) 31.9 % 19-41 [facility] MCV (mean corpuscular volume ) determinationOrdered By: Vonnie Griffith on 02-04-2024 MCV (RBC) [Entitic vol] 89.4 fL 81-99 [facility] Mean corpuscular hemoglobin (MCH) determinationOrdered By: Vonnie Griffith on 02-04-2024 MCH (RBC) [Entitic mass] 28.4 pg 27.0-32.0 [facility] Mean corpuscular hemoglobin concentration (MCHC) determinationOrdered By: Vonnie Griffith on 02-04-2024 MCHC (RBC) [Mass/Vol] 31.8 g/dL Low 32-36 [facility] Mean platelet volume determi nationOrdered By: Vonnie Griffith on 02-04-2024 Platelet mean volume (Bld) [Entitic vol] 10.7 fL 6.2-12.0 [facility] Monocyte percentageOrdered B y: Vonnie Griffith on 02-04-2024 Monocytes/100 WBC (Bld) 7.4 % 0-10 [facility] Neutrophil percentageOrdered By: Vonnie Griffith on 02-04-2024 Neutrophils/100 WBC (Bld) 57.3 % 47-70 [facility] Nitrite Test strip Ql (U)Ord ered By: Vonnie Griffith on 02-04-2024 Nitrite Ql (U) Negative Negative [facility] Nucleated red blood cell per centageOrdered By: Vonnie Griffith on 02-04-2024 Nucleated RBC/100 WBC (Bld) [Ratio] 0 % 0-5 [facility] Platelet countOrdered By: Jim Griffith on 02-04-2024 Platelets (Bld) [#/Vol] 165 10*3/uL 150-450 [facility] Potassium measurementOrdered By: Vonnie Griffith on 02-04-2024 Potassium [Moles/Vol] 4.0 mmol/L 3.5-5.1 [facility] Protein Test strip Ql (U)Ord ered By: Vonnie Griffith on 02-04-2024 Protein Ql (U) Negative Negative [facility] Protein+Creatinine Ratio,Uri neon 02-04-2024 PROT:CRE RATIO 252 mg/g CRE High 0-200 [facility] Comment on above: Performed By: #### L 3100.5700, L3100.5800, L400.2011, L100.0100, L501.0900, L500.4050 #### [facility] [address] [place], [address] Protein (U) [Mass/Vol] 13.6 mg/dL High <11.9 [facility] Comment on above: Performed By: #### L 3100.5700, L3100.5800, L400.2010, L100.0100, L501.0900, L500.4050 #### [facility] [address] [place], [address] UR CREAT 54.00 mg/dL Normal NO RANGE EST. [facility] Comment on above: Performed By: #### L 3100.5700, L3100.5800, L400.2010, L100.0100, L501.0900, L500.4050 #### [facility] [address] [place], [address] Protein/Creatinine (U) [Mass ratio]Ordered By: Vonnie Griffith on 02-04-2024 Urine Protein/Creatinine Ratio 252 mg/g CRE High 0-200 [facility] RBC Auto (Bld) [#/Vol]Ordere d By: Vonnie Griffith on 02-04-2024 RBC (Bld) [#/Vol] 4.61 10*6/uL 4.2-5.4 [facility] Random urine protein measure mentOrdered By: Vonnie Griffith on 02-04-2024 Protein (U) [Mass/Vol] 13.6 mg/dL High 0.0-11.8 [facility] Serum anion gap measurementO rdered By: Vonnie Griffith on 02-04-2024 Anion gap [Moles/Vol] 5 mmol/L 5-15 [facility] Serum globulin measurementOr dered By: Vonnie Griffith on 02-04-2024 Globulin (S) [Mass/Vol] 3.5 g/dL 2.2-4.2 [facility] Serum or plasma alanine bo otransferase (ALT) measurementOrdered By: Vonnie Griffith on 02-04-2024 ALT [Catalytic activity/Vol] 32 U/L 13-56 [facility] Serum or plasma albumin raj urement (mass/volume)Ordered By: Vonnie Griffith on 02-04-2024 Albumin [Mass/Vol] 3.3 g/dL 3.2-5.0 [facility] Serum or plasma alkaline aaron sphatase measurementOrdered By: Vonnie Griffith on 02-04-2024 ALP [Catalytic activity/Vol] 65 U/L 45-117 [facility] Serum or plasma calcium raj urement (mass/volume)Ordered By: Vonnie Griffith on 02-04-2024 Calcium [Mass/Vol] 8.8 mg/dL 8.5-10.1 [facility] Serum or plasma creatinine m easurement (mass/volume)Ordered By: Vonnie Griffith on 02-04-2024 Creatinine [Mass/Vol] 0.68 mg/dL 0.55-1.02 [facility] Comment on above: The validity of the calculated GFR & GFRAA in patients over 70 years has not been determined. Clinical correlation is essential. Serum or plasma urea nitroge n measurement (mass/volume)Ordered By: Vonnie Griffith on 02-04-2024 Urea nitrogen [Mass/Vol] 17 mg/dL 7-18 [facility] Sodium levelOrdered By: Marisa Griffith on 02-04-2024 Sodium [Moles/Vol] 140 mmol/L 136-145 [facility] Total proteinOrdered By: Yun Griffith on 02-04-2024 Protein [Mass/Vol] 6.8 g/dL 6.4-8.2 [facility] Urinalysis, Routine (Dipstic k)on 02-04-2024 BILIRUBIN URINE Negative Normal Negative [facility] Comment on above: Order Comment: CLEAN CATCH Performed By: #### L 3100.5700, L3100.5800, L400.2010, L100.0100, L501.0900, L500.4050 #### [facility] [place], [address] Clarity (U) Clear Normal Clear [facility] Comment on above: Order Comment: CLEAN CATCH Performed By: #### L 3100.5700, L3100.5800, L400.2010, L100.0100, L501.0900, L500.4050 #### [facility] [address] [place], [address] Color (U) Yellow Normal Yellow [facility] Comment on above: Order Comment: CLEAN CATCH Performed By: #### L 3100.5700, L3100.5800, L400.2010, L100.0100, L501.0900, L500.4050 #### [facility] [address] [place], [address] GLUCOSE, UR Normal Normal Normal [facility] Comment on above: Order Comment: CLEAN CATCH Performed By: #### L 3100.5700, L3100.5800, L400.2010, L100.0100, L501.0900, L500.4050 #### [facility] [address] [place], [address] KETONE UR Negative Normal Negative [facility] Comment on above: Order Comment: CLEAN CATCH Performed By: #### L 3100.5700, L3100.5800, L400.2010, L100.0100, L501.0900, L500.4050 #### [facility] [address] [place], [address] LEUK ESTERASE 25 /ul Abnormal Negative [facility] Comment on above: Order Comment: CLEAN CATCH Performed By: #### L 3100.5700, L3100.5800, L400.2010, L100.0100, L501.0900, L500.4050 #### [facility] [address] [place], [address] Nitrite Ql (U) Negative Normal Negative [facility] Comment on above: Order Comment: CLEAN CATCH Performed By: #### L 3100.5700, L3100.5800, L400.2010, L100.0100, L501.0900, L500.4050 #### [facility] [address] [place], [address] OCCULT BLOOD-UR Negative Normal Negative [facility] Comment on above: Order Comment: CLEAN CATCH Performed By: #### L 3100.5700, L3100.5800, L400.2010, L100.0100, L501.0900, L500.4050 #### [facility] [address] [place], [address] pH UR 6.0 Normal 5.0 - 8.0 [facility] Comment on above: Order Comment: CLEAN CATCH Performed By: #### L 3100.5700, L3100.5800, L400.2010, L100.0100, L501.0900, L500.4050 #### [facility] [address] [place], [address] PROT DIPSTX Negative Normal Negative [facility] Comment on above: Order Comment: CLEAN CATCH Performed By: #### L 3100.5700, L3100.5800, L400.2010, L100.0100, L501.0900, L500.4050 #### [facility] [address] [place], [address] SP.GR. DIPSTX 1.015 Normal 1.002-1.030 [facility] Comment on above: Order Comment: CLEAN CATCH Performed By: #### L 3100.5700, L3100.5800, L400.2010, L100.0100, L501.0900, L500.4050 #### [facility] [address] [place], [address] UROBILI Normal Normal Normal [facility] Comment on above: Order Comment: CLEAN CATCH Performed By: #### L 3100.5700, L3100.5800, L400.2010, L100.0100, L501.0900, L500.4050 #### [facility] [place], [address] Urine blood detectionOrdered By: Vonnie Griffith on 02-04-2024 Urine Occult Blood Negative Negative [facility] Urine clarityOrdered By: Yun Griffith on 02-04-2024 Clarity (U) Clear Clear [facility] Urine color determinationOrd ered By: Vonnie Griffith on 02-04-2024 Color (U) Yellow Yellow [facility] Urine creatinine measurement (mass/volume)Ordered By: Vonnie Griffith on 02-04-2024 Creatinine (U) [Mass/Vol] 54.00 mg/dL NO RANGE EST. [facility] Urine leukocyte esterase det ection by dipstickOrdered By: Vonnie Griffith on 02-04-2024 Leukocyte esterase Test strip Ql (U) 25 /ul High Negative [facility] Urine pHOrdered By: Vonnie wang on 02-04-2024 pH (U) 6.0 [pH] 5.0 - 8.0 [facility] Urine specific gravity measu rementOrdered By: Vonnie Griffith on 02-04-2024 Specific gravity (U) [Rel density] 1.015 1.002-1.030 [facility] Urobilinogen Ql (U)Ordered B y: Vonnie Griffith on 02-04-2024 Urine Urobilinogen Normal mg/dl Normal [facility] White blood cell (WBC) count Ordered By: Vonnie Griffith on 02-04-2024 WBC (Bld) [#/Vol] 5.7 10*3/uL 4.4-11.0 [facility] CNOVon 01-24-2024 CNOV Office Visit ([facility] ) -- ROGERS CORTES ([id number]) 1980 F Date Time Provider Department 01/24/24 10:30 AM NURSE TIFFANY KENNEDY During your visit today, we recorded the following information about you: Paty Matthew LPN 01/24/2024 10:32 AM Signed PT TO CONTINUE 5MG DAILY EXCEPT 10MG MONDAYS/WEDNESDAYS/FRIDAYS . Paty Matthew LPN 01/24/2024 11:06 AM Signed INR 2.8 no change RECHECK 1 MONTH D/T INSURANCE, PT STATES SHE IS UNABLE TO CONTINUE COMING TO THE OFFICE FOR INRs. TRYING TO GET PT SET UP WITH HOME INR. IF THAT ISN'T APPROVE, PT IS GOING TO HAVE INR DRAWN @ [facility] AND WE WILL CONTINUE TO DOSE. Paty Matthew LPN Allergies As of Date: 01/24/2024 Noted Allergy Reaction ADHESIVE 09/02/2021 16 - Unknown ADHESIVE TAPE-SILICONES 06/18/2018 2 - Rash DIDRONEL (ETIDRONATE DISODIUM) 11/06/2017 2 - Rash KEFLEX (CEPHALEXIN) 11/05/2017 4 - Hives LEVAQUIN (LEVOFLOXACIN) 11/05/2017 4 - Hives NORCO (HYDROCODONE-ACETAMINOPHEN ) 01/07/2021 4 - Hives Date Reviewed: 01/10/2024 Reviewed by: Matty Winston MA - Fully Assessed Primary Visit Diagnosis:Personal history of DVT (deep vein thrombosis) [Z86.718] Order(s):INR (POC) [3387882] Order #: [id number]: 52 STANDING INR (POC) [1540724] Order #: [id number]: 52 INR (POC) [7203366] Order #: [id number]. #:[id number] [id number] Prescriptions as of 01/24/2024 - warfarin (COUMADIN) 10 mg tablet Take 1 tablet by mouth once daily. - phenytoin ER (DILANTIN) 100 mg ER capsule Take 2 capsules by mouth two times a day. - ferrous sulfate (SLOW FE) 140 mg (45 mg iron) TbER Take 1 tablet by mouth once daily. - lisinopril (ZESTRIL, PRINIVIL) 5 mg tablet Take 5 mg by mouth once daily. - amLODIPine (NORVASC) 10 mg tablet Take 10 mg by mouth once daily. - mycophenolate Mofetil (CELLCEPT) 500 mg tablet Take 1,000 mg by mouth twice daily. - potassium chloride 20 mEq TbER Take 1 tablet by mouth once daily. - predniSONE (DELTASONE) 10 mg tablet as needed. - gabapentin (NEURONTIN) 300 mg capsule Take 300 mg by mouth daily at bedtime. - hydrOXYchloroQUINE (PLAQUENIL) 200 mg tablet Take 2 tablets by mouth once daily. 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 Disposition: Return in about 1 month (around 02/24/2024). Follow-up and Disposition History for Encounter Date Provider Department Center 01/24/2024 [id number] TIFFANY EasonKala Encounter Status:Closed by PATY MATTHEW on 01/24/24 [facility] 01-24-2024 [facility] Telephone ([facility]) -- ANDREY CORTESISSA Hakan ([id number]) 1980 F Date Time Provider Department 01/24/24 RHETT STEVENSON [facility] During your visit today, we recorded the following information about you: Paty Matthew LPN 01/24/2024 12:48 PM Signed D/T INSURANCE, PT STATES SHE IS UNABLE TO CONTINUE COMING TO THE OFFICE FOR INRs. TRYING TO GET PT SET UP WITH HOME INR. IF THAT ISN'T APPROVE, PT IS GOING TO HAVE INR DRAWN @ [facility] AND WE WILL CONTINUE TO DOSE. PLEASE SIGN STANDING ORDER. RAVINDRA Newman Sharon 01/28/2024 12:50 PM Signed Patient is requesting a call back with an update on a home INR machine. Please advise. Thank you Paty Matthew LPN 01/28/2024 1:35 PM Signed PT STATING THAT SHE GOT A TEXT FROM [facility] TO VERIFY HER NAME AND SUNDAY. THEN SHE CALLED THEM TODAY TO SEE IF HER INSURANCE WAS GOING TO COVER A MACHINE AND THEY STATED THEY DIDN'T HAVE ANY INFORMATION ON HER. ADVISED PT I WOULD REFAX ENROLLMENT FORM AND LAST PROGRESS NOTE. RAVINDRA Newman Josie L, MA 02/07/2024 1:26 PM Signed BRENDAN FROM [facility] WALKED IN WITH PATIENTS INR FORM WAS NOT ON FORM SO ADDED THAT AND IT WILL NEED DR. BRO INITIALS AND DATE OF FIX. THEY HAVE BEEN UNABLE TO REACH PATIENT TO GET INSURANCE INFORMATION. LAST INSURANCE INFORMATION IS [employer]:[id number] AND IT IS COMING BACK [employer]. DID TRY TO REACH PATIENT BY PHONE PRIMARY NUMBER GOES STRAIGHT TO [employer] SECOND NUMBER IS TARYN AND THIRD NUMBER STATES THAT THEY ARE NOT ROGERS, SO NO INFORMATION GIVEN. Sindy Carvajal 02/14/2024 1:51 PM Signed Arabella from [facility] calls to speak to a MA in regards to the patient's INR order. Call was transferred to Ayesha Acevedo MA 02/14/2024 1:59 PM Signed SEE OTHER ENCOUNTER, FAXED THROUGH [employer] [employer]. JohnMyrna 02/18/2024 4:21 PM Signed Aron Clemons from [facility] called and said that they have been trying to reach the patient about the equipment and they have not heard anything back from her. They will not send anything to they hear from her. He also said that her deductible is pretty high so he feels the patient may not want to move forward with this. Sending as an FYI -aron's phone number [phone] Ayesha Worthington MA 02/18/2024 4:40 PM Signed PATIENT ADVISED, SHE IS GOING TO CALL ARON. Allergies As of Date: 01/24/2024 Noted Allergy Reaction ADHESIVE 09/02/2021 16 - Unknown ADHESIVE TAPE-SILICONES 06/18/2018 2 - Rash DIDRONEL (ETIDRONATE DISODIUM) 11/06/2017 2 - Rash KEFLEX (CEPHALEXIN) 11/05/2017 4 - Hives LEVAQUIN (LEVOFLOXACIN) 11/05/2017 4 - Hives NORCO (HYDROCODONE-ACETAMINOPHEN ) 01/07/2021 4 - Hives Date Reviewed: 01/10/2024 Reviewed by: Matty Winston MA - Fully Assessed Reason for Visit: home INR order [Other] Primary Visit Diagnosis:Personal history of DVT (deep vein thrombosis) [Z86.718] Order(s):PROTHROMBIN TIME [SQPT] Order #: [id number] STANDING Prescriptions as of 02/18/2024 - phenytoin ER (DILANTIN) 100 mg ER capsule TAKE 2 CAPSULES BY MOUTH TWICE DAILY - warfarin (COUMADIN) 10 mg tablet Take 1 tablet by mouth once daily. - ferrous sulfate (SLOW FE) 140 mg (45 mg iron) TbER Take 1 tablet by mouth once daily. - lisinopril (ZESTRIL, PRINIVIL) 5 mg tablet Take 5 mg by mouth once daily. - amLODIPine (NORVASC) 10 mg tablet Take 10 mg by mouth once daily. - mycophenolate Mofetil (CELLCEPT) 500 mg tablet Take 1,000 mg by mouth twice daily. - potassium chloride 20 mEq TbER Take 1 tablet by mouth once daily. - predniSONE (DELTASONE) 10 mg tablet as needed. - gabapentin (NEURONTIN) 300 mg capsule Take 300 mg by mouth daily at bedtime. - hydrOXYchloroQUINE (PLAQUENIL) 200 mg tablet Take 2 tablets by mouth once daily. 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] 08/19/2021 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 Stage 1 chronic kidney disease [N18.1] 08/19/2021 Vitamin D deficiency [E55.9] 08/19/2021 Epileptic seizures (HCC) [G40.909] 10/24/2017 Generalized convulsive epilepsy (HCC) [G40.309] 12/07/2006 Encounter Status:Closed by PATY MATTHEW on 01/28/24 [facility] INR (POC)on 01-24-2024 INR Coag (PPP) [Relative time] 2.8 {INR} High 0.8 - 1.2 [facility] Internal Quality Check Acceptable [facility] Interpretation and review of laboratory results Abnormal [facility] Location:[facility], [address] [place] [address], [address] [place] [address] POINT OF CARE [facility] Johnna 01-14-2024 [facility] Telephone ([facility]) -- ROGERS CORTES ([id number]) 1980 F Date Time Provider Department 01/14/24 RHETT STEVENSON During your visit today, we recorded the following information about you: Yany Armendariz 01/14/2024 8:35 AM Signed Patient's Delmar calls today. Reason for Call: Delmar stated he received a jury duty summons from [facility]. He stated the patient can not drive due to seizures and he has to take her to multiple doctor appointments. He stated he will need proof in writing from patient's PCP that the patient is not able to drive due to seizures. Please advise. Thank you [phone] (home) [phone] (work) [phone] (cell) Patient last appointment: 01/10/2024 Rhett Deshpande MD 01/14/2024 8:51 AM Signed Ok for jury duty letter Ayesha Worthington MA 01/14/2024 8:59 AM Signed CALLED NUMBER LISTED NO ANSWER LEFT MESSAGE FOR CALL BACK [employer] LETTER PRINTED AND AT [employer] FOR PICKUP. Jailyn Starks 01/14/2024 9:22 AM Signed Patient calls today. 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 - phenytoin ER (DILANTIN) 100 mg ER capsule Take 2 capsules by mouth two times a day. - ferrous sulfate (SLOW FE) 140 mg (45 mg iron) TbER Take 1 tablet by mouth once daily. - lisinopril (ZESTRIL, PRINIVIL) 5 mg tablet Take 5 mg by mouth once daily. - amLODIPine (NORVASC) 10 mg tablet Take 10 mg by mouth once daily. - mycophenolate Mofetil (CELLCEPT) 500 mg tablet Take 1,000 mg by mouth twice daily. - potassium chloride 20 mEq TbER Take 1 tablet by mouth once daily. - predniSONE (DELTASONE) 10 mg tablet as needed. - gabapentin (NEURONTIN) 300 mg capsule Take 300 mg by mouth daily at bedtime. - hydrOXYchloroQUINE (PLAQUENIL) 200 mg tablet Take 2 tablets by mouth once daily. 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] 08/19/2021 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 Stage 1 chronic kidney disease [N18.1] 08/19/2021 Vitamin D deficiency [E55.9] 08/19/2021 Epileptic seizures (HCC) [G40.909] 10/24/2017 Generalized convulsive epilepsy (HCC) [G40.309] 12/07/2006 Letter Text Encounter Status:Closed by AYESHA WORTHINGTON on 01/14/24 [facility] 01-10-2024 [facility] Office Visit ([facility] ) -- ROGERS CORTES ([id number]) 1980 F Date Time Provider Department 01/10/24 11:00 AM RHETT STEVENSON [facility] During your visit today, we recorded the following information about you: Pulse Respiration Blood pressure Weight 68/minute 15/minute 113/75 129.5 kg Height 1.803 m Rhett Stevenson MD 01/10/2024 11:01 AM Signed VISIT TYPE: ANNUAL WELL VISIT There are no exam notes on file for this visit. CHIEF COMPLAINT: Patient presents with: Physical HPI: Rogers Cortes is a 43 year old female here for an Annual Well Visit. No new issues/complaints. History reviewed below. Hypertension. Taking medication as prescribed. No medication side effects noted. Present for years. Condition has been well controlled since last visit. Average out of office BP has been 130/80. SLE. 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 She is still on Plaquenil. She underwent renal biopsy. 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 Former patient of Dr Loving, then with Dr Cross. He added lisinopril due to increased protein. Patient says he dismissed her since her renal function has remained stable. Seizure Disorder. Following with Dr Pozo. Stable on dilantin for years. She went back for a follow up and he advised she stay on this. Recurrent DVT/chronic coumadin. Patient remains stable on coumadin. She says they are using condoms for control. DUB. Had DANDC in 06/[address]iscoll. She improved for awhile, but then it [...] Current Outpatient Medications Medication Sig Dispense Refill warfarin (COUMADIN) 10 mg tablet Take 1 tablet by mouth once daily. 90 tablet 1 phenytoin ER (DILANTIN) 100 mg ER capsule Take 2 capsules by mouth two times a day. 360 capsule 3 ferrous sulfate (SLOW FE) 140 mg (45 mg iron) TbER Take 1 tablet by mouth once daily. lisinopril (ZESTRIL, PRINIVIL) 5 mg tablet Take [...] Rash Keflex [Cephalexin] Hives Levaquin [Levofloxa* Hives [place] [Hydrocodone-* Hives PAST MEDICAL HISTORY Diagnosis Date DUB (dysfunctional uterine bleeding) Dr Driscoll HTN (hypertension) Hypokalemia Idiopathic peripheral neuropathy Lupus Sees Dr Inder koo [place] (obstructive sleep [...] and on smoker previously Vaping Use Vaping status: Never Used Substance Use Topics Alcohol use: Not Currently Comment: occasionally Drug use: Never Employer And Job Title: [employer]) Years Of Education Completed: Not specified Marital Status: with no children Social History Social History Narrative Mother lives with her and her . PHYSICAL EXAM BP 113/75 Pulse 68 Resp 15 Ht (more 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 [facility] INR FINGERSTICK B/Oon 2023 INR Coag (Bld) [Relative time] 2.3 {INR} [facility] INR FINGERSTICK B/Oon 2023 INR Coag (Bld) [Relative time] 1.9 {INR} [facility] INR FINGERSTICK B/Oon 2023 INR Coag (Bld) [Relative time] 2.3 {INR} [facility] Complement C3on 11-04-2023 COMP C3 123 mg/dL Normal 82-167 [facility] Comment on above: Result Comment: Perf ormed at: CB - [facility] [address] [id number] Replanting Machine Crew: Dionisio Guevara PhD, Phone: [phone] Performed By: #### L 400.2010, L500.4050, L501.0900, L3100.5700, L3100.5800, L100.0100 #### [facility] [address] [place], [address] Complement C4on 11-04-2023 COMPLEMENT, C4 19 mg/dL Normal 12-38 [facility] Comment on above: Performed By: #### L 400.2010, L500.4050, L501.0900, L3100.5700, L3100.5800, L100.0100 #### [facility] [address] [place], [address] CBC W/Diff, Automatedon 09- Absolute Lymph 1.53 X10 3/uL Normal 0.83-4.51 [facility] Comment on above: Performed By: #### L 400.2010, L500.4050, L501.0900, L3100.5700, L3100.5800, L100.0100 #### [facility] [address] [place], [address] Absolute Neut 3.3 X10 3/uL Normal 2.0-7.7 [facility] Comment on above: Performed By: #### L 400, L500.4050, L501.0900, L3100.5700, L3100.5800, L100.0100 #### [facility] [address] [place], [address] Basophils/100 WBC (Bld) 0.9 % Normal 0-1 [facility] Comment on above: Performed By: #### L 400, L500.4050, L501.0900, L3100.5700, L3100.5800, L100.0100 #### [facility] [address] [place], [address] Eosinophils/100 WBC (Bld) 2.0 % Normal 0-5 [facility] Comment on above: Performed By: #### L 400, L500.4050, L501.0900, L3100.5700, L3100.5800, L100.0100 #### [facility] [address] [place], [address] Erythrocyte distribution width (RBC) [Ratio] 13.3 % Normal 11.6-14.6 [facility] Comment on above: Performed By: #### L 400, L500.4050, L501.0900, L3100.5700, L3100.5800, L100.0100 #### [facility] [address] [place], [address] Hematocrit (Bld) [Volume fraction] 42.5 % Normal 37-47 [facility] Comment on above: Performed By: #### L 400, L500.4050, L501.0900, L3100.5700, L3100.5800, L100.0100 #### [facility] [address] [place], [address] Hemoglobin (Bld) [Mass/Vol] 13.3 g/dL Normal 12.0-15.0 [facility] Comment on above: Performed By: #### L 400, L500.4050, L501.0900, L3100.5700, L3100.5800, L100.0100 #### [facility] [address] [place], [address] IG% 0.500 Normal 0.0-0.9 [facility] Comment on above: Result Comment: IG% - Immature Granulocytes (promyelocytes, myelocytes and metamyelocytes) > 1% indicates that a LEFT SHIFT is Present. Performed By: #### L 400, L500.4050, L501.0900, L3100.5700, L3100.5800, L100.0100 #### [facility] [address] [place], [address] Lymphocytes/100 WBC (Bld) 27.9 % Normal 19-41 [facility] Comment on above: Performed By: #### L 400, L500.4050, L501.0900, L3100.5700, L3100.5800, L100.0100 #### [facility] [address] [place], [address] MCH (RBC) [Entitic mass] 28.1 pg Normal 27.0-32.0 [facility] Comment on above: Performed By: #### L 400.2010, L500.4050, L501.0900, L3100.5700, L3100.5800, L100.0100 #### [facility] [address] [place], [address] MCHC (RBC) [Mass/Vol] 31.3 g/dL Low 32-36 [facility] Comment on above: Performed By: #### L 400, L500.4050, L501.0900, L3100.5700, L3100.5800, L100.0100 #### [facility] [address] [place], [address] MCV (RBC) [Entitic vol] 89.7 fL Normal 81-99 [facility] Comment on above: Performed By: #### L 400, L500.4050, L501.0900, L3100.5700, L3100.5800, L100.0100 #### [facility] [address] [place], [address] Monocytes/100 WBC (Bld) 7.8 % Normal 0-10 [facility] Comment on above: Performed By: #### L 400, L500.4050, L501.0900, L3100.5700, L3100.5800, L100.0100 #### [facility] [address] [place], [address] Neutrophils/100 WBC (Bld) 60.9 % Normal 47-70 [facility] Comment on above: Performed By: #### L 400, L500.4050, L501.0900, L3100.5700, L3100.5800, L100.0100 #### [facility] [address] [place], [address] Nucleated RBC (Bld) [#/Vol] 0 10*3/uL Normal 0-5 [facility] Comment on above: Performed By: #### L 400, L500.4050, L501.0900, L3100.5700, L3100.5800, L100.0100 #### [facility] [address] [place], [address] Platelet mean volume (Bld) [Entitic vol] 10.5 fL Normal 6.2-12.0 [facility] Comment on above: Performed By: #### L 400, L500.4050, L501.0900, L3100.5700, L3100.5800, L100.0100 #### [facility] [address] [place], [address] Platelets (Bld) [#/Vol] 171 10*3/uL Normal 150-450 [facility] Comment on above: Performed By: #### L 400, L500.4050, L501.0900, L3100.5700, L3100.5800, L100.0100 #### [facility] [address] [place], [address] RBC (Bld) [#/Vol] 4.74 10*6/uL Normal 4.2-5.4 [facility] Comment on above: Performed By: #### L 400, L500.4050, L501.0900, L3100.5700, L3100.5800, L100.0100 #### [facility] [address] [place], [address] RDW SD 43.7 fl Normal 35.1-43.9 [facility] Comment on above: Performed By: #### L 400, L500.4050, L501.0900, L3100.5700, L3100.5800, L100.0100 #### [facility] [address] [place], [address] WBC (Bld) [#/Vol] 5.5 10*3/uL Normal 4.4-11.0 [facility] Comment on above: Performed By: #### L 400.2010, L500.4050, L501.0900, L3100.5700, L3100.5800, L100.0100 #### [facility] [address] [place], [address] Comprehensive Metabolic Prof ilon 11-02-2023 Albumin [Mass/Vol] 3.4 g/dL Normal 3.2-5.0 [facility] Comment on above: Performed By: #### L 400, L500.4050, L501.0900, L3100.5700, L3100.5800, L100.0100 #### [facility] [address] [place], [address] Albumin/Globulin [Mass ratio] 0.9 {ratio} Normal 0.9-2.4 [facility] Comment on above: Performed By: #### L , L500.4050, L501.0900, L3100.5700, L3100.5800, L100.0100 #### [facility] [address] [place], [address] ALK P 63 U/L Normal 45-117 [facility] Comment on above: Performed By: #### L 400, L500.4050, L501.0900, L3100.5700, L3100.5800, L100.0100 #### [facility] [address] [place], [address] ALT [Catalytic activity/Vol] 25 U/L Normal 13-56 [facility] Comment on above: Performed By: #### L 400, L500.4050, L501.0900, L3100.5700, L3100.5800, L100.0100 #### [facility] [address] [place], [address] AST [Catalytic activity/Vol] 15 U/L Normal 15-37 [facility] Comment on above: Performed By: #### L 400, L500.4050, L501.0900, L3100.5700, L3100.5800, L100.0100 #### [facility] [address] [place], [address] Bilirubin [Mass/Vol] 0.30 mg/dL Normal 0.20-1.00 [facility] Comment on above: Result Comment: For patients on eltrombopag therapy, use of Dimension [place] TBIL is not recommended. Performed By: #### L 400, L500.4050, L501.0900, L3100.5700, L3100.5800, L100.0100 #### [facility] [address] [place], [address] BUN/CRE 19.5 RATIO Normal 10-20 [facility] Comment on above: Performed By: #### L 400, L500.4050, L501.0900, L3100.5700, L3100.5800, L100.0100 #### [facility] [address] [place], [address] CA,Total 9.1 mg/dL Normal 8.5-10.1 [facility] Comment on above: Performed By: #### L 400, L500.4050, L501.0900, L3100.5700, L3100.5800, L100.0100 #### [facility] [address] [place], [address] Chloride [Moles/Vol] 108 mmol/L High 98-107 [facility] Comment on above: Performed By: #### L 400, L500.4050, L501.0900, L3100.5700, L3100.5800, L100.0100 #### [facility] [address] [place], [address] CO2 [Moles/Vol] 28.0 mmol/L Normal 21.0-32.0 [facility] Comment on above: Performed By: #### L 400.2010, L500.4050, L501.0900, L3100.5700, L3100.5800, L100.0100 #### [facility] [address] [place], [address] Creatinine [Mass/Vol] 0.67 mg/dL Normal 0.55-1.02 [facility] Comment on above: Result Comment: The validity of the calculated GFR GFRAA in patients over 70 years has not been determined. Clinical correlation is essential. Performed By: #### L 400, L500.4050, L501.0900, L3100.5700, L3100.5800, L100.0100 #### [facility] [address] [place], [address] EST GFR - AA 124 mL/min Normal >60 [facility] Comment on above: Result Comment: Afri can Palauan GFR Calc Performed By: #### L 400, L500.4050, L501.0900, L3100.5700, L3100.5800, L100.0100 #### [facility] [address] [place], [address] GAP 4 Low 5-15 [facility] Comment on above: Performed By: #### L 400, L500.4050, L501.0900, L3100.5700, L3100.5800, L100.0100 #### [facility] [address] [place], [address] GFR/1.73 sq M.predicted among non-blacks MDRD (S/P/Bld) [Vol rate/Area] 103 mL/min/{1.73_m2} Normal >60 [facility] Comment on above: Result Comment: Non- GFR Calc Performed By: #### L 400, L500.4050, L501.0900, L3100.5700, L3100.5800, L100.0100 #### [facility] [address] [place], [address] Globulin (S) [Mass/Vol] 3.6 g/dL Normal 2.2-4.2 [facility] Comment on above: Performed By: #### L 400.2010, L500.4050, L501.0900, L3100.5700, L3100.5800, L100.0100 #### [facility] [address] [place], [address] Glucose [Mass/Vol] 74 mg/dL Normal 74-106 [facility] Comment on above: Performed By: #### L 400, L500.4050, L501.0900, L3100.5700, L3100.5800, L100.0100 #### [facility] [address] [place], [address] Potassium [Moles/Vol] 3.9 mmol/L Normal 3.5-5.1 [facility] Comment on above: Performed By: #### L 400, L500.4050, L501.0900, L3100.5700, L3100.5800, L100.0100 #### [facility] [address] [place], [address] Sodium [Moles/Vol] 140 mmol/L Normal 136-145 [facility] Comment on above: Performed By: #### L 400, L500.4050, L501.0900, L3100.5700, L3100.5800, L100.0100 #### [facility] [address] [place], [address] T PROT 7.0 g/dL Normal 6.4-8.2 [facility] Comment on above: Performed By: #### L 400, L500.4050, L501.0900, L3100.5700, L3100.5800, L100.0100 #### [facility] [address] [place], [address] Urea nitrogen [Mass/Vol] 13 mg/dL Normal 7-18 [facility] Comment on above: Performed By: #### L 400.2010, L500.4050, L501.0900, L3100.5700, L3100.5800, L100.0100 #### [facility] [address] [place], [address] Protein+Creatinine Ratio,Uri neon 11-02-2023 PROT:CRE RATIO 197 mg/g CRE Normal 0-200 [facility] Comment on above: Performed By: #### L 400.2010, L500.4050, L501.0900, L3100.5700, L3100.5800, L100.0100 #### [facility] [address] [place], [address] Protein (U) [Mass/Vol] 10.1 mg/dL Normal <11.9 [facility] Comment on above: Performed By: #### L 400.2010, L500.4050, L501.0900, L3100.5700, L3100.5800, L100.0100 #### [facility] [address] [place], [address] UR CREAT 51.20 mg/dL Normal NO RANGE EST. [facility] Comment on above: Performed By: #### L 400.2010, L500.4050, L501.0900, L3100.5700, L3100.5800, L100.0100 #### [facility] [address] [place], [address] Urinalysis, Routine (Dipstic k)on 11-02-2023 BILIRUBIN URINE Negative Normal Negative [facility] Comment on above: Order Comment: Urine , Random Performed By: #### L 400, L500.4050, L501.0900, L3100.5700, L3100.5800, L100.0100 #### [facility] [address] [place], [address] Clarity (U) Clear Normal Clear [facility] Comment on above: Order Comment: Urine , Random Performed By: #### L 400.2010, L500.4050, L501.0900, L3100.5700, L3100.5800, L100.0100 #### [facility] [address] [place], [address] Color (U) Yellow Normal Yellow [facility] Comment on above: Order Comment: Urine , Random Performed By: #### L 400.2010, L500.4050, L501.0900, L3100.5700, L3100.5800, L100.0100 #### [facility] [address] [place], [address] GLUCOSE, UR Normal Normal Normal [facility] Comment on above: Order Comment: Urine , Random Performed By: #### L 400.2010, L500.4050, L501.0900, L3100.5700, L3100.5800, L100.0100 #### [facility] [address] [place], [address] KETONE UR Negative Normal Negative [facility] Comment on above: Order Comment: Urine , Random Performed By: #### L 400.2010, L500.4050, L501.0900, L3100.5700, L3100.5800, L100.0100 #### [facility] [address] [place], [address] LEUK ESTERASE Negative Normal Negative [facility] Comment on above: Order Comment: Urine , Random Performed By: #### L 400.2010, L500.4050, L501.0900, L3100.5700, L3100.5800, L100.0100 #### [facility] [address] [place], [address] Nitrite Ql (U) Negative Normal Negative [facility] Comment on above: Order Comment: Urine , Random Performed By: #### L 400.2010, L500.4050, L501.0900, L3100.5700, L3100.5800, L100.0100 #### [facility] [address] [place], [address] OCCULT BLOOD-UR Negative Normal Negative [facility] Comment on above: Order Comment: Urine , Random Performed By: #### L 400.2010, L500.4050, L501.0900, L3100.5700, L3100.5800, L100.0100 #### [facility] [address] [place], [address] pH UR 6.0 Normal 5.0 - 8.0 [facility] Comment on above: Order Comment: Urine , Random Performed By: #### L 400.2010, L500.4050, L501.0900, L3100.5700, L3100.5800, L100.0100 #### [facility] [address] [place], [address] PROT DIPSTX Negative Normal Negative [facility] Comment on above: Order Comment: Urine , Random Performed By: #### L 400.2010, L500.4050, L501.0900, L3100.5700, L3100.5800, L100.0100 #### [facility] [address] [place], [address] SP.GR. DIPSTX 1.015 Normal 1.002-1.030 [facility] Comment on above: Order Comment: Urine , Random Performed By: #### L 400, L500.4050, L501.0900, L3100.5700, L3100.5800, L100.0100 #### [facility] [address] [place], [address] UROBILI Normal Normal Normal [facility] Comment on above: Order Comment: Urine , Random Performed By: #### L 400.2011, L500.4050, L501.0900, L3100.5700, L3100.5800, L100.0100 #### [facility] [address] [place], [address] INR FINGERSTICK B/Oon 2023 INR Coag (Bld) [Relative time] 2.6 {INR} [facility] INR FINGERSTICK B/Oon 2023 INR Coag (Bld) [Relative time] 2.9 {INR} [facility] INR FINGERSTICK B/Oon 2023 INR Coag (Bld) [Relative time] 2.3 {INR} [facility] INR FINGERSTICK B/Oon 2023 INR Coag (Bld) [Relative time] 2.3 {INR} [facility] INR FINGERSTICK B/Oon 2023 INR Coag (Bld) [Relative time] 2.9 {INR} [facility] INR FINGERSTICK B/Oon 2023 INR Coag (Bld) [Relative time] 1.6 {INR} [facility] INR FINGERSTICK B/Oon 2023 INR Coag (Bld) [Relative time] 2.0 {INR} [facility] Absolute lymphocyte countOrd ered By: Vonnie Griffith on 04-26-2023 Lymphocytes Auto (Unsp spec) [#/Vol] 1.70 10*3/uL 0.83-4.51 [facility] Automated lymphocyte count a s percentage of total leukocytesOrdered By: Vonnie Griffith on 04-26-2023 Lymphocytes/100 WBC Auto (Unsp spec) 23.7 % 19-41 [facility] Basophil percentageOrdered B y: Vonnie Griffith on 04-26-2023 Basophils/100 WBC (Bld) 0.6 % 0-1 [facility] Bilirubin [Mass/Vol] 0.40 mg/dL 0.20-1.[address] [facility] Comment on above: For patients on eltr ombopag therapy, use of Dimension [place] TBIL is not recommended. Chloride [Moles/Vol] 109 mmol/L 98-107 [facility] Eosinophils/100 WBC (Bld) 2.2 % 0-5 [facility] Glucose [Mass/Vol] 80 mg/dL 74-106 [facility] Hemoglobin (Bld) [Mass/Vol] 13.2 g/dL 12.0-15.0 [facility] Monocytes/100 WBC (Bld) 9.5 % 0-10 [facility] Neutrophils (Bld) [#/Vol] 4.6 10*3/uL 2.0-7.7 [facility] Neutrophils/100 WBC (Bld) 63.7 % 47-70 [facility] Potassium [Moles/Vol] 3.9 mmol/L 3.5-5.1 [facility] Protein [Mass/Vol] 6.8 g/dL 6.4-8.2 [facility] Sodium [Moles/Vol] 141 mmol/L 136-145 [facility] WBC (Bld) [#/Vol] 7.2 10*3/uL 4.4-11.0 [facility] Bilirubin Test strip Ql (U)O rdered By: Vonnie Griffith on 04-26-2023 Bilirubin Ql (U) Negative Negative [facility] Determination of erythrocyte mean corpuscular volume (MCV)Ordered By: Vonnie Griffith on 04-26-2023 MCV (RBC) [Entitic vol] 88.8 fL 81-99 [facility] Erythrocyte distribution wid th ratioOrdered By: Vonnie Griffith on 04-26-2023 Erythrocyte distribution width (RBC) [Ratio] 12.8 % 11.6-14.6 [facility] Erythrocyte distribution wid th standard deviationOrdered By: Vonnie Griffith on 04-26-2023 Erythrocyte distribution width (RBC) [Entitic vol] 42.0 fL 35.1-43.9 [facility] Hematocrit Auto (Bld) [Volum e fraction]Ordered By: Vonnie Griffith on 04-26-2023 Hematocrit (Bld) [Volume fraction] 42.2 % 37-47 [facility] Immature granulocytes/100 WB C Auto (Bld)Ordered By: Vonnie Griffith on 04-26-2023 Immature granulocytes/100 WBC (Bld) 0.300 % 0.0-0.9 [facility] Comment on above: IG% - Immature Granu locytes (promyelocytes, myelocytes and metamyelocytes) > 1% indicates that a LEFT SHIFT is Present. Ketones Test strip Ql (U)Ord ered By: Vonnie Griffith on 04-26-2023 Ketones Ql (U) Negative Negative [facility] - Chemistry and C hemistry - challengeOrdered By: Vonnie Griffith on 04-26-2023 Albumin/Globulin [Mass ratio] 0.9 {ratio} 0.9-2.4 [facility] ALP [Catalytic activity/Vol] 67 U/L 45-117 [facility] ALT [Catalytic activity/Vol] 30 U/L 13-56 [facility] CO2 [Moles/Vol] 27.0 mmol/L 21.0-32.0 [facility] Globulin (S) [Mass/Vol] 3.6 g/dL 2.2-4.2 [facility] Urea nitrogen/Creatinine [Mass ratio] 26.4 mg/mg 10-20 [facility] - Hematology and Cell countsOrdered By: Vonnie Griffith on 04-26-2023 MCH (RBC) [Entitic mass] 27.8 pg 27.0-32.0 [facility] MCHC (RBC) [Mass/Vol] 31.3 g/dL 32-36 [facility] Nucleated RBC/100 WBC (Bld) [Ratio] 0 % 0-5 [facility] Platelet mean volume (Bld) [Entitic vol] 10.8 fL 6.2-12.0 [facility] Platelets (Bld) [#/Vol] 186 10*3/uL 150-450 [facility] Nitrite Test strip Ql (U)Ord ered By: Vonnie Griffith on 04-26-2023 Nitrite Ql (U) Negative Negative [facility] No Panel InformationOrdered By: Vonnie Griffith on 04-26-2023 Complement C3 102 mg/dL 82-167 [facility] Comment on above: Performed at: [address] [id number] Director: Dionisio Guevara PhD, Phone: [phone] Estimated GFR (MDRD) Amer 163 mL/min >60 [facility] Comment on above: GFR Calc Estimated GFR (MDRD) Non-Af Amer 134 mL/min >60 [facility] Comment on above: Non- GFR Calc Protein Test strip Ql (U)Ord ered By: Vonnie Griffith on 04-26-2023 Protein Ql (U) 15 mg/dl Negative [facility] RBC Auto (Bld) [#/Vol]Ordere d By: Vonnie Griffith on 04-26-2023 RBC (Bld) [#/Vol] 4.75 10*6/uL 4.2-5.4 [facility] Serum or plasma calcium raj urement (mass/volume)Ordered By: Vonnie Griffith on 04-26-2023 Calcium [Mass/Vol] 8.4 mg/dL 8.5-10.1 [facility] Serum or plasma complement C 4 measurement (mass/volume)Ordered By: Vonnie Griffith on 04-26-2023 Complement C4 [Mass/Vol] 20 mg/dL 12-38 [facility] Serum or plasma creatinine m easurement (mass/volume)Ordered By: Vonnie Griffith on 04-26-2023 Creatinine [Mass/Vol] 0.53 mg/dL 0.55-1.02 [facility] Comment on above: The validity of the calculated GFR & GFRAA in patients over 70 years has not been determined. Clinical correlation is essential. Serum or plasma urea nitroge n measurement (mass/volume)Ordered By: Vonnie Griffith on 04-26-2023 Urea nitrogen [Mass/Vol] 14 mg/dL 7-18 [facility] Thin prep Papanicolaou smear with manual screeningOrdered By: Vonnie Griffith on 04-26-2023 Protein (U) [Mass/Vol] 21.2 mg/dL 0.0-11.8 [facility] Thin prep Papanicolaou smear with manual screening 3.2 g/dL 3.2-5.0 [facility] Thin prep Papanicolaou smear with manual screening 20 U/L 15-37 [facility] Thin prep Papanicolaou smear with manual screening 5 5-15 [facility] Urine blood detectionOrdered By: Vonnie Griffith on 04-26-2023 RBC Ql (U) 10 /ul Negative [facility] Urine clarityOrdered By: Yun Griffith on 04-26-2023 Clarity (U) Clear Clear [facility] Urine color determinationOrd ered By: Vonnie Griffith on 04-26-2023 Color (U) Yellow Yellow [facility] Urine creatinine measurement (mass/volume)Ordered By: Vonnie Griffith on 04-26-2023 Creatinine (U) [Mass/Vol] 99.20 mg/dL NO RANGE EST. [facility] Urine glucose detectionOrder ed By: Vonnie Griffith on 04-26-2023 Glucose Ql (U) Normal mg/dl Normal [facility] Urine leukocyte esterase det ection by dipstickOrdered By: Vonnie Griffith on 04-26-2023 Leukocyte esterase Test strip Ql (U) Negative Negative [facility] Urine pHOrdered By: Vonnie wang on 04-26-2023 pH (U) 6.5 [pH] 5.0 - 8.0 [facility] Urine protein/creatinine mas s ratioOrdered By: Vonnie Griffith on 04-26-2023 Protein/Creatinine (U) [Mass ratio] 214 mg/g CRE 0-200 [facility] Urine specific gravity measu rementOrdered By: Vonnie Griffith on 04-26-2023 Specific gravity (U) [Rel density] 1.015 1.002-1.030 [facility] Urine urobilinogen measureme ntOrdered By: Vonnie Griffith on 04-26-2023 Urobilinogen Ql (U) Normal mg/dl Normal [facility] INR FINGERSTICK B/Oon 2023 INR Coag (Bld) [Relative time] 2.4 {INR} [facility] INR FINGERSTICK B/Oon 2023 INR Coag (Bld) [Relative time] 2.0 {INR} [facility] MACARIO SCREENING W TOMOon 03-08 [facility] Absolute lymphocyte countOrd ered By: Vonnie Griffith on 02-08-2023 Lymphocytes Auto (Unsp spec) [#/Vol] 2.17 10*3/uL 0.83-4.51 [facility] Basophil percentageOrdered B y: Vonnie Griffith on 02-08-2023 Basophils/100 WBC (Bld) 0.6 % 0-1 [facility] Bilirubin [Mass/Vol] 0.30 mg/dL 0.20-1.00 [facility] Comment on above: For patients on eltr ombopag therapy, use of Dimension [place] TBIL is not recommended. Chloride [Moles/Vol] 107 mmol/L 98-107 [facility] Eosinophils/100 WBC (Bld) 2.3 % 0-5 [facility] Glucose [Mass/Vol] 81 mg/dL 74-106 [facility] Neutrophils (Bld) [#/Vol] 4.9 10*3/uL 2.0-7.7 [facility] Neutrophils/100 WBC (Bld) 61.5 % 47-70 [facility] Potassium [Moles/Vol] 3.9 mmol/L 3.5-5.1 [facility] Protein [Mass/Vol] 7.1 g/dL 6.4-8.2 [facility] Sodium [Moles/Vol] 139 mmol/L 136-145 [facility] WBC (Bld) [#/Vol] 7.9 10*3/uL 4.4-11.0 [facility] Bilirubin Test strip Ql (U)O rdered By: Vonnie Griffith on 02-08-2023 Bilirubin Ql (U) Negative Negative [facility] Blood erythrocytes count (nu mber/volume)Ordered By: Vonnie Griffith on 02-08-2023 RBC (Bld) [#/Vol] 4.69 10*6/uL 4.2-5.4 [facility] Blood hemoglobin measurement (mass/volume)Ordered By: Vonnie Griffith on 02-08-2023 Hemoglobin (Bld) [Mass/Vol] 13.3 g/dL 12.0-15.0 [facility] Blood lymphocytes/100 leukoc ytesOrdered By: Vonnie Griffith on 02-08-2023 Lymphocytes/100 WBC (Bld) 27.4 % 19-41 [facility] Blood monocytes/100 leukocyt esOrdered By: Vonnie Griffith on 02-08-2023 Monocytes/100 WBC (Bld) 8.1 % 0-10 [facility] Blood platelet mean volumeOr dered By: Vonnie Griffith on 02-08-2023 Platelet mean volume (Bld) [Entitic vol] 10.8 fL 6.2-12.0 [facility] Determination of erythrocyte mean corpuscular volume (MCV)Ordered By: Vonnie Griffith on 02-08-2023 MCV (RBC) [Entitic vol] 89.6 fL 81-99 [facility] Hematocrit Auto (Bld) [Volum e fraction]Ordered By: Vonnie Nacho on 02-08-2023 Hematocrit (Bld) [Volume fraction] 42.0 % 37-47 [facility] Ketones Test strip Ql (U)Ord ered By: [facility] Nacho on 02-08-2023 Ketones Ql (U) Negative Negative [facility] - Chemistry and C hemistry - challengeOrdered By: Vonnie Griffith on 02-08-2023 ALP [Catalytic activity/Vol] 72 U/L 45-117 [facility] ALT [Catalytic activity/Vol] 25 U/L 13-56 [facility] CO2 [Moles/Vol] 26.0 mmol/L 21.0-32.0 [facility] Globulin (S) [Mass/Vol] 3.7 g/dL 2.2-4.2 [facility] Urea nitrogen/Creatinine [Mass ratio] 20.3 mg/mg 10-20 [facility] - Hematology and Cell countsOrdered By: Vonnievazquez Griffith on 02-08-2023 Erythrocyte distribution width (RBC) [Entitic vol] 42.3 fL 35.1-43.9 [facility] Erythrocyte distribution width (RBC) [Ratio] 13.0 % 11.6-14.6 [facility] Immature granulocytes/100 WBC (Bld) 0.100 % 0.0-0.9 [facility] Comment on above: IG% - Immature Granu locytes (promyelocytes, myelocytes and metamyelocytes) > 1% indicates that a LEFT SHIFT is Present. MCH (RBC) [Entitic mass] 28.4 pg 27.0-32.0 [facility] Nucleated RBC/100 WBC (Bld) [Ratio] 0 % 0-5 [facility] MCHC Auto (RBC) [Mass/Vol]Or dered By: Vonnie Griffith on 02-08-2023 MCHC (RBC) [Mass/Vol] 31.7 g/dL 32-36 [facility] Nitrite Test strip Ql (U)Ord ered By: Vonnie Griffith on 02-08-2023 Nitrite Ql (U) Negative Negative [facility] No Panel InformationOrdered By: Vonnie Griffith on 02-08-2023 Estimated GFR (MDRD) Amer 131 mL/min >60 [facility] Comment on above: GFR Calc Estimated GFR (MDRD) Non-Af Amer 108 mL/min >60 [facility] [facility] Comment on above: Non- GFR Calc Platelets bldOrdered By: Yun Griffith on 02-08-2023 Platelets (Bld) [#/Vol] 202 10*3/uL 150-450 [facility] Protein Test strip Ql (U)Ord ered By: Vonnie Griffith on 02-08-2023 Protein Ql (U) Negative Negative [facility] Serum or plasma albumin raj urement (mass/volume)Ordered By: Vonnie Griffith on 02-08-2023 Albumin [Mass/Vol] 3.4 g/dL 3.2-5.0 [facility] Serum or plasma albumin/glob ulin mass ratioOrdered By: Vonnie Griffith on 02-08-2023 Albumin/Globulin [Mass ratio] 0.9 {ratio} 0.9-2.4 [facility] Serum or plasma calcium raj urement (mass/volume)Ordered By: Vonnie Griffith on 02-08-2023 Calcium [Mass/Vol] 8.6 mg/dL 8.5-10.1 [facility] Serum or plasma complement C 3 measurement (mass/volume)Ordered By: Vonnie Griffith on 02-08-2023 Complement C3 [Mass/Vol] 105 mg/dL 82-167 [facility] Comment on above: Performed at: [facility] [employer] [id number] Director: Dionisio Guevara PhD, Phone: [phone] Serum or plasma complement C 4 measurement (mass/volume)Ordered By: Vonnie Griffith on 02-08-2023 Complement C4 [Mass/Vol] 19 mg/dL 12 [facility] Serum or plasma creatinine m easurement (mass/volume)Ordered By: Vonnie Griffith on 02-08-2023 Creatinine [Mass/Vol] 0.64 mg/dL 0.55-1.02 [facility] Comment on above: The validity of the calculated GFR & GFRAA in patients over 70 years has not been determined. Clinical correlation is essential. Serum or plasma urea nitroge n measurement (mass/volume)Ordered By: Vonnie Griffith on 02-08-2023 Urea nitrogen [Mass/Vol] 13 mg/dL 7-18 [facility] Thin prep Papanicolaou smear with manual screeningOrdered By: Vonnie Griffith on 02-08-2023 Thin prep Papanicolaou smear with manual screening 25 U/L 15 [facility] Thin prep Papanicolaou smear with manual screening 6 5-15 [facility] Urine blood detectionOrdered By: Vonnie Griffith on 02-08-2023 RBC Ql (U) Negative Negative [facility] Urine clarityOrdered By: Yun Griffith on 02-08-2023 Clarity (U) Clear Clear [facility] Urine color determinationOrd ered By: Vonnie Griffith on 02-08-2023 Color (U) Yellow Yellow [facility] Urine creatinine measurement (mass/volume)Ordered By: Vonnie Griffith on 02-08-2023 Creatinine (U) [Mass/Vol] 131.00 mg/dL NO RANGE EST. [facility] Urine glucose detectionOrder ed By: Vonnie Griffith on 02-08-2023 Glucose Ql (U) Normal mg/dl Normal [facility] Urine leukocyte esterase det ection by dipstickOrdered By: Vonnie Griffith on 02-08-2023 Leukocyte esterase Test strip Ql (U) Negative Negative [facility] Urine pHOrdered By: Vonnie wang on 02-08-2023 pH (U) 5.0 [pH] 5.0 - 8.0 [facility] Urine protein measurement (m ass/volume)Ordered By: Vonnie Griffith on 02-08-2023 Protein (U) [Mass/Vol] 27.1 mg/dL 0.0-11.8 [facility] Urine protein/creatinine mas s ratioOrdered By: Vonnie Griffith on 02-08-2023 Protein/Creatinine (U) [Mass ratio] 207 mg/g CRE 0-200 [facility] Urine specific gravity measu rementOrdered By: Vonnie Griffith on 02-08-2023 Specific gravity (U) [Rel density] 1.025 1.002-1.030 [facility] Urobilinogen Auto test strip Ql (U)Ordered By: Vonnie Griffith on 02-08-2023 Urobilinogen Ql (U) Normal mg/dl Normal [facility] INR FINGERSTICK B/Oon 2022 INR Coag (Bld) [Relative time] 2.1 {INR} [facility] INR FINGERSTICK B/Oon 2022 INR Coag (Bld) [Relative time] 3.0 {INR} [facility] INR FINGERSTICK B/Oon 2022 INR Coag (Bld) [Relative time] 2.0 {INR} [facility] INR FINGERSTICK B/Oon 2022 INR Coag (Bld) [Relative time] 5.4 {INR} [facility] COMPLEMENT C3 [CCL]on 2022 C3 Complement 119 mg/dL Normal 86-166 [facility] Comment on above: Result Comment: [facility] [email or web address] [address] [place] [id number] Bear Karimi III, M.D. [id number] Performed By: #### 2 48830 #### [facility],[address] [place], [place] [id number] COMPLEMENT C4 [CCL]on 2022 C4 Complement 21 mg/dL Normal 13-46 [facility] Comment on above: Result Comment: [facility] [employer] [address] [place] [id number] Bear Karimi III, M.D. [id number] Performed By: #### 2 96031 #### [facility],[address] [place], [place] [id number] C3 SerPl-mCncon 11-13-2022 Complement C3 [Mass/Vol] 119 mg/dL Normal 86-166 [facility] Comment on above: Order Comment: Speci men Type: BLOOD SPECIMENOrdering Facility: [facility] Address: [address] [place] [address] Performed By: #### 4 498-2, 4485-9 ####[facility] LABCLIA [id number] [place] [address] [place] C4 SerPl-mCncon 11-13-2022 Complement C4 [Mass/Vol] 21 mg/dL Normal 13-46 [facility] Comment on above: Order Comment: Speci men Type: BLOOD SPECIMENOrdering Facility: [facility] Address: [address] [place] [address] Performed By: #### 4 498-2, 4485-9 ####[facility] LABCLIA [id number] [address] [place] CBC + DIFFon 11-13-2022 Baso # 0.00 x10EE3/UL Normal 0.00 - 0.10 [facility] Comment on above: Performed By: #### 2 49782 #### [facility],[address] [place], [place] [id number] Basophils/100 WBC (Bld) 0.4 % Normal 0.0 - 2.0 [facility] Comment on above: Performed By: #### 2 90260 #### [facility],[address] [place], [place] [address] CBC + DIFF Normal [facility] Comment on above: Result Comment: CBC- COMPLETE BLOOD COUNT Performed By: #### 2 62849 #### [facility],[address] [place] [address] EO # 0.20 x10EE3/UL Normal 0.00 - 0.50 [facility] Comment on above: Performed By: #### 2 68782 #### [facility],[address] [place], [place] [id number] Eosinophils/100 WBC (Bld) 2.3 % Normal 0.0 - 7.0 [facility] Comment on above: Performed By: #### 2 29162 #### [facility],[address] [place] [address] Erythrocyte distribution width (RBC) [Ratio] 13.9 % Normal 12.0 - 15.6 [facility] Comment on above: Performed By: #### 2 59909 #### [facility],[address] [place] [address] Hematocrit (Bld) [Volume fraction] 41.7 % Normal 34.0 - 46.0 [facility] Comment on above: Performed By: #### 2 70384 #### [facility],[address] [place] [address] Hemoglobin (Bld) [Mass/Vol] 13.8 g/dL Normal 12.0 - 16.0 [facility] Comment on above: Performed By: #### 2 05392 #### [facility],[address] [place] [address]807 Lymph # 1.40 x10EE3/UL Normal 0.80 - 2.80 [facility] Comment on above: Performed By: #### 2 26250 #### [facility],[address] [place], [place] [address] Lymphocytes/100 WBC (Bld) 20.9 % Normal 20.0 - 45.0 [facility] Comment on above: Performed By: #### 2 00799 #### [facility],[address] [place] [address] MANUAL DIFF N/A Normal [facility] Comment on above: Performed By: #### 2 15659 #### [facility],[address] [place] [address] MCH (RBC) [Entitic mass] 29 pg Normal 27 - 33 [facility] Comment on above: Performed By: #### 2 68720 #### [facility],[address] [place] [address] MCHC 33 X10 3 Normal 32 - 36 [facility] Comment on above: Performed By: #### 2 96214 #### [facility],[address] [place] [address] MCV (RBC) [Entitic vol] 86 fL Normal 80 - 99 [facility] Comment on above: Performed By: #### 2 88121 #### [facility],[address] [place] [address] [place] # 0.50 x10EE3/UL Normal 0.20 - 1.00 [facility] Comment on above: Performed By: #### 2 53275 #### [facility],[address] [place] [address] MONOS % 7.0 % Normal 0.0 - 10.0 [facility] Comment on above: Performed By: #### 2 93700 #### [facility],[address] [place] [address] Morphology Marek (Bld) [Interp] N/A Normal [facility] Comment on above: Performed By: #### 2 16955 #### [facility],[address] [place] [address] Neut # 4.60 x10EE3/UL Normal 1.50 - 7.10 [facility] Comment on above: Performed By: #### 2 99510 #### [facility],[address] [place] [address] Neutrophils/100 WBC (Bld) 69.4 % Normal 46.0 - 76.0 [facility] Comment on above: Performed By: #### 2 61646 #### [facility],[address] [place] [address]2650 PLATELET 192 x10EE3/UL Normal 150 - 450 [facility] Comment on above: Performed By: #### 2 64500 #### [facility],[address] [place] [address] 89521 Platelet mean volume (Bld) [Entitic vol] 8.9 fL Normal 6.6 - 10.5 [facility] Comment on above: Result Comment: AUTO MATED DIFFERENTIAL Performed By: #### 2 94106 #### [facility],[address] [place] [address] 55618 RBC 4.83 x 10EE6/UL Normal 4.10 - 5.30 [facility] Comment on above: Performed By: #### 2 90426 #### [facility],[address] [place] [address] 21977 WBC 6.6 x 10EE3/UL Normal 4.5 - 10.8 [facility] Comment on above: Performed By: #### 2 11949 #### [facility],[address] [place] [address]2634 CMP with eGFRon 11-13-2022 AGE 42 years Normal [facility] Comment on above: Performed By: #### 2 13300 #### [facility],[address] [place] [address] 83054 Albumin [Mass/Vol] 3.3 g/dL Low 3.4 - 5.0 [facility] Comment on above: Performed By: #### 2 12011 #### [facility],[address] [place] [address] 74418 Albumin/Globulin [Mass ratio] 0.9 {ratio} Normal 0.9 - 1.6 [facility] Comment on above: Performed By: #### 2 35034 #### [facility],[address] [place] [address] 45583 ALK PHOS 76 U/L Normal 46 - 116 [facility] Comment on above: Performed By: #### 2 11399 #### [facility],[address] [place] [address] 47085 ALT [Catalytic activity/Vol] 32 U/L Normal 14 - 59 [facility] Comment on above: Performed By: #### 2 65670 #### [facility],[address] [place] [address] 72604 Anion gap [Moles/Vol] 10 mmol/L Normal 10 - 20 [facility] Comment on above: Performed By: #### 2 26837 #### [facility],[address] [place] [address] 44270 AST [Catalytic activity/Vol] 21 U/L Normal 13 - 39 [facility] Comment on above: Performed By: #### 2 02888 #### [facility],[address] [place] [address] 14542 B/C RATIO 19 ratio Normal 0 - 30 [facility] Comment on above: Performed By: #### 2 26895 #### [facility],[address] [place] [address] 61416 Bilirubin [Mass/Vol] 0.3 mg/dL Normal 0.2 - 1.0 [facility] Comment on above: Performed By: #### 2 04347 #### [facility],[address] [place] [address] 20602 Calcium [Mass/Vol] 8.7 mg/dL Normal 8.5 - 10.1 [facility] Comment on above: Performed By: #### 2 15461 #### [facility],[address] [place] [address] 62067 Chloride [Moles/Vol] 104 mmol/L Normal 98 - 107 [facility] Comment on above: Performed By: #### 2 54896 #### [facility],[address] [place] [address] 56154 CMP with eGFR Normal [facility] Comment on above: Result Comment: COMP REHENSIVE METABOLIC PANEL Performed By: #### 2 37854 #### [facility],[address] [place] [address] 04427 CO2 [Moles/Vol] 29.8 mmol/L Normal 21.0 - 32.0 [facility] Comment on above: Performed By: #### 2 56465 #### [facility],[address] [place] [address] 32865 Creatinine [Mass/Vol] 0.79 mg/dL Normal 0.55 - 1.02 [facility] Comment on above: Performed By: #### 2 73255 #### [facility],[address] [place] [address] 73417 GFR/1.73 sq M.predicted among non-blacks MDRD (S/P/Bld) [Vol rate/Area] mL/min/{1.73_m2} Normal 60 - 999 [facility] Comment on above: Performed By: #### 2 89050 #### [facility],[address] [place] [address] 49224 Result Comment: ACCO RDING TO THE NATIONAL KIDNEY DISEASE EDUCATION PROGRAM(NKDE), A NORMAL eGFR IS A VALUE GREATER THAN OR EQUAL TO 60 ML/MIN/1.73 SQ METERS. CHRONIC KIDNEY DISEASE: <60mL/MIN/1.73 SQ METERS KIDNEY FAILURE: <15mL/MIN/1.73 SQ METERS THIS TEST SHOULD ONLY BE USED FOR PATIENTS 18 YEARS OF AGE AND OLDER. Globulin (S) [Mass/Vol] 3.7 g/dL Normal 1.5 - 3.8 [facility] Comment on above: Performed By: #### 2 40705 #### [facility],[address] [place] [address] 21167 Glucose [Mass/Vol] 83 mg/dL Normal 74 - 106 [facility] Comment on above: Performed By: #### 2 78821 #### [facility],[address] [place] [address] 33355 Potassium [Moles/Vol] 3.8 mmol/L Normal 3.5 - 5.1 [facility] Comment on above: Performed By: #### 2 64552 #### [facility],[address] [place] [address] 49907 Protein [Mass/Vol] 7.0 g/dL Normal 6.4 - 8.2 [facility] Comment on above: Performed By: #### 2 56118 #### [facility],[address] [place] [address] 91019 Sodium [Moles/Vol] 140 mmol/L Normal 136 - 145 [facility] Comment on above: Performed By: #### 2 90129 #### [facility],[address] [place], [place] [id number] Urea nitrogen [Mass/Vol] 15 mg/dL Normal 7 - 18 [facility] Comment on above: Performed By: #### 2 04272 #### [facility],[address] [place], [place] [id number] URINALYSISon 11-13-2022 Amorphous NONE Normal [facility] Comment on above: Performed By: #### 2 68005 #### [facility],[address] [place] [address] Bacteria 1+ Normal [facility] Comment on above: Performed By: #### 2 66101 #### [facility],[address] [place] [address] 59682 Bilirubin Ql (U) Negative Normal NORMAL: NEGATIVE [facility] Comment on above: Performed By: #### 2 15562 #### [facility],[address] [place] [address] 36337 Casts NONE Normal [facility] Comment on above: Performed By: #### 2 71300 #### [facility],[address] [place] [address] 16017 Clarity (U) clear Normal NORMAL: CLEAR [facility] Comment on above: Performed By: #### 2 68025 #### [facility],[address] [place] [address] 81649 Color (U) p.yel Normal NORMAL: YELLOW [facility] Comment on above: Performed By: #### 2 19447 #### [facility],[address] [place] [address] 86035 Crystals LM Nom (Urine sed) NONE Normal [facility] Comment on above: Performed By: #### 2 48728 #### [facility],[address] [place] [address] 62691 Epi Cells FEW Normal [facility] Comment on above: Performed By: #### 2 57235 #### [facility],[address] [place] [address] 96740 Glucose Ql (U) NORM Normal NORMAL: NORMAL [facility] Comment on above: Performed By: #### 2 51026 #### [facility],[address] [place] [address] 46812 Hemoglobin Ql (U) 10 Abnormal NORMAL: NEGATIVE [facility] Comment on above: Performed By: #### 2 13939 #### [facility],[address] [place] [address] 22992 Ketone Negative Normal NORMAL: NEGATIVE [facility] Comment on above: Performed By: #### 2 16970 #### [facility],[address] [place] [address] 25902 Leukocytes Negative Normal NORMAL: NEGATIVE [facility] Comment on above: Performed By: #### 2 41573 #### [facility],[address] [place] [address] 12011 Mucous NONE Normal [facility] Comment on above: Performed By: #### 2 16234 #### [facility],[address] [place] [address] 91079 Nitrite Ql (U) Negative Normal NORMAL: NEGATIVE [facility] Comment on above: Performed By: #### 2 39195 #### [facility],[address] [place] [address] 95549 pH (U) 5 [pH] Normal NORMAL: 5.0-8.0 [facility] Comment on above: Performed By: #### 2 39904 #### [facility],[address] [place] [address] Protein Ql (U) Negative Normal NORMAL: NEGATIVE [facility] Comment on above: Performed By: #### 2 55112 #### [facility],[address] [place] [address] Rbc 0-5 Normal 0-3/hpf [facility] Comment on above: Performed By: #### 2 31955 #### [facility],[address] [place] [address] Sp [place] 1.020 Normal NORMAL: 1.010-1.030 [facility] Comment on above: Performed By: #### 2 92067 #### [facility],[address] [place] [address] Specimen Type Void Normal [facility] Comment on above: Performed By: #### 2 41995 #### [facility],[address] [place] [address] Urinalysis dipstick W Reflex Microscopic panel (U) SEE BELOW Normal [facility] Comment on above: Result Comment: MICR OSCOPIC Performed By: #### 2 64719 #### [facility],[address] [place], [place] [id number] Urobilinog NORM Normal NORMAL: NORMAL [facility] Comment on above: Performed By: #### 2 30128 #### [facility],[address] [place], [place] [address] Wbc 1-5 Normal 0-5/hpf [facility] Comment on above: Performed By: #### 2 96569 #### [facility],[address] [place] [address] 78903 Yeast NONE Normal [facility] Comment on above: Performed By: #### 2 36825 #### [facility],[address] [place], [place] [address] URINE CREATININE AND PROTEIN RATIOon 11-13-2022 CREATININE UR 89.73 mg/dl Normal [facility] Comment on above: Performed By: #### 2 89646 #### [facility],[address] [place] [address] 90620 PC RATIO 0.18 mg/dL Normal 0.00 - 10.00 [facility] Comment on above: Performed By: #### 2 10595 #### [facility],[address] [place] [address] 84633 Protein (U) [Mass/Vol] 16.20 mg/dL High 0.00 - 10.00 [facility] Comment on above: Performed By: #### 2 16178 #### [facility],[address] [place] [address] 55677 CNOVon 10-03-2022 CNOV Office Visit ([facility] ) -- ROGERS CORTES ([id number]) 1980 F Date Time Provider Department 10/03/22 10:45 AM NURSE TIFFANY ELLIS INTMUD During your visit today, we recorded the following information about you: Paty Matthew LPN 10/03/2022 10:47 AM Signed PT TO CONTINUE 10MG DAILY EXCEPT 5MG SATURDAYS/SUNDAYS Paty Matthew LPN 10/03/2022 11:00 AM Signed INR 2.2 no change RECHECK 1 MONTH Paty Matthew LPN Allergies As of Date: 10/03/2022 Noted Allergy Reaction ADHESIVE 09/02/2021 16 - Unknown ADHESIVE TAPE-SILICONES 06/18/2018 2 - Rash DIDRONEL (ETIDRONATE DISODIUM) 11/06/2017 2 - Rash KEFLEX (CEPHALEXIN) 11/05/2017 4 - Hives LEVAQUIN (LEVOFLOXACIN) 11/05/2017 4 - Hives NORCO (HYDROCODONE-ACETAMINOPHEN ) 01/07/2021 4 - Hives Date Reviewed: 02/21/2022 Reviewed by: Lori Tony MA - Fully Assessed Primary Visit Diagnosis:Personal history of other venous thrombosis and embolism [Z86.718] Order(s):INR FINGERSTICK B/O [[id number]] Order #: [id number] Prescriptions as of 10/03/2022 - warfarin (COUMADIN) 10 mg tablet Take 1 tablet by mouth once daily. - phenytoin ER (DILANTIN) 100 mg ER capsule Take 2 capsules by mouth twice daily. - lisinopril (ZESTRIL, PRINIVIL) 5 mg tablet Take 5 mg by mouth once daily. - amLODIPine (NORVASC) 10 mg tablet Take 10 mg by mouth once daily. - mycophenolate Mofetil (CELLCEPT) 500 mg tablet Take 1,000 mg by mouth twice daily. - potassium chloride 20 mEq TbER Take 1 tablet by mouth once daily. - predniSONE (DELTASONE) 10 mg tablet as needed. - gabapentin (NEURONTIN) 300 mg capsule Take 300 mg by mouth daily at bedtime. - hydrOXYchloroQUINE (PLAQUENIL) 200 mg tablet Take 2 tablets by mouth once daily. - ferrous sulfate 325 mg (65 mg iron) tablet Take 325 mg by mouth daily with breakfast. 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 Follow-up and Disposition History for Encounter Date Provider Department Center 10/03/2022 [id number] TIFFANY ELLIS INTMORENO [facility] Encounter Status:Closed by PATY MATTHEW on 10/03/22 Normal [facility] INR FINGERSTICK B/Oon 2022 INR Coag (Bld) [Relative time] 2.2 {INR} [facility] CNOVon 08-30-2022 CNOV Office Visit ([facility] ) -- ROGERS CORTES ([id number]) 1980 F Date Time Provider Department 08/30/22 11:00 AM NURSE TIFFANY KENNEDY During your visit today, we recorded the following information about you: Paty Matthew LPN 08/30/2022 10:30 AM Signed PT TO CONTINUE 10MG DAILY EXCEPT 5MG SATURDAYS/SUNDAYS Paty Matthew LPN 08/30/2022 10:34 AM Signed INR 2.1 no change RECHECK 1 MONTH Paty Matthew LPN Allergies As of Date: 08/30/2022 Noted Allergy Reaction ADHESIVE 09/02/2021 16 - Unknown ADHESIVE TAPE-SILICONES 06/18/2018 2 - Rash DIDRONEL (ETIDRONATE DISODIUM) 11/06/2017 2 - Rash KEFLEX (CEPHALEXIN) 11/05/2017 4 - Hives LEVAQUIN (LEVOFLOXACIN) 11/05/2017 4 - Hives NORCO (HYDROCODONE-ACETAMINOPHEN ) 01/07/2021 4 - Hives Date Reviewed: 02/21/2022 Reviewed by: Lori Tony MA - Fully Assessed Primary Visit Diagnosis:Personal history of other venous thrombosis and embolism [Z86.718] Order(s):INR FINGERSTICK B/O [[id number]] Order #: [id number] Prescriptions as of 08/30/2022 - warfarin (COUMADIN) 10 mg tablet Take 1 tablet by mouth once daily. - phenytoin ER (DILANTIN) 100 mg ER capsule Take 2 capsules by mouth twice daily. - lisinopril (ZESTRIL, PRINIVIL) 5 mg tablet Take 5 mg by mouth once daily. - amLODIPine (NORVASC) 10 mg tablet Take 10 mg by mouth once daily. - mycophenolate Mofetil (CELLCEPT) 500 mg tablet Take 1,000 mg by mouth twice daily. - potassium chloride 20 mEq TbER Take 1 tablet by mouth once daily. - predniSONE (DELTASONE) 10 mg tablet as needed. - gabapentin (NEURONTIN) 300 mg capsule Take 300 mg by mouth daily at bedtime. - hydrOXYchloroQUINE (PLAQUENIL) 200 mg tablet Take 2 tablets by mouth once daily. - ferrous sulfate 325 mg (65 mg iron) tablet Take 325 mg by mouth daily with breakfast. 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 Follow-up and Disposition History for Encounter Date Provider Department Center 08/30/2022 [id number] INTM [facility]EB IN[facility]UD [facility] ([facility] Encounter Status:Closed by PATY MATTHEW on 08/30/22 Normal [facility] Absolute lymphocyte countOrd ered By: Vonnie Griffith on 08-22-2022 Lymphocytes Auto (Unsp spec) [#/Vol] 1.65 10*3/uL 0.83-4.51 [facility] Basophil percentageOrdered B y: Vonnie Griffith on 08-22-2022 Basophils/100 WBC (Bld) 0.4 % 0-1 [facility] Bilirubin [Mass/Vol] 0.20 mg/dL 0.20-1.00 [facility] Comment on above: For patients on eltr ombopag therapy, use of Dimension [place] TBIL is not recommended. Chloride [Moles/Vol] 111 mmol/L 98-107 [facility] Eosinophils/100 WBC (Bld) 2.2 % 0-5 [facility] Glucose [Mass/Vol] 105 mg/dL 74-106 [facility] Comment on above: Fasting Glucose resu lt from 100 to 125 mg/dL suggests IMPAIRED HOMEOSTASIS per A.D.A. criteria. Neutrophils (Bld) [#/Vol] 4.7 10*3/uL 2.0-7.7 [facility] Neutrophils/100 WBC (Bld) 67.0 % 47-70 [facility] Potassium [Moles/Vol] 3.8 mmol/L 3.5-5.1 [facility] Protein [Mass/Vol] 6.9 g/dL 6.4-8.2 [facility] Sodium [Moles/Vol] 140 mmol/L 136-145 [facility] WBC (Bld) [#/Vol] 7.0 10*3/uL 4.4-11.0 [facility] Bilirubin Test strip Ql (U)O rdered By: Vonnie Griffith on 08-22-2022 Bilirubin Ql (U) Negative Negative [facility] Blood erythrocytes count (nu mber/volume)Ordered By: Vonnie Griffith on 08-22-2022 RBC (Bld) [#/Vol] 4.72 10*6/uL 4.2-5.4 [facility] Blood hemoglobin measurement (mass/volume)Ordered By: Vonnie Griffith on 08-22-2022 Hemoglobin (Bld) [Mass/Vol] 13.5 g/dL 12.0-15.0 [facility] Blood lymphocytes/100 leukoc ytesOrdered By: Vonnie Griffith on 08-22-2022 Lymphocytes/100 WBC (Bld) 23.7 % 19-41 [facility] Blood monocytes/100 leukocyt esOrdered By: Vonnie Griffith on 08-22-2022 Monocytes/100 WBC (Bld) 6.3 % 0-10 [facility] Blood platelet mean volumeOr dered By: Vonnie Griffith on 08-22-2022 Platelet mean volume (Bld) [Entitic vol] 10.3 fL 6.2-12.0 [facility] Determination of erythrocyte mean corpuscular volume (MCV)Ordered By: Vonnie Griffith on 08-22-2022 MCV (RBC) [Entitic vol] 89.4 fL 81-99 [facility] Hematocrit Auto (Bld) [Volum e fraction]Ordered By: Vonnie Griffith on 08-22-2022 Hematocrit (Bld) [Volume fraction] 42.2 % 37-47 [facility] Ketones Test strip Ql (U)Ord ered By: Vonnie Griffith on 08-22-2022 Ketones Ql (U) Negative Negative [facility] - Chemistry and C hemistry - challengeOrdered By: Vonnie Griffith on 08-22-2022 ALP [Catalytic activity/Vol] 70 U/L 45-117 [facility] ALT [Catalytic activity/Vol] 23 U/L 13-56 [facility] CO2 [Moles/Vol] 23.0 mmol/L 21.0-32.0 [facility] Globulin (S) [Mass/Vol] 3.6 g/dL 2.2-4.2 [facility] Urea nitrogen/Creatinine [Mass ratio] 21.7 mg/mg 10-20 [facility] - Hematology and Cell countsOrdered By: Vonnie Griffith on 08-22-2022 Erythrocyte distribution width (RBC) [Entitic vol] 42.5 fL 35.1-43.9 [facility] Erythrocyte distribution width (RBC) [Ratio] 13.0 % 11.6-14.6 [facility] Immature granulocytes/100 WBC (Bld) 0.400 % 0.0-0.9 [facility] Comment on above: IG% - Immature Granu locytes (promyelocytes, myelocytes and metamyelocytes) > 1% indicates that a LEFT SHIFT is Present. MCH (RBC) [Entitic mass] 28.6 pg 27.0-32.0 [facility] Nucleated RBC/100 WBC (Bld) [Ratio] 0 % 0-5 [facility] MCHC Auto (RBC) [Mass/Vol]Or dered By: Vonnie Griffith on 08-22-2022 MCHC (RBC) [Mass/Vol] 32.0 g/dL 32-36 [facility] Nitrite Test strip Ql (U)Ord ered By: Vonnie Griffith on 08-22-2022 Nitrite Ql (U) Negative Negative [facility] No Panel InformationOrdered By: Vonnie Griffith on 08-22-2022 Estimated GFR (MDRD) Amer 130 mL/min >60 [facility] Comment on above: GFR Calc Estimated GFR (MDRD) Non-Af Amer 108 mL/min >60 [facility] Comment on above: Non- GFR Calc Platelets bldOrdered By: Yun Griffith on 08-22-2022 Platelets (Bld) [#/Vol] 185 10*3/uL 150-450 [facility] Protein Test strip Ql (U)Ord ered By: Vonnie Griffith on 08-22-2022 Protein Ql (U) Negative Negative [facility] Serum or plasma albumin raj urement (mass/volume)Ordered By: Vonnie Griffith on 08-22-2022 Albumin [Mass/Vol] 3.3 g/dL 3.2-5.0 [facility] Serum or plasma albumin/glob ulin mass ratioOrdered By: Vonnie Griffith on 08-22-2022 Albumin/Globulin [Mass ratio] 0.9 {ratio} 0.9-2.4 [facility] Serum or plasma calcium raj urement (mass/volume)Ordered By: Vonnie Griffith on 08-22-2022 Calcium [Mass/Vol] 8.6 mg/dL 8.5-10.1 [facility] Serum or plasma complement C 3 measurement (mass/volume)Ordered By: Vonnie Griffith on 08-22-2022 Complement C3 [Mass/Vol] 113 mg/dL 82-167 [facility] Comment on above: Performed at: [place] [id number] Director: Dionisio Guevara PhD, Phone: [phone] Serum or plasma complement C 4 measurement (mass/volume)Ordered By: Vonnie Griffith on 08-22-2022 Complement C4 [Mass/Vol] 20 mg/dL 12-38 [facility] Serum or plasma creatinine m easurement (mass/volume)Ordered By: Vonnie Griffith on 08-22-2022 Creatinine [Mass/Vol] 0.64 mg/dL 0.55-1.02 [facility] Comment on above: The validity of the calculated GFR & GFRAA in patients over 70 years has not been determined. Clinical correlation is essential. Serum or plasma urea nitroge n measurement (mass/volume)Ordered By: Vonnie Griffith on 08-22-2022 Urea nitrogen [Mass/Vol] 14 mg/dL 7-18 [facility] Thin prep Papanicolaou smear with manual screeningOrdered By: Vonnie Griffith on 08-22-2022 Thin prep Papanicolaou smear with manual screening 21 U/L 15-37 [facility] Thin prep Papanicolaou smear with manual screening 6 5-15 [facility] Urine blood detectionOrdered By: Vonnie Griffith on 08-22-2022 RBC Ql (U) Negative Negative [facility] Urine clarityOrdered By: Yun Griffith on 08-22-2022 Clarity (U) Clear Clear [facility] Urine color determinationOrd ered By: Vonnie Griffith on 08-22-2022 Color (U) Yellow Yellow [facility] Urine creatinine measurement (mass/volume)Ordered By: Vonnie Griffith on 08-22-2022 Creatinine (U) [Mass/Vol] 66.00 mg/dL NO RANGE EST. [facility] Urine glucose detectionOrder ed By: Vonnie Griffith on 08-22-2022 Glucose Ql (U) Normal mg/dl Normal [facility] Urine leukocyte esterase det ection by dipstickOrdered By: Vonnie Griffith on 08-22-2022 Leukocyte esterase Test strip Ql (U) Negative Negative [facility] Urine pHOrdered By: Vonnie wang on 08-22-2022 pH (U) 5.0 [pH] 5.0 - 8.0 [facility] Urine protein measurement (m ass/volume)Ordered By: Vonnie Griffith on 08-22-2022 Protein (U) [Mass/Vol] 11.4 mg/dL 0.0-11.8 [facility] Urine protein/creatinine mas s ratioOrdered By: Vonnie Griffith on 08-22-2022 Protein/Creatinine (U) [Mass ratio] 173 mg/g CRE 0-200 [facility] Urine specific gravity measu rementOrdered By: Vonnie Griffith on 08-22-2022 Specific gravity (U) [Rel density] 1.015 1.002-1.030 [facility] Urobilinogen Auto test strip Ql (U)Ordered By: Vonnie Griffith on 08-22-2022 Urobilinogen Ql (U) Normal mg/dl Normal [facility] CNOVon 08-02-2022 CNOV Office Visit ([facility] ) -- MARCOSROGERS Mcclendon ([id number]) 1980 F Date Time Provider Department 08/02/22 11:00 AM NURSE TIFFANY KENNEDY During your visit today, we recorded the following information about you: Paty Matthew LPN 08/02/2022 10:31 AM Signed PT TO CONTINUE 10MG DAILY EXCEPT 5MG SATURDAYS/SUNDAYS Paty Matthew LPN 08/02/2022 10:35 AM Signed INR 2.4 no change RECHECK 1 MONTH Paty Matthew LPN Allergies As of Date: 08/02/2022 Noted Allergy Reaction ADHESIVE 09/02/2021 16 - Unknown ADHESIVE TAPE-SILICONES 06/18/2018 2 - Rash DIDRONEL (ETIDRONATE DISODIUM) 11/06/2017 2 - Rash KEFLEX (CEPHALEXIN) 11/05/2017 4 - Hives LEVAQUIN (LEVOFLOXACIN) 11/05/2017 4 - Hives NORCO (HYDROCODONE-ACETAMINOPHEN ) 01/07/2021 4 - Hives Date Reviewed: 02/21/2022 Reviewed by: Lori Tony MA - Fully Assessed Primary Visit Diagnosis:Personal history of other venous thrombosis and embolism [Z86.718] Order(s):INR FINGERSTICK B/O [[id number]] Order #: [id number] STANDING INR FINGERSTICK B/O [[id number]] Order #: [id number] Prescriptions as of 08/02/2022 - warfarin (COUMADIN) 10 mg tablet Take 1 tablet by mouth once daily. - phenytoin ER (DILANTIN) 100 mg ER capsule Take 2 capsules by mouth twice daily. - lisinopril (ZESTRIL, PRINIVIL) 5 mg tablet Take 5 mg by mouth once daily. - amLODIPine (NORVASC) 10 mg tablet Take 10 mg by mouth once daily. - mycophenolate Mofetil (CELLCEPT) 500 mg tablet Take 1,000 mg by mouth twice daily. - potassium chloride 20 mEq TbER Take 1 tablet by mouth once daily. - predniSONE (DELTASONE) 10 mg tablet as needed. - gabapentin (NEURONTIN) 300 mg capsule Take 300 mg by mouth daily at bedtime. - hydrOXYchloroQUINE (PLAQUENIL) 200 mg tablet Take 2 tablets by mouth once daily. - ferrous sulfate 325 mg (65 mg iron) tablet Take 325 mg by mouth daily with breakfast. 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 Follow-up and Disposition History for Encounter Date Provider Department Center 08/02/2022 [id number] INTM [facility] INTM[facility] M[facility] ([place] Encounter Status:Closed by PATY MATTHEW on 08/02/22 Normal [facility] INR FINGERSTICK B/Oon 2022 INR Coag (Bld) [Relative time] 2.4 {INR} [facility] CNOVon 07-05-2022 CNOV Office Visit ([facility] ) -- MARCOSROGERS Mcclendon ([id number]) 1980 F Date Time Provider Department 07/05/22 10:15 AM NURSE TIFFANY KENNEDY During your visit today, we recorded the following information about you: Paty Matthew LPN 07/05/2022 9:51 AM Signed PT TO CONTINUE 10MG DAILY EXCEPT 5MG SATURDAYS/SUNDAYS Paty Matthew LPN 07/05/2022 9:54 AM Signed INR 2.6 no change RECHECK 1 MONTH Paty Matthew LPN Allergies As of Date: 07/05/2022 Noted Allergy Reaction ADHESIVE 09/02/2021 16 - Unknown ADHESIVE TAPE-SILICONES 06/18/2018 2 - Rash DIDRONEL (ETIDRONATE DISODIUM) 11/06/2017 2 - Rash KEFLEX (CEPHALEXIN) 11/05/2017 4 - Hives LEVAQUIN (LEVOFLOXACIN) 11/05/2017 4 - Hives NORCO (HYDROCODONE-ACETAMINOPHEN ) 01/07/2021 4 - Hives Date Reviewed: 02/21/2022 Reviewed by: Lori Tony MA - Fully Assessed Primary Visit Diagnosis:Personal history of DVT (deep vein thrombosis) [Z86.718] Order(s):INR FINGERSTICK B/O [[id number]] Order #: [id number] Prescriptions as of 07/05/2022 - warfarin (COUMADIN) 10 mg tablet Take 1 tablet by mouth once daily. - phenytoin ER (DILANTIN) 100 mg ER capsule Take 2 capsules by mouth twice daily. - lisinopril (ZESTRIL, PRINIVIL) 5 mg tablet Take 5 mg by mouth once daily. - amLODIPine (NORVASC) 10 mg tablet Take 10 mg by mouth once daily. - mycophenolate Mofetil (CELLCEPT) 500 mg tablet Take 1,000 mg by mouth twice daily. - potassium chloride 20 mEq TbER Take 1 tablet by mouth once daily. - predniSONE (DELTASONE) 10 mg tablet as needed. - gabapentin (NEURONTIN) 300 mg capsule Take 300 mg by mouth daily at bedtime. - hydrOXYchloroQUINE (PLAQUENIL) 200 mg tablet Take 2 tablets by mouth once daily. - ferrous sulfate 325 mg (65 mg iron) tablet Take 325 mg by mouth daily with breakfast. 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 Follow-up and Disposition History for Encounter Date Provider Department Center 07/05/2022 [id number] TIFFANY ELLIS INTMUD [facility] MOB ([place] Encounter Status:Closed by PATY MATTHEW on 07/05/22 Normal [facility] INR FINGERSTICK B/Oon 2022 INR Coag (Bld) [Relative time] 2.6 {INR} [facility] Absolute lymphocyte countOrd ered By: Dr. Griffith on 05-31-2022 Lymphocytes Auto (Unsp spec) [#/Vol] 1.67 10*3/uL 0.83-4.51 [facility] Basophil percentageOrdered B y: Dr. Griffith on 05-31-2022 Basophils/100 WBC (Bld) 0.4 % 0-1 [facility] Bilirubin [Mass/Vol] 0.20 mg/dL 0.20-1.00 [facility] Comment on above: For patients on eltr ombopag therapy, use of Dimension [place] TBIL is not recommended. Chloride [Moles/Vol] 106 mmol/L 98-107 [facility] Eosinophils/100 WBC (Bld) 1.8 % 0-5 [facility] Glucose [Mass/Vol] 80 mg/dL 74-106 [facility] Neutrophils (Bld) [#/Vol] 4.7 10*3/uL 2.0-7.7 [facility] Neutrophils/100 WBC (Bld) 65.2 % 47-70 [facility] Potassium [Moles/Vol] 3.9 mmol/L 3.5-5.1 [facility] Protein [Mass/Vol] 7.3 g/dL 6.4-8.2 [facility] Sodium [Moles/Vol] 137 mmol/L 136-145 [facility] WBC (Bld) [#/Vol] 7.2 10*3/uL 4.4-11.0 [facility] Bilirubin Test strip Ql (U)O rdered By: Dr. Griffith on 05-31-2022 Bilirubin Ql (U) Negative Negative [facility] Blood erythrocytes count (nu mber/volume)Ordered By: Dr. Griffith on 05-31-2022 RBC (Bld) [#/Vol] 4.93 10*6/uL 4.2-5.4 [facility] Blood hemoglobin measurement (mass/volume)Ordered By: Dr. Griffith on 05-31-2022 Hemoglobin (Bld) [Mass/Vol] 14.2 g/dL 12.0-15.0 [facility] Blood lymphocytes/100 leukoc ytesOrdered By: Dr. Griffith on 05-31-2022 Lymphocytes/100 WBC (Bld) 23.3 % 19-41 [facility] Blood monocytes/100 leukocyt esOrdered By: Dr. Griffith on 05-31-2022 Monocytes/100 WBC (Bld) 9.2 % 0-10 [facility] Blood platelet mean volumeOr dered By: Dr. Griffith on 05-31-2022 Platelet mean volume (Bld) [Entitic vol] 10.5 fL 6.2-12.0 [facility] Determination of erythrocyte mean corpuscular volume (MCV)Ordered By: Dr. Griffith on 05-31-2022 MCV (RBC) [Entitic vol] 89.5 fL 81-99 [facility] Hematocrit Auto (Bld) [Volum e fraction]Ordered By: Dr. Griffith on 05-31-2022 Hematocrit (Bld) [Volume fraction] 44.1 % 37-47 [facility] Ketones Test strip Ql (U)Ord ered By: Dr. Griffith on 05-31-2022 Ketones Ql (U) Negative Negative [facility] - Chemistry and C hemistry - challengeOrdered By: Dr. Griffith on 05-31-2022 ALP [Catalytic activity/Vol] 63 U/L 45-117 [facility] ALT [Catalytic activity/Vol] 32 U/L 13-56 [facility] CO2 [Moles/Vol] 27.0 mmol/L 21.0-32.0 [facility] Globulin (S) [Mass/Vol] 3.6 g/dL 2.2-4.2 [facility] Urea nitrogen/Creatinine [Mass ratio] 28.5 mg/mg 10-20 [facility] - Hematology and Cell countsOrdered By: Dr. Griffith on 05-31-2022 Erythrocyte distribution width (RBC) [Entitic vol] 42.8 fL 35.1-43.9 [facility] Erythrocyte distribution width (RBC) [Ratio] 13.1 % 11.6-14.6 [facility] Immature granulocytes/100 WBC (Bld) 0.100 % 0.0-0.9 [facility] Comment on above: IG% - Immature Granu locytes (promyelocytes, myelocytes and metamyelocytes) > 1% indicates that a LEFT SHIFT is Present. MCH (RBC) [Entitic mass] 28.8 pg 27.0-32.0 [facility] Nucleated RBC/100 WBC (Bld) [Ratio] 0 % 0-5 [facility] MCHC Auto (RBC) [Mass/Vol]Or dered By: Dr. Griffith on 05-31-2022 MCHC (RBC) [Mass/Vol] 32.2 g/dL 32-36 [facility] Nitrite Test strip Ql (U)Ord ered By: Dr. Griffith on 05-31-2022 Nitrite Ql (U) Negative Negative [facility] No Panel InformationOrdered By: Dr. Griffith on 05-31-2022 Estimated GFR (MDRD) Amer 143 mL/min >60 [facility] Comment on above: GFR Calc Estimated GFR (MDRD) Non-Af Amer 118 mL/min >60 [facility] Comment on above: Non- GFR Calc Platelets bldOrdered By: Dr. Griffith on 05-31-2022 Platelets (Bld) [#/Vol] 216 10*3/uL 150-450 [facility] Protein Test strip Ql (U)Ord ered By: Dr. Griffith on 05-31-2022 Protein Ql (U) 15 mg/dl Negative [facility] Serum or plasma albumin raj urement (mass/volume)Ordered By: Dr. Griffith on 05-31-2022 Albumin [Mass/Vol] 3.7 g/dL 3.2-5.0 [facility] Serum or plasma albumin/glob ulin mass ratioOrdered By: Dr. Griffith on 05-31-2022 Albumin/Globulin [Mass ratio] 1.0 {ratio} 0.9-2.4 [facility] Serum or plasma calcium raj urement (mass/volume)Ordered By: Dr. Griffith on 05-31-2022 Calcium [Mass/Vol] 8.9 mg/dL 8.5-10.1 [facility] Serum or plasma complement C 3 measurement (mass/volume)Ordered By: Dr. Griffith on 05-31-2022 Complement C3 [Mass/Vol] 100 mg/dL 82-167 [facility] Comment on above: Performed at: [address] [id number] Director: Dionisio Guevara PhD, Phone: [phone] Serum or plasma complement C 4 measurement (mass/volume)Ordered By: Dr. Griffith on 05-31-2022 Complement C4 [Mass/Vol] 16 mg/dL 12- [facility] Serum or plasma creatinine m easurement (mass/volume)Ordered By: Dr. Griffith on 05-31-2022 Creatinine [Mass/Vol] 0.60 mg/dL 0.55-1.02 [facility] Comment on above: The validity of the calculated GFR & GFRAA in patients over 70 years has not been determined. Clinical correlation is essential. Serum or plasma urea nitroge n measurement (mass/volume)Ordered By: Dr. Griffith on 05-31-2022 Urea nitrogen [Mass/Vol] 17 mg/dL 7-18 [facility] Thin prep Papanicolaou smear with manual screeningOrdered By: Dr. Griffith on 05-31-2022 Thin prep Papanicolaou smear with manual screening 23 U/L 15-37 [facility] Thin prep Papanicolaou smear with manual screening 4 5-15 [facility] Urine blood detectionOrdered By: Dr. Griffith on 05-31-2022 RBC Ql (U) 10 /ul Negative [facility] Urine clarityOrdered By: Dr. Griffith on 05-31-2022 Clarity (U) Clear Clear [facility] Urine color determinationOrd ered By: Dr. Griffith on 05-31-2022 Color (U) Yellow Yellow [facility] Urine creatinine measurement (mass/volume)Ordered By: Dr. Griffith on 05-31-2022 Creatinine (U) [Mass/Vol] 132.00 mg/dL NO RANGE EST. [facility] Urine glucose detectionOrder ed By: Dr. Griffith on 05-31-2022 Glucose Ql (U) Normal mg/dl Normal [facility] Urine leukocyte esterase det ection by dipstickOrdered By: Dr. Griffith on 05-31-2022 Leukocyte esterase Test strip Ql (U) Negative Negative [facility] Urine pHOrdered By: Dr. Agustin patel on 05-31-2022 pH (U) 5.0 [pH] 5.0 - 8.0 [facility] Urine protein measurement (m ass/volume)Ordered By: Dr. Griffith on 05-31-2022 Protein (U) [Mass/Vol] 27.9 mg/dL 0.0-11.8 [facility] Urine protein/creatinine mas s ratioOrdered By: Dr. Griffith on 05-31-2022 Protein/Creatinine (U) [Mass ratio] 211 mg/g CRE 0-200 [facility] Urine specific gravity measu rementOrdered By: Dr. Griffith on 05-31-2022 Specific gravity (U) [Rel density] 1.025 1.002-1.030 [facility] Urobilinogen Auto test strip Ql (U)Ordered By: Dr. Griffith on 05-31-2022 Urobilinogen Ql (U) Normal mg/dl Normal [facility] CNOVon 05-30-2022 CNOV Office Visit ([facility] ) -- ROGERS CORTES ([id number]) 1980 F Date Time Provider Department 05/30/22 11:15 AM NURSE TIFFANY ELLIS INTMORENO During your visit today, we recorded the following information about you: Paty Matthew LPN 05/30/2022 11:07 AM Signed PT TO CONTINUE 10MG DAILY EXCEPT 5MG SATURDAYS/SUNDAYS Paty Matthew LPN 05/30/2022 11:32 AM Signed INR 2.7 no change RECHECK 1 MONTH Paty Matthew LPN Allergies As of Date: 05/30/2022 Noted Allergy Reaction ADHESIVE 09/02/2021 16 - Unknown ADHESIVE TAPE-SILICONES 06/18/2018 2 - Rash DIDRONEL (ETIDRONATE DISODIUM) 11/06/2017 2 - Rash KEFLEX (CEPHALEXIN) 11/05/2017 4 - Hives LEVAQUIN (LEVOFLOXACIN) 11/05/2017 4 - Hives NORCO (HYDROCODONE-ACETAMINOPHEN ) 01/07/2021 4 - Hives Date Reviewed: 02/21/2022 Reviewed by: Lori Tony MA - Fully Assessed Primary Visit Diagnosis:Personal history of DVT (deep vein thrombosis) [Z86.718] Order(s):INR FINGERSTICK B/O [[id number]] Order #: [id number] Prescriptions as of 05/30/2022 - warfarin (COUMADIN) 10 mg tablet Take 1 tablet by mouth once daily. - phenytoin ER (DILANTIN) 100 mg ER capsule Take 2 capsules by mouth twice daily. - lisinopril (ZESTRIL, PRINIVIL) 5 mg tablet Take 5 mg by mouth once daily. - amLODIPine (NORVASC) 10 mg tablet Take 10 mg by mouth once daily. - mycophenolate Mofetil (CELLCEPT) 500 mg tablet Take 1,000 mg by mouth twice daily. - potassium chloride 20 mEq TbER Take 1 tablet by mouth once daily. - predniSONE (DELTASONE) 10 mg tablet as needed. - gabapentin (NEURONTIN) 300 mg capsule Take 300 mg by mouth daily at bedtime. - hydrOXYchloroQUINE (PLAQUENIL) 200 mg tablet Take 2 tablets by mouth once daily. - ferrous sulfate 325 mg (65 mg iron) tablet Take 325 mg by mouth daily with breakfast. 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 Follow-up and Disposition History for Encounter Date Provider Department Center 05/30/2022 [id number] INTM CALEB INTMUD UPS MOB ([facility] Encounter Status:Closed by PATY MATTHEW on 05/30/22 Normal [facility] INR FINGERSTICK B/Oon 2022 INR Coag (Bld) [Relative time] 2.7 {INR} [facility] EMERGENCY REPORTon 3 EMERGENCY REPORT [facility] EMERGENCY ROOM REPORT NAME ACCOUNT SEX AGE ADMIT DISCHARGE PT MED. RECORD# NUMBER DATE DATE TYPE MARCOS [id number] F 42 05/16/22 05/16/22 3 ROGERS [place] [id number] ROOM: ER DATE OF : 1980 DICTATING PHYSICIAN: José Mccarty HISTORY OF PRESENT ILLNESS: The patient is a 42-year-old female with a history significant for DVT, taking warfarin with recent goal INRs, presenting with a chief complaint of cough, muscle aches, sinus pressure and headache. The patient notes these symptoms have been present for the past 2 to 3 days. She is here with her , who also has similar symptoms. They were recently with family and have multiple family members sick with similar symptoms. She denies shortness of breath, leg swelling or concern for DVT. She feels that her symptoms are not consistent with pneumonia because it does not feel bad enough. She does note some pink streaking of white mucus on occasion with coughing, but this is not consistent. She has still been able to eat and drink. REVIEW OF SYSTEMS: She denies other complaints. PHYSICAL EXAMINATION: VITAL SIGNS: BMI is 36.2. Temperature is 98 oral, pulse 78, respirations 18, blood pressure 134/93, and saturating 95% on room air. GENERAL: The patient is an obese, middle-aged female in no acute distress. HEENT: Head is normocephalic and atraumatic. Eyes: Normal conjunctivae. No scleral icterus. Nose: Mild congestion present. Mouth: Moist mucosa. No posterior oropharyngeal swelling or erythema. The uvula is midline. CARDIOVASCULAR: Regular rate and rhythm. No murmurs. PULMONARY: No increased work of breathing. No stridor. Breath sounds are normal throughout. ABDOMEN: Soft, nondistended and nontender. MUSCULOSKELETAL: No deformities. No lower extremity edema. NEUROLOGIC: The patient ambulates without difficulty. She is alert and oriented x4 and conversationally appropriate. She moves all 4 extremities spontaneously and purposefully. PSYCHIATRIC: Normal mood and behavior. DIAGNOSTIC DATA: Chest x-ray, interpreted by me, shows under-penetration with a normal cardiac silhouette. There is no pleural effusion or flattening of the diaphragm. There is no focal consolidation. MEDICAL DECISION-MAKING/EMERGENCY DEPARTMENT COURSE AND TREATMENT: The patient is a 42-year-old female with a history of DVT, taking warfarin, presenting with a viral-like illness. The patient has a sick contact via , who is here in the Emergency Department as well, and multiple sick family members. The patient's vital signs do not show her to be febrile, hypotensive, or tachycardic. She is very well-appearing on examination, speaks in full sentences, and has no increased Page 1 of 2 [facility] Emergency Room Report ROGERS CORTES : 1980 work of breathing after ambulating in the Emergency Department. The patient is requesting a chest x-ray, which is reasonable, to further rule out pneumonia. She will be treated for myalgias with Tylenol, as she cannot take NSAIDs with warfarin. I anticipate discharge to home with recommendations for symptomatic control and return precautions as needed. Dictated By: José Mccarty DO 05/16/22 03:48 JOB #: [id number] Transcribed By: daniel 05/16/22 16:36 Electronically signed by: Dr. José Mccarty DO 05/25/22 00:09 Page 2 of 2 [facility] Emergency Room Report Normal [facility] CHEST 1 VIEWon 05-16-2022 CHEST 1 [place] [address] Patient: ROGERS CORTES Phone#: : 1980 Age: 42 Gender: F Pt. Type: ER Account: [id number] Location: 052 Ordering: DR. JOSÉ MCCARTY Exam Date: 05/16/2022/2:45 Family Phys: RHETT STEVENSON Charge Code: 707827 Physician: [place] Order #: [id number] Dose#: PROCEDURE: X-RAY CHEST 1 VIEW COMPARISON: None. INDICATIONS: Cough. FINDINGS: LUNGS: Examination is taken with poor inspiratory effort. No significant pulmonary parenchymal abnormalities. VASCULATURE: Normal. Unremarkable pulmonary vasculature. CARDIAC: Normal. No cardiac silhouette abnormality or cardiomegaly. MEDIASTINUM: Normal. No visible mass or adenopathy. PLEURA: Normal. No effusion or pleural thickening. BONES: Normal. No fracture or visible bony lesion. OTHER: Negative. CONCLUSION: No acute disease. Dictated by: Analia Faria MD on 05/16/2022 at 8:46 Approved by: Analia Faria MD on 05/16/2022 at 8:46 Normal [facility] CORONAVIRUS (SARS) ANTIGEN T ESTon 05-16-2022 EXTERNAL QC DONE? YES Normal [facility] Comment on above: Performed By: #### [id number] #### [facility],[address] [place] [address] INTERNAL CONTROL PASS Normal [facility] Comment on above: Performed By: #### 2 [id number] #### [facility],[address] [place], [place] [id number] SARS ANTIGEN Negative Normal NORMAL: NEGATIVE [facility] Comment on above: Performed By: #### 2 [id number] #### [facility],[address] [place], [place] [address] SEND TO ? NO Normal [facility] Comment on above: Result Comment: SARS -CoV-2 THIS TEST IS BEING USED UNDER THE FDA EUA PROCEDURE. THIS ASSAY HAS BEEN VALIDATED AT [facility] FOR USE WITH NASAL AND NASOPHARYNGEAL SWAB SPECIMENS. INTERPRETIVE DATA TEST RESULTS SHOULD ALWAYS BE CONSIDERED IN THE CONTEXT OF CLINICAL OBSERVATIONS AND EPIDEMIOLOGICAL DATA IN MAKING FINAL DIAGNOSIS AND PATIENT MANAGEMENT DECISIONS. PATIENT MANAGEMENT SHOULD FOLLOW CURRENT CDC GUIDELINES. THE MAEVE SARS ANTIGEN TRUMAN DOES NOT DIFFERENTIATE BETWEEN SARS-CoV & SARS-CoV-2. A POSITIVE TEST RESULT INDICATES THE PRESENCE OF SARS-CoV-2 NUCLEOCAPSID PROTEIN ANTIGEN, AND THE PATIENT IS INFECTED WITH THE VIRUS AND PRESUMED TO BE CONTAGIOUS. A NEGATIVE TEST RESULT FOR THIS TEST MEANS THAT SARS-CoV-2 NUCLEOCAPSID PROTEIN ANTIGEN WAS NOT PRESENT IN THE SPECIMEN ABOVE THE LIMIT OF DETECTION. HOWEVER, A NEGATIVE RESULT DOES NOT RULE OUT COVID-19 AND SHOULD NOT BE USED THE SOLE BASIS FOR TREATMENT OR PATIENT MANAGEMENT DECISIONS. A NEGATIVE RESULT DOES NOT EXCLUDE THE POSSIBILITY OF COVID-19. NEGATIVE RESULTS, FROM PATIENTS WITH SYMPTOM ONSET BEYOND FIVE DAYS, SHOULD BE TREATED PRESUMPTIVE AND CONFIRMATION WITH A MOLECULAR ASSAY, IF NECESSARY, FOR PATIENT MANAGEMENT, MAY BE PERFORMED. WHEN DIAGNOSTIC TESTING IS NEGATIVE, THE POSSIBLILTY OF A FALSE NEGATIVE RESULT SHOULD BE CONSIDERED IN THE CONTEXT OF A PATIENT'S RECENT EXPOSURES AND THE PRESENCE OF CLINICAL SIGNS AND SYMPTOMS CONSISTENT WITH COVID-19. THE POSSIBILITY OF A FALSE NEGATIVE RESULT SHOULD ESPECIALLY BE CONSIDERED IF THE PATIENT'S RECENT EXPOSURES OR CLINICAL PRESENTATION INDICATE THAT COVID-19 IS LIKELY, AND DIAGNOSTIC TESTS FOR OTHER CAUSES OF ILLNESS (e.g., OTHER RESPIRATORY ILLNESS) ARE NEGATIVE. IF COVID-19 IS STILL SUSPECTED BASED ON EXPOSURE HISTORY TOGETHER WITH OTHER CLINICAL FINDINGS, RE-TESTING SHOULD BE CONSIDERED BY HEALTHCARE PROVIDERS IN CONSULTATION WITH PUBLIC HEALTH AUTHORITIES. Performed By: #### 2 [id number] #### [facility],[address] [place] [id number] INFLUENZA VIRUS RAPID A/Bon 05-16-2022 INFLUENZA VIRUS RAPID A/B INFLUENZA A NEGATIVE INFLUENZA B NEGATIVE INTERNAL NEG QC PASS INTERNAL POS QC PASS EXTERNAL QC DONE? YES SEND TO IC? NO A NEGATIVE TEST RESULT DOES NOT EXCLUDE INFECTION WITH INFLUENZA A OR B. THEREFORE, THE RESULTS OBTAINED FROM THIS FLU TEST SHOULD BE USED IN CONJUCTION WITH CLINICAL FINDINGS TO MAKE AN ACCURATE DIAGNOSIS. A POSITIVE RESULT DOES NOT RULE OUT CO-INFECTIONS WITH OTHER PATHOGENS OR IDENTIFY ANY SPECIFIC INFLUENZA A VIRUS SUBTYPE.CO-INFECTION WITH INFLUENZA A AND B IS RARE. IT IS RECOMMENDED THAT DUAL POSITIVE RESULTS BE CONFIRMED BY VIRAL CULTURE OR AN FDA-CLEARED INFLUENZA A AND B MOLECULAR ASSAY. INDIVIDUALS WHO HAVE RECEIVED NASALLY ADMINISTERED INFLUENZA A VACCINE MAY TEST POSITIVE IN COMMERCIALLY AVAILABLE INFLUENZA RAPID DIAGNOSTIC TESTS FOR UP TO THREE DAYS. RESULT CRITICAL? NO Normal [facility] Comment on above: Performed By: #### 2 [id number] #### [facility],[address] [place] [address] CNOVon 05-02-2022 CNOV Office Visit ([facility] ) -- ROGERS CORTES ([id number]) 1980 F Date Time Provider Department 05/02/22 11:15 AM NURSE TIFFANY ELLIS INTM[facility] During your visit today, we recorded the following information about you: Paty Matthew LPN 05/02/2022 11:19 AM Signed PT TO CONTINUE 10MG DAILY EXCEPT 5MG SATURDAYS/SUNDAYS Paty Matthew LPN 05/02/2022 11:23 AM Signed INR 2.5 no change RECHECK 1 MONTH Paty Matthew LPN Allergies As of Date: 05/02/2022 Noted Allergy Reaction ADHESIVE 09/02/2021 16 - Unknown ADHESIVE TAPE-SILICONES 06/18/2018 2 - Rash DIDRONEL (ETIDRONATE DISODIUM) 11/06/2017 2 - Rash KEFLEX (CEPHALEXIN) 11/05/2017 4 - Hives LEVAQUIN (LEVOFLOXACIN) 11/05/2017 4 - Hives NORCO (HYDROCODONE-ACETAMINOPHEN ) 01/07/2021 4 - Hives Date Reviewed: 02/21/2022 Reviewed by: Lori Tony MA - Fully Assessed Primary Visit Diagnosis:Personal history of DVT (deep vein thrombosis) [Z86.718] Order(s):INR FINGERSTICK B/O [[id number]] Order #: [id number] Prescriptions as of 05/02/2022 - warfarin (COUMADIN) 10 mg tablet TAKE 1 TABLET BY MOUTH ONCE DAILY DIRECTED - phenytoin ER (DILANTIN) 100 mg ER capsule Take 2 capsules by mouth twice daily. - lisinopril (ZESTRIL, PRINIVIL) 5 mg tablet Take 5 mg by mouth once daily. - amLODIPine (NORVASC) 10 mg tablet Take 10 mg by mouth once daily. - mycophenolate Mofetil (CELLCEPT) 500 mg tablet Take 1,000 mg by mouth twice daily. - potassium chloride 20 mEq TbER Take 1 tablet by mouth once daily. - predniSONE (DELTASONE) 10 mg tablet as needed. - gabapentin (NEURONTIN) 300 mg capsule Take 300 mg by mouth daily at bedtime. - hydrOXYchloroQUINE (PLAQUENIL) 200 mg tablet Take 2 tablets by mouth once daily. - ferrous sulfate 325 mg (65 mg iron) tablet Take 325 mg by mouth daily with breakfast. 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 Follow-up and Disposition History for Encounter Date Provider Department Center 05/02/2022 [id number] INTM CALEB [facility] M[facility] ([place] Encounter Status:Closed by PATY MATTHEW on 05/02/[address] [facility] CNOVon 04-04-2022 CNOV Office Visit ([facility] ) -- ROGERS CORTES ([id number]) 1980 F Date Time Provider Department 04/04/22 11:15 AM NURSE TIFFANY KENNEDY During your visit today, we recorded the following information about you: Paty Matthew LPN 04/04/2022 11:03 AM Signed PT TO CONTINUE 10MG DAILY EXCEPT 5MG SATURDAYS/SUNDAYS Paty Matthew LPN 04/04/2022 11:06 AM Signed INR 2.3 no change RECHECK 1 MONTH Paty Matthew LPN Allergies As of Date: 04/04/2022 Noted Allergy Reaction ADHESIVE 09/02/2021 16 - Unknown ADHESIVE TAPE-SILICONES 06/18/2018 2 - Rash DIDRONEL (ETIDRONATE DISODIUM) 11/06/2017 2 - Rash KEFLEX (CEPHALEXIN) 11/05/2017 4 - Hives LEVAQUIN (LEVOFLOXACIN) 11/05/2017 4 - Hives NORCO (HYDROCODONE-ACETAMINOPHEN ) 01/07/2021 4 - Hives Date Reviewed: 02/21/2022 Reviewed by: Lori Tony MA - Fully Assessed Primary Visit Diagnosis:Personal history of DVT (deep vein thrombosis) [Z86.718] Order(s):INR FINGERSTICK B/O [[id number]] Order #: [id number] Prescriptions as of 04/04/2022 - phenytoin ER (DILANTIN) 100 mg ER capsule Take 2 capsules by mouth twice daily. - warfarin (COUMADIN) 10 mg tablet Take 1 tablet by mouth daily as directed. - lisinopril (ZESTRIL, PRINIVIL) 5 mg tablet Take 5 mg by mouth once daily. - amLODIPine (NORVASC) 10 mg tablet Take 10 mg by mouth once daily. - mycophenolate Mofetil (CELLCEPT) 500 mg tablet Take 1,000 mg by mouth twice daily. - potassium chloride 20 mEq TbER Take 1 tablet by mouth once daily. - predniSONE (DELTASONE) 10 mg tablet as needed. - gabapentin (NEURONTIN) 300 mg capsule Take 300 mg by mouth daily at bedtime. - hydrOXYchloroQUINE (PLAQUENIL) 200 mg tablet Take 2 tablets by mouth once daily. - ferrous sulfate 325 mg (65 mg iron) tablet Take 325 mg by mouth daily with breakfast. 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 Follow-up and Disposition History for Encounter Date Provider Department Center 04/04/2022 [id number] INTAdalid ELLIS [facility] ([facility] Encounter Status:Closed by PATY MATTHEW on 04/04/22 Normal [facility] INR FINGERSTICK B/Oon 2022 INR Coag (Bld) [Relative time] 2.3 {INR} [facility] Absolute lymphocyte countOrd ered By: Dr. Griffith on 03-07-2022 Lymphocytes Auto (Unsp spec) [#/Vol] 1.79 10*3/uL 0.83-4.51 [facility] Basophil percentageOrdered B y: Dr. Griffith on 03-07-2022 Basophils/100 WBC (Bld) 0.5 % 0-1 [facility] Bilirubin [Mass/Vol] 0.20 mg/dL 0.20-1.00 [facility] Comment on above: For patients on eltr ombopag therapy, use of Dimension [place] TBIL is not recommended. Chloride [Moles/Vol] 107 mmol/L 98-107 [facility] Eosinophils/100 WBC (Bld) 3.1 % 0-5 [facility] Glucose [Mass/Vol] 82 mg/dL 74-106 [facility] Neutrophils (Bld) [#/Vol] 3.6 10*3/uL 2.0-7.7 [facility] Neutrophils/100 WBC (Bld) 58.8 % 47-70 [facility] Potassium [Moles/Vol] 3.9 mmol/L 3.5-5.1 [facility] Protein [Mass/Vol] 6.8 g/dL 6.4-8.2 [facility] Sodium [Moles/Vol] 141 mmol/L 136-145 [facility] WBC (Bld) [#/Vol] 6.1 10*3/uL 4.4-11.0 [facility] Bilirubin Test strip Ql (U)O rdered By: Dr. Griffith on 03-07-2022 Bilirubin Ql (U) Negative Negative [facility] Blood erythrocytes count (nu mber/volume)Ordered By: Dr. Griffith on 03-07-2022 RBC (Bld) [#/Vol] 4.78 10*6/uL 4.2-5.4 [facility] Blood hemoglobin measurement (mass/volume)Ordered By: Dr. Griffith on 03-07-2022 Hemoglobin (Bld) [Mass/Vol] 13.8 g/dL 12.0-15.0 [facility] Blood lymphocytes/100 leukoc ytesOrdered By: Dr. Griffith on 03-07-2022 Lymphocytes/100 WBC (Bld) 29.5 % 19-41 [facility] Blood monocytes/100 leukocyt esOrdered By: Dr. Griffith on 03-07-2022 Monocytes/100 WBC (Bld) 7.9 % 0-10 [facility] Blood platelet mean volumeOr dered By: Dr. Griffith on 03-07-2022 Platelet mean volume (Bld) [Entitic vol] 10.7 fL 6.2-12.0 [facility] CNOVon 03-07-2022 CNOV Office Visit ([facility] ) -- ROGERS CORTES ([id number]) 1980 F Date Time Provider Department 03/07/22 11:15 AM NURSE TIFFANY ELLIS INTMUD During your visit today, we recorded the following information about you: Paty Matthew LPN 03/07/2022 11:02 AM Signed PT TO CONTINUE 10MG DAILY EXCEPT 5MG SATURDAYS/SUNDAYS Paty Matthew LPN 03/07/2022 11:13 AM Signed INR 2.0 no change RECHECK 1 MONTH Paty Matthew LPN Allergies As of Date: 03/07/2022 Noted Allergy Reaction ADHESIVE 09/02/2021 16 - Unknown ADHESIVE TAPE-SILICONES 06/18/2018 2 - Rash DIDRONEL (ETIDRONATE DISODIUM) 11/06/2017 2 - Rash KEFLEX (CEPHALEXIN) 11/05/2017 4 - Hives LEVAQUIN (LEVOFLOXACIN) 11/05/2017 4 - Hives NORCO (HYDROCODONE-ACETAMINOPHEN ) 01/07/2021 4 - Hives Date Reviewed: 02/21/2022 Reviewed by: Lori Tony MA - Fully Assessed Primary Visit Diagnosis:Personal history of DVT (deep vein thrombosis) [Z86.718] Order(s):INR FINGERSTICK B/O [[id number]] Order #: [id number] Prescriptions as of 03/07/2022 - phenytoin ER (DILANTIN) 100 mg ER capsule Take 2 capsules by mouth twice daily. - warfarin (COUMADIN) 10 mg tablet Take 1 tablet by mouth daily as directed. - lisinopril (ZESTRIL, PRINIVIL) 5 mg tablet Take 5 mg by mouth once daily. - amLODIPine (NORVASC) 10 mg tablet Take 10 mg by mouth once daily. - mycophenolate Mofetil (CELLCEPT) 500 mg tablet Take 1,000 mg by mouth twice daily. - potassium chloride 20 mEq TbER Take 1 tablet by mouth once daily. - predniSONE (DELTASONE) 10 mg tablet as needed. - gabapentin (NEURONTIN) 300 mg capsule Take 300 mg by mouth daily at bedtime. - hydrOXYchloroQUINE (PLAQUENIL) 200 mg tablet Take 2 tablets by mouth once daily. - ferrous sulfate 325 mg (65 mg iron) tablet Take 325 mg by mouth daily with breakfast. 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 Follow-up and Disposition History for Encounter Date Provider Department Center 03/07/2022 [id number] INTM CALEB [facility] ([facility] Encounter Status:Closed by PATY MATTHEW on 03/07/22 Normal [facility] Determination of erythrocyte mean corpuscular volume (MCV)Ordered By: Dr. Griffith on 03-07-2022 MCV (RBC) [Entitic vol] 87.7 fL 81-99 [facility] Hematocrit Auto (Bld) [Volum e fraction]Ordered By: Dr. Griffith on 03-07-2022 Hematocrit (Bld) [Volume fraction] 41.9 % 37-47 [facility] INR FINGERSTICK B/Oon 2022 INR Coag (Bld) [Relative time] 2.0 {INR} [facility] Ketones Test strip Ql (U)Ord ered By: Dr. Griffith on 03-07-2022 Ketones Ql (U) Negative Negative [facility] - Chemistry and C hemistry - challengeOrdered By: Dr. Griffith on 03-07-2022 ALP [Catalytic activity/Vol] 68 U/L 45-117 [facility] ALT [Catalytic activity/Vol] 24 U/L 13-56 [facility] CO2 [Moles/Vol] 28.0 mmol/L 21.0-32.0 [facility] Globulin (S) [Mass/Vol] 3.4 g/dL 2.2-4.2 [facility] Urea nitrogen/Creatinine [Mass ratio] 23.7 mg/mg 10-20 [facility] - Hematology and Cell countsOrdered By: Dr. Grifftih on 03-07-2022 Erythrocyte distribution width (RBC) [Entitic vol] 41.4 fL 35.1-43.9 [facility] Erythrocyte distribution width (RBC) [Ratio] 12.9 % 11.6-14.6 [facility] Immature granulocytes/100 WBC (Bld) 0.200 % 0.0-0.9 [facility] Comment on above: IG% - Immature Granu locytes (promyelocytes, myelocytes and metamyelocytes) > 1% indicates that a LEFT SHIFT is Present. MCH (RBC) [Entitic mass] 28.9 pg 27.0-32.0 [facility] Nucleated RBC/100 WBC (Bld) [Ratio] 0 % 0-5 [facility] MCHC Auto (RBC) [Mass/Vol]Or dered By: Dr. Griffith on 03-07-2022 MCHC (RBC) [Mass/Vol] 32.9 g/dL 32-36 [facility] Nitrite Test strip Ql (U)Ord ered By: Dr. Griffith on 03-07-2022 Nitrite Ql (U) Negative Negative [facility] No Panel InformationOrdered By: Dr. Griffith on 03-07-2022 Estimated GFR (MDRD) Amer 144 mL/min >60 [facility] Comment on above: GFR Calc Estimated GFR (MDRD) Non-Af Amer 119 mL/min >60 [facility] Comment on above: Non- GFR Calc Platelets bldOrdered By: Dr. Griffith on 03-07-2022 Platelets (Bld) [#/Vol] 172 10*3/uL 150-450 [facility] Protein Test strip Ql (U)Ord ered By: Dr. Griffith on 03-07-2022 Protein Ql (U) Negative Negative [facility] Serum or plasma albumin raj urement (mass/volume)Ordered By: Dr. Griffith on 03-07-2022 Albumin [Mass/Vol] 3.4 g/dL 3.2-5.0 [facility] Serum or plasma albumin/glob ulin mass ratioOrdered By: Dr. Griffith on 03-07-2022 Albumin/Globulin [Mass ratio] 1.0 {ratio} 0.9-2.4 [facility] Serum or plasma calcium raj urement (mass/volume)Ordered By: Dr. Griffith on 03-07-2022 Calcium [Mass/Vol] 8.7 mg/dL 8.5-10.1 [facility] Serum or plasma complement C 3 measurement (mass/volume)Ordered By: Dr. Griffith on 03-07-2022 Complement C3 [Mass/Vol] 101 mg/dL 82-167 [facility] Comment on above: Performed at: [address] [id number] Director: Dionisio Guevara PhD, Phone: [phone] Serum or plasma complement C 4 measurement (mass/volume)Ordered By: Dr. Griffith on 03-07-2022 Complement C4 [Mass/Vol] 18 mg/dL 12-38 [facility] Serum or plasma creatinine m easurement (mass/volume)Ordered By: Dr. Griffith on 03-07-2022 Creatinine [Mass/Vol] 0.59 mg/dL 0.55-1.02 [facility] Comment on above: The validity of the calculated GFR & GFRAA in patients over 70 years has not been determined. Clinical correlation is essential. Serum or plasma urea nitroge n measurement (mass/volume)Ordered By: Dr. Griffith on 03-07-2022 Urea nitrogen [Mass/Vol] 14 mg/dL 7-18 [facility] Thin prep Papanicolaou smear with manual screeningOrdered By: Dr. Griffith on 03-07-2022 Thin prep Papanicolaou smear with manual screening 19 U/L 15-37 [facility] Thin prep Papanicolaou smear with manual screening 6 5-15 [facility] Urine blood detectionOrdered By: Dr. Griffith on 03-07-2022 RBC Ql (U) Negative Negative [facility] Urine clarityOrdered By: Dr. Griffith on 03-07-2022 Clarity (U) Clear Clear [facility] Urine color determinationOrd ered By: Dr. Griffith on 03-07-2022 Color (U) Yellow Yellow [facility] Urine creatinine measurement (mass/volume)Ordered By: Dr. Griffith on 03-07-2022 Creatinine (U) [Mass/Vol] 73.10 mg/dL NO RANGE EST. [facility] Urine glucose detectionOrder ed By: Dr. Griffith on 03-07-2022 Glucose Ql (U) Normal mg/dl Normal [facility] Urine leukocyte esterase det ection by dipstickOrdered By: Dr. Griffith on 03-07-2022 Leukocyte esterase Test strip Ql (U) Negative Negative [facility] Urine pHOrdered By: Dr. Agustin patel on 03-07-2022 pH (U) 5.0 [pH] 5.0 - 8.0 [facility] Urine protein measurement (m ass/volume)Ordered By: Dr. Griffith on 03-07-2022 Protein (U) [Mass/Vol] 15.8 mg/dL 0.0-11.8 [facility] Urine protein/creatinine mas s ratioOrdered By: Dr. Griffith on 03-07-2022 Protein/Creatinine (U) [Mass ratio] 216 mg/g CRE 0-200 [facility] Urine specific gravity measu rementOrdered By: Dr. Griffith on 03-07-2022 Specific gravity (U) [Rel density] 1.020 1.002-1.030 [facility] Urobilinogen Auto test strip Ql (U)Ordered By: Dr. Griffith on 03-07-2022 Urobilinogen Ql (U) Normal mg/dl [facility] [place] CNPNon 02-23-20[facility] ROGERS CORTES ([id number]) 1980 F Date Time Provider Department 02/23/22 NELSON POZO During your visit today, we recorded the following information about you: Lori Tony MA 02/23/2022 3:45 PM Signed Patient called needing a jury duty excuse. Letter was faxed to the court at [phone] and patient was advised. Allergies As of Date: 02/23/2022 Noted Allergy Reaction ADHESIVE 09/02/2021 16 - Unknown ADHESIVE TAPE-SILICONES 06/18/2018 2 - Rash DIDRONEL (ETIDRONATE DISODIUM) 11/06/2017 2 - Rash KEFLEX (CEPHALEXIN) 11/05/2017 4 - Hives LEVAQUIN (LEVOFLOXACIN) 11/05/2017 4 - Hives NORCO (HYDROCODONE-ACETAMINOPHEN ) 01/07/2021 4 - Hives Date Reviewed: 02/21/2022 Reviewed by: Lori Tony MA - Fully Assessed Reason for Visit: Letter [264] Prescriptions as of 02/23/2022 - phenytoin ER (DILANTIN) 100 mg ER capsule Take 2 capsules by mouth twice daily. - warfarin (COUMADIN) 10 mg tablet Take 1 tablet by mouth daily as directed. - lisinopril (ZESTRIL, PRINIVIL) 5 mg tablet Take 5 mg by mouth once daily. - amLODIPine (NORVASC) 10 mg tablet Take 10 mg by mouth once daily. - mycophenolate Mofetil (CELLCEPT) 500 mg tablet Take 1,000 mg by mouth twice daily. - potassium chloride 20 mEq TbER Take 1 tablet by mouth once daily. - predniSONE (DELTASONE) 10 mg tablet as needed. - gabapentin (NEURONTIN) 300 mg capsule Take 300 mg by mouth daily at bedtime. - hydrOXYchloroQUINE (PLAQUENIL) 200 mg tablet Take 2 tablets by mouth once daily. - ferrous sulfate 325 mg (65 mg iron) tablet Take 325 mg by mouth daily with breakfast. 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 CNOVon 02-21-2022 CNOV Office Visit (NEUPDV ) -- ROGERS CORTES ([id number]) 1980 F Date Time Provider Department 02/21/22 8:30 AM NELSON POZOV During your visit today, we recorded the following information about you: Pulse Blood pressure Weight Height 59/minute 119/80 122 kg 1.803 m Nelson Pozo MD 02/21/2022 8:56 AM Signed Referring Provider: No ref. provider found Date: February 21, 2022 Chief Complaint: Seizures HISTORY OF PRESENT ILLNESS: Rogers Cortes is a 41 year old female who follows for seizures. Patient is a left handed, woman. 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 She has been to Dr. Pozo previously [...] light or noise sensitivity, and any depression. Lori Ramírez MA, transcribing for Nelson Pozo MD. ALLERGIES Allergen Reactions Adhesive Unknown Adhesive Tape-Silic* Rash Didronel [Etidronat* Rash Keflex [Cephalexin] Hives Levaquin [Levofloxa* Hives [place] [Hydrocodone-* Hives PAST MEDICAL HISTORY: PAST MEDICAL HISTORY Diagnosis Date DUB (dysfunctional uterine bleeding) Dr Driscoll HTN (hypertension) Hypokalemia Idiopathic peripheral neuropathy Lupus [...] Drug Use: Never Employer And Job Title: [employer]) Years Of Education Completed: Not specified [...] Pulse (!) 59 Ht 180.3 cm (5' 11) Wt 122 kg (269 lb) BMI 37.52 [...] Xl - Good and equal shoulder shrugs. (more 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 Normal [facility] 02-21-2022 [facility] Telephone (NEUPDV) -- ROGERS CORTES ([id number]) 1980 F Date Time Provider Department 02/21/22 NELSON POZO [facility] During your visit today, we recorded the following information about you: Lori Tony MA 02/21/2022 3:34 PM Signed Pharmacy called and stated that they cannot get Dilantin 200 mg capsules, so we have to order it as 100 mg 2 capsules twice daily New order is attached. Allergies As of Date: 02/21/2022 Noted Allergy Reaction ADHESIVE 09/02/2021 16 - Unknown ADHESIVE TAPE-SILICONES 06/18/2018 2 - Rash DIDRONEL (ETIDRONATE DISODIUM) 11/06/2017 2 - Rash KEFLEX (CEPHALEXIN) 11/05/2017 4 - Hives LEVAQUIN (LEVOFLOXACIN) 11/05/2017 4 - Hives NORCO (HYDROCODONE-ACETAMINOPHEN ) 01/07/2021 4 - Hives Date Reviewed: 02/21/2022 Reviewed by: Lori Tony MA - Fully Assessed Reason for Visit: Medication Problem [65] Visit Diagnosis:Generalized epilepsy (HCC) [G40.309] Order(s):phenytoin ER (DILANTIN) 100 mg ER capsuleTake 2 capsules by mouth twice daily.Disp: 120 capsuleRfl: 11 Prescriptions as of 02/22/2022 - phenytoin ER (DILANTIN) 100 mg ER capsule Take 2 capsules by mouth twice daily. - warfarin (COUMADIN) 10 mg tablet Take 1 tablet by mouth daily as directed. - lisinopril (ZESTRIL, PRINIVIL) 5 mg tablet Take 5 mg by mouth once daily. - amLODIPine (NORVASC) 10 mg tablet Take 10 mg by mouth once daily. - mycophenolate Mofetil (CELLCEPT) 500 mg tablet Take 1,000 mg by mouth twice daily. - potassium chloride 20 mEq TbER Take 1 tablet by mouth once daily. - predniSONE (DELTASONE) 10 mg tablet as needed. - gabapentin (NEURONTIN) 300 mg capsule Take 300 mg by mouth daily at bedtime. - hydrOXYchloroQUINE (PLAQUENIL) 200 mg tablet Take 2 tablets by mouth once daily. - ferrous sulfate 325 mg (65 mg iron) tablet Take 325 mg by mouth daily with breakfast. 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 Medications Discontinued During This Encounter Prescriptions - phenytoin ER 200 mg ER capsule (Discontinued) Take 1 capsule by mouth twice daily. Encounter Status:Closed by NELSON POZO on 02/22/22 Normal [facility] BMP with eGFRon 02-15-2022 AGE 41 years Normal [facility] Comment on above: Performed By: #### 2 [id number] #### [facility],[address] [place] [address] Anion gap [Moles/Vol] 14 mmol/L Normal 10 - 20 [facility] Comment on above: Performed By: #### 2 [id number] #### [facility],[address] [place] [address] BMP with eGFR Normal [facility] Comment on above: Result Comment: BASI C METABOLIC PANEL Performed By: #### 2 [id number] #### [facility],[address] [place] [address] Calcium [Mass/Vol] 8.8 mg/dL Normal 8.5 - 10.1 [facility] Comment on above: Performed By: #### 2 [id number] #### [facility],[address] [place] [address] Chloride [Moles/Vol] 107 mmol/L Normal 98 - 107 [facility] Comment on above: Performed By: #### 2 06296 #### [facility],[address] [place] [address] CO2 [Moles/Vol] 27.3 mmol/L Normal 21.0 - 32.0 [facility] Comment on above: Performed By: #### 2 [id number] #### [facility],[address] [place], [place] [id number] Creatinine [Mass/Vol] 0.71 mg/dL Normal 0.55 - 1.02 [facility] Comment on above: Performed By: #### 2 [id number] #### [facility],[address] [place], [place] [address] GFR/1.73 sq M.predicted among non-blacks MDRD (S/P/Bld) [Vol rate/Area] mL/min/{1.73_m2} Normal 60 - 999 [facility] Comment on above: Performed By: #### 2 [id number] #### [facility],[address] [place] [address] Result Comment: ACCO RDING TO THE NATIONAL KIDNEY DISEASE EDUCATION PROGRAM(NKDE), A NORMAL eGFR IS A VALUE GREATER THAN OR EQUAL TO 60 ML/MIN/1.73 SQ METERS. CHRONIC KIDNEY DISEASE: <60mL/MIN/1.73 SQ METERS KIDNEY FAILURE: <15mL/MIN/1.73 SQ METERS THIS TEST SHOULD ONLY BE USED FOR PATIENTS 18 YEARS OF AGE AND OLDER. Glucose [Mass/Vol] 82 mg/dL Normal 74 - 106 [facility] Comment on above: Performed By: #### 2 [id number] #### [facility],[address] [place], [place] [id number] Potassium [Moles/Vol] 4.3 mmol/L Normal 3.5 - 5.1 [facility] Comment on above: Performed By: #### 2 80421 #### [facility],[address] [place], [place] [id number] Sodium [Moles/Vol] 144 mmol/L Normal 136 - 145 [facility] Comment on above: Performed By: #### 2 85026 #### [facility],[address] [place], [place] [id number] Urea nitrogen [Mass/Vol] 20 mg/dL High 7 - 18 [facility] Comment on above: Performed By: #### 2 12430 #### [facility],[address] [place] [address] URINE CREATININE AND PROTEIN RATIOon 02-15-2022 CREATININE UR 70.75 mg/dl Normal [facility] Comment on above: Performed By: #### 2 49113 #### [facility],[address] [place] [address] 28862 PC RATIO 0.21 mg/dL Normal 0.00 - 10.00 [facility] Comment on above: Performed By: #### 2 25597 #### [facility],[address] [place] [address] Protein (U) [Mass/Vol] 14.90 mg/dL High 0.00 - 10.00 [facility] Comment on above: Performed By: #### 2 46596 #### [facility],[address] [place] [address] CNOVon 02-02-2022 CNOV Office Visit (INTMUD ) -- ROGERS CORTES ([id number]) 1980 F Date Time Provider Department 02/02/22 11:30 AM NURSE TIFFANY ELLIS INTMUD During your visit today, we recorded the following information about you: Paty Matthew LPN 02/02/2022 11:12 AM Signed PT TO CONTINUE 10MG DAILY EXCEPT 5MG SATURDAYS/SUNDAYS Paty Matthew LPN 02/02/2022 11:14 AM Signed INR 2.8 no change RECHECK 1 MONTH Paty Matthew LPN Allergies As of Date: 02/02/2022 Noted Allergy Reaction ADHESIVE 09/02/2021 16 - Unknown ADHESIVE TAPE-SILICONES 06/18/2018 2 - Rash DIDRONEL (ETIDRONATE DISODIUM) 11/06/2017 2 - Rash KEFLEX (CEPHALEXIN) 11/05/2017 4 - Hives LEVAQUIN (LEVOFLOXACIN) 11/05/2017 4 - Hives NORCO (HYDROCODONE-ACETAMINOPHEN ) 01/07/2021 4 - Hives Date Reviewed: 12/13/2021 Reviewed by: Nisa Ruiz LPN - Fully Assessed Primary Visit Diagnosis:Personal history of DVT (deep vein thrombosis) [Z86.718] Order(s):INR FINGERSTICK B/O [[id number]] Order #: [id number] Prescriptions as of 02/02/2022 - warfarin (COUMADIN) 10 mg tablet Take 1 tablet by mouth daily as directed. - lisinopril (ZESTRIL, PRINIVIL) 5 mg tablet Take 5 mg by mouth once daily. - phenytoin ER (DILANTIN) 100 mg ER capsule Take 2 capsules by mouth twice daily. - amLODIPine (NORVASC) 10 mg tablet Take 10 mg by mouth once daily. - mycophenolate Mofetil (CELLCEPT) 500 mg tablet Take 1,000 mg by mouth twice daily. - potassium chloride 20 mEq TbER Take 1 tablet by mouth once daily. - predniSONE (DELTASONE) 10 mg tablet as needed. - gabapentin (NEURONTIN) 300 mg capsule Take 300 mg by mouth daily at bedtime. - hydrOXYchloroQUINE (PLAQUENIL) 200 mg tablet Take 2 tablets by mouth once daily. - ferrous sulfate 325 mg (65 mg iron) tablet Take 325 mg by mouth daily with breakfast. 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 Follow-up and Disposition History for Encounter Date Provider Department Center 02/02/2022 [id number] TIFFANY [facility]ULA [facility] Encounter Status:Closed by PATY MATTHEW on 02/02/22 Normal [facility] INR FINGERSTICK B/Oon 2021 INR Coag (Bld) [Relative time] 2.8 {INR} [facility] CNOVon 01-05-2022 CNOV Office Visit (INTMUD ) -- ROGERS CORTES ([id number]) 1980 F Date Time Provider Department 01/05/22 1:45 PM NURSE TIFFANY KENNEDY During your visit today, we recorded the following information about you: Paty Matthew LPN 01/05/2022 1:54 PM Signed PT TO CONTINUE 10MG DAILY EXCEPT 5MG SATURDAYS/SUNDAYS Paty Matthew LPN 01/05/2022 3:36 PM Signed INR 2.3 no change RECHECK 1 MONTH Paty Matthew LPN Allergies As of Date: 01/05/2022 Noted Allergy Reaction ADHESIVE 09/02/2021 16 - Unknown ADHESIVE TAPE-SILICONES 06/18/2018 2 - Rash DIDRONEL (ETIDRONATE DISODIUM) 11/06/2017 2 - Rash KEFLEX (CEPHALEXIN) 11/05/2017 4 - Hives LEVAQUIN (LEVOFLOXACIN) 11/05/2017 4 - Hives NORCO (HYDROCODONE-ACETAMINOPHEN ) 01/07/2021 4 - Hives Date Reviewed: 12/13/2021 Reviewed by: Nisa Ruiz LPN - Fully Assessed Primary Visit Diagnosis:Personal history of DVT (deep vein thrombosis) [Z86.718] Order(s):INR FINGERSTICK B/O [[id number]] Order #: [id number] Prescriptions as of 01/05/2022 - lisinopril (ZESTRIL, PRINIVIL) 5 mg tablet Take 5 mg by mouth once daily. - phenytoin ER (DILANTIN) 100 mg ER capsule Take 2 capsules by mouth twice daily. - amLODIPine (NORVASC) 10 mg tablet Take 10 mg by mouth once daily. - mycophenolate Mofetil (CELLCEPT) 500 mg tablet Take 1,000 mg by mouth twice daily. - potassium chloride 20 mEq TbER Take 1 tablet by mouth once daily. - predniSONE (DELTASONE) 10 mg tablet as needed. - gabapentin (NEURONTIN) 300 mg capsule Take 300 mg by mouth daily at bedtime. - hydrOXYchloroQUINE (PLAQUENIL) 200 mg tablet Take 2 tablets by mouth once daily. - warfarin (COUMADIN) 10 mg tablet Take 10 mg by mouth daily as directed. - ferrous sulfate 325 mg (65 mg iron) tablet Take 325 mg by mouth daily with breakfast. 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 Follow-up and Disposition History for Encounter Date Provider Department Center 01/05/2022 [id number] TIFFANY AR[facility]ULA [facility] Encounter Status:Closed by PATY MATTHEW on 01/05/22 Normal [facility] INR FINGERSTICK B/Oon 2021 INR Coag (Bld) [Relative time] 2.3 {INR} [facility] CNOVon 12-20-2021 CNOV Office Visit (INTMUD ) -- ROGERS CORTES ([id number]) 1980 F Date Time Provider Department 12/20/21 11:15 AM NURSE TIFFANY KENNEDY During your visit today, we recorded the following information about you: Paty Matthew LPN 12/20/2021 11:09 AM Signed PT TO TAKE 10MG DAILY EXCEPT 5MG SATURDAYS AND SUNDAYS Paty Matthew LPN 12/20/2021 11:15 AM Signed INR 3.0 decrease TO TAKE 10MG DAILY EXCEPT 5MG SAT/SUN. RECHECK 2 WEEKS. Paty Matthew LPN Allergies As of Date: 12/20/2021 Noted Allergy Reaction ADHESIVE 09/02/2021 16 - Unknown ADHESIVE TAPE-SILICONES 06/18/2018 2 - Rash DIDRONEL (ETIDRONATE DISODIUM) 11/06/2017 2 - Rash KEFLEX (CEPHALEXIN) 11/05/2017 4 - Hives LEVAQUIN (LEVOFLOXACIN) 11/05/2017 4 - Hives NORCO (HYDROCODONE-ACETAMINOPHEN ) 01/07/2021 4 - Hives Date Reviewed: 12/13/2021 Reviewed by: Nisa Ruiz LPN - Fully Assessed Primary Visit Diagnosis:Personal history of DVT (deep vein thrombosis) [Z86.718] Order(s):INR FINGERSTICK B/O [[id number]] Order #: [id number] Prescriptions as of 12/20/2021 - lisinopril (ZESTRIL, PRINIVIL) 5 mg tablet Take 5 mg by mouth once daily. - phenytoin ER (DILANTIN) 100 mg ER capsule Take 2 capsules by mouth twice daily. - amLODIPine (NORVASC) 10 mg tablet Take 10 mg by mouth once daily. - mycophenolate Mofetil (CELLCEPT) 500 mg tablet Take 1,000 mg by mouth twice daily. - potassium chloride 20 mEq TbER Take 1 tablet by mouth once daily. - predniSONE (DELTASONE) 10 mg tablet as needed. - gabapentin (NEURONTIN) 300 mg capsule Take 300 mg by mouth daily at bedtime. - hydrOXYchloroQUINE (PLAQUENIL) 200 mg tablet Take 2 tablets by mouth once daily. - warfarin (COUMADIN) 10 mg tablet Take 10 mg by mouth daily as directed. - ferrous sulfate 325 mg (65 mg iron) tablet Take 325 mg by mouth daily with breakfast. 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 Follow-up and Disposition History for Encounter Date Provider Department Center 12/20/2021 [id number] TIFFANY ARAMBULA [facility] Encounter Status:Closed by PATY MATTHEW on 12/20/21 Normal [facility] INR FINGERSTICK B/Oon 2021 INR Coag (Bld) [Relative time] 3.0 {INR} [facility] CNOVon 12-13-2021 CNOV Office Visit (INTMUD ) -- ROGERS CORTES ([id number]) 1980 F Date Time Provider Department 12/13/21 11:00 AM RHETT STEVENSON During your visit today, we recorded the following information about you: Pulse Respiration Blood pressure Weight 66/minute 16/minute 112/77 122.4 kg Height 1.803 m Nisa RuizRAVINDRA 12/13/2021 10:34 AM Signed No concerns Has not had blood work done, patient is fasting today Nisa RuizRAVINDRA 12/13/2021 10:37 AM Signed Patient to hold x 1 then continue same dose, recheck 1 week Rhett Stevenson MD 12/13/2021 11:20 AM Signed VISIT TYPE: ANNUAL WELL VISIT Nursing Notes: Nisa Ruiz RAVINDRA 12/13/2021 10:34 AM Signed No concerns Has not had blood work done, patient is fasting today CHIEF COMPLAINT: Patient presents with: Physical HPI: Rogers Cortes is a 41 year old female here for an Annual Well Visit. No new issues/complaints. History reviewed below. Hypertension. Taking medication as prescribed. No medication side effects noted. Present for years. Condition has been well controlled since last visit. Average out of office BP has been 130/80. SLE. 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 She is still on [...] DUB. Had DANDC in 06/[address]iscoll. 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 Normal [facility] Absolute lymphocyte countOrd ered By: Dr. Griffith on 12-07-2021 Lymphocytes Auto (Unsp spec) [#/Vol] 1.84 10*3/uL 0.83-4.51 [facility] Basophil percentageOrdered B y: Dr. Griffith on 12-07-2021 Basophils/100 WBC (Bld) 0.6 % 0-1 [facility] Bilirubin [Mass/Vol] 0.20 mg/dL 0.20-1.00 [facility] Comment on above: For patients on eltr ombopag therapy, use of Dimension [place] TBIL is not recommended. Chloride [Moles/Vol] 107 mmol/L 98-107 [facility] Eosinophils/100 WBC (Bld) 2.5 % 0-5 [facility] Glucose [Mass/Vol] 90 mg/dL 74-106 [facility] Neutrophils (Bld) [#/Vol] 4.4 10*3/uL 2.0-7.7 [facility] Neutrophils/100 WBC (Bld) 62.5 % 47-70 [facility] Potassium [Moles/Vol] 3.5 mmol/L 3.5-5.1 [facility] Protein [Mass/Vol] 7.5 g/dL 6.4-8.2 [facility] Sodium [Moles/Vol] 140 mmol/L 136-145 [facility] WBC (Bld) [#/Vol] 7.1 10*3/uL 4.4-11.0 [facility] Bilirubin Test strip Ql (U)O rdered By: Dr. Griffith on 12-07-2021 Bilirubin Ql (U) Negative Negative [facility] Blood erythrocytes count (nu mber/volume)Ordered By: Dr. Griffith on 12-07-2021 RBC (Bld) [#/Vol] 4.78 10*6/uL 4.2-5.4 [facility] Blood hemoglobin measurement (mass/volume)Ordered By: Dr. Griffith on 12-07-2021 Hemoglobin (Bld) [Mass/Vol] 14.3 g/dL 12.0-15.0 [facility] Blood lymphocytes/100 leukoc ytesOrdered By: Dr. Griffith on 12-07-2021 Lymphocytes/100 WBC (Bld) 26.0 % 19-41 [facility] Blood monocytes/100 leukocyt esOrdered By: Dr. Griffith on 12-07-2021 Monocytes/100 WBC (Bld) 8.1 % 0-10 [facility] Blood platelet mean volumeOr dered By: Dr. Griffith on 12-07-2021 Platelet mean volume (Bld) [Entitic vol] 11.2 fL 6.2-12.0 [facility] Determination of erythrocyte mean corpuscular volume (MCV)Ordered By: Dr. Griffith on 12-07-2021 MCV (RBC) [Entitic vol] 89.1 fL 81-99 [facility] Hematocrit Auto (Bld) [Volum e fraction]Ordered By: Dr. Griffith on 12-07-2021 Hematocrit (Bld) [Volume fraction] 42.6 % 37-47 [facility] Ketones Test strip Ql (U)Ord ered By: Dr. Griffith on 12-07-2021 Ketones Ql (U) Negative Negative [facility] Laboratory - Chemistry and C hemistry - challengeOrdered By: Dr. Griffith on 12-07-2021 ALP [Catalytic activity/Vol] 87 U/L 45-117 [facility] ALT [Catalytic activity/Vol] 28 U/L 13-56 [facility] CO2 [Moles/Vol] 28.0 mmol/L 21.0-32.0 [facility] Globulin (S) [Mass/Vol] 4.0 g/dL 2.2-4.2 [facility] Urea nitrogen/Creatinine [Mass ratio] 32.8 mg/mg 10-20 [facility] Laboratory - Hematology and Cell countsOrdered By: Dr. Griffith on 12-07-2021 Erythrocyte distribution width (RBC) [Entitic vol] 41.7 fL 35.1-43.9 [facility] Erythrocyte distribution width (RBC) [Ratio] 12.8 % 11.6-14.6 [facility] Immature granulocytes/100 WBC (Bld) 0.300 % 0.0-0.9 [facility] Comment on above: IG% - Immature Granu locytes (promyelocytes, myelocytes and metamyelocytes) > 1% indicates that a LEFT SHIFT is Present. MCH (RBC) [Entitic mass] 29.9 pg 27.0-32.0 [facility] Nucleated RBC/100 WBC (Bld) [Ratio] 0 % 0-5 [facility] MCHC Auto (RBC) [Mass/Vol]Or dered By: Dr. Griffith on 12-07-2021 MCHC (RBC) [Mass/Vol] 33.6 g/dL 32-36 [facility] Nitrite Test strip Ql (U)Ord ered By: Dr. Griffith on 12-07-2021 Nitrite Ql (U) Negative Negative [facility] No Panel InformationOrdered By: Dr. Griffith on 12-07-2021 Estimated GFR (MDRD) Amer 157 mL/min >60 [facility] Comment on above: GFR Calc Estimated GFR (MDRD) Non-Af Amer 130 mL/min >60 [facility] Comment on above: Non- GFR Calc Platelets bldOrdered By: Dr. Griffith on 12-07-2021 Platelets (Bld) [#/Vol] 200 10*3/uL 150-450 [facility] Protein Test strip Ql (U)Ord ered By: Dr. Griffith on 12-07-2021 Protein Ql (U) 15 mg/dl Negative [facility] Serum or plasma albumin raj urement (mass/volume)Ordered By: Dr. Griffith on 12-07-2021 Albumin [Mass/Vol] 3.5 g/dL 3.2-5.0 [facility] Serum or plasma albumin/glob ulin mass ratioOrdered By: Dr. Griffith on 12-07-2021 Albumin/Globulin [Mass ratio] 0.9 {ratio} 0.9-2.4 [facility] Serum or plasma calcium raj urement (mass/volume)Ordered By: Dr. Griffith on 12-07-2021 Calcium [Mass/Vol] 8.8 mg/dL 8.5-10.1 [facility] Serum or plasma complement C 3 measurement (mass/volume)Ordered By: Dr. Griffith on 12-07-2021 Complement C3 [Mass/Vol] 113 mg/dL 82-167 [facility] Comment on above: Performed at: [facility] [id number] [place], [place] [id number] Director: Dionisio Guevara PhD, Phone: [phone] Serum or plasma complement C 4 measurement (mass/volume)Ordered By: Dr. Griffith on 12-07-2021 Complement C4 [Mass/Vol] 19 mg/dL 12-38 [facility] Serum or plasma creatinine m easurement (mass/volume)Ordered By: Dr. Griffith on 12-07-2021 Creatinine [Mass/Vol] 0.55 mg/dL 0.55-1.02 [facility] Comment on above: The validity of the calculated GFR & GFRAA in patients over 70 years has not been determined. Clinical correlation is essential. Serum or plasma urea nitroge n measurement (mass/volume)Ordered By: Dr. Griffith on 12-07-2021 Urea nitrogen [Mass/Vol] 18 mg/dL 7-18 [facility] Thin prep Papanicolaou smear with manual screeningOrdered By: Dr. Griffith on 12-07-2021 Thin prep Papanicolaou smear with manual screening 21 U/L 15-37 [facility] Thin prep Papanicolaou smear with manual screening 5 5-15 [facility] Urine blood detectionOrdered By: Dr. Griffith on 12-07-2021 RBC Ql (U) 10 /ul Negative [facility] Urine clarityOrdered By: Dr. Griffith on 12-07-2021 Clarity (U) Sl. Cloudy Clear [facility] Urine color determinationOrd ered By: Dr. Griffith on 12-07-2021 Color (U) Yellow Yellow [facility] Urine creatinine measurement (mass/volume)Ordered By: Dr. Griffith on 12-07-2021 Creatinine (U) [Mass/Vol] 108.00 mg/dL NO RANGE EST. [facility] Urine glucose detectionOrder ed By: Dr. Griffith on 12-07-2021 Glucose Ql (U) Normal mg/dl Normal [facility] Urine leukocyte esterase det ection by dipstickOrdered By: Dr. Griffith on 12-07-2021 Leukocyte esterase Test strip Ql (U) Negative Negative [facility] Urine pHOrdered By: Dr. Agustin patel on 12-07-2021 pH (U) 5.0 [pH] 5.0 - 8.0 [facility] Urine protein measurement (m ass/volume)Ordered By: Dr. Griffith on 12-07-2021 Protein (U) [Mass/Vol] 28.4 mg/dL 0.0-11.8 [facility] Urine protein/creatinine mas s ratioOrdered By: Dr. Griffith on 12-07-2021 Protein/Creatinine (U) [Mass ratio] 263 mg/g CRE 0-200 [facility] Urine specific gravity measu rementOrdered By: Dr. Griffith on 12-07-2021 Specific gravity (U) [Rel density] 1.025 1.002-1.030 [facility] Urobilinogen Auto test strip Ql (U)Ordered By: Dr. Griffith on 12-07-2021 Urobilinogen Ql (U) Normal mg/dl Normal [facility] CNNURSEon 11-29-2021 [facility] Nurse Visit (ANGELICATUS) -- ROGERS CORTES ([id number]) 1980 F Date Time Provider Department 11/29/21 11:15 AM [facility]SE [facility] During your visit today, we recorded the following information about you: Paty Matthew LPN 11/29/2021 11:00 AM Signed PT TO CONTINUE 10MG DAILY EXCEPT 5MG ON SATURDAYS Paty Matthew LPN 11/29/2021 11:29 AM Signed INR 1.9 no change RECHECK 2 WEEKS. Paty Matthew LPN Referring Provider: SELF [200] Allergies As of Date: 11/29/2021 Noted Allergy Reaction ADHESIVE 09/02/2021 16 - Unknown ADHESIVE TAPE-SILICONES 06/18/2018 2 - Rash DIDRONEL (ETIDRONATE DISODIUM) 11/06/2017 2 - Rash KEFLEX (CEPHALEXIN) 11/05/2017 4 - Hives LEVAQUIN (LEVOFLOXACIN) 11/05/2017 4 - Hives NORCO (HYDROCODONE-ACETAMINOPHEN ) 01/07/2021 4 - Hives Date Reviewed: 03/31/2021 Reviewed by: Anna Henning MA - Fully Assessed Primary Visit Diagnosis:Personal history of venous thrombosis and embolism [Z86.718] Order(s):INR FINGERSTICK B/O [[id number]] Order #: [id number] Prescriptions as of 11/29/2021 - predniSONE (DELTASONE) 10 mg tablet Take by mouth. - cefUROXime (CEFTIN) 250 mg tablet - phenytoin ER (DILANTIN) 100 mg ER capsule Take 2 capsules by mouth twice daily. - amLODIPine (NORVASC) 10 mg tablet Take 10 mg by mouth once daily. - mycophenolate Mofetil (CELLCEPT) 500 mg tablet Take 1,000 mg by mouth twice daily. - potassium chloride 20 mEq TbER Take 1 tablet by mouth once daily. - predniSONE (DELTASONE) 10 mg tablet as needed. - gabapentin (NEURONTIN) 300 mg capsule Take 300 mg by mouth daily at bedtime. - hydrOXYchloroQUINE (PLAQUENIL) 200 mg tablet Take 2 tablets by mouth once daily. - warfarin (COUMADIN) 10 mg tablet Take 10 mg by mouth daily as directed. - ferrous sulfate 325 mg (65 mg iron) tablet Take 325 mg by mouth daily with breakfast. 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 Follow-up and Disposition History for Encounter Date Provider Department Center 11/29/2021 [id number] [facility] Encounter Status:Closed by PATY MATTHEW on 11/29/21 [facility] CNNURSEon 11-15-2021 [facility] Nurse Visit (МАРИНА) -- ROGERS CORTES ([id number]) 1980 F Date Time Provider Department 11/15/21 11:15 AM [facility] NURSE [facility] During your visit today, we recorded the following information about you: Paty Matthew LPN 11/15/2021 11:07 AM Signed PT TO TAKE 10MG DAILY EXCEPT 5MG ON SATURDAYS Paty Matthew LPN 11/15/2021 11:17 AM Signed INR 1.8 increase TO 10MG DAILY EXCEPT 5MG SAT. RECHECK 2 WEEKS. Paty Matthew LPN Referring Provider: SELF [200] Allergies As of Date: 11/15/2021 Noted Allergy Reaction ADHESIVE 09/02/2021 16 - Unknown ADHESIVE TAPE-SILICONES 06/18/2018 2 - Rash DIDRONEL (ETIDRONATE DISODIUM) 11/06/2017 2 - Rash KEFLEX (CEPHALEXIN) 11/05/2017 4 - Hives LEVAQUIN (LEVOFLOXACIN) 11/05/2017 4 - Hives NORCO (HYDROCODONE-ACETAMINOPHEN ) 01/07/2021 4 - Hives Date Reviewed: 03/31/2021 Reviewed by: Anna Henning MA - Fully Assessed Primary Visit Diagnosis:Personal history of venous thrombosis and embolism [Z86.718] Order(s):INR FINGERSTICK B/O [[id number]] Order #: [id number] Prescriptions as of 11/15/2021 - predniSONE (DELTASONE) 10 mg tablet Take by mouth. - cefUROXime (CEFTIN) 250 mg tablet - phenytoin ER (DILANTIN) 100 mg ER capsule Take 2 capsules by mouth twice daily. - amLODIPine (NORVASC) 10 mg tablet Take 10 mg by mouth once daily. - mycophenolate Mofetil (CELLCEPT) 500 mg tablet Take 1,000 mg by mouth twice daily. - potassium chloride 20 mEq TbER Take 1 tablet by mouth once daily. - predniSONE (DELTASONE) 10 mg tablet as needed. - gabapentin (NEURONTIN) 300 mg capsule Take 300 mg by mouth daily at bedtime. - hydrOXYchloroQUINE (PLAQUENIL) 200 mg tablet Take 2 tablets by mouth once daily. - warfarin (COUMADIN) 10 mg tablet Take 10 mg by mouth daily as directed. - ferrous sulfate 325 mg (65 mg iron) tablet Take 325 mg by mouth daily with breakfast. 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 Follow-up and Disposition History for Encounter Date Provider Department Center 11/15/2021 [id number] NURSE SEA [facility] Encounter Status:Closed by PATY MATTHEW on 11/15/21 [facility] INR FINGERSTICK B/Oon 2021 INR Coag (Bld) [Relative time] 1.8 {INR} [facility] CNNURSEon 11-01-2021 [facility] Nurse Visit (МАРИНА) -- ROGERS CORTES ([id number]) 1980 F Date Time Provider Department 11/01/21 9:15 AM [facility] NURSE [facility] During your visit today, we recorded the following information about you: Paty Matthew LPN 11/01/2021 9:00 AM Signed PT TO TAKE 10MG DAILY EXCEPT 5MG SATURDAYS/SUNDAYS Paty Matthew LPN 11/01/2021 9:04 AM Signed INR 1.8 increase TO 10MG DAILY EXCEPT 5MG SAT/SUN. RECHECK 2 WEEKS. Paty Matthew LPN Referring Provider: SELF [200] Allergies As of Date: 11/01/2021 Noted Allergy Reaction ADHESIVE 09/02/2021 16 - Unknown ADHESIVE TAPE-SILICONES 06/18/2018 2 - Rash DIDRONEL (ETIDRONATE DISODIUM) 11/06/2017 2 - Rash KEFLEX (CEPHALEXIN) 11/05/2017 4 - Hives LEVAQUIN (LEVOFLOXACIN) 11/05/2017 4 - Hives NORCO (HYDROCODONE-ACETAMINOPHEN ) 01/07/2021 4 - Hives Date Reviewed: 03/31/2021 Reviewed by: Anna Henning MA - Fully Assessed Primary Visit Diagnosis:Personal history of venous thrombosis and embolism [Z86.718] Order(s):INR FINGERSTICK B/O [[id number]] Order #: [id number] Prescriptions as of 11/01/2021 - predniSONE (DELTASONE) 10 mg tablet Take by mouth. - cefUROXime (CEFTIN) 250 mg tablet - phenytoin ER (DILANTIN) 100 mg ER capsule Take 2 capsules by mouth twice daily. - amLODIPine (NORVASC) 10 mg tablet Take 10 mg by mouth once daily. - mycophenolate Mofetil (CELLCEPT) 500 mg tablet Take 1,000 mg by mouth twice daily. - potassium chloride 20 mEq TbER Take 1 tablet by mouth once daily. - predniSONE (DELTASONE) 10 mg tablet as needed. - gabapentin (NEURONTIN) 300 mg capsule Take 300 mg by mouth daily at bedtime. - hydrOXYchloroQUINE (PLAQUENIL) 200 mg tablet Take 2 tablets by mouth once daily. - warfarin (COUMADIN) 10 mg tablet Take 10 mg by mouth daily as directed. - ferrous sulfate 325 mg (65 mg iron) tablet Take 325 mg by mouth daily with breakfast. 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 Follow-up and Disposition History for Encounter Date Provider Department Center 11/01/2021 [id number] [facility] Encounter Status:Closed by PATY MATTHEW on 11/01/21 [facility] INR FINGERSTICK B/Oon 2021 INR Coag (Bld) [Relative time] 1.8 {INR} [facility] CNNURSEon 09-29-2021 [facility] Nurse Visit (МАРИНА) -- ROGERS CORTES ([id number]) 1980 F Date Time Provider Department 09/29/21 8:15 AM [facility] NURSE [facility] During your visit today, we recorded the following information about you: Paty Matthew LPN 09/29/2021 8:07 AM Signed PT TO CONTINUE 10MG DAILY EXCEPT 5MG WEDNESDAYS/SATURDAYS/ YS Paty Matthew LPN 09/29/2021 8:21 AM Signed INR 2.7 no change RECHECK 1 MONTH Paty Matthew LPN Referring Provider: SELF [200] Allergies As of Date: 09/29/2021 Noted Allergy Reaction ADHESIVE 09/02/2021 16 - Unknown ADHESIVE TAPE-SILICONES 06/18/2018 2 - Rash DIDRONEL (ETIDRONATE DISODIUM) 11/06/2017 2 - Rash KEFLEX (CEPHALEXIN) 11/05/2017 4 - Hives LEVAQUIN (LEVOFLOXACIN) 11/05/2017 4 - Hives NORCO (HYDROCODONE-ACETAMINOPHEN ) 01/07/2021 4 - Hives Date Reviewed: 03/31/2021 Reviewed by: Anna Henning MA - Fully Assessed Primary Visit Diagnosis:Personal history of venous thrombosis and embolism [Z86.718] Order(s):INR FINGERSTICK B/O [[id number]] Order #: [id number] Prescriptions as of 09/29/2021 - predniSONE (DELTASONE) 10 mg tablet Take by mouth. - cefUROXime (CEFTIN) 250 mg tablet - phenytoin ER (DILANTIN) 100 mg ER capsule Take 2 capsules by mouth twice daily. - amLODIPine (NORVASC) 10 mg tablet Take 10 mg by mouth once daily. - mycophenolate Mofetil (CELLCEPT) 500 mg tablet Take 1,000 mg by mouth twice daily. - potassium chloride 20 mEq TbER Take 1 tablet by mouth once daily. - predniSONE (DELTASONE) 10 mg tablet as needed. - gabapentin (NEURONTIN) 300 mg capsule Take 300 mg by mouth daily at bedtime. - hydrOXYchloroQUINE (PLAQUENIL) 200 mg tablet Take 2 tablets by mouth once daily. - warfarin (COUMADIN) 10 mg tablet Take 10 mg by mouth daily as directed. - ferrous sulfate 325 mg (65 mg iron) tablet Take 325 mg by mouth daily with breakfast. 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 Follow-up and Disposition History for Encounter Date Provider Department Center 09/29/2021 [id number] [facility]SE [facility] Encounter Status:Closed by PATY MATTHEW on 09/29/21 [facility] INR FINGERSTICK B/Oon 2021 INR Coag (Bld) [Relative time] 2.7 {INR} [facility] CNNURSEon 08-25-2021 [facility] Nurse Visit (ANGELICATUS) -- ROGERS CORTES ([id number]) 1980 F Date Time Provider [facility] During your visit today, we recorded the following information about you: Paty Matthew LPN 08/25/2021 3:08 PM Signed PT TO CONTINUE 10MG DAILY EXCEPT 5MG SUN/SUN/SUN Paty Matthew LPN 08/25/2021 3:58 PM Signed INR 2.1 no change RECHECK 1 MONTH Paty Matthew LPN Referring Provider: RHETT STEVENSON [[id number]] Allergies As of Date: 08/25/2021 Noted Allergy Reaction ADHESIVE TAPE-SILICONES 06/18/2018 2 - Rash DIDRONEL (ETIDRONATE DISODIUM) 11/06/2017 2 - Rash KEFLEX (CEPHALEXIN) 11/05/2017 4 - Hives LEVAQUIN (LEVOFLOXACIN) 11/05/2017 4 - Hives NORCO (HYDROCODONE-ACETAMINOPHEN ) 01/07/2021 4 - Hives Date Reviewed: 03/31/2021 Reviewed by: Anna Henning MA - Fully Assessed Primary Visit Diagnosis:Personal history of venous thrombosis and embolism [Z86.718] Order(s):INR FINGERSTICK B/O [[id number]] Order #: [id number] Prescriptions as of 08/25/2021 - predniSONE (DELTASONE) 10 mg tablet Take by mouth. - cefUROXime (CEFTIN) 250 mg tablet - phenytoin ER (DILANTIN) 100 mg ER capsule Take 2 capsules by mouth twice daily. - amLODIPine (NORVASC) 10 mg tablet Take 10 mg by mouth once daily. - mycophenolate Mofetil (CELLCEPT) 500 mg tablet Take 1,000 mg by mouth twice daily. - potassium chloride 20 mEq TbER Take 1 tablet by mouth once daily. - predniSONE (DELTASONE) 10 mg tablet as needed. - gabapentin (NEURONTIN) 300 mg capsule Take 300 mg by mouth daily at bedtime. - hydrOXYchloroQUINE (PLAQUENIL) 200 mg tablet Take 2 tablets by mouth once daily. - warfarin (COUMADIN) 10 mg tablet Take 10 mg by mouth daily as directed. - ferrous sulfate 325 mg (65 mg iron) tablet Take 325 mg by mouth daily with breakfast. 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 Follow-up and Disposition History for Encounter Date Provider Department Center 08/25/2021 [id number] NURSE TRUE*МАРИНА [facility] Encounter Status:Closed by PATY MATTHEW on 08/25/21 [facility] 07-27-2021 [facility] Telephone (ANGELICATUS) -- ROGERS CORTES ([id number]) 1980 F Date Time Provider Department 07/27/21 RHETT STEVENSON During your visit today, we recorded the following information about you: Paty Matthew LPN 07/27/2021 11:[address] STEVENSON CAN YOU PL[address] A STANDING ORDER FOR PROTIME PLEASE? Paty Matthew LPN Allergies As of Date: 07/27/2021 Noted Allergy Reaction ADHESIVE TAPE-SILICONES 06/18/2018 2 - Rash DIDRONEL (ETIDRONATE DISODIUM) 11/06/2017 2 - Rash KEFLEX (CEPHALEXIN) 11/05/2017 4 - Hives LEVAQUIN (LEVOFLOXACIN) 11/05/2017 4 - Hives NORCO (HYDROCODONE-ACETAMINOPHEN ) 01/07/2021 4 - Hives Date Reviewed: 03/31/2021 Reviewed by: Anna Henning MA - Fully Assessed Reason for Visit: Orders [681] Primary Visit Diagnosis:Personal history of venous thrombosis and embolism [Z86.718] Order(s):INR FINGERSTICK B/O [[id number]] Order #: [id number] STANDING Prescriptions as of 08/03/2021 - phenytoin ER (DILANTIN) 100 mg ER capsule Take 2 capsules by mouth twice daily. - amLODIPine (NORVASC) 10 mg tablet Take 10 mg by mouth once daily. - mycophenolate Mofetil (CELLCEPT) 500 mg tablet Take 1,000 mg by mouth twice daily. - potassium chloride 20 mEq TbER Take 1 tablet by mouth once daily. - predniSONE (DELTASONE) 10 mg tablet as needed. - gabapentin (NEURONTIN) 300 mg capsule Take 300 mg by mouth daily at bedtime. - hydrOXYchloroQUINE (PLAQUENIL) 200 mg tablet Take 2 tablets by mouth once daily. - warfarin (COUMADIN) 10 mg tablet Take 10 mg by mouth daily as directed. - ferrous sulfate 325 mg (65 mg iron) tablet Take 325 mg by mouth daily with breakfast. 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 : [birth year] Age: 41 Sex: F Acct: [id number] Loc: RAD MAMM Exam Date: 07/06/21 Status: REG CLI Radiology No.: Unit Number: [id number] Exam # Type/Exam [id number] MAMMO / SCREEN DIGITAL BREAST AURY #[id number] - SCREEN DIGITAL BREAST AURY BILATERAL FIRST EVER DIGITAL SCREENING MAMMOGRAM 3D/2D WITH CAD: 07/06/2021 CLINICAL: Baseline Screening. Comparison is made to exam dated: 07/29/2010 mammogram - [facility] [place]. There are scattered fibroglandular elements in both breasts. Current study was also evaluated with a Computer Aided Detection (CAD) system. No significant masses, calcifications, or other findings are seen in either breast. There has been no significant interval change. IMPRESSION: NEGATIVE There is no mammographic evidence of malignancy. A 1 year return mammogram is recommended.(07/07/2022) The patient was notified of the results. Electronically signed by: John Villalobos D.O. sws/aurelia:07/06/2021 08:06:49 Campus Safety Officer(s): Norman Hernandez RT(R)(M), [facility] BI-RADS: 1 Negative REPORT SIGNATURE ON FILE Reported By: JOHN VILLALOBOS D.O. << Signature on File>> Reported By: JOHN VILLALOBOS D.O. Signed By: JOHN VILLALOBOS D.O. Tests performed at: [address] [id number] Normal [facility] Absolute lymphocyte counton 06-14-2021 Lymphocytes Auto (Unsp spec) [#/Vol] 1.78 10*3/uL 0.83-4.51 [facility] Work Phone: Basophil percentageon 2021 Basophils/100 WBC (Bld) 0.4 % 0-1 [facility] Work Phone: Bilirubin [Mass/Vol] 0.20 mg/dL 0.20-1.00 [facility] Work Phone: Comment on above: For patients on eltr ombopag therapy, use of [employer] [place] TBIL is not recommended. Chloride [Moles/Vol] 106 mmol/L 98-107 [facility] Work Phone: Eosinophils/100 WBC (Bld) 3.0 % 0-5 [facility] Work Phone: Glucose [Mass/Vol] 85 mg/dL 74-106 [facility] Work Phone: Neutrophils (Bld) [#/Vol] 4.5 10*3/uL 2.0-7.7 [facility] Work Phone: Neutrophils/100 WBC (Bld) 64.3 % 47-70 [facility] Work Phone: Potassium [Moles/Vol] 3.7 mmol/L 3.5-5.1 [facility] Work Phone: Protein [Mass/Vol] 7.3 g/dL 6.4-8.2 [facility] Work Phone: Sodium [Moles/Vol] 141 mmol/L 136-145 [facility] Work Phone: WBC (Bld) [#/Vol] 6.9 10*3/uL 4.4-11.0 [facility] Work Phone: Bilirubin Test strip Ql (U)o n 06-14-2021 Bilirubin Ql (U) Negative Negative [facility] Work Phone: Blood erythrocytes count (nu mber/volume)on 06-14-2021 RBC (Bld) [#/Vol] 4.90 10*6/uL 4.2-5.4 [facility]: Blood hemoglobin measurement (mass/volume)on 06-14-2021 Hemoglobin (Bld) [Mass/Vol] 14.1 g/dL 12.0-15.0 [facility] Work Phone: Blood lymphocytes/100 leukoc yteson 06-14-2021 Lymphocytes/100 WBC (Bld) 25.7 % 19-41 [facility] Work Phone: [phone] Blood monocytes/100 leukocyt eson 06-14-2021 Monocytes/100 WBC (Bld) 6.2 % 0-10 [facility] Work Phone: Blood platelet mean volumeon 06-14-2021 Platelet mean volume (Bld) [Entitic vol] 10.7 fL 6.2-12.0 [facility] Work Phone: Determination of erythrocyte mean corpuscular volume (MCV)on 06-14-2021 MCV (RBC) [Entitic vol] 87.6 fL 81-99 [facility] Work Phone: Hematocrit Auto (Bld) [Volum e fraction]on 06-14-2021 Hematocrit (Bld) [Volume fraction] 42.9 % 37-47 [facility] Work Phone: Ketones Test strip Ql (U)on 06-14-2021 Ketones Ql (U) Negative Negative [facility] Work Phone: Laboratory - Chemistry and C hemistry - challengeon 06-14-2021 ALP [Catalytic activity/Vol] 72 U/L 45-117 [facility] Work Phone: ALT [Catalytic activity/Vol] 34 U/L 13-56 [facility] Work Phone: CO2 [Moles/Vol] 27.0 mmol/L 21.0-32.0 [facility] Work Phone: Globulin (S) [Mass/Vol] 3.6 g/dL 2.2-4.2 [facility] Work Phone: Urea nitrogen/Creatinine [Mass ratio] 28.3 mg/mg 10-20 [facility] Work Phone: Laboratory - Hematology and Cell countson 06-14-2021 Erythrocyte distribution width (RBC) [Entitic vol] 39.8 fL 35.1-43.9 [facility] Work Phone: Erythrocyte distribution width (RBC) [Ratio] 12.4 % 11.6-14.6 [facility] Work Phone: Immature granulocytes/100 WBC (Bld) 0.400 % 0.0-0.9 [facility] Work Phone: Comment on above: IG% - Immature Granu locytes (promyelocytes, myelocytes and metamyelocytes) > 1% indicates that a LEFT SHIFT is Present. MCH (RBC) [Entitic mass] 28.8 pg 27.0-32.0 [facility] Work Phone: Nucleated RBC/100 WBC (Bld) [Ratio] 0 % 0-5 [facility] Work Phone: MCHC Auto (RBC) [Mass/Vol]on 06-14-2021 MCHC (RBC) [Mass/Vol] 32.9 g/dL 32-36 [facility] Work Phone: Nitrite Test strip Ql (U)on 06-14-2021 Nitrite Ql (U) Negative Negative [facility] Work Phone: No Panel Informationon 06-14 Estimated GFR (MDRD) Amer 133 mL/min >60 [facility] Work Phone: Comment on above: GFR Calc Estimated GFR (MDRD) Non-Af Amer 110 mL/min >60 [facility] Work Phone: Comment on above: Non- GFR Calc Platelets bldon 06-14-2021 Platelets (Bld) [#/Vol] 220 10*3/uL 150-450 [facility] Work Phone: Protein Test strip Ql (U)on 06-14-2021 Protein Ql (U) 15 mg/dl Negative [facility] Work Phone: Serum or plasma albumin raj urement (mass/volume)on 06-14-2021 Albumin [Mass/Vol] 3.7 g/dL 3.2-5.0 [facility] Work Phone: Serum or plasma albumin/glob ulin mass ratioon 06-14-2021 Albumin/Globulin [Mass ratio] 1.0 {ratio} 0.9-2.4 [facility] Work Phone: Serum or plasma calcium raj urement (mass/volume)on 06-14-2021 Calcium [Mass/Vol] 9.1 mg/dL 8.5-10.1 [facility] Work Phone: Serum or plasma creatinine m easurement (mass/volume)on 06-14-2021 Creatinine [Mass/Vol] 0.64 mg/dL 0.55-1.02 [facility] Work Phone: Comment on above: The validity of the calculated GFR & GFRAA in patients over 70 years has not been determined. Clinical correlation is essential. Serum or plasma urea nitroge n measurement (mass/volume)on 06-14-2021 Urea nitrogen [Mass/Vol] 18 mg/dL 7-18 [facility] Work Phone: Thin prep Papanicolaou smear with manual screeningon 06-14-2021 Thin prep Papanicolaou smear with manual screening 29 U/L 15-37 [facility] Work Phone: Thin prep Papanicolaou smear with manual screening 8 5-15 [facility] Work Phone: Urine blood detectionon 06-05 RBC Ql (U) 10 /ul Negative [facility] Work Phone: Urine clarityon 06-14-2021 Clarity (U) Cloudy Clear [facility] Work Phone: Urine color determinationon 06-14-2021 Color (U) Yellow Yellow [facility] Work Phone: Urine creatinine measurement (mass/volume)on 06-14-2021 Creatinine (U) [Mass/Vol] 120.00 mg/dL NO RANGE EST. [facility] Work Phone: Urine glucose detectionon Glucose Ql (U) Normal mg/dl Normal [facility] Work Phone: Urine leukocyte esterase det ection by dipstickon 06-14-2021 Leukocyte esterase Test strip Ql (U) 25 /ul Negative [facility] Work Phone: Urine pHon 06-14-2021 pH (U) 5.0 [pH] [facility] Work Phone: Urine protein measurement (m ass/volume)on 06-14-2021 Protein (U) [Mass/Vol] 30.4 mg/dL 0.0-11.8 [facility] Work Phone: Urine protein/creatinine mas s ratioon 06-14-2021 Protein/Creatinine (U) [Mass ratio] 253 mg/g CRE 0-200 [facility] Work Phone: Urine specific gravity measu rementon 06-14-2021 Specific gravity (U) [Rel density] 1.025 [facility] Work Phone: Urobilinogen Auto test strip Ql (U)on 06-14-2021 Urobilinogen Ql (U) Normal mg/dl Normal [facility] Work Phone: [phone] Absolute lymphocyte counton 03-14-2021 Lymphocytes Auto (Unsp spec) [#/Vol] 1.92 10*3/uL 0.83-4.51 [facility] Work Phone: Basophil percentageon 2021 Basophils/100 WBC (Bld) 0.5 % 0-1 [facility] Work Phone: Bilirubin [Mass/Vol] 0.20 mg/dL 0.20-1.00 [facility] Work Phone: Comment on above: For patients on eltr ombopag therapy, use of Dimension [place] TBIL is not recommended. Chloride [Moles/Vol] 107 mmol/L 98-107 [facility] Work Phone: [phone] Eosinophils/100 WBC (Bld) 3.7 % 0-5 [facility] Work Phone: Glucose [Mass/Vol] 82 mg/dL 74-106 [facility] Work Phone: [phone] Neutrophils (Bld) [#/Vol] 5.3 10*3/uL 2.0-7.7 [facility] Work Phone: Neutrophils/100 WBC (Bld) 65.5 % 47-70 [facility] Work Phone: [phone] Potassium [Moles/Vol] 3.3 mmol/L 3.5-5.1 [facility] Work Phone: Protein [Mass/Vol] 7.4 g/dL 6.4-8.2 [facility] Work Phone: Sodium [Moles/Vol] 140 mmol/L 136-145 [facility] Work Phone: WBC (Bld) [#/Vol] 8.1 10*3/uL 4.4-11.0 [facility] Work Phone: Bilirubin Test strip Ql (U)o n 03-14-2021 Bilirubin Ql (U) Negative Negative [facility] Work Phone: Blood erythrocytes count (nu mber/volume)on 03-14-2021 RBC (Bld) [#/Vol] 4.47 10*6/uL 4.2-5.4 [facility] Work Phone: Blood hemoglobin measurement (mass/volume)on 03-14-2021 Hemoglobin (Bld) [Mass/Vol] 13.2 g/dL 12.0-15.0 [facility] Work Phone: Blood lymphocytes/100 leukoc yteson 03-14-2021 Lymphocytes/100 WBC (Bld) 23.6 % 19-41 [facility] Work Phone: Blood monocytes/100 leukocyt eson 03-14-2021 Monocytes/100 WBC (Bld) 6.3 % 0-10 [facility] Work Phone: Blood platelet mean volumeon 03-14-2021 Platelet mean volume (Bld) [Entitic vol] 10.5 fL 6.2-12.0 [facility] Work Phone: Determination of erythrocyte mean corpuscular volume (MCV)on 03-14-2021 MCV (RBC) [Entitic vol] 87.9 fL 81-99 [facility] Work Phone: Hematocrit Auto (Bld) [Volum e fraction]on 03-14-2021 Hematocrit (Bld) [Volume fraction] 39.3 % 37-47 [facility] Work Phone: Ketones Test strip Ql (U)on 03-14-2021 Ketones Ql (U) Negative Negative [facility] Work Phone: Laboratory - Chemistry and C hemistry - challengeon 03-14-2021 ALP [Catalytic activity/Vol] 72 U/L 45-117 [facility] Work Phone: ALT [Catalytic activity/Vol] 32 U/L 13-56 [facility] Work Phone: CO2 [Moles/Vol] 25.0 mmol/L 21.0-32.0 [facility] Work Phone: Globulin (S) [Mass/Vol] 4.0 g/dL 2.2-4.2 [facility] Work Phone: Urea nitrogen/Creatinine [Mass ratio] 27.1 mg/mg 10-20 [facility] Work Phone: Laboratory - Hematology and Cell countson 03-14-2021 Erythrocyte distribution width (RBC) [Entitic vol] 44.3 fL 35.1-43.9 [facility] Work Phone: Erythrocyte distribution width (RBC) [Ratio] 14.0 % 11.6-14.6 [facility] Work Phone: Immature granulocytes/100 WBC (Bld) 0.400 % 0.0-0.9 [facility] Work Phone: Comment on above: IG% - Immature Granu locytes (promyelocytes, myelocytes and metamyelocytes) > 1% indicates that a LEFT SHIFT is Present. MCH (RBC) [Entitic mass] 29.5 pg 27.0-32.0 [facility] Work Phone: Nucleated RBC/100 WBC (Bld) [Ratio] 0 % 0-5 [facility] Work Phone: MCHC Auto (RBC) [Mass/Vol]on 03-14-2021 MCHC (RBC) [Mass/Vol] 33.6 g/dL 32-36 [facility] Work Phone: Nitrite Test strip Ql (U)on 03-14-2021 Nitrite Ql (U) Negative Negative [facility] Work Phone: No Panel Informationon 03-14 Estimated GFR (MDRD) Amer 156 mL/min >60 [facility] Work Phone: Comment on above: GFR Calc Estimated GFR (MDRD) Non-Af Amer 129 mL/min >60 [facility] Work Phone: Comment on above: Non- GFR Calc Platelets bldon 03-14-2021 Platelets (Bld) [#/Vol] 199 10*3/uL 150-450 [facility] Work Phone: Protein Test strip Ql (U)on 03-14-2021 Protein Ql (U) 15 mg/dl Negative [facility] Work Phone: Serum or plasma albumin raj urement (mass/volume)on 03-14-2021 Albumin [Mass/Vol] 3.4 g/dL 3.2-5.0 [facility] Work Phone: Serum or plasma albumin/glob ulin mass ratioon 03-14-2021 Albumin/Globulin [Mass ratio] 0.8 {ratio} 0.9-2.4 [facility] Work Phone: Serum or plasma calcium raj urement (mass/volume)on 03-14-2021 Calcium [Mass/Vol] 8.6 mg/dL 8.5-10.1 [facility] Work Phone: Serum or plasma complement C 3 measurement (mass/volume)on 03-14-2021 Complement C3 [Mass/Vol] 99 mg/dL [facility] Work Phone: Comment on above: Performed at: [address] [id number] Director: Dionisio Guevara PhD, Phone: [phone] Serum or plasma complement C 4 measurement (mass/volume)on 03-14-2021 Complement C4 [Mass/Vol] 12 mg/dL [facility] Work Phone: Serum or plasma creatinine m easurement (mass/volume)on 03-14-2021 Creatinine [Mass/Vol] 0.55 mg/dL 0.55-1.02 [facility] Work Phone: Comment on above: The validity of the calculated GFR & GFRAA in patients over 70 years has not been determined. Clinical correlation is essential. Serum or plasma urea nitroge n measurement (mass/volume)on 03-14-2021 Urea nitrogen [Mass/Vol] 15 mg/dL 7-18 [facility] Work Phone: Thin prep Papanicolaou smear with manual screeningon 03-14-2021 Thin prep Papanicolaou smear with manual screening 24 U/L 15-37 [facility] Work Phone: Thin prep Papanicolaou smear with manual screening 8 5-15 [facility] Work Phone: Urine blood detectionon RBC Ql (U) Negative Negative [facility] Work Phone: Urine clarityon 03-14-2021 Clarity (U) Sl. Cloudy Clear [facility] Work Phone: Urine color determinationon 03-14-2021 Color (U) Yellow Yellow [facility] Work Phone: Urine creatinine measurement (mass/volume)on 03-14-2021 Creatinine (U) [Mass/Vol] 94.30 mg/dL NO RANGE EST. [facility] Work Phone: Urine glucose detectionon Glucose Ql (U) Normal mg/dl Normal [facility] Work Phone: Urine leukocyte esterase det ection by dipstickon 03-14-2021 Leukocyte esterase Test strip Ql (U) Negative Negative [facility] Work Phone: Urine pHon 03-14-2021 pH (U) 5.0 [pH] [facility] Work Phone: Urine protein measurement (m ass/volume)on 03-14-2021 Protein (U) [Mass/Vol] 24.1 mg/dL 0.0-11.8 [facility] Work Phone: Urine protein/creatinine mas s ratioon 03-14-2021 Protein/Creatinine (U) [Mass ratio] 256 mg/g CRE 0-200 [facility] Work Phone: Urine specific gravity measu rementon 03-14-2021 Specific gravity (U) [Rel density] 1.020 [facility] Work Phone: Urobilinogen Auto test strip Ql (U)on 03-14-2021 Urobilinogen Ql (U) Normal mg/dl Normal [facility] Work Phone: C3on 03-01-2021 C3 109 mg/dL Normal 82-167 [facility] Comment on above: Result Comment: Perf ormed at: CB - [facility] [address] [id number] [employer]: Dionisio Guevara PhD, Phone: [phone] Performed By: #### L 800.0350, L800.0330 #### [place] [address] C4on 03-01-2021 C4 13 mg/dL Normal 12-38 [facility] Comment on above: Performed By: #### L 800.0350, L800.0330 #### [place] [address] BMPon 02-25-2021 Anion gap [Moles/Vol] 16.1 mmol/L Normal 15-22 [facility] Comment on above: Performed By: #### L 100.0010 #### [facility] - [facility] [address] [place] [address] Calcium [Mass/Vol] 9.1 mg/dL Normal 8.6-10.0 [facility] Comment on above: Performed By: #### L 100.0010 #### [facility] - [facility] [address] [place] [address] Chloride [Moles/Vol] 104 mmol/L Normal 98-107 [facility] Comment on above: Performed By: #### L 100.0010 #### [facility] [address] [place] [address]290 CO2 [Moles/Vol] 25 mmol/L Normal 22-29 [facility] Comment on above: Performed By: #### L 100.0010 #### [facility] [address] [place] [address]133 Creatinine [Mass/Vol] 0.46 mg/dL Low 0.50-0.90 [facility] Comment on above: Performed By: #### L 100.0010 #### [facility] [address] [place] [address]363 eGFR if AFR LENNY > 60 ml/min/1.73m2 Normal [facility] Comment on above: Result Comment: eGFR >= 60 Indicates normal kidney function. * eGFR IS AN ESTIMATE * (AFR LENNY = ) (non-AFR AM = NON-) MDRD calculation used in the eGFR should not be used to dose medications. For further limitations of the eGFR please refer to the Physician Website or the National Kidney Disease Education Program website (www.nkdep.nih.gov). Performed By: #### L 100.0010 #### ML [facility] [address] [place] [address] 03341 eGFR nonAFR Lenny > 60 ml/Min/1.73m2 Normal [facility] Comment on above: Performed By: #### L 100.0010 #### [facility] [address] [place] [address]272 Glucose [Mass/Vol] 80 mg/dL Normal 74-106 [facility] Comment on above: Performed By: #### L 100.0010 #### [facility] [address] [place] [address] 99586 Potassium [Moles/Vol] 3.1 mmol/L Low 3.5-5.0 [facility] Comment on above: Performed By: #### L 100.0010 #### [facility] [address] [place] [address] 09868 Sodium [Moles/Vol] 142 mmol/L Normal 135-145 [facility] Comment on above: Performed By: #### L 100.0010 #### [facility] [address] [place] [address] 62991 Urea nitrogen [Mass/Vol] 11 mg/dL Normal 6-20 [facility] Comment on above: Performed By: #### L 100.0010 #### [facility] [address] [place] [address] 48047 CBC NO DIFon 02-25-2021 Erythrocyte distribution width (RBC) [Ratio] 13.8 % Normal 12.5-15.7 [facility] Comment on above: Performed By: #### L 200.1500, L200.0005 #### [facility] [address] [place] [address] 08723 Hematocrit (Bld) [Volume fraction] 35.9 % Low 36.0-48.0 [facility] Comment on above: Performed By: #### L 200.1500, L200.0005 #### [facility] [address] [place] [address]244 Hemoglobin (Bld) [Mass/Vol] 11.9 g/dL Low 12.0-16.0 [facility] Comment on above: Performed By: #### L 200.1500, L200.0005 #### [facility] [address] [place] [address] 37747 MCH (RBC) [Entitic mass] 28.7 pg Normal 28.5-32.9 [facility] Comment on above: Performed By: #### L 200.1500, L200.0005 #### [facility] [address] [place] [address] 25535 MCHC (RBC) [Mass/Vol] 33.1 g/dL Normal 33.0-36.0 [facility] Comment on above: Performed By: #### L 200.1500, L200.0005 #### [facility] [address] [place] [address] 33694 MCV (RBC) [Entitic vol] 86.6 fL Normal 80.0-99.0 [facility] Comment on above: Performed By: #### L 200.1500, L200.0005 #### [facility] [address] [place] [address] 41244 Platelet mean volume (Bld) [Entitic vol] 8.6 fL Normal 7.5-9.5 [facility] Comment on above: Performed By: #### L 200.1500, L200.0005 #### [facility] [address] [place] [address] 73059 PLT 236 X10(3) Normal 150-450 [facility] Comment on above: Performed By: #### L 200.1500, L200.0005 #### [facility] [address] [place] [address] 84399 RBC 4.14 x10(6) Normal 3.30-5.00 [facility] Comment on above: Performed By: #### L 200.1500, L200.0005 #### [facility] [address] [place] [address] 17753 WBCHS 7.2 x10(3) Normal 4.5-10.0 [facility] Comment on above: Performed By: #### L 200.1500, L200.0005 #### [facility] [address] [place] [address] 08491 ESRon 02-25-2021 ESR (Bld) [Velocity] 19 mm/h Normal 0-20 [facility] Comment on above: Performed By: #### L 200.1500, L200.0005 #### [facility] [address] [place] [address] 54269 URINE CREATININon 02-25-2021 URINE CREATININ 74.6 mg/dL Normal 28-217 [facility] Comment on above: Performed By: #### L 100.0780, L100.0800 #### [facility] [address] [place] [address] 78498 URINE PROT RNDMon 02-25-2021 URINE PROT RNDM 8.3 mg/dL Normal 0-15 [facility] Comment on above: Performed By: #### L 100.0780, L100.0800 #### [facility] [address] [place] [address] 16238 FREE PHENYTOINon 12-14-2021 FREE PHENYTOIN SEE SEPARATE REPORT Normal U [facility] Comment on above: Result Comment: Test performed at: [facility] () [address] [address] RAY LARSON MD Performed By: #### L 100.0780, L100.0800 #### [facility] [address] [place] [address] 11119 DILANTINon 01-14-2021 DILANTIN 6.3 ug/mL Low 11-24 [facility] Comment on above: Performed By: #### L 100.0560 #### [facility] [address] [place] [address] 74683 CBCon 12-01-2020 BASO# 0.00 x10(3) Normal 0.00-0.10 [facility] Comment on above: Performed By: #### L 200.0010 #### ML [facility] [address] [place] [address] 89166 Basophils/100 WBC (Bld) 0.5 % Normal 0.0-1.0 [facility] Comment on above: Performed By: #### L 200.0010 #### [facility] [address] [place] [address] 38071 EOS# 0.20 x10(3) Normal 0.00-0.54 [facility] Comment on above: Performed By: #### L 200.0010 #### [facility] [address] [place] [address] 34967 Eosinophils/100 WBC (Bld) 3.1 % Normal 0.5-4.9 [facility] Comment on above: Performed By: #### L 200.0010 #### [facility] [address] [place] [address] 95218 Erythrocyte distribution width (RBC) [Ratio] 13.9 % Normal 12.5-15.7 [facility] Comment on above: Performed By: #### L 200.0010 #### ML [facility] [address] [place] [address] 81027 Hematocrit (Bld) [Volume fraction] 42.9 % Normal 36.0-48.0 [facility] Comment on above: Performed By: #### L 200.0010 #### ML [facility] [address] [place] [address] 43967 Hemoglobin (Bld) [Mass/Vol] 13.9 g/dL Normal 12.0-16.0 [facility] Comment on above: Performed By: #### L 200.0010 #### [facility] [address] [place] [address] 77072 LYMPH# 1.30 x10(3) Normal 1.00-3.50 [facility] Comment on above: Performed By: #### L 200.0010 #### ML [facility] [address] [place] [address] 67613 Lymphocytes/100 WBC (Bld) 20.8 % Normal 16.0-48.0 [facility] Comment on above: Performed By: #### L 200.0010 #### ML [facility] [address] [place] [address] 76180 MCH (RBC) [Entitic mass] 28.3 pg Low 28.5-32.9 [facility] Comment on above: Performed By: #### L 200.0010 #### [facility] [address] [place] [address] 14354 MCHC (RBC) [Mass/Vol] 32.4 g/dL Low 33.0-36.0 [facility] Comment on above: Performed By: #### L 200.0010 #### [facility] [address] [place] [address] 72773 MCV (RBC) [Entitic vol] 87.3 fL Normal 80.0-99.0 [facility] Comment on above: Performed By: #### L 200.0010 #### [facility] [address] [place] [address] 48110 MONO# 0.50 x10(3) Normal 0.30-0.80 [facility] Comment on above: Performed By: #### L 200.0010 #### [facility] [address] [place] [address] 24177 Monocytes/100 WBC (Bld) 8.1 % Normal 4.3-11.2 [facility] Comment on above: Performed By: #### L 200.0010 #### [facility] [address] [place] [address] 89936 NEUT# 4.30 x10(3) Normal 1.40-6.50 [facility] Comment on above: Performed By: #### L 200.0010 #### [facility] [address] [place] [address] 92446 Neutrophils/100 WBC (Bld) 67.5 % Normal 45.0-73.0 [facility] Comment on above: Performed By: #### L 200.0010 #### [facility] [address] [place] [address] 49801 Platelet mean volume (Bld) [Entitic vol] 9.4 fL Normal 7.5-9.5 [facility] Comment on above: Performed By: #### L 200.0010 #### [facility] [address] [place] [address] 02724 PLT 168 X10(3) Normal 150-450 [facility] Comment on above: Performed By: #### L 200.0010 #### [facility] [address] [place] [address] 27881 RBC 4.92 x10(6) Normal 3.30-5.00 [facility] Comment on above: Performed By: #### L 200.0010 #### [facility] [address] [place] [address] 65015 WBC 6.4 x10(3) Normal 4.5-10.0 [facility] Comment on above: Performed By: #### L 200.0010 #### [facility] [address] [place] [address] 35303 CMPon 12-01-2020 A:G RATIO 1.44 Normal 1.1-2.5 [facility] Comment on above: Performed By: #### L 100.0560, L100.0005 #### [facility] [address] [place] [address] 98440 Albumin [Mass/Vol] 3.9 g/dL Normal 3.5-5.2 [facility] Comment on above: Performed By: #### L 100.0560, L100.0005 #### [facility] [address] [place] [address] 97330 ALK. PHOS 76 U/L Normal 35-105 [facility] Comment on above: Performed By: #### L 100.0560, L100.0005 #### [facility] [address] [place] [address] 61920 ALT [Catalytic activity/Vol] 23 U/L Normal 5-33 [facility] Comment on above: Performed By: #### L 100.0560, L100.0005 #### [facility] [address] [place] [address] 83255 Anion gap [Moles/Vol] 13.7 mmol/L Low 15-22 [facility] Comment on above: Performed By: #### L 100.0560, L100.0005 #### [facility] [address] [place] [address] 01645 AST [Catalytic activity/Vol] 23 U/L Normal 5-32 [facility] Comment on above: Performed By: #### L 100.0560, L100.0005 #### [facility] [address] [place] [address] 87628 Bilirubin [Mass/Vol] mg/dL Normal 0.2-1.2 [facility] Comment on above: Performed By: #### L 100.0560, L100.0005 #### [facility] [address] [place] [address] 09870 Calcium [Mass/Vol] 8.8 mg/dL Normal 8.6-10.0 [facility] Comment on above: Performed By: #### L 100.0560, L100.0005 #### [facility] [address] [place] [address] 87433 Chloride [Moles/Vol] 103 mmol/L Normal 98-107 [facility] Comment on above: Performed By: #### L 100.0560, L100.0005 #### [facility] [address] [place] [address] 70607 CO2 [Moles/Vol] 29 mmol/L Normal 22-29 [facility] Comment on above: Performed By: #### L 100.0560, L100.0005 #### [facility] [address] [place] [address] 64518 Creatinine [Mass/Vol] 0.56 mg/dL Normal 0.50-0.90 [facility] Comment on above: Performed By: #### L 100.0560, L100.0005 #### ML - LABORATORY [address] [place] [address] 71517 eGFR if AFR LENNY > 60 ml/min/1.73m2 [facility] Comment on above: Result Comment: eGFR >= 60 Indicates normal kidney function. * eGFR IS AN ESTIMATE * (AFR LENNY = ) (non-AFR AM = NON-) MDRD calculation used in the eGFR should not be used to dose medications. For further limitations of the eGFR please refer to the Physician Website or the National Kidney Disease Education Program website (www.nkdep.nih.gov). Performed By: #### L 100.0560, L100.0005 #### [facility] - LABORATORY [address] [place] [address] 75671 eGFR nonAFR Lenny > 60 ml/Min/1.73m2 [facility] Comment on above: Performed By: #### L 100.0560, L100.0005 #### [facility] - LABORATORY [address] [place] [address] 95309 Globulin (S) [Mass/Vol] 2.7 g/dL Normal 1.5-4.5 [facility] Comment on above: Performed By: #### L 100.0560, L100.0005 #### [facility] - LABORATORY [address] [place] [address] 72045 Glucose [Mass/Vol] 92 mg/dL Normal 74-106 [facility] Comment on above: Performed By: #### L 100.0560, L100.0005 #### ML - LABORATORY [address] [place] [address] 46548 Potassium [Moles/Vol] 4.7 mmol/L Normal 3.5-5.0 [facility] Comment on above: Performed By: #### L 100.0560, L100.0005 #### [facility] - LABORATORY [address] [place] [address] 14105 Protein [Mass/Vol] 6.6 g/dL Normal 6.4-8.3 [facility] Comment on above: Performed By: #### L 100.0560, L100.0005 #### [facility] - LABORATORY [address] [place] [address] 57296 Sodium [Moles/Vol] 141 mmol/L Normal 135-145 [facility] Comment on above: Performed By: #### L 100.0560, L100.0005 #### ML - LABORATORY [address] [place] [address] 18603 Urea nitrogen [Mass/Vol] 13 mg/dL Normal 6-20 [facility] Comment on above: Performed By: #### L 100.0560, L100.0005 #### ML - LABORATORY [address] [place] [address] 26456 DILANTINon 12-01-2020 DILANTIN 4.9 ug/mL Low - [facility] Comment on above: Performed By: #### L 100.0560, L100.0005 #### [facility] - LABORATORY [address] [place] [address] 09641 BMPon 08-05-2020 Anion gap [Moles/Vol] 12.7 mmol/L Low 15-22 [facility] Comment on above: Performed By: #### L 100.0010 #### ML - LABORATORY [address] [place] [address] 81823 Calcium [Mass/Vol] 8.9 mg/dL Normal 8.6-10.0 [facility] Comment on above: Performed By: #### L 100.0010 #### ML - LABORATORY [address] [place] [address] 68721 Chloride [Moles/Vol] 107 mmol/L Normal 98-107 [facility] Comment on above: Performed By: #### L 100.0010 #### - LABORATORY [address] [place] [address] 97622 CO2 [Moles/Vol] 26 mmol/L Normal 22-29 [facility] Comment on above: Performed By: #### L 100.0010 #### ML - LABORATORY [address] [place] [address] 93654 Creatinine [Mass/Vol] 0.58 mg/dL Normal 0.50-0.90 [facility] Comment on above: Performed By: #### L 100.0010 #### ML [facility] [address] [place] [address] 87728 eGFR if AFR LENNY > 60 ml/min/1.73m2 [facility] Comment on above: Result Comment: eGFR >= 60 Indicates normal kidney function. * eGFR IS AN ESTIMATE * (AFR LENNY = ) (non-AFR AM = NON-) MDRD calculation used in the eGFR should not be used to dose medications. For further limitations of the eGFR please refer to the Physician Website or the National Kidney Disease Education Program website (www.nkdep.nih.gov). Performed By: #### L 100.0010 #### ML [facility] [address] [place] [address] 41192 eGFR nonAFR Lenny > 60 ml/Min/1.73m2 [facility] Comment on above: Performed By: #### L 100.0010 #### ML [facility] [address] [place] [address] 17735 Glucose [Mass/Vol] 76 mg/dL Normal 74-106 [facility] Comment on above: Performed By: #### L 100.0010 #### ML [facility] [address] [place] [address] 72828 Potassium [Moles/Vol] 3.7 mmol/L Normal 3.5-5.0 [facility] Comment on above: Performed By: #### L 100.0010 #### ML - LABORATORY [address] [place] [address] 93251 Sodium [Moles/Vol] 142 mmol/L Normal 135-145 [facility] Comment on above: Performed By: #### L 100.0010 #### ML [facility] [address] [place] [address] 68974 Urea nitrogen [Mass/Vol] 14 mg/dL Normal 6-20 [facility] Comment on above: Performed By: #### L 100.0010 #### ML [facility] [address] [place] [address] 08105 CBC NO DIFon 08-05-2020 Erythrocyte distribution width (RBC) [Ratio] 14.0 % Normal 12.5-15.7 [facility] Comment on above: Performed By: #### L 100.0780, L100.0800 #### ML - LABORATORY [address] [place] [address] 38064 Hematocrit (Bld) [Volume fraction] 40.0 % Normal 36.0-48.0 [facility] Comment on above: Performed By: #### L 100.0780, L100.0800 #### ML - LABORATORY [address] [place] [address] 29519 Hemoglobin (Bld) [Mass/Vol] 13.4 g/dL Normal 12.0-16.0 [facility] Comment on above: Performed By: #### L 100.0780, L100.0800 #### ML - LABORATORY [address] [place] [address] 06866 MCH (RBC) [Entitic mass] 29.5 pg Normal 28.5-32.9 [facility] Comment on above: Performed By: #### L 100.0780, L100.0800 #### ML - LABORATORY [address] [place] [address] 85836 MCHC (RBC) [Mass/Vol] 33.7 g/dL Normal 33.0-36.0 [facility] Comment on above: Performed By: #### L 100.0780, L100.0800 #### ML - LABORATORY [address] [place] [address] 15024 MCV (RBC) [Entitic vol] 87.7 fL Normal 80.0-99.0 [facility] Comment on above: Performed By: #### L 100.0780, L100.0800 #### ML - LABORATORY [address] [place] [address] 48907 Platelet mean volume (Bld) [Entitic vol] 8.8 fL Normal 7.5-9.5 [facility] Comment on above: Performed By: #### L 100.0780, L100.0800 #### ML [facility] [address] [place] [address] 96865 PLT 179 X10(3) Normal 150-450 [facility] Comment on above: Performed By: #### L 100.0780, L100.0800 #### [facility] [address] [place] [address] 88063 RBC 4.56 x10(6) Normal 3.30-5.00 [facility] Comment on above: Performed By: #### L 100.0780, L100.0800 #### [facility] [address] [place] [address] 21720 WBCHS 6.7 x10(3) Normal 4.5-10.0 [facility] Comment on above: Performed By: #### L 100.0780, L100.0800 #### ML [facility] [address] [place] [address] 54162 URINE CREATININon 08-05-2020 URINE CREATININ 96.9 mg/dL Normal 28-217 [facility] Comment on above: Performed By: #### L 100.0780, L100.0800 #### ML - LABORATORY [address] [place] [address] 33529 URINE PROT RNDMon 08-05-2020 URINE PROT RNDM 20.2 mg/dL High 0-15 [facility] Comment on above: Performed By: #### L 100.0780, L100.0800 #### ML - LABORATORY [address] [place] [address] 51331 IGP,Rfx AptimaRon 03-22-2020 . . [facility] Comment on above: Order Comment: Speci men Comment: [id number] Performed By: #### L 801.8810 #### [place] [address] . [facility] Comment on above: Order Comment: Speci men Comment: [id number] Result Comment: The HPV DNA reflex criteria were not met with this specimen result therefore, no HPV testing was performed. Performed at: - [address] [place] [id number] [employer] Crew: Ami Singleton MD, Phone: [phone] Performed By: #### L 801.8810 #### [place] [address] Diagnosis: [facility] Comment on above: Order Comment: Speci men Comment: [id number] Result Comment: NEGA TIVE FOR INTRAEPITHELIAL LESION OR MALIGNANCY. THIS SPECIMEN WAS RESCREENED PART OF OUR SHADOWGRAPH OPERATOR PROGRAM. Performed By: #### L 801.8810 #### [place] [address] Note: [facility] Comment on above: Order Comment: Speci [facility] Comment: [id number] Result Comment: The Pap smear is a screening test designed to aid in the detection of premalignant and malignant conditions of the uterine cervix. It is not a diagnostic procedure and should not be used as the sole means of detecting cervical cancer. Both false-positive and false-negative reports do occur. Performed By: #### L 801.8810 #### [place] [address] Performed by: [facility] Comment on above: Order Comment: Speci men Comment: [id number] Result Comment: Cesia Castro, Party Plan Selling Distributor (ASCP) Performed By: #### L 801.8810 #### [place] [address] QC reviewed by: [facility] Comment on above: Order Comment: Speci men Comment: [id number] Result Comment: Gabbi Rodriguez, Supervisory Party Plan Selling Distributor (ASCP) Performed By: #### L 801.8810 #### [place] [address] Spec adequacy: Normal [facility] Comment on above: Order Comment: Speci men Comment: [id number] Result Comment: Sati sfactory for evaluation. Endocervical and/or squamous metaplastic cells (endocervical component) are present. Performed By: #### L 801.8810 #### [place] [address] C3 Complementon 10-24-2019 C3 Complement 100 mg/dL Normal 86-166 [facility] Comment on above: Performed By: #### C 3COMP, C4COMP #### [facility] Laboratories Routine Lab [address] [address] C4 Complementon 10-24-2019 C4 Complement 14 mg/dL Normal 13-46 [facility] Comment on above: Performed By: #### C 3COMP, C4COMP #### [facility] Routine Lab [address] [address] [address] RE[address] CT NEEDLE BIOPSY RENAL Performed at [facility] APPROVED BY: EFRAIN PEREA MD EXAM: CT GUIDED PERCUTANEOUS RANDOM RENAL BIOPSY DATE: 11/06/2017 09:26 CLINICAL INDICATION/HISTORY: Lupus, chronic kidney disease and proteinuria. COMPARISON: None. ENCOUNTER: Initial CONSENT: Risks, benefits, treatment options, potential complications and personnel to be involved were discussed (including the risks of radiation exposure, contrast and anesthesia administration) with the patient and all questions were answered and consent was obtained prior to procedure. AMY-PROCEDURE DISCUSSION: The appropriate elements of the pre-procedure discussion, safety check list and sign-out were performed. TIME OUT: A time out was performed immediately prior to procedure start with the nursing, and interventional team, correctly identifying the name, date of , procedure, anatomy (including marking of site and side), patient position, procedure consent form, relevant diagnostic and radiology test results, antibiotic administration, safety precautions, and procedure-specific equipment needs. Patient position: ProneAnesthesia: Moderate conscious sedation. Continuous cardiopulmonary monitoring was performed throughout the procedure during which the patient received IV Versed and IV Fentanyl for conscious sedation. Sedation time: 30 Minutes Local anesthesia: 1% lidocaine Effective Radiation dose: 365.8 mGy TECHNIQUE: The patient was placed in the prone position on the CT table. Preliminary CT examination was performed to identify biopsy site. Skin site of anticipated biopsy tract was marked and then prepped and draped in usual sterile fashion. 1% lidocaine was injected for local anesthesia. Utilizing CT guidance, a 17-gauge guiding needle was advanced to the periphery of the left inferior renal pole. 18 gauge core biopsy specimens were obtained with [employer] biopsy device. A total of 5 specimens were obtained and placed in appropriate media for pathologic analysis. The needle was removed and manual pressure was applied at the skin site. The patient tolerated the procedure well without immediate complication. Estimated Blood Loss: Minimal FINDINGS: Successful CT-guided percutaneous biopsy, inferior left renal pole. 18-gauge core biopsy specimens were obtained. The kidneys demonstrate no discrete focal suspicious lesion or hydroureteronephrosis. No discrete mass, lymphadenopathy or focal fluid collection. IMPRESSION: CT-guided percutaneous random renal biopsy of left inferior renal pole as described above. No immediate complications. Normal [facility] Pathology Miscellaneouson Pathology Miscellaneous Test performed at [place] [address]NAME: ROGERS CORTES [id number] REQUESTING: BRYANNA FOX TO: EFRAIN PEREADIAGNOSIS:Kidney biopsy: See the full outside report from [facility].SPECIMEN: TISSUE FOR SEND-OUT, Kidney BxEXTERNAL CONSULT, PATHOLOGIST(Electronic signature on file)Signed out: 11/08/2017 14:45PRINTED: 11/08/2017 Page 1 of 1 Normal [facility] Comment on above: Performed By: #### M ISC ####[place] [address] Protimeon 11-06-2017 INR Coag RelTime (PPP) 1.37 {INR} High 0.90-1.30 [facility] Comment on above: Result Comment: Note : Reference Range ChangeVitamin K Antagonist (VKA) Therapeutic Range: INR 2 to 3 (Target INRof 2.5)Note: For patients treated with VKA drugs, such as warfarin, theAmerican College of Chest Physicians 2012 Guideline recommends a therapeuticINR range of 2 to 3 (target INR of 2.5). Thisrecommendation includes high-risk patients with antiphospholipidsyndrome with previous arterial or venous thromboembolism,current-generation mechanical or bioprosthetic aortic heartvalve replacement.VKA Therapeutic Range for some Mechanical Valve Replacement:INR 2.5 to 3.5 (Target INR of 3)Note: Patients with mechanical aortic valve replacement andadditional risk factors for thromboembolic events (atrialfibrillation, previous thromboembolism, LV dysfunction,hypercoagulable conditions) or an older generation mechanicalAVR (i.e., ball in-Cage) or any mechanical MVR should havea INR therapeutic range of 2.5 to 3.5 target INR of 3).Guyatt GH, et al. Chest 2012; 141:7S-47SNishimura RA, et al. JAC 2017; 70: 252-289 Performed By: #### P T ####[place] [address] Prothrombin time (PT) Coag time (PPP) 13.9 s High 9.7-13.0 [facility] Comment on above: Performed By: #### P T ####[place] [address] Surgical Tissue Examon 11-06 Surgical Tissue Exam Test performed at [address] [place] [address]NAME: ROGERS CORTES [id number] REQUESTING: BRYANNA FOX TO: EFRAIN WHEELER DIAGNOSIS:LEFT KIDNEY, BIOPSY - TISSUE SUBMITTED DIRECT[facility] TO [facility] FOR FURTHER EVALUATION. NO TISSUE EXAMINATION ISPERFORMED.OPERATIVE PROCEDURE: Cat scan guided left kidney biopsyCLINICAL INFORMATION: Chronic kidney disease stage IGROSS DESCRIPTION:Left kidney Received fresh labeled left kidney biopsy is a specimen sent [facility] for immunofluorescence and electronmicroscopy. ARH:yomi EXTERNAL CONSULT, PATHOLOGIST(Electronic signature on file)Signed out: 11/08/2017 14:42PRINTED: 11/08/2017 Page 1 of 1 Normal [facility] Comment on above: Performed By: #### S URG ####[place] [address] CYTOLOGY BEHAVIORAL TECHNICIAN, CONVERTEDon [facility] Vital Signs Date Time Vital Sign Value Performing Clinician Mike hardin 02-28-2024 14:00-0500 Body height 180.3 cm Nelson Pozo MD Work Phone: [facility] 02-28-2024 14:00-0500 Body mass index (BMI) [Ratio] 39.75 kg/m2 Nelson Pozo MD Work Phone: [facility] 02-28-2024 14:00-0500 Body weight 129.28 kg Nelson Pozo MD Work Phone: [facility] 02-28-2024 14:00-0500 Diastolic blood pressure 80 mm[Hg] Nelson Pozo MD Work Phone: [facility] 02-28-2024 14:00-0500 Heart rate 64 /min Nelson Pozo MD Work Phone: [facility] 02-28-2024 14:00-0500 Systolic blood pressure 125 mm[Hg] Nelson Pozo MD Work Phone: [facility] 01-10-2024 10:45-0500 Body height 180.3 cm Rhett Stevenson MD Work Phone: [facility] 01-10-2024 10:45-0500 Body mass index (BMI) [Ratio] 39.81 kg/m2 Rhett Stevenson MD Work Phone: [facility] 01-10-2024 10:45-0500 Body weight 129.46 kg Rhett Stevenson MD Work Phone: [facility] 01-10-2024 10:45-0500 Diastolic blood pressure 75 mm[Hg] Rhett Stevenson MD Work Phone: [facility] 01-10-2024 10:45-0500 Heart rate 68 /min Rhett Stevenson MD Work Phone: [facility] 01-10-2024 10:45-0500 Respiratory rate 15 /min Rhett Stevenson MD Work Phone: [facility] 01-10-2024 10:45-0500 SaO2% (BldA) [Mass fraction] 99 % Rhett Stevenson MD Work Phone: [facility] 01-10-2024 10:45-0500 Systolic blood pressure 113 mm[Hg] Rhett Stevenson MD Work Phone: [facility] 12-19-2022 08:54-0500 Body height 180.3 cm Rhett Stevenson MD Work Phone: [facility] 12-19-2022 08:54-0500 Body weight 127.01 kg Rhett Stevenson MD Work Phone: [facility] 12-19-2022 08:54-0500 Diastolic blood pressure 83 mm[Hg] Rhett Stevenson MD Work Phone: [facility] 12-19-2022 08:54-0500 Heart rate 70 /min Rhett Stevenson MD Work Phone: [facility] 12-19-2022 08:54-0500 Respiratory rate 15 /min Rhett Stevenson MD Work Phone: [facility] 12-19-2022 08:54-0500 SaO2% (BldA) [Mass fraction] 99 % Rhett Stevenson MD Work Phone: [facility] 12-19-2022 08:54-0500 Systolic blood pressure 119 mm[Hg] Rhett Stevenson MD Work Phone: [facility] 09-02-2021 15:29-0400 Body height 171.5 cm Nurse [facility] 09-02-2021 15:29-0400 Body weight 119.75 kg Nurse [facility] 08-19-2021 15:31-0400 Body height 171.5 cm Nurse [facility] 08-19-2021 15:31-0400 Body weight 119.75 kg Nurse [facility] Encounters Encounter Date Encounter Type Care Provider Facility Start: 12-15-2024 End: 12-15-2024 ambulatory RHETT STEVENSON Facility:[id number] Start: 11-17-2024 End: 11-17-2024 ambulatory RHETT STEVENSON Facility:[id number] Start: 10-17-2024 End: 10-20-2024 Refill Rhett Stevenson MD Work Phone: [facility] Comment on above: Refill Request Start: 10-16-2024 End: 10-17-2024 Refill Rhett Stevenson MD Work Phone: [facility] Comment on above: Refill Request Results (INR) Start: 10-13-2024 End: 10-13-2024 ambulatory RHETT STEVENSON Facility:[id number] Start: 10-09-2024 End: 10-09-2024 Refill Rhett Stevenson MD Work Phone: [facility] Comment on above: Refill Request Start: 10-02-2024 End: 10-02-[address] Rhett Stevenson MD Work Phone: [facility] Start: 10-02-2024 End: 10-02-[address] Vonnie Griffith MD -[facility] Work Phone: Start: 10-02-2024 End: 10-02-2024 ambulatory Vonnie Griffith Facility:[facility] Start: 09-16-2024 End: 09-18-2024 Telephone encounter Rhett Stevenson MD Work Phone: [facility] Comment on above: Results (INR) Start: 09-15-2024 End: 09-15-2024 ambulatory RHETT STEVENSON Facility:[id number] Start: 08-22-2024 End: 08-22-2024 Telephone encounter Nelson Pozo MD Work Phone: [facility] Comment on above: Patient Question Start: 08-11-2024 End: 08-12-2024 Telephone encounter Rhett Stevenson MD Work Phone: [facility] Comment on above: Results (INR) Start: 08-11-2024 End: 08-11-2024 ambulatory RHETT STEVENSON Facility:[id number] Start: 08-01-2024 End: 08-01-2024 Refill Rhett Stevenson MD Work Phone: [facility] Comment on above: Refill Request Start: 07-24-2024 End: 07-24-2024 ambulatory RHETT STEVENSON Facility:[id number] Start: 07-18-2024 End: 09-17-2024 Follow-up encounter Che Delatorre APRN.CNP Work Phone: [facility] Start: 07-18-2024 End: 07-18-2024 Telephone encounter Rhett Stevenson MD Work Phone: [facility] Comment on above: Results (inr) Start: 07-17-2024 End: 07-17-2024 ambulatory RHETT STEVENSON Facility:[id number] Start: 07-14-2024 End: 07-14-[address] Rhett Stevenson MD Work Phone: [facility] Work Phone: Start: 07-14-2024 End: 07-14-[address] Vonnie Griffith MD -[facility] Work Phone: Start: 07-14-2024 End: 07-14-2024 ambulatory Vonnie Griffith Facility:[facility] Start: 06-16-2024 End: 06-16-2024 Telephone encounter Rhett Stevenson MD Work Phone: [facility] Comment on above: Results (INR) Start: 06-13-2024 End: 06-13-2024 ambulatory RHETT STEVENSON Facility:[id number] Start: 05-29-2024 End: 05-29-2024 ambulatory RHETT STEVENSON Facility:[id number] Start: 05-21-2024 End: 05-22-2024 Telephone encounter Rhett Stevenson MD Work Phone: [facility] Comment on above: Results (INR) Start: 05-20-2024 End: 05-20-2024 ambulatory RHETT STEVENSON Facility:[id number] Start: 05-09-2024 End: 05-09-2024 Refill Rhett Stevenson MD Work Phone: [facility] Comment on above: Refill Request Start: 04-21-2024 End: 04-21-2024 Telephone encounter Rhett Stevenson MD Work Phone: [facility] Comment on above: Results (INR) Start: 04-18-2024 End: 04-18-[address] Rhett Stevenson MD Work Phone: [facility] Work Phone: Start: 04-18-2024 End: 04-18-[address] Vonnie Griffith MD -[facility] [place] Work Phone: Start: 04-17-2024 End: 04-18-2024 ambulatory Vonnie Griffith Facility:[facility] Start: 04-14-2024 End: 05-22-2024 Telephone encounter Rhett Stevenson MD Work Phone: [facility] Comment on above: Patient Question Start: 04-08-2024 ambulatory RHETT STEVENSON Faci lity:[id number] Start: 04-08-2024 End: 04-08-2024 Subsequent hospital visit by physician Screen Mammo [facility] MAMMOGRAPHY Comment on above: Encounter for screen ing mammogram for malignant neoplasm of breast [Z12.31] Start: 04-04-2024 End: 04-07-2024 Telephone encounter Rhett Stevenson MD Work Phone: [facility] Comment on above: Patient Update (Home INR) Start: 03-24-2024 End: 03-24-2024 Telephone encounter Rhett Stevenson MD Work Phone: [facility] Comment on above: Results (INR) Start: 03-21-2024 End: 03-21-2024 ambulatory RHETT STEVENSON Facility:[id number] Start: 02-28-2024 End: 02-28-2024 Patient encounter procedure Nelson Pozo MD Work Phone: [facility] Comment on above: Generalized epilepsy (HCC) (Primary Dx); Chronic deep vein thrombosis (DVT) of left lower extremity, unspecified vein (HCC) Start: 02-28-2024 End: 02-28-2024 ambulatory NELSON POZO Facility:[id number] Start: 02-21-2024 End: 02-21-2024 Telephone encounter Rhett Stevenson MD Work Phone: [facility] Comment on above: Results (INR) Start: 02-21-2024 End: 02-21-2024 ambulatory RHETT STEVENSON Facility:[id number] Start: 02-16-2024 End: 02-18-2024 Refill Nelson Pozo MD Work Phone: [facility] Comment on above: Refill Request Start: 02-14-2024 End: 02-14-2024 Telephone encounter Rhett Stevenson MD Work Phone: [facility] Start: 02-04-2024 End: 02-04-[address] Vonnie Griffith MD -[facility] [place] Work Phone: Start: 02-04-2024 End: 02-04-2024 ambulatory Vonnie Griffith Facility:[facility] Start: 01-24-2024 End: 01-28-2024 Telephone encounter Rhett Stevenson MD Work Phone: [facility] Comment on above: home INR order Start: 01-24-2024 End: 01-24-2024 Patient encounter procedure Nurse Tiffany Ellis Work Phone: [facility] Comment on above: Personal history of DVT (deep vein thrombosis) (Primary Dx) Start: 01-24-2024 End: 01-24-2024 ambulatory RHETT STEVENSON Facility:[id number] Start: 01-14-2024 End: 01-14-2024 Patient encounter procedure [facility] Provider [facility] Department Start: 01-14-2024 End: 01-14-2024 Telephone encounter Rhett Stevenson MD Work Phone: [facility] Comment on above: proof of seizures/ju ry duty Start: 01-10-2024 End: 01-10-2024 Patient encounter status Rhett Stevenson MD Work Phone: [facility] Work Phone: Start: 01-10-2024 End: 01-10-2024 Periodic preventive med est patient 40-64yrs Rhett Stevenson MD Work Phone: [facility] Comment on above: Wellness examination (Primary Dx); Essential hypertension, benign; Systemic lupus erythematosus, unspecified SLE type, unspecified organ involvement status (HCC); Idiopathic neuropathy; Other generalized epilepsy, not intractable, without status epilepticus (HCC); Personal history of DVT (deep vein thrombosis); Screening for depression; Encounter for screening examination for other mental health and behavioral disorders; Encounter for screening mammogram for malignant neoplasm of breast Start: 01-10-2024 End: 01-10-2024 ambulatory RHETT STEVENSON Facility:[id number] Start: 01-10-2024 Encounter for genera l adult medical examination without abnormal findings R[facility]TT STEVENSON [facility] Start: 12-11-2023 End: 12-11-2023 Patient encounter procedure Nurse Tiffany Ellis Work Phone: [facility] Comment on above: Personal history of other venous thrombosis and embolism (Primary Dx) Start: 11-14-2023 End: 11-14-2023 Patient encounter procedure Nurse Tiffany Ellis Work Phone: [facility] Comment on above: Personal history of other venous thrombosis and embolism (Primary Dx) Start: 11-02-2023 End: 11-02-2023 ambulatory Vonnie Griffith Facility:[facility] Start: 10-16-2023 End: 10-16-2023 Patient encounter procedure Nurse Tiffany Ellis Work Phone: [facility] Comment on above: Personal history of other venous thrombosis and embolism (Primary Dx) Start: 09-18-2023 End: 09-18-2023 Patient encounter procedure Nurse Tiffany Ellis Work Phone: [facility] Comment on above: Personal history of other venous thrombosis and embolism (Primary Dx) Start: 08-14-2023 End: 08-14-2023 Patient encounter procedure Nurse Intadalid Ellis Work Phone: [facility] Comment on above: Personal history of other venous thrombosis and embolism (Primary Dx) Start: 08-07-2023 Refill Rhett monzon MD Work Phone: [facility] Comment on above: Refill Request Start: 07-19-2023 End: 07-19-2023 Patient encounter procedure Nurse Gamalieladalid Ellis Work Phone: [facility] Comment on above: Personal history of other venous thrombosis and embolism (Primary Dx) Start: 07-05-2023 End: 07-05-2023 Patient encounter procedure Nurse Gamalieladalid Ellis Work Phone: [facility] Comment on above: Personal history of other venous thrombosis and embolism (Primary Dx) Start: 06-21-2023 Telephone encounter Rhett Pittman MD Work Phone: [facility] Comment on above: Orders Start: 06-21-2023 End: 06-21-2023 Patient encounter procedure Nurse Gamalieladalid Ellis Work Phone: [facility] Comment on above: Personal history of other venous thrombosis and embolism (Primary Dx) Start: 05-22-2023 End: 05-22-2023 Patient encounter procedure Nurse Tiffany Ellis Work Phone: [facility] Comment on above: Personal history of other venous thrombosis and embolism (Primary Dx) Start: 04-26-2023 End: 04-26-2023 [facility] Work Phone: Start: 04-26-2023 End: 04-26-2023 Patient encounter procedure [facility] Work Phone: Start: 04-19-2023 End: 04-19-2023 Patient encounter procedure Nurse Tiffany Ellis Work Phone: [facility] Comment on above: Personal history of other venous thrombosis and embolism (Primary Dx) Start: 03-22-2023 End: 03-22-2023 Patient encounter procedure Nurse Tiffany Ellis Work Phone: [facility] Comment on above: Personal history of other venous thrombosis and embolism (Primary Dx) Start: 03-08-2023 End: 03-08-2023 Subsequent hospital visit by physician Screen Mammo [facility]AM[facility] Comment on above: Encounter for screen ing mammogram for malignant neoplasm of breast [Z12.31] Start: 02-08-2023 End: 02-08-2023 ambulatory [facility] Work Phone: Start: 02-08-2023 End: 02-08-2023 Patient encounter procedure [facility] Work Phone: Start: 01-16-2023 End: 01-16-2023 Patient encounter procedure Nurse Tiffany Ellis Work Phone: [facility] Comment on above: Personal history of other venous thrombosis and embolism (Primary Dx) Start: 01-02-2023 End: 01-02-2023 Patient encounter procedure Nurse Tiffany Ellis Work Phone: [facility] Comment on above: Personal history of other venous thrombosis and embolism (Primary Dx) Start: 12-19-2022 End: 12-19-2022 Patient encounter procedure Rhett Stevenson MD Work Phone: [facility] Comment on above: Wellness examination (Primary Dx); Essential hypertension, benign; Systemic lupus erythematosus, unspecified SLE type, unspecified organ involvement status (HCC); Idiopathic neuropathy; Other generalized epilepsy, not intractable, without status epilepticus (HCC); Personal history of other venous thrombosis and embolism; Encounter for screening mammogram for malignant neoplasm of breast Start: 12-19-2022 End: 12-19-2022 Patient encounter status Rhett Stevenson MD Work Phone: [facility] Work Phone: Start: 12-14-2022 End: 12-14-2022 Patient encounter procedure Nurse Tiffany Ellis Work Phone: [facility] Comment on above: Personal history of other venous thrombosis and embolism (Primary Dx) Start: 12-05-2022 End: 12-05-2022 Patient encounter procedure Nurse Tiffany Ellis Work Phone: [facility] Comment on above: Personal history of other venous thrombosis and embolism (Primary Dx) Start: 11-13-2022 End: 11-13-2022 ambulatory JAKOB CUENCA [facility] Start: 10-12-2022 Refill Rhett monzon MD Work Phone: [facility] Comment on above: Refill Request Start: 10-03-2022 End: 10-03-2022 ambulatory RHETT STEVENSON Facility:[facility] Start: 10-03-2022 End: 10-03-2022 Patient encounter procedure Nurse Tiffany Ellis Work Phone: [facility] Comment on above: Personal history of other venous thrombosis and embolism (Primary Dx) Start: 08-30-2022 End: 08-30-2022 ambulatory RHETT STEVENSON Facility:[facility] Start: 08-22-2022 End: 08-22-2022 ambulatory [facility] Work Phone: Start: 08-22-2022 End: 08-22-2022 Patient encounter procedure [facility]Fl[facility] Work Phone: Start: 08-02-2022 End: 08-02-2022 ambulatory RHETT STEVENSON Facility:[facility] Start: 08-02-2022 End: 08-02-2022 Patient encounter procedure Nurse Tiffany Ellis Work Phone: [facility] Comment on above: Personal history of other venous thrombosis and embolism (Primary Dx) Start: 07-05-2022 End: 07-05-2022 ambulatory RHETT STEVENSON Facility:[facility] Start: 07-05-2022 End: 07-05-2022 Patient encounter procedure Nurse Tiffany Ellis Work Phone: [facility] Comment on above: Personal history of DVT (deep vein thrombosis) (Primary Dx) Start: 05-31-2022 End: 05-31-2022 ambulatory [facility] Work Phone: Start: 05-31-2022 End: 05-31-2022 Patient encounter procedure [facility] Start: 05-30-2022 End: 05-30-2022 ambulatory RHETT STEVENSON Facility:[facility] Start: 05-30-2022 End: 05-30-2022 Patient encounter procedure Nurse Tiffany Ellis Work Phone: [facility] Comment on above: Personal history of DVT (deep vein thrombosis) (Primary Dx) Start: 05-25-2022 Refill Rhett monzon MD Work Phone: [facility] Comment on above: Refill Request Start: 05-16-2022 End: 05-16-2022 Emergency department patient visit RHETT STEVENSON [facility] Start: 05-02-2022 End: 05-02-2022 ambulatory RHETT STEVENSON Facility:[facility] Start: 04-04-2022 End: 04-04-2022 ambulatory RHETT STEVENSON Facility:[facility] Start: 04-04-2022 End: 04-04-2022 Patient encounter procedure Nurse Tiffany Ellis Work Phone: [facility] Comment on above: Personal history of DVT (deep vein thrombosis) (Primary Dx) Start: 03-07-2022 End: 03-07-2022 ambulatory RHETT STEVENSON Facility:[facility] Start: 03-07-2022 End: 03-07-2022 Patient encounter procedure Nurse Tiffany Ellis Work Phone: [facility] Comment on above: Personal history of DVT (deep vein thrombosis) (Primary Dx) Start: 03-07-2022 End: 03-07-2022 ambulatory [facility] Work Phone: Start: 03-07-2022 End: 03-07-2022 Patient encounter procedure [facility] Start: 02-23-2022 Telephone encounter Nelson atkinson MD Work Phone: [facility] Comment on above: Letter Start: 02-21-2022 Telephone encounter Nelson atkinson MD Work Phone: [facility] Comment on above: Medication Problem Start: 02-21-2022 End: 02-21-2022 ambulatory NELSON POZO Facility:[facility] Start: 02-15-2022 End: 02-15-2022 ambulatory RHETT STEVENSON [facility] Start: 02-02-2022 End: 02-02-2022 ambulatory RHETT STEVENSON Facility:[facility] Start: 02-02-2022 End: 02-02-2022 Patient encounter procedure Nurse Tiffany Ellis Work Phone: [facility] Comment on above: Personal history of DVT (deep vein thrombosis) (Primary Dx) Start: 01-05-2022 End: 01-05-2022 ambulatory RHETT STEVENSON Facility:[facility] Start: 01-05-2022 End: 01-05-2022 Patient encounter procedure Nurse Tiffany Ellis Work Phone: [facility] Comment on above: Personal history of DVT (deep vein thrombosis) (Primary Dx) Refill Request Start: 12-20-2021 End: 12-20-2021 ambulatory RHETT STEVENSON Facility:[facility] Start: 12-20-2021 End: 12-20-2021 Patient encounter procedure Nurse Tiffany Ellis Work Phone: [facility] Comment on above: Personal history of DVT (deep vein thrombosis) (Primary Dx) Start: 12-13-2021 End: 12-13-2021 ambulatory RHETT STEVENSON Facility:[facility] Start: 12-13-2021 Encounter for genera l adult medical examination without abnormal findings RHETT STEVENSON [facility] Start: 12-07-2021 End: 12-07-2021 Patient encounter procedure [facility] [place] Start: 11-29-2021 End: 11-29-2021 ambulatory RHETT MIQUEL STEVENSON Facility:[id number] Start: 11-15-2021 End: 11-15-2021 ambulatory RHETT MIQUEL STEVENSON Facility:[id number] Start: 11-15-2021 End: 11-15-2021 Nursing evaluation of patient and report Xiomara Kam Work Phone: [facility] Comment on above: Personal history of venous thrombosis and embolism (Primary Dx) Start: 11-01-2021 End: 11-01-2021 ambulatory RHETT STEVENSON Facility:[id number] Start: 11-01-2021 End: 11-01-2021 Nursing evaluation of patient and report Xiomara Kam Work Phone: [facility] Comment on above: Personal history of venous thrombosis and embolism (Primary Dx) Start: 09-29-2021 End: 09-29-2021 ambulatory RHETT STEVENSON Facility:[id number] Start: 09-29-2021 End: 09-29-2021 Nursing evaluation of patient and report Xiomara Kam Work Phone: [facility] Comment on above: Personal history of venous thrombosis and embolism (Primary Dx) Start: 09-02-2021 Chart abstracting Nurse Xiomara [facility] Start: 08-25-2021 End: 08-25-2021 ambulatory RHETT MIQUEL STEVENSON Facility:[id number] Start: 08-19-2021 [facility] Start: 07-26-2021 End: 07-26-2021 ambulatory RHETT STEVENSON Facility:[id number] Start: 07-26-2021 End: 07-26-2021 Nursing evaluation of patient and report [facility] Nurse Cornelio Work Phone: [facility] Cornelio Comment on above: Personal history of venous thrombosis and embolism (Primary Dx) Start: 07-06-2021 End: 07-06-2021 Subsequent hospital visit by physician Provider [facility] Comment on above: SCREENING Start: 06-14-2021 End: 06-14-2021 Patient encounter procedure [facility] Start: 03-14-2021 End: 03-14-2021 Patient encounter procedure [facility] Start: 11-06-2017 End: 11-06-2017 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 Rhett Stevenson MD Work Phone: Start: 07-14-2024 C>3< complement assay D brook Stevenson MD Work Phone: Comment on above: Performed at: [employer] [place], [place] [id number] Director: Dionisio Guevara PhD, Phone: [phone] Start: 07-14-2024 Urnls dip stick/tabl et reagent auto microscopy Dr. Rhett Stevenson MD Work Phone: Start: 04-18-2024 C>3< complement assay D r. Rhett Stevenson MD Work Phone: Comment on above: Performed at: [address] [id number] Director: Dionisio Guevara PhD, Phone: [phone] Start: 04-18-2024 Urnls dip stick/tabl et reagent auto microscopy Dr. Rhett Stevenson MD Work Phone: Start: 01-24-2024 Prothrombin time [facility] Pr ovider Start: 01-10-2024 Prothrombin time [facility] Pr ovider Start: 01-10-2024 Adult depression scr eening assessment Rhett Stevenson MD Work Phone: Start: 12-11-2023 Prothrombin time [facility] Pr ovider Start: 11-14-2023 Prothrombin time [facility] Pr ovider Start: 10-16-2023 Prothrombin time [facility] Pr ovider Start: 09-18-2023 Prothrombin time [facility]cf Pr ovider Start: 08-14-2023 Prothrombin time [facility]cf Pr ovider Start: 07-19-2023 Prothrombin time [facility]cf Pr ovider Start: 07-05-2023 Prothrombin time [facility]cf Pr ovider Start: 06-21-2023 Prothrombin time Ccf Pr ovider Start: 05-22-2023 Prothrombin time [facility] Pr ovider Start: 04-19-2023 Prothrombin time [facility] Pr ovider Start: 03-22-2023 Prothrombin time [facility] Pr ovider Start: 03-08-2023 Screening digital br [place] [employer] [facility] Rhett Stevenson MD Work Phone: Start: 01-16-2023 Prothrombin time [facility] Pr ovider Start: 01-02-2023 Prothrombin time [facility] Pr ovider Start: 12-14-2022 Prothrombin time Ccf Pr ovider Start: 12-05-2022 Prothrombin time Ccf Pr ovider Start: 11-13-2022 Urinalysis RHETT CABRAL Comment on above: Result Comment: URIN ALYSIS Performed By: #### [id number] #### [facility],[address] [place] [id number] Start: 10-03-2022 Prothrombin time Ccf Pr ovider Start: 08-02-2022 Prothrombin time Ccf Pr ovider Start: 07-05-2022 Prothrombin time Ccf Pr ovider Start: 05-30-2022 Prothrombin time Ccf Pr ovider Start: 04-04-2022 Prothrombin time Ccf Pr ovider Start: 03-07-2022 Prothrombin time Ccf Pr ovider Start: 02-02-2022 Prothrombin time Ccf Pr ovider Start: 01-05-2022 Prothrombin time Ccf Pr ovider Start: 12-20-2021 Prothrombin time Ccf Pr ovider Start: 11-15-2021 Prothrombin time Ccf Pr ovider Start: 11-01-2021 Prothrombin time Ccf Pr ovider Start: 09-29-2021 Prothrombin time Ccf Pr ovider Start: 07-26-2021 Prothrombin time Ccf Pr ovider Start: 07-06-2021 MACARIO SCREENING W AURY estrada [employer] Work Phone: Start: 07-06-2021 Mammography Provider [facility] Start: 01-07-2021 Adult depression scr eening assessment Provider [facility] Start: 01-27-2008 CYTOLOGY BEHAVIORAL TECHNICIAN, CONVERTED Rhett Stevenson MD Work Phone: Plan of Treatment Date Care Activity Detail Author Start: 04-08-2025 Screening for malign ant neoplasm of breast Mammogram Screening [facility] Start: 03-16-2025 PAP TESTING PAP TESTING [facility] Start: 03-16-2025 Screening for malign ant neoplasm of cervix Pap Testing [facility] Start: 03-02-2025 End: 03-02-2025 Patient encounter procedure 03/02/2025 8:45 AM EST Office Visit [facility] [address] [place] [address] Nelson Pozo MD [address] [place] [phone] year follow up seizures [facility] Comment on above: year follow up seizu res Start: 01-15-2025 End: 01-15-2025 Patient encounter procedure 01/15/2025 10:00 AM EST Office Visit [facility] [address] [place] [phone] Rhett Stevenson MD [address] [facility] [address] [phone] physical, labs through specialist [facility] Comment on above: physical, labs throu gh specialist Start: 01-09-2025 Annual PCP Team Junior Sales Assistant elan Disease Visit Annual PCP Team Chronic Disease Visit [facility] Start: 01-09-2025 Anxiety Screening Anxiety Screening [facility] Start: 01-09-2025 BP Controlled (<130/80) BP Controlle d (<130/80) [facility] Start: 01-09-2025 Covid-19 Vaccine (#1) Covid-19 Vacci ne (#1) [facility] Comment on above: Postponed from 03/13 (Declined at this time) Start: 01-09-2025 Depression Screening Depression Scre ening [facility] Start: 11-21-2024 Creatinine measurement Serum Creatin ine [facility] Start: 10-06-2024 Influenza vaccination [facility] Start: 08-04-2024 Influenza vaccination Influenza Vacc ine (#1) [facility] Comment on above: Postponed from 10/06 (Declined at this time) Start: 04-08-2024 End: 04-08-2024 Patient encounter procedure 04/08/2024 10:00 AM EST Appointment [facility] [address] [place] [address] Encounter for screening mammogram for malignant neoplasm of breast [Z12.31] [facility] Comment on above: Encounter for screen ing mammogram for malignant neoplasm of breast [Z12.31] Start: 03-18-2024 End: 03-18-2024 Patient encounter procedure 03/18/2024 10:00 AM EST Appointment [facility] [address] [place] [address] Encounter for screening mammogram for malignant neoplasm of breast [Z12.31] [facility] Comment on above: Encounter for screen ing mammogram for malignant neoplasm of breast [Z12.31] Start: 03-09-2024 End: 01-04-2026 MG Breast Screening MACARIO SCREENING Radiology Routine Encounter for screening mammogram for malignant neoplasm of breast Expected: 03/09/2024 (Approximate), Expires: 02/08/2025 [facility] Work Phone: Comment on above: Expected: 03/09/2024 (Approximate), Expires: 02/08/2025 Start: 03-08-2024 Screening for malign ant neoplasm of breast Mammogram Screening [facility] Start: 03-03-2024 End: 03-03-2024 Patient encounter procedure 03/03/2024 8:30 AM EST Office Visit [facility] [address] [place] [phone] Nelson Pozo MD [address] [place] [phone] year follow up seizures [facility] Comment on above: year follow up seizu res Start: 02-28-2024 End: 02-28-2024 Patient encounter procedure 02/28/2024 2:15 PM EST Office Visit [facility] [address] [place] [address] Nelson Pozo MD [address] [place] [phone] year follow up seizures [facility] Comment on above: year follow up seizu res Start: 02-28-2024 BP Controlled (<130/80) BP Controlle d (<130/80) [facility] Start: 01-24-2024 End: 01-24-2024 Patient encounter procedure 01/24/2024 10:30 AM EST Office Visit [facility] [address] [place] [phone] inr [facility] Comment on above: inr Start: 01-10-2024 End: 01-10-2024 Patient encounter procedure [facility] Comment on above: 1 YEAR FOLLOW UP 1 YEAR FOLLOW UP & 1 MONTH PROTIME Start: 12-20-2023 Annual PCP Team Junior Sales Assistant elan Disease Visit Annual PCP Team Chronic Disease Visit [facility] Start: 12-20-2023 Covid-19 Vaccine (#1) Covid-19 Vacci ne (#1) [facility] Comment on above: Postponed from 03/13 (Declined at this time) Start: 12-20-2023 Pneumococcal vaccination [facility] Comment on above: Postponed from 03/13 (Declined at this time) Start: 12-20-2023 Shingrix Vaccine (1 of 2) Shingrix Vaccine (1 of 2) [facility] Comment on above: Postponed from 03/13 (Declined at this time) Start: 12-11-2023 End: 12-11-2023 Patient encounter procedure 12/11/2023 10:45 AM EST Office Visit [facility] [address] [place], [place] [address] [phone] 1 MONTH PROTIME [facility] Comment on above: 1 MONTH PROTIME Start: 11-14-2023 End: 11-14-2023 Patient encounter procedure 11/14/2023 11:00 AM EDT Office Visit [facility] [address] [place] [phone] 1 MONTH PROTIME [facility] Comment on above: 1 MONTH PROTIME Start: 10-16-2023 End: 10-16-2023 Patient encounter procedure 10/16/2023 11:15 AM EDT Office Visit [facility] [address] [place] [address] [place] [phone] 1 MONTH PROTIME [facility] Comment on above: 1 MONTH PROTIME Start: 10-07-2023 Influenza vaccination [facility] Start: 09-18-2023 End: 09-18-2023 Patient encounter procedure 09/18/2023 10:45 AM EDT Office Visit [facility] [address] [place], [place] [address] [phone] 1 MONTH PROTIME [facility] Comment on above: 1 MONTH PROTIME Start: 08-14-2023 End: 08-14-2023 Patient encounter procedure 08/14/2023 1:45 PM EDT Office Visit [facility] [address] [place] [phone] 1 MONTH PROTIME [facility] Comment on above: 1 MONTH PROTIME Start: 08-05-2023 Influenza vaccination Influenza Vacc ine (#1) [facility] Comment on above: Postponed from 10/06 (Declined at this time) Start: 07-19-2023 End: 07-19-2023 Patient encounter procedure 07/19/2023 11:15 AM EDT [facility] [facility] [address] [place] [phone] 2 WEEK PROTIME [facility] Comment on above: 2 WEEK PROTIME Start: 07-05-2023 End: 07-05-2023 Patient encounter procedure 07/05/2023 10:15 AM EDT Office Visit [facility] [address] [place] [phone] 2 WEEK PROTIME [facility] Comment on above: 2 WEEK PROTIME Start: 02-05-2023 Behavioral Health Screening Behavioral Health Screening [facility] Start: 02-05-2023 Depression Assessment Depression Ass essment [facility] Start: 12-19-2022 End: 01-18-2024 MACARIO SCREENING MACARIO SCREENING Radiology Routine Encounter for screening mammogram for malignant neoplasm of breast Expected: 12/19/2022 (Approximate), Expires: 01/18/2024 [facility] Work Phone: Comment on above: Expected: 12/19/2022 (Approximate), Expires: 01/18/2024 Start: 12-13-2022 ANNUAL PCP TEAM EXPLOSIVE OPERATOR ELAN DISEASE VISIT ANNUAL PCP TEAM CHRONIC DISEASE VISIT [facility] Start: 12-13-2022 BP CONTROLLED (<130/80) BP CONTROLLE D (<130/80) [facility] Start: 10-06-2022 Influenza vaccination [facility] Start: 07-06-2022 Mammography [facility] Start: 07-06-2022 Screening for malign ant neoplasm of breast Mammogram Screening [facility] Start: 03-31-2022 BP CONTROLLED (<130/80) BP CONTROLLE D (<130/80) [facility] Start: 02-25-2022 Complete blood count Hemoglobin/Andi tocrit [facility] Start: 02-25-2022 Creatinine measurement Serum Creatin ine [facility] Start: 02-25-2022 SERUM CREATININE SERUM CREATININE [facility] Start: 02-05-2022 DEPRESSION ASSESSMENT [facility] Start: 01-07-2022 Adult depression screening assessment DEPRESSION SCREENING [facility] Start: 10-06-2021 Influenza vaccination [facility] Start: 03-16-2021 Screening for malign ant neoplasm of cervix Cervical Cancer Screening [facility] Start: 02-05-2021 DEPRESSION ASSESSMENT [facility] Start: 2011 HPV TESTING HPV TESTING [facility] Start: 2011 Screening for malign ant neoplasm of cervix HPV Testing [facility] Start: 08-07-2010 Urine microalbumin profile DTaP,Tdap,Td Vaccine (1 - Tdap) [facility] Start: 2008 HPV Vaccine (1 - Ris k 3-dose SCDM series) HPV Vaccine (1 - Risk 3-dose SCDM series) [facility] Start: 2000 Hepatitis B Vaccine (1 of 3 - 19+ 3-dose series) Hepatitis B Vaccine (1 of 3 - 19+ 3-dose series) [facility] Start: 2000 Pneumococcal vaccination Pneumococcal Vaccine (1 of 2 - PCV) [facility] Start: 2000 SHINGRIX VACCINE (1 of 2) SHINGRIX VACCINE (1 of 2) [facility] Start: 2000 Urine microalbumin profile [facility] Start: 1999 ANNUAL PCP TEAM EXPLOSIVE OPERATOR ELAN DISEASE VISIT ANNUAL PCP TEAM CHRONIC DISEASE VISIT [facility] Start: 1999 Anxiety Screening Anxiety Screening [facility] Start: 1999 BP CONTROLLED (<130/80) BP CONTROLLE D (<130/80) [facility] Start: 1999 Depression Screening Depression Scre ening [facility] Start: 1999 HEPATITIS C SCREENING HEPATITIS C SC [facility] Start: 1999 Hepatitis C screening Hepatitis C [facility] Start: 1999 HIV SCREENING HIV SCREENING [facility] Start: 1999 HIV screening HIV Screening [facility] Start: 1987 PNEUMOCOCCAL (1 - PCV) PNEUMOCOCCAL (1 - PCV) [facility] Start: 1987 Pneumococcal vaccination [facility] Start: 1986 COVID-19 VACCINE (#1) COVID-19 VACCI NE (#1) [facility] Start: 1981 COVID-19 VACCINE (#1) COVID-19 VACCI NE (#1) [facility] Start: 1981 HEPATITIS B (1 of 3 - 3-dose series) HEPATITIS B (1 of 3 - 3-dose series) [facility] Start: 1981 Hepatitis B Vaccine (1 of 3 - 3-dose series) Hepatitis B Vaccine (1 of 3 - 3-dose series) [facility] Start: 1981 HPV Vaccine: Recommended Based On Risk HPV Vaccine: Recommended Based On Risk [facility] End: 01-20-2025 INR in Platelet poor plasma by Coagulation assay INR (POC) Lab Routine Personal history of DVT (deep vein thrombosis) 52 Occurrences starting 01/21/2024 until 01/20/2025 [facility] Work Phone: Comment on above: 52 Occurrences start ing 01/21/2024 until 01/20/2025 End: 07-26-2023 Prothrombin time INR FINGERSTICK B/O Lab Routine Personal history of other venous thrombosis and embolism Once per month for 12 Occurrences starting 07/25/2022 until 07/26/2023 [facility] Work Phone: Comment on above: Once per month for 1 2 Occurrences starting 07/25/2022 until 07/26/2023 End: 06-21-2024 Prothrombin time INR FINGERSTICK B/O Lab Routine Personal history of other venous thrombosis and embolism Once per month for 12 Occurrences starting 06/21/2023 until 06/21/2024 [facility] Work Phone: Comment on above: Once per month for 1 2 Occurrences starting 06/21/2023 until 06/21/2024 End: 01-23-2025 PT panel - Platelet poor plasma by Coagulation assay PROTHROMBIN TIME Lab Routine Personal history of DVT (deep vein thrombosis) 52 Occurrences starting 01/25/2024 until 01/23/2025 [facility] Work Phone: Comment on above: 52 Occurrences start ing 01/25/2024 until 01/23/2025 [facility] Payers Date Payer Category Payer Self-pay [id number] 2022 Private Health Insurance [employer] [id number] 2021 Unknown [id number] 2020 Unknown [id number] 2020 Unknown [id number] 1981 Unknown [id number] 1981 Unknown [id number] 1981 Unknown [id number] Unknown [id number] Unknown [id number] Unknown [id number] Unknown [id number] Unknown [id number] Unknown [id number] Social History Date Type Detail Facility Tobacco smoking stat [facility] Unknown if ever smoked [facility] Work Phone: Start: 1980 Sex Assigned At Female [facility] Start: 01-07-2021 End: 12-13-2021 Tobacco smoking status SDIS Ex-smoker [facility] History of tobacco use Cigarette Smoker [facility] Start: 01-07-2021 End: 12-13-2021 Tobacco use and exposure Smokeless tobacco non-user [facility] Start: 03-31-2021 End: 02-28-2024 Alcohol intake Ex-drinker (finding) [facility] Start: 01-07-2021 History SDOH Alcohol Comment occasionally [facility] Start: 01-07-2021 End: 12-13-2021 Tobacco Comment off and on smoker previously [facility] Start: 1980 Sex Assigned At Not on file [facility] Start: 07-16-2021 End: 12-20-2021 Exposure to SARS-CoV-2 (event) Not sure [facility] History of tobacco use Current smoker [facility] Start: 02-21-2022 End: 04-08-2024 History of Social function [facility] Start: 02-21-2022 End: 04-08-2024 Tobacco use panel [facility] Start: 01-07-2012 Adult Depression Screening Assessment 0 [facility] Tobacco smoking stat us SDIS Tobacco smoking consumption unknown [facility] Start: 04-28-2024 Sex Female (finding) [facility] Clinical Notes 07-26-2021 to 10-17-2024 Telephone Encounter - Rhett Stevenson MD - 10/17/2024 6:40 AM EDTTelephone Encounter - Rhett Stevenson MD - 10/17/2024 6:40 AM EDTCNorman valdez RT(R) - 04/08/2024 10:00 AM EST Note Date & Type Note Facility 10-17-2024 Telephone encounter Note ok [facility] 10-17-2024 Miscellaneous Notes ok Summary: INR 10/13/24 HOME INR: 2.3 PATIENT TAKES 5MG DAILY EXCEPT 10MG MON/WED/FRI. PATIENT TO CONTINUE SAME. RECHECK 1 MONTH. CALLED CELL # & LM ADVISING. Paty Matthew LPN documented in this encounter [facility] 10-16-2024 Telephone encounter Note Summary: INR 10/13/24 HOME INR: 2.3 PATIENT TAKES 5MG DAILY EXCEPT 10MG MON/WED/FRI. PATIENT TO CONTINUE SAME. RECHECK 1 MONTH. CALLED CELL # & LM ADVISING. Paty Matthew LPN [facility] 10-16-2024 Telephone encounter Note Summary: REFILL Patient phones requesting refills as follows: Requested Prescriptions Pending Prescriptions Disp Refills lisinopril (ZESTRIL) 5 mg tablet 90 tablet 1 Sig: Take 1 tablet by mouth once daily. Please review and advise. Paty Matthew LPN [facility] 10-16-2024 Miscellaneous Notes Summary: REFILL Patient phones requesting refills as follows: Requested Prescriptions Pending Prescriptions Disp Refills lisinopril (ZESTRIL) 5 mg tablet 90 tablet 1 Sig: Take 1 tablet by mouth once daily. Please review and advise. Paty Matthew LPN documented in this encounter [facility] 10-09-2024 Telephone encounter Note Patient phones requesting refills as follows: Requested Prescriptions Pending Prescriptions Disp Refills potassium chloride 20 mEq TbER 90 tablet 0 Sig: Take 1 tablet by mouth once daily. Please review and advise. Matty Winston MA [facility] 10-09-2024 Miscellaneous Notes Patient phones requesting refills as follows: Requested Prescriptions Pending Prescriptions Disp Refills potassium chloride 20 mEq TbER 90 tablet 0 Sig: Take 1 tablet by mouth once daily. Please review and advise. Matty Winston MA documented in this encounter [facility] 09-18-2024 Telephone encounter Note I spoke with Rogers and relayed, INR: 1.9 PATIENT TAKES 5MG DAILY EXCEPT 10MG MON/WED/FRI. PATIENT TO CONTINUE SAME. RECHECK 1 MONTH. CALLED CELL # & LMTCB ON VOICEMAIL. Paty Matthew LPN She denies questions. [facility] 09-18-2024 Miscellaneous Notes I spoke with Rogers and relayed, INR: 1.9 PATIENT TAKES 5MG DAILY EXCEPT 10MG MON/WED/FRI. PATIENT TO CONTINUE SAME. RECHECK 1 MONTH. CALLED CELL # & LMTCB ON VOICEMAIL. Paty Matthew LPN She denies questions. CALLED HUSBANDS CELL # & LMTCB ON VOICEMAIL. Paty Matthew LPN Summary: INR INR: 1.9 PATIENT TAKES 5MG DAILY EXCEPT 10MG MON/WED/FRI. PATIENT TO CONTINUE SAME. RECHECK 1 MONTH. CALLED CELL # & LMTCB ON VOICEMAIL. Paty Matthew LPN documented in this encounter [facility] 09-17-2024 Telephone encounter Note CALLED HUSBANDS CELL # & LMTCB ON VOICEMAIL. Paty Matthew LPN [facility] 09-16-2024 Telephone encounter Note Summary: INR INR: 1.9 PATIENT TAKES 5MG DAILY EXCEPT 10MG MON/WED/FRI. PATIENT TO CONTINUE SAME. RECHECK 1 MONTH. CALLED CELL # & LMTCB ON VOICEMAIL. Paty Matthew LPN [facility] 08-22-2024 Telephone encounter Note Patient left vm wanting to know what her bill was? Left message for patient to call the office. Patient needs notified she needs to call the number on her bill. [facility] 08-22-2024 Miscellaneous Notes Patient left vm wanting to know what her bill was? Left message for patient to call the office. Patient needs notified she needs to call the number on her bill. documented in this encounter [facility] 08-12-2024 Telephone encounter Note ok [facility] 08-12-2024 Miscellaneous Notes ok Summary: INR HOME INR: 2.4 PATIENT TAKES 5MG DAILY EXCEPT 10MG MON/WED/FRI. PATIENT TO CONTINUE SAME. RECHECK 1 MONTH. PT ADVISED. Paty Matthew LPN documented in this encounter [facility] 08-11-2024 Telephone encounter Note Summary: INR HOME INR: 2.4 PATIENT TAKES 5MG DAILY EXCEPT 10MG MON/WED/FRI. PATIENT TO CONTINUE SAME. RECHECK 1 MONTH. PT ADVISED. Paty Matthew LPN [facility] 08-01-2024 Telephone encounter Note Patient phones requesting refills as follows: Requested Prescriptions Pending Prescriptions Disp Refills amLODIPine (NORVASC) 10 mg tablet [Pharmacy Med Name: amlodipine 10 mg tablet] 90 tablet 1 Sig: TAKE 1 TABLET BY MOUTH ONCE DAILY Please review and advise. Nicol Silva LPN [facility] 08-01-2024 Miscellaneous Notes Patient phones requesting refills as follows: Requested Prescriptions Pending Prescriptions Disp Refills amLODIPine (NORVASC) 10 mg tablet [Pharmacy Med Name: amlodipine 10 mg tablet] 90 tablet 1 Sig: TAKE 1 TABLET BY MOUTH ONCE DAILY Please review and advise. Nicol Silva LPN documented in this encounter [facility] 07-18-2024 Telephone encounter Note INR 1.9 PATIENT TAKES 5MG DAILY EXCEPT 10MG MON/WED/FRI. PATIENT TO CONTINUE SAME. RECHECK 1 MONTH. [facility] 07-18-2024 Miscellaneous Notes INR 1.9 PATIENT TAKES 5MG DAILY EXCEPT 10MG MON/WED/FRI. PATIENT TO CONTINUE SAME. RECHECK 1 MONTH. documented in this encounter [facility] 07-18-2024 Miscellaneous Notes Notified pt Cont same dose and recheck in 1 wk as she was slightly low. documented in this encounter [facility] 07-18-2024 Telephone encounter Note Notified pt [facility] 07-18-2024 Telephone encounter Note Cont same dose and recheck in 1 wk as she was slightly low. [facility] Work Phone: 06-16-2024 Telephone encounter Note ok [facility] 06-16-2024 Miscellaneous Notes ok Summary: INR INR: 2.3 PATIENT TAKES 5MG DAILY EXCEPT 10MG MON/WED/FRI. PATIENT TO CONTINUE SAME. RECHECK 1 MONTH. PT ADVISED. Paty Matthew LPN documented in this encounter [facility] 06-16-2024 Telephone encounter Note Summary: INR INR: 2.3 PATIENT TAKES 5MG DAILY EXCEPT 10MG MON/WED/FRI. PATIENT TO CONTINUE SAME. RECHECK 1 MONTH. PT ADVISED. Paty Matthew LPN [facility] 05-22-2024 Telephone encounter Note PATIENT ADVISED EXPRESSED UNDERSTANDING. Ayesha Worthington MA [facility] 05-22-2024 Miscellaneous Notes PATIENT ADVISED EXPRESSED UNDERSTANDING. Ayesha Worthington MA Patient called, triage nurse not available and MA not available. Patient is requesting a call back to advise of message. Please advise. Thank you Have her take 10mg today, tomorrow and Sunday and then resume previous dose Check INR in 1 week Please advise on how to dose patients inr? When to recheck? HAD INR DRAWN AT [facility] 05/20/24 HOME INR: 1.8 PATIENT TAKES 5MG DAILY EXCEPT 10MG MONDAYS/WEDNESDAYS/FRIDAYS. CALLED CELL # & LMTCB ON VOICEMAIL. PLEASE SEND CALL TO ME AT THE OFFICE. Paty Matthew LPN documented in this encounter [facility] 05-22-2024 Telephone encounter Note Patient called, triage nurse not available and MA not available. Patient is requesting a call back to advise of message. Please advise. Thank you [facility] Work Phone: 05-22-2024 Telephone encounter Note Have her take 10mg today, tomorrow and Sunday and then resume previous dose Check INR in 1 week [facility] 05-22-2024 Telephone encounter Note Please advise on how to dose patients inr? When to recheck? [facility] 05-21-2024 Telephone encounter Note HAD INR DRAWN AT [facility] 05/20/24 HOME INR: 1.8 PATIENT TAKES 5MG DAILY EXCEPT 10MG MONDAYS/WEDNESDAYS/FRIDAYS. CALLED CELL # & LMTCB ON VOICEMAIL. PLEASE SEND CALL TO ME AT THE OFFICE. Paty Matthew LPN [facility] 05-09-2024 Telephone encounter Note Patient phones requesting refills as follows: Requested Prescriptions Pending Prescriptions Disp Refills warfarin (COUMADIN) 10 mg tablet 90 tablet 1 Sig: Take 1 tablet by mouth once daily. Please review and advise. Ayesha Worthington MA Next 5 Appointments Date and Time Provider Department Dept Phone 01/15/2025 10:00 AM Rhett Stevenson [facility] [phone] 03/02/2025 8:45 AM Sánchez, Nelson [facility] [phone] [facility] 05-09-2024 Miscellaneous Notes Patient phones requesting refills as follows: Requested Prescriptions Pending Prescriptions Disp Refills warfarin (COUMADIN) 10 mg tablet 90 tablet 1 Sig: Take 1 tablet by mouth once daily. Please review and advise. Ayesha Worthington MA Next 5 Appointments Date and Time Provider Department Dept Phone 01/15/2025 10:00 AM Rhett Stevenson [facility] [phone] 03/02/2025 8:45 AM Sánchez, Nelson [facility] [phone] documented in this encounter [facility] 04-21-2024 Telephone encounter Note ok [facility] 04-21-2024 Miscellaneous Notes ok Summary: INR HAD INR DRAWN AT [facility] 04/17/24 INR: 2.1 PATIENT TAKES 5MG DAILY EXCEPT 10MG MONDAYS/WEDNESDAYS/FRIDAYS. PATIENT TO CONTINUE SAME. RECHECK 1 MONTH. PT ADVISED. Paty Matthew LPN documented in this encounter [facility] 04-21-2024 Telephone encounter Note Summary: INR HAD INR DRAWN AT [facility] 04/17/24 INR: 2.1 PATIENT TAKES 5MG DAILY EXCEPT 10MG MONDAYS/WEDNESDAYS/FRIDAYS. PATIENT TO CONTINUE SAME. RECHECK 1 MONTH. PT ADVISED. Paty Matthew LPN [facility] 04-14-2024 Telephone encounter Note Yes, I will refill [facility] 04-14-2024 Miscellaneous Notes Yes, I will refill Patient calls She said she had been seeing a kidney specialist that has been prescribing meds. He cannot see her until 2025 and won't fill her meds until he does see her. She asked if Dr. Stevenson with prescribe them. Thank you. Potassium 20 meq daily Amlodipine 10 mg daily Lisinopril [address] [facility] documented in this encounter [facility] 04-14-2024 Telephone encounter Note Patient calls She said she had been seeing a kidney specialist that has been prescribing meds. He cannot see her until 2025 and won't fill her meds until he does see her. She asked if Dr. Stevenson with prescribe them. Thank you. Potassium 20 meq daily Amlodipine 10 mg daily Lisinopril [address] [facility] Work Phone: 04-08-2024 History of Presen t illness Narrative Radiology Service Progress Note PATIENT NAME: Rogers Cortes DATE OF SERVICE: April 08, 2024 TIME: 10:01 AM PATIENT IDENTITY VERIFICATION COMPLETED USING TWO (2) IDENTIFIERS: Name and Date of confirmed by patient verbally and Name and Date of confirmed by identification band. FALL SCREENING: Has the patient had 2 falls in the last year or 1 fall with injury or currently using an Ambulatory Assistive Device (Walker, Cane, Wheelchair, Crutches, etc.)? No PATIENT GENDER DATA: Assigned female at . status: : No status: NO. PATIENT RELEVANT IMPLANT DATA REVIEWED: Not Applicable PATIENT PRESENTS WITH AN IMPLANTABLE OR ATTACHED GOVERNMENT AUDITOR: No RADIOLOGY DEPARTMENT: Mammography PERIPHERAL IV DATA: Not applicable SIGNED BY: RT Marycarmen(Charisma) April 08, 2024 10:01 AM documented in this encounter [facility] 04-08-2024 Note HNO ID: [id number] Author: NORMAN HERNANDEZ RT(R) Service: ? Author Type: Technologist Type: Progress Notes Filed: 04/08/2024 10:01 Note Text: Radiology Service Progress Note PATIENT NAME: Rogers Cortes DATE OF SERVICE: April 08, 2024 TIME: 10:01 AM PATIENT IDENTITY VERIFICATION COMPLETED USING TWO (2) IDENTIFIERS: Name and Date of confirmed by patient verbally and Name and Date of confirmed by identification band. FALL SCREENING: Has the patient had 2 falls in the last year or 1 fall with injury or currently using an Ambulatory Assistive Device (Walker, Cane, Wheelchair, Crutches, etc.)? No PATIENT GENDER DATA: Assigned female at . status: : No status: NO. PATIENT RELEVANT IMPLANT DATA REVIEWED: Not Applicable PATIENT PRESENTS WITH AN IMPLANTABLE OR ATTACHED GOVERNMENT AUDITOR: No RADIOLOGY DEPARTMENT: Mammography PERIPHERAL IV DATA: Not applicable SIGNED BY: Norman Hernandez, RT(R) April 08, 2024 10:01 AM [facility] 04-07-2024 Telephone encounter Note PT ALREADY STATED IT WASN'T AFFORDABLE AND HAS BEEN GOING TO BEND TO HAVE INR DRAWN. Paty Matthew LPN [facility] 04-07-2024 Miscellaneous Notes PT ALREADY STATED IT WASN'T AFFORDABLE AND HAS BEEN GOING TO BEND TO HAVE INR DRAWN. Paty Matthew LPN Bunny pacheco MD INR calling [phone] Ext:[phone] States they can not reach the patient about getting her home INR machine. Also wanted to let us know the deductible is very high $238/month until her $5000 deductible is met then it will be covered at 100% Nicol Silva LPN documented in this encounter [facility] 04-04-2024 Telephone encounter Note Bunny pacheco MD INR calling [phone] Ext:[phone] States they can not reach the patient about getting her home INR machine. Also wanted to let us know the deductible is very high $238/month until her $5000 deductible is met then it will be covered at 100% Nicol Silva LPN [facility] 03-24-2024 Telephone encounter Note ok [facility] 03-24-2024 Miscellaneous Notes ok Summary: INR HAD INR DRAWN AT [facility] 03/21/24 HOME INR: 2.8 PATIENT TAKES 5MG DAILY EXCEPT 10MG MONDAYS/WEDNESDAYS/FRIDAYS. PATIENT TO CONTINUE SAME. RECHECK 1 MONTH. PT ADVISED. Paty Matthew LPN documented in this encounter [facility] 03-24-2024 Telephone encounter Note Summary: INR HAD INR DRAWN AT [facility] 03/21/24 HOME INR: 2.8 PATIENT TAKES 5MG DAILY EXCEPT 10MG MONDAYS/WEDNESDAYS/FRIDAYS. PATIENT TO CONTINUE SAME. RECHECK 1 MONTH. PT ADVISED. Paty Matthew LPN [facility] 02-28-2024 Instructions Gabbi Meza MA - 02/28/2024 2:21 PM EST ASSESSMENT/PLAN: Generalized epilepsy (HCC) - ICD9: 345.90, ICD10: G40.309 Patient had her first seizure around the age of 13. Most recent seizure was in 2014. She tried going off of her seizure medication at one time but did have a seizure. 1.) Patient will continue on Dilantin ER 200 mg 1 capsule twice daily. We will refill. 2.) Diagnosis should be considered potentially dangerous and life threatening. Seizure medication need to be taken regularly and faithfully. Patient should avoid triggers such as lack of sleep, alcohol, and too much stress. 3.) Further testing would be ordered if indicated. 4.) Follow up in 1 year. Chronic deep vein thrombosis (DVT) of left lower extremity, unspecified vein (HCC) - ICD9: 453.50, ICD10: I82.502 Secondary to Lupus. 1.) Patient continues on Coumadin managed by Dr. Stevenson. documented in this encounter [facility] 02-28-2024 History of Presen t illness Narrative Referring Provider: No ref. provider found Date: February 28, 2024 Chief Complaint: Seizures HISTORY OF PRESENT ILLNESS: Rogers Cortes is a 43 year old female who follows for seizures. Patient is a left handed, woman who lives with her and mother. She works in the [employer] department at [employer]. She has been to Dr. Pozo previously in the for seizures and was put on Dilantin. The patient is taking Dilantin ER 200 mg 1 capsule twice daily with no medication side effects at this time. She is not interested in discontinuing her mediatation due to fears of having a seizure as she did the last time she attempted to stop taking it. She is pleased and would like to make no changes to her current plan of care at this time. I, Gabbi Meza MA, transcribing for Nelson Pozo MD. ALLERGIES Allergen Reactions Adhesive Unknown Adhesive Tape-Silic* Rash Didronel [Etidronat* Rash Keflex [Cephalexin] Hives Levaquin [Levofloxa* Hives [place] [Hydrocodone-* Hives PAST MEDICAL HISTORY: PAST MEDICAL HISTORY Diagnosis Date DUB (dysfunctional uterine bleeding) Dr Driscoll HTN (hypertension) Hypokalemia Idiopathic peripheral neuropathy Lupus Sees Dr Inder koo [place] (obstructive sleep apnea) Mild- deferred CPAP Recurrent deep vein thrombosis (DVT) (HCC) Seizure disorder (HCC) PAST SURGICAL HISTORY Procedure Laterality Date HYSTERECTOMY HX 04/15/2020 for DUB KIDNEY BIOPSY 2018 RENAL BIOPSY 2003 FAMILY HISTORY Problem Relation Age of Onset Hyperlipidemia Mother Hypertension Mother Diabetes Mother No Known Problems Father SOCIAL HISTORY: Tobacco Use: Types: Cigarettes Alcohol Use: Not Currently (occasionally) Drug Use: Never Employer And Job Title: [employer] ([employer]) Years Of Education Completed: Not specified Marital Status: with no children MEDICATIONS: Current Outpatient Medications Medication Sig phenytoin ER (DILANTIN) 100 mg ER capsule TAKE 2 CAPSULES BY MOUTH TWICE DAILY warfarin (COUMADIN) 10 mg tablet Take 1 tablet by mouth once daily. ferrous sulfate (SLOW FE) 140 mg (45 mg iron) TbER Take 1 tablet by mouth once daily. lisinopril (ZESTRIL, PRINIVIL) 5 mg tablet Take [...] Negative for hallucinations and self-injury. Vitals: BP 125/80 Pulse 64 Ht 180.3 cm (5' 11) Wt 129.3 kg (285 lb) BMI 39.75 kg/m PHYSICAL EXAM:: The physical exam findings are as follows: General General Appearance - Well groomed Orientation: Oriented to time, oriented to place, [...] 5 Lower Extremity Right Left Flexor hip joint 5 5 Extensor hip joint 5 5 Extensor knee joint 5 5 Flexor knee joint 5 5 Dorsi flexor ankle joint 5 5 Plantar flexor ankle joint 5 5 Tone: Normal Abnormal movements: None Sensory: Right Left Light Touch Not checked Not checked Pin Prick Not checked Not checked Vibration Not checked Not checked Temperature Not checked Not checked Distal/Proximal exam normal Sensory level: None Reflex Right Left Biceps 2+ 2+ Triceps 2+ 2+ Wrist 2+ 2+ Knee 2+ 2+ Ankle 2+ 2+ Plantar Not checked Not checked Cerebellar Exam: Normal Gait and Stance: Not checked Tandem walk: Not checked Romberg's: Not checked ASSESSMENT/PLAN: Generalized epilepsy (HCC) - ICD9: 345.90, ICD10: G40.309 Patient had her first seizure around the age of 13. Most recent seizure was in 2014. She tried going off of her seizure medication at one time but did have a seizure. 1.) Patient will continue on Dilantin ER 200 mg 1 capsule twice daily. We will refill. 2.) Diagnosis should be considered potentially dangerous and life threatening. Seizure medication need to be taken regularly and faithfully. Patient should avoid triggers such as lack of sleep, alcohol, and too much stress. 3.) Further testing would be ordered if indicated. 4.) Follow up in 1 year. Chronic deep vein thrombosis (DVT) of left lower extremity, unspecified vein (HCC) - ICD9: 453.50, ICD10: I82.502 Secondary to Lupus. 1.) Patient continues on Coumadin managed by Dr. Stevenson. The old record was reviewed and new history was obtained and recorded. I have discussed the recommended treatment, alternative treatments and other treatment options in detail. I have discussed the risks, benefits and side effect of the recommended treatment in detail as well. I have attempted to answer all their questions to their satisfaction and understanding of the explanation has been voiced. With approval we will pursue the recommended treatment. Scribe Attestation: By signing my name below, I,Gabbi Meza MA, attest that this documentation has been prepared under the direction and in the presence of Nelson Pozo MD. Electronically Signed: Gabbi Meza MA, Abdirahman February 28, 2024 2:17 PM. Provider Attestation: I, Nelson Pozo MD, personally performed the services described in this documentation. All medical record entries made by the scribe were at my direction and in my presence. I have reviewed the chart and discharge instructions (if applicable) and agree that the record reflects my personal performance and is accurate and complete. Electronically Signed: Nelson Pozo MD, February 28, 2024 since today. Nelson Pozo MD documented in this encounter [facility] 02-28-2024 Note HNO ID: [id number] Author: NELSON POZO MD Service: ? Author Type: Physician Type: Progress Notes Filed: 02/28/2024 14:47 Note Text: Referring Provider: No ref. provider found Date: February 28, 2024 Chief Complaint: Seizures HISTORY OF PRESENT ILLNESS: Rogers Cortes is a 43 year old female who follows for seizures. Patient is a left handed, woman who lives with her and mother. 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 She has been to Dr. Pozo previously in the for seizures and was put on Dilantin. The patient is taking Dilantin ER 200 mg 1 capsule twice daily with no medication side effects at this time. She is not interested in discontinuing her mediatation due to fears of having a seizure as she did the last time she attempted to stop taking it. She is pleased and would like to make no changes to her current plan of care at this time. IGabbi MA, transcribing for Nelson Pozo MD. ALLERGIES Allergen Reactions Adhesive Unknown Adhesive Tape-Silic* Rash Didronel [Etidronat* Rash Keflex [Cephalexin] Hives Levaquin [Levofloxa* Hives [place] [Hydrocodone-* Hives PAST MEDICAL HISTORY: PAST MEDICAL HISTORY Diagnosis Date DUB (dysfunctional uterine bleeding) Dr Driscoll HTN (hypertension) Hypokalemia Idiopathic peripheral neuropathy Lupus Sees Dr Inder koo [place] (obstructive sleep apnea) Mild- deferred CPAP Recurrent deep vein thrombosis (DVT) (HCC) Seizure disorder (HCC) PAST SURGICAL HISTORY Procedure Laterality Date HYSTERECTOMY HX 04/15/2020 for DUB KIDNEY BIOPSY 2018 RENAL BIOPSY 2003 FAMILY HISTORY Problem Relation Age of Onset Hyperlipidemia Mother Hypertension Mother Diabetes Mother No Known Problems Father SOCIAL HISTORY: Tobacco Use: Types: Cigarettes Alcohol Use: Not Currently (occasionally) Drug Use: Never Employer And Job Title: [employer] ([employer]) Years Of Education Completed: Not specified Marital Status: with no children MEDICATIONS: Current Outpatient Medications Medication Sig phenytoin ER (DILANTIN) 100 mg ER capsule TAKE 2 CAPSULES BY MOUTH TWICE DAILY warfarin (COUMADIN) 10 mg tablet Take 1 tablet by mouth once daily. ferrous sulfate (SLOW FE) 140 mg (45 mg iron) TbER Take 1 tablet by mouth once daily. lisinopril (ZESTRIL, PRINIVIL) 5 mg tablet Take [...] Negative for hallucinations and self-injury. Vitals: BP 125/80 Pulse 64 Ht 180.3 cm (5' 11) Wt 129.3 kg (285 lb) BMI 39.75 kg/m? PHYSICAL EXAM:: The physical exam findings are as follows: General General Appearance - Well groomed Orientation: Oriented to time, oriented to place, [...] Wrist Extensor 5 5 Wrist Flexor 5 (more 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 [facility] 02-21-2024 Telephone encounter Note VERIFIED DOSE IN CORRECT HOME INR IS NOT COVERED BY INSURANCE PATIENT WILL CONTINUE TO GO TO [facility] TO HAVE INR DRAWN PATIENT ADVISED TO GO TO [facility] TO HAVE DRAWN AGAIN IN 1 MONTH. Ayesha Worthington MA [facility] 02-21-2024 Miscellaneous Notes VERIFIED DOSE IN CORRECT HOME INR IS NOT COVERED BY INSURANCE PATIENT WILL CONTINUE TO GO TO [facility] TO HAVE INR DRAWN PATIENT ADVISED TO GO TO [facility] TO HAVE DRAWN AGAIN IN 1 MONTH. Ayesha Worthington MA Summary: INR HAD INR DRAWN AT THIS MORNIN.1 PATIENT TAKES 5MG DAILY EXCEPT 10MG MONDAYS/WEDNESDAYS/FRIDAYS . CALLED HOME # & LMTCB ON VOICEMAIL. NEED TO VERIFY THAT DOSING IS CORRECT ABOVE. WOULD LIKE TO ASK ABOUT STATUS OF HOME INR MACHINE SEND CALL TO ME PLEASE. Paty Matthew LPN documented in this encounter [facility] 02-21-2024 Telephone encounter Note Summary: INR HAD INR DRAWN AT THIS MORNIN.1 PATIENT TAKES 5MG DAILY EXCEPT 10MG MONDAYS/WEDNESDAYS/FRIDAYS . CALLED HOME # & LMTCB ON VOICEMAIL. NEED TO VERIFY THAT DOSING IS CORRECT ABOVE. WOULD LIKE TO ASK ABOUT STATUS OF HOME INR MACHINE SEND CALL TO ME PLEASE. Paty Matthew LPN [facility] 02-18-2024 Telephone encounter Note Prescription Refill Information The patient has been identified by name and date of : Yes Caregiver verified no other encounters exist for this prescription request: Yes Caregiver confirmed with patient/requestor that no other refills are due, in the near future, with this provider at this time: Yes The last office visit in the department: 02/2023 Does the patient have a future office visit with this provider/department: Yes 03/03/2024 Requested Prescriptions Pending Prescriptions Disp Refills phenytoin ER (DILANTIN) 100 mg ER capsule [Pharmacy Med Name: phenytoin sodium extended 100 mg capsule] 120 capsule 0 Sig: TAKE 2 CAPSULES BY MOUTH TWICE DAILY Gabbi Meza MA February 18, 2024 7:02 AM [facility] 02-18-2024 Miscellaneous Notes Prescription Refill Information The patient has been identified by name and date of : Yes Caregiver verified no other encounters exist for this prescription request: Yes Caregiver confirmed with patient/requestor that no other refills are due, in the near future, with this provider at this time: Yes The last office visit in the department: 02/2023 Does the patient have a future office visit with this provider/department: Yes 03/03/2024 Requested Prescriptions Pending Prescriptions Disp Refills phenytoin ER (DILANTIN) 100 mg ER capsule [Pharmacy Med Name: phenytoin sodium extended 100 mg capsule] 120 capsule 0 Sig: TAKE 2 CAPSULES BY MOUTH TWICE DAILY Gabbi Meza MA February 18, 2024 7:02 AM documented in this encounter [facility] 02-14-2024 Telephone encounter Note ARABELLA FROM [facility] WOULD LIKE IRN FOR REFAXED. Ayesha Worthington MA DONE THROUGH [facility] SEE COMMUNICATION ATTACHED. [facility] 02-14-2024 Miscellaneous Notes ARABELLA FROM [facility] WOULD LIKE IRN FOR REFAXED. Ayesha Worthington MA DONE THROUGH [facility] SEE COMMUNICATION ATTACHED. documented in this encounter [facility] 01-28-2024 Telephone encounter Note PT STATING THAT SHE GOT A TEXT FROM [employer] TO VERIFY HER NAME AND SUNDAY. THEN SHE CALLED THEM TODAY TO SEE IF HER INSURANCE WAS GOING TO COVER A MACHINE AND THEY STATED THEY DIDN'T HAVE ANY INFORMATION ON HER. ADVISED PT I WOULD REFAX ENROLLMENT FORM AND LAST PROGRESS NOTE. Paty Matthew LPN [facility] 01-28-2024 Miscellaneous Notes PT STATING THAT SHE GOT A TEXT FROM [employer] TO VERIFY HER NAME AND SUNDAY. THEN SHE CALLED THEM TODAY TO SEE IF HER INSURANCE WAS GOING TO COVER A MACHINE AND THEY STATED THEY DIDN'T HAVE ANY INFORMATION ON HER. ADVISED PT I WOULD REFAX ENROLLMENT FORM AND LAST PROGRESS NOTE. Paty Matthew LPN Patient is requesting a call back with an update on a home INR machine. Please advise. Thank you D/T INSURANCE, PT STATES SHE IS UNABLE TO CONTINUE COMING TO THE OFFICE FOR INRs. TRYING TO GET PT SET UP WITH HOME INR. IF THAT ISN'T APPROVE, PT IS GOING TO HAVE INR DRAWN @ [facility] AND WE WILL CONTINUE TO DOSE. PLEASE SIGN STANDING ORDER. Paty Matthew LPN documented in this encounter [facility] 01-28-2024 Telephone encounter Note Patient is requesting a call back with an update on a home INR machine. Please advise. Thank you [facility] 01-24-2024 Telephone encounter Note D/T INSURANCE, PT STATES SHE IS UNABLE TO CONTINUE COMING TO THE OFFICE FOR INRs. TRYING TO GET PT SET UP WITH HOME INR. IF THAT ISN'T APPROVE, PT IS GOING TO HAVE INR DRAWN @ [facility] AND WE WILL CONTINUE TO DOSE. PLEASE SIGN STANDING ORDER. Paty Matthew LPN [facility] 01-24-2024 Note HNO ID: [id number] Author: PATY MATTHEW LPN Service: ? Author Type: LICENSED NURSE Type: Progress Notes Filed: 01/24/2024 11:06 Note Text: INR 2.8 no change RECHECK 1 MONTH D/T INSURANCE, PT STATES SHE IS UNABLE TO CONTINUE COMING TO THE OFFICE FOR INRs. TRYING TO GET PT SET UP WITH HOME INR. IF THAT ISN'T APPROVE, PT IS GOING TO HAVE INR DRAWN @ [facility] AND WE WILL CONTINUE TO DOSE. Paty Matthew LPN [facility] 01-24-2024 History of Presen t illness Narrative INR 2.8 no change RECHECK 1 MONTH D/T INSURANCE, PT STATES SHE IS UNABLE TO CONTINUE COMING TO THE OFFICE FOR INRs. TRYING TO GET PT SET UP WITH HOME INR. IF THAT ISN'T APPROVE, PT IS GOING TO HAVE INR DRAWN @ [facility] AND WE WILL CONTINUE TO DOSE. Paty Matthew LPN documented in this encounter [facility] 01-24-2024 Instructions Paty Matthew LPN - 01/24/2024 10:32 AM EST PT TO CONTINUE 5MG DAILY EXCEPT 10MG MONDAYS/WEDNESDAYS/FRIDAYS. documented in this encounter [facility] 01-14-2024 Telephone encounter Note Patient calls today. 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 Patient stated Thank you [phone] (home) [phone] (work) [phone] (cell) Patient last appointment: 01/10/2024 Jailyn Starks [facility] 01-14-2024 Miscellaneous Notes Patient calls today. 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 Patient stated Thank you [phone] (home) [phone] (work) [phone] (cell) Patient last appointment: 01/10/2024 Jailyn Starks CALLED NUMBER LISTED NO ANSWER LEFT MESSAGE FOR CALL BACK [employer] LETTER PRINTED AND AT [employer] FOR PICKUP. Ok for jury duty letter Patient's Delmar calls today. Reason for Call: Delmar stated he received a jury duty summons from [facility]. He stated the patient can not drive due to seizures and he has to take her to multiple doctor appointments. He stated he will need proof in writing from patient's PCP that the patient is not able to drive due to seizures. Please advise. Thank you [phone] (home) [phone] (work) [phone] (cell) Patient last appointment: 01/10/2024 Yany Armendariz documented in this encounter [facility] 01-14-2024 Telephone encounter Note CALLED NUMBER LISTED NO ANSWER LEFT MESSAGE FOR CALL BACK [employer] LETTER PRINTED AND AT [employer] FOR PICKUP. [facility] 01-14-2024 Telephone encounter Note Ok for jury duty letter [facility] 01-14-2024 Telephone encounter Note Patient's Delmar calls today. Reason for Call: Delmar stated he received a jury duty summons from [facility]. He stated the patient can not drive due to seizures and he has to take her to multiple doctor appointments. He stated he will need proof in writing from patient's PCP that the patient is not able to drive due to seizures. Please advise. Thank you [phone] (home) [phone] (work) [phone] (cell) Patient last appointment: 01/10/2024 Yany Armendariz [facility] 01-10-2024 Instructions Matty Winston MA - 01/10/2024 11:09 AM EST Continue same dose recheck 2 week documented in this encounter [facility] 01-10-2024 History of Presen t illness Narrative VISIT TYPE: ANNUAL WELL VISIT There are no exam notes on file for this visit. CHIEF COMPLAINT: Patient presents with: Physical HPI: Rogers Cortes is a 43 year old female here for an Annual Well Visit. No new issues/complaints. History reviewed below. Hypertension. Taking medication as prescribed. No medication side effects noted. Present for years. Condition has been well controlled since last visit. Average out of office BP has been 130/80. SLE. 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 She is still on Plaquenil. She underwent renal biopsy. 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 Former patient of Dr Loving, then with Dr Cross. He added lisinopril due to increased protein. Patient says he dismissed her since her renal function has remained stable. Seizure Disorder. Following with Dr Pozo. Stable on dilantin for years. She went back for a follow up and he advised she stay on this. Recurrent DVT/chronic coumadin. Patient remains stable on coumadin. She says they are using condoms for control. DUB. Had D&C in 06/[address]iscoll. She improved for awhile, but then it [...] Current Outpatient Medications Medication Sig Dispense Refill warfarin (COUMADIN) 10 mg tablet Take 1 tablet by mouth once daily. 90 tablet 1 phenytoin ER (DILANTIN) 100 mg ER capsule Take 2 capsules by mouth two times a day. 360 capsule 3 ferrous sulfate (SLOW FE) 140 mg (45 mg iron) TbER Take 1 tablet by mouth once daily. lisinopril (ZESTRIL, PRINIVIL) 5 mg tablet Take [...] Rash Keflex [Cephalexin] Hives Levaquin [Levofloxa* Hives [place] [Hydrocodone-* Hives PAST MEDICAL HISTORY Diagnosis Date DUB (dysfunctional uterine bleeding) Dr Driscoll HTN (hypertension) Hypokalemia Idiopathic peripheral neuropathy Lupus Sees Dr Inder koo [place] (obstructive sleep [...] and on smoker previously Vaping Use Vaping status: Never Used Substance Use Topics Alcohol use: Not Currently Comment: occasionally Drug use: Never Employer And Job Title: [employer] ([employer]) Years Of Education Completed: Not specified Marital Status: with no children Social History Social History Narrative Mother lives with her and her . PHYSICAL EXAM BP 113/75 Pulse 68 Resp 15 Ht 180.3 cm (5' 11) Wt 129.5 kg (285 lb 6.4 oz) SpO2 99% BMI 39.81 kg/m Physical Exam Constitutional: General: She is [...] content normal. Judgment: Judgment normal. DIAGNOSTICS REVIEWED Recent Results (from the past 1344 hour(s)) BASIC METABOLIC PANEL Collection Time: 11/22/23 8:43 AM Result Value Ref Range Glucose 89 74 - 99 mg/dL BUN 14 7 - 21 mg/dL Creatinine 0.70 0.58 - 0.96 mg/dL Sodium 140 136 - 144 mmol/L Potassium 4.0 3.7 - 5.1 mmol/L Chloride 103 98 - 107 mmol/L CO2 26 22 - 30 mmol/L Anion Gap 11 8 - 15 mmol/L Calcium, Total 9.2 8.5 - 10.2 mg/dL Estimated Glomerular Filtration Rate 111 >=60 mL/min/1.73m COMPLETE BLOOD COUNT AND DIFFERENTIAL Collection Time: 11/22/23 8:43 AM Result Value Ref Range WBC 6.28 3.70 - 11.00 k/uL RBC 4.73 3.90 - 5.20 m/uL Hemoglobin 13.4 11.5 - 15.5 g/dL Hematocrit 41.8 36.0 - 46.0 % MCV 88.4 80.0 - 100.0 fL MCH 28.3 26.0 - 34.0 pg MCHC 32.1 30.5 - 36.0 g/dL RDW-CV 13.1 11.5 - 15.0 % Platelet Count 157 150 - 400 k/uL MPV 10.1 9.0 - 12.7 fL Neutrophils % 60.4 % Abs Neut 3.79 1.45 - 7.50 k/uL Lymphocytes % 27.7 % Abs Lymph 1.74 1.00 - 4.00 k/uL Monocytes % 8.9 % Abs [place] 0.56 <0.87 k/uL Eosinophils % 2.2 % Abs Eosin 0.14 <0.46 k/uL Basophils % 0.5 % Abs Baso 0.03 <0.11 k/uL Immature Granulocytes % 0.3 % Abs Immature Gran <0.03 <0.10 k/uL NRBC 0.0 /100 WBC Absolute nRBC <0.01 <0.01 k/uL Diff Type Auto VITAMIN D 25 HYDROXY Collection Time: 11/22/23 8:43 AM Result Value Ref Range Vitamin D 25 Hydroxy 21.2 (L) 31.0 - 80.0 ng/mL PTH INTACT Collection Time: 11/22/23 8:43 AM Result Value Ref Range PTH, Intact 56 15 - 65 pg/mL URIC ACID Collection Time: 11/22/23 8:43 AM Result Value Ref Range Uric Acid 4.4 2.5 - 6.6 mg/dL CREATININE RANDOM URINE Collection Time: 11/22/23 9:09 AM Result Value Ref Range Creatinine, Ur Random (UCRR) 89.2 20.0 - 300.0 mg/dL PROTEIN RANDOM URINE Collection Time: 11/22/23 9:09 AM Result Value Ref Range Protein, Urine Random 6 0 - 20 mg/dL INR FINGERSTICK B/O Collection Time: 12/11/23 12:00 AM Result Value Ref Range PT INR 1.9 IMPRESSION / PLAN ASSESSMENT/PLAN: 1. Wellness examination - ICD9: V70.0, ICD10: Z00.00 (primary diagnosis) As above 2. Essential hypertension, benign - ICD9: 401.1, ICD10: I10 On norvasc and lisinopril - Blood pressure is well controlled. - Continue current regimen. - Monitor home readings and bring list to next office visit for review. 3. Systemic lupus erythematosus, unspecified SLE type, unspecified organ involvement status (HCC) - ICD9: 710.0, ICD10: M32.[address] Griffith in [place]. On plaquenil, prednisone and mycophenolate. 4. Idiopathic neuropathy - ICD9: 355.9, ICD10: G60.9 On gabapentin. 5. Other generalized epilepsy, not intractable, without status epilepticus (HCC) - ICD9: 345.90, ICD10: G40.409 On dilantin. Follows with Dr Pozo. 6. Personal history of other venous thrombosis and embolism - ICD9: V12.51, ICD10: Z86.718 On lifelong anticoagulation with coumadin. Rhett Stevenson MD Follow up 1 year. (Labs through Nephro and rheumatology) Parts of this progress note, including the impression/plan, may have been copied from my prior personal clinical note and remain pertinent. Updates have been made where necessary. documented in this encounter [facility] 01-10-2024 Note HNO ID: [id number] Author: RHETT STEVENSON MD Service: ? Author Type: Physician Type: Progress Notes Filed: 01/10/2024 11:01 Note Text: VISIT TYPE: ANNUAL WELL VISIT There are no exam notes on file for this visit. CHIEF COMPLAINT: Patient presents with: Physical HPI: Rogers Cortes is a 43 year old female here for an Annual Well Visit. No new issues/complaints. History reviewed below. Hypertension. Taking medication as prescribed. No medication side effects noted. Present for years. Condition has been well controlled since last visit. Average out of office BP has been 130/80. SLE. 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 She is still on Plaquenil. She underwent renal biopsy. 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 Former patient of Dr Loving, then with Dr Cross. He added lisinopril due to increased protein. Patient says he dismissed her since her renal function has remained stable. Seizure Disorder. Following with Dr Pozo. Stable on dilantin for years. She went back for a follow up and he advised she stay on this. Recurrent DVT/chronic coumadin. Patient remains stable on coumadin. She says they are using condoms for control. DUB. Had DANDC in 06/[address]iscoll. She improved for awhile, but then it [...] Current Outpatient Medications Medication Sig Dispense Refill warfarin (COUMADIN) 10 mg tablet Take 1 tablet by mouth once daily. 90 tablet 1 phenytoin ER (DILANTIN) 100 mg ER capsule Take 2 capsules by mouth two times a day. 360 capsule 3 ferrous sulfate (SLOW FE) 140 mg (45 mg iron) TbER Take 1 tablet by mouth once daily. lisinopril (ZESTRIL, PRINIVIL) 5 mg tablet Take [...] Rash Keflex [Cephalexin] Hives Levaquin [Levofloxa* Hives [place] [Hydrocodone-* Hives PAST MEDICAL HISTORY Diagnosis Date DUB (dysfunctional uterine bleeding) Dr Driscoll HTN (hypertension) Hypokalemia Idiopathic peripheral neuropathy Lupus Sees Dr Inder koo [place] (obstructive sleep [...] and on smoker previously Vaping Use Vaping status: Never Used Substance Use Topics Alcohol use: Not Currently Comment: occasionally Drug use: Never Employer And Job Title: [employer] ([employer]) Years Of Education Completed: Not specified Marital Status: with no children Social History Social History Narrative Mother lives with her and her . PHYSICAL EXAM BP 113/75 Pulse 68 Resp 15 Ht 180.3 cm (5' 11) Wt 129.5 kg (285 lb 6.4 oz) SpO2 99% BMI 39.81 kg/m? Physical Exam Constitutional: General: She is not in acute distress. Appearance: Normal appearance. She is obese. HENT: Head: Normocephalic and atraumatic. Right Ear: Ear canal and external ear normal. There i (more 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 [facility] 12[facility] History of Presen t illness Narrative INR 1.9 PT TO TAKE 10MG TODAY THEN RESUME 5MG DAILY EXCEPT 10MG MON/WED/FRI. RECHECK 1 MONTH Paty Matthew LPN documented in this encounter [facility] 12-11-2023 Instructions Paty Matthew LPN - 12/11/2023 10:51 AM EST PT TO TAKE 10MG TODAY THEN RESUME 5MG DAILY EXCEPT 10MG MONDAYS/WEDNESDAYS/FRIDAYS. documented in this encounter [facility] 11-14-2023 History of Presen t illness Narrative INR 2.3 no change RECHECK 1 MONTH Paty Matthew LPN documented in this encounter [facility] 11-14-2023 Instructions Paty Matthew LPN - 11/14/2023 10:50 AM EDT PT TO CONTINUE 5MG DAILY EXCEPT 10MG MONDAYS/WEDNESDAYS/FRIDAYS documented in this encounter [facility] 10-16-2023 History of Presen t illness Narrative INR 2.6 no change RECHECK 1 MONTH Paty Matthew LPN documented in this encounter [facility] 10-16-2023 Instructions Paty Matthew LPN - 10/16/2023 11:03 AM EDT PT TO CONTINUE 5MG DAILY EXCEPT 10MG MONDAYS/WEDNESDAYS/FRIDAYS documented in this encounter [facility] 09-18-2023 History of Presen t illness Narrative INR 2.9 no change RECHECK 1 MONTH Paty Matthew LPN documented in this encounter [facility] 09-18-2023 Instructions Paty Matthew LPN - 09/18/2023 10:24 AM EDT PT TO CONTINUE 5MG DAILY EXCEPT 10MG MONDAYS/WEDNESDAYS/FRIDAYS documented in this encounter [facility] 08-14-2023 History of Presen t illness Narrative INR 2.3 no change RECHECK 1 MONTH Paty Matthew LPN documented in this encounter [facility] 08-14-2023 Instructions Paty Matthew LPN - 08/14/2023 1:31 PM EDT PT TO CONTINUE 5MG DAILY EXCEPT 10MG MONDAYS/WEDNESDAYS/FRIDAYS documented in this encounter [facility] 08-07-2023 Telephone encounter Note Prescription Refill Information The patient has been identified by name and date of : Yes Caregiver verified no other encounters exist for this prescription request: Yes Caregiver confirmed with patient/requestor that no other refills are due, in the near future, with this provider at this time: Yes The last office visit in the department: 12/19/22 Does the patient have a future office visit with this provider/department: Yes Requested Prescriptions Pending Prescriptions Disp Refills warfarin (COUMADIN) 10 mg tablet 90 tablet 1 Sig: Take 1 tablet by mouth once daily. Patient states she takes 10 mg on and 5 mg all other days. She is leaving for vacation 08/15/23. Thank you! Fatemeh Alarcon August 07, 2023 10:59 AM [facility] 08-07-2023 Miscellaneous Notes Prescription Refill Information The patient has been identified by name and date of : Yes Caregiver verified no other encounters exist for this prescription request: Yes Caregiver confirmed with patient/requestor that no other refills are due, in the near future, with this provider at this time: Yes The last office visit in the department: 12/19/22 Does the patient have a future office visit with this provider/department: Yes Requested Prescriptions Pending Prescriptions Disp Refills warfarin (COUMADIN) 10 mg tablet 90 tablet 1 Sig: Take 1 tablet by mouth once daily. Patient states she takes 10 mg on // and 5 mg all other days. She is leaving for vacation 08/15/23. Thank you! Fatemeh Alarcon August 07, 2023 10:59 AM documented in this encounter [facility] 07-19-2023 History of Presen t illness Narrative INR 2.3 no change RECHECK 1 MONTH Paty Matthew LPN documented in this encounter [facility] 07-19-2023 Instructions Paty Matthew LPN - 07/19/2023 11:03 AM EDT PT TO CONTINUE 5MG DAILY EXCEPT 10MG MONDAYS/WEDNESDAYS/FRIDAYS documented in this encounter [facility] 07-05-2023 History of Presen t illness Narrative INR 2.9 decrease TO TAKE 5MG DAILY EXCEPT 10MG SUN/SUN/SUN. RECHECK 2 WEEKS. Paty Matthew LPN documented in this encounter [facility] 07-05-2023 Instructions Paty Matthew LPN - 07/05/2023 10:11 AM EDT PT TO TAKE 5MG DAILY EXCEPT 10MG MONDAYS/WEDNESDAYS/FRIDAYS documented in this encounter [facility] 06-21-2023 Telephone encounter Note PT NEEDS NEW STANDING ORDER FOR PROTIME. PLEASE SIGN ORDER. Paty Matthew LPN [facility] 06-21-2023 Miscellaneous Notes PT NEEDS NEW STANDING ORDER FOR PROTIME. PLEASE SIGN ORDER. Paty Matthew LPN documented in this encounter [facility] 06-21-2023 History of Presen t illness Narrative INR 1.6 increase TO TAKE 10MG DAILY EXCEPT 5MG //SUN. RECHECK 2 WEEKS. Paty Matthew LPN documented in this encounter [facility] 06-21-2023 Instructions Paty Matthew LPN - 06/21/2023 10:04 AM EDT PT TO TAKE 10MG DAILY EXCEPT 5MG TUESDAYS/THURSDAYS/SATURDAYS documented in this encounter [facility] 05-22-2023 History of Presen t illness Narrative INR 2.0 no change RECHECK 1 MONTH Paty Matthew LPN documented in this encounter [facility] 05-22-2023 Instructions Paty Matthew LPN - 05/22/2023 10:36 AM EDT PT TO CONTINUE 5MG DAILY EXCEPT 10MG MONDAYS/WEDNESDAYS/FRIDAYS documented in this encounter [facility] 04-19-2023 History of Presen t illness Narrative INR 2.4 no change RECHECK 1 MONTH Paty Matthew LPN documented in this encounter [facility] 04-19-2023 Instructions Paty Matthew LPN - 04/19/2023 10:47 AM EDT PT TO CONTINUE 5MG DAILY EXCEPT 10MG MONDAYS/WEDNESDAYS/FRIDAYS documented in this encounter [facility] 03-22-2023 History of Presen t illness Narrative INR 2.0 no change RECHECK 1 MONTH Paty Matthew LPN documented in this encounter [facility] 03-22-2023 Instructions Paty Matthew LPN - 03/22/2023 10:22 AM EST PT TO CONTINUE 5MG DAILY EXCEPT 10MG MONDAYS/WEDNESDAYS/FRIDAYS documented in this encounter [facility] 03-08-2023 History of Presen t illness Narrative Radiology Service Progress Note PATIENT NAME: Rogers Cortes DATE OF SERVICE: March 08, 2023 TIME: 8:07 AM PATIENT IDENTITY VERIFICATION COMPLETED USING TWO (2) IDENTIFIERS: Name and Date of confirmed by patient verbally and Name and Date of confirmed by identification band. FALL SCREENING: Has the patient had 2 falls in the last year or 1 fall with injury or currently using an Ambulatory Assistive Device (Walker, Cane, Wheelchair, Crutches, etc.)? No PATIENT GENDER DATA: Female. status: : No status: NO. PATIENT RELEVANT IMPLANT DATA REVIEWED: Not Applicable PATIENT PRESENTS WITH AN IMPLANTABLE OR ATTACHED GOVERNMENT AUDITOR: No RADIOLOGY DEPARTMENT: Mammography PERIPHERAL IV DATA: Not applicable SIGNED BY: RT Sherita(R) March 08, 2023 8:07 AM documented in this encounter [facility] 01-16-2023 History of Presen t illness Narrative INR 2.1 no change RECHECK 1 MONTH Paty Matthew LPN documented in this encounter [facility] 01-16-2023 Instructions Paty Matthew LPN - 01/16/2023 11:06 AM EST PT TO CONTINUE 5MG DAILY EXCEPT 10MG MONDAYS/WEDNESDAYS/FRIDAYS documented in this encounter [facility] 01-02-2023 History of Presen t illness Narrative INR 3.0 decrease TO TAKE 5MG DAILY EXCEPT 10MG SUN/SUN/SUN. RECHECK 2 WEEKS. Paty Matthew LPN documented in this encounter [facility] 01-02-2023 Instructions Paty Matthew LPN - 01/02/2023 10:16 AM EST PT TO TAKE 5MG DAILY EXCEPT 10MG MONDAYS/WEDNESDAYS/FRIDAYS documented in this encounter [facility] 12-19-2022 History of Presen t illness Narrative VISIT TYPE: ANNUAL WELL VISIT Nursing Notes: Matty Winston MA 12/19/2022 9:01 AM Signed physical CHIEF COMPLAINT: Patient presents with: Physical Hypertension HPI: Rogers Cortes is a 41 year old female here for an Annual Well Visit. No new issues/complaints. History reviewed below. Hypertension. Taking medication as prescribed. No medication side effects noted. Present for years. Condition has been well controlled since last visit. Average out of office BP has been 130/80. SLE. 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 She is still on [...] DUB. Had D&C in 06/[address]iscoll. She improved for awhile, but then it [...] Rash Keflex [Cephalexin] Hives Levaquin [Levofloxa* Hives [place] [Hydrocodone-* Hives PAST MEDICAL HISTORY Diagnosis Date DUB (dysfunctional uterine bleeding) Dr Driscoll HTN (hypertension) Hypokalemia Idiopathic peripheral neuropathy Lupus [...] Drug use: Never Employer And Job Title: [employer] ([employer]) Years Of Education Completed: Not specified Marital Status: with no children Social History Social History Narrative Mother lives with her and her . PHYSICAL EXAM BP 119/83 (BP Site: Right Arm, BP Position: Sitting, BP Cuff Size: Large Adult) Pulse 70 Resp 15 Ht 180.3 cm (5' 11) Wt 127 kg (280 lb) SpO2 99% [...] ICD10: M32.[address] Griffith in [place]. On plaquenil, prednisone and mycophenolate. 4. Idiopathic neuropathy - ICD9: 355.9, ICD10: G60.9 On gabapentin. 5. Other generalized epilepsy, not intractable, without status epilepticus (HCC) - ICD9: 345.90, ICD10: G40.409 On dilantin. Follows with Dr Pozo. 6. Personal history of other venous thrombosis and embolism - ICD9: V12.51, ICD10: Z86.718 On lifelong anticoagulation with coumadin. Rhett Stevenson MD Follow up 1 year. documented in this encounter [facility] 12-19-2022 Nurse Note physical documented in this encounter [facility] 12-14-2022 History of Presen t illness Narrative INR 2.0 increase TO TAKE 10MG DAILY EXCEPT 5MG //SUN. RECHECK 2 WEEKS. Paty Matthew LPN documented in this encounter [facility] 12-14-2022 Instructions Paty Matthew LPN - 12/14/2022 10:28 AM EST PT TO TAKE 10MG DAILY EXCEPT 5MG TUESDAYS/THURSDAYS/SATURDAYS documented in this encounter [facility] 12-05-2022 History of Presen t illness Narrative INR 5.4 HOLD X 2 RECHECK SUNDAY. Paty Matthew LPN documented in this encounter [facility] 12-05-2022 Instructions Paty Matthew LPN - 12/05/2022 11:05 AM EDT PT TO HOLD TODAY AND TOMORROW AND RECHECK SUNDAY documented in this encounter [facility] 10-12-2022 Miscellaneous Notes Patient phones requesting refills as follows: Requested Prescriptions Pending Prescriptions Disp Refills warfarin (COUMADIN) 10 mg tablet 30 tablet 3 Sig: Take 1 tablet by mouth once daily. Please review and advise. Nicol Silva LPN documented in this encounter [facility] 10-03-2022 Note HNO ID: [id number] Author: Paty Matthew LPN Service: ? Author Type: LICENSED NURSE Type: Progress Notes Filed: 10/03/2022 11:00 AM Note Text: INR 2.2 no change RECHECK 1 MONTH Paty Matthew LPN [facility] 10-03-2022 History of Presen t illness Narrative INR 2.2 no change RECHECK 1 MONTH Paty Matthew LPN documented in this encounter [facility] 10-03-2022 Instructions Paty Matthew LPN - 10/03/2022 10:47 AM EDT PT TO CONTINUE 10MG DAILY EXCEPT 5MG SATURDAYS/SUNDAYS documented in this encounter [facility] 08-30-2022 Note HNO ID: [id number] Author: Paty Matthew LPN Service: ? Author Type: LICENSED NURSE Type: Progress Notes Filed: 08/30/2022 10:34 AM Note Text: INR 2.1 no change RECHECK 1 MONTH Paty Matthew LPN [facility] 08-02-2022 Note HNO ID: [id number] Author: Paty Matthew LPN Service: ? Author Type: LICENSED NURSE Type: Progress Notes Filed: 08/02/2022 10:35 AM Note Text: INR 2.4 no change RECHECK 1 MONTH Paty Matthew LPN [facility] 08-02-2022 History of Presen t illness Narrative INR 2.4 no change RECHECK 1 MONTH Paty Matthew LPN documented in this encounter [facility] 08-02-2022 Instructions Paty Matthew LPN - 08/02/2022 10:31 AM EDT PT TO CONTINUE 10MG DAILY EXCEPT 5MG SATURDAYS/SUNDAYS documented in this encounter [facility] 07-05-2022 Note HNO ID: [id number] Author: Paty Matthew LPN Service: ? Author Type: LICENSED NURSE Type: Progress Notes Filed: 07/05/2022 9:54 AM Note Text: INR 2.6 no change RECHECK 1 MONTH Paty Matthew LPN [facility] 07-05-2022 History of Presen t illness Narrative INR 2.6 no change RECHECK 1 MONTH Paty Matthew LPN documented in this encounter [facility] 07-05-2022 Instructions Paty Matthew LPN - 07/05/2022 9:51 AM EDT PT TO CONTINUE 10MG DAILY EXCEPT 5MG SATURDAYS/SUNDAYS documented in this encounter [facility] 05-30-2022 Note HNO ID: [id number] Author: Paty Matthew LPN Service: ? Author Type: LICENSED NURSE Type: Progress Notes Filed: 05/30/2022 11:32 AM Note Text: INR 2.7 no change RECHECK 1 MONTH Paty Matthew LPN [facility] 05-30-2022 History of Presen t illness Narrative INR 2.7 no change RECHECK 1 MONTH Paty Matthew LPN documented in this encounter [facility] 05-30-2022 Instructions Paty Matthew LPN - 05/30/2022 11:07 AM EDT PT TO CONTINUE 10MG DAILY EXCEPT 5MG SATURDAYS/SUNDAYS documented in this encounter [facility] 05-25-2022 Miscellaneous Notes Summary: REFILL Patient phones requesting refills as follows: Requested Prescriptions Pending Prescriptions Disp Refills warfarin (COUMADIN) 10 mg tablet 30 tablet 3 Sig: Take 1 tablet by mouth once daily. Please review and advise. Elizabeth Barbosa MA documented in this encounter [facility] 05-02-2022 Note HNO ID: [id number] Author: Paty Matthew LPN Service: ? Author Type: LICENSED NURSE Type: Progress Notes Filed: 05/02/2022 11:23 AM Note Text: INR 2.5 no change RECHECK 1 MONTH Paty Matthew LPN [facility] 04-04-2022 Note HNO ID: [id number] Author: Paty Matthew LPN Service: ? Author Type: LICENSED NURSE Type: Progress Notes Filed: 04/04/2022 11:06 AM Note Text: INR 2.3 no change RECHECK 1 MONTH Paty Matthew LPN [facility] 04-04-2022 History of Presen t illness Narrative INR 2.3 no change RECHECK 1 MONTH Paty Matthew LPN documented in this encounter [facility] 04-04-2022 Instructions Paty Matthew LPN - 04/04/2022 11:03 AM EST PT TO CONTINUE 10MG DAILY EXCEPT 5MG SATURDAYS/SUNDAYS documented in this encounter [facility] 03-07-2022 Note HNO ID: [id number] Author: Paty Matthew LPN Service: ? Author Type: LICENSED NURSE Type: Progress Notes Filed: 03/07/2022 11:13 AM Note Text: INR 2.0 no change RECHECK 1 MONTH Paty Matthew LPN [facility] 03-07-2022 History of Presen t illness Narrative INR 2.0 no change RECHECK 1 MONTH Paty Matthew LPN documented in this encounter [facility] 03-07-2022 Instructions Paty Matthew LPN - 03/07/2022 11:02 AM EST PT TO CONTINUE 10MG DAILY EXCEPT 5MG SATURDAYS/SUNDAYS documented in this encounter [facility] 02-23-2022 Miscellaneous Notes Patient called needing a jury duty excuse. Letter was faxed to the court at [phone] and patient was advised. documented in this encounter [facility] 02-21-2022 Miscellaneous Notes Pharmacy called and stated that they cannot get Dilantin 200 mg capsules, so we have to order it as 100 mg 2 capsules twice daily New order is attached. documented in this encounter [facility] 02-21-2022 Note HNO ID: [id number] Author: Nelson Pozo MD Service: ? Author Type: Physician Type: Progress Notes Filed: 02/21/2022 8:56 AM Note Text: Referring Provider: No ref. provider found Date: February 21, 2022 Chief Complaint: Seizures HISTORY OF PRESENT ILLNESS: Rogers Cortes is a 41 year old female who follows for seizures. Patient is a left handed, woman. 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 She has been to Dr. Pozo previously [...] depression. I, Lori Tony MA, transcribing for Nelson Pozo MD. ALLERGIES Allergen Reactions Adhesive Unknown Adhesive Tape-Silic* Rash Didronel [Etidronat* Rash Keflex [Cephalexin] Hives Levaquin [Levofloxa* Hives [place] [Hydrocodone-* Hives PAST MEDICAL HISTORY: PAST MEDICAL HISTORY Diagnosis Date DUB (dysfunctional uterine bleeding) Dr Driscoll HTN (hypertension) Hypokalemia Idiopathic peripheral neuropathy Lupus [...] Drug Use: Never Employer And Job Title: [employer] ([employer]) Years Of Education Completed: Not specified [...] Pulse (!) 59 Ht 180.3 cm (5' 11) Wt 122 kg (269 lb) BMI 37.52 [...] Left Flexor hip (more 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 [facility] 02-02-2022 Note HNO ID: [id number] Author: Paty Matthew LPN Service: ? Author Type: LICENSED NURSE Type: Progress Notes Filed: 02/02/2022 11:14 AM Note Text: INR 2.8 no change RECHECK 1 MONTH Paty Matthew LPN [facility] 02-02-2022 History of Presen t illness Narrative INR 2.8 no change RECHECK 1 MONTH Paty Matthew LPN documented in this encounter [facility] 02-02-2022 Instructions Paty Matthew LPN - 02/02/2022 11:12 AM EST PT TO CONTINUE 10MG DAILY EXCEPT 5MG SATURDAYS/SUNDAYS documented in this encounter [facility] 01-05-2022 Note HNO ID: [id number] Author: Paty Matthew LPN Service: ? Author Type: LICENSED NURSE Type: Progress Notes Filed: 01/05/2022 3:36 PM Note Text: INR 2.3 no change RECHECK 1 MONTH Paty Matthew LPN [facility] 01-05-2022 History of Presen t illness Narrative INR 2.3 no change RECHECK 1 MONTH Paty Matthew LPN documented in this encounter [facility] 01-05-2022 Instructions Paty Matthew LPN - 01/05/2022 1:54 PM EST PT TO CONTINUE 10MG DAILY EXCEPT 5MG SATURDAYS/SUNDAYS documented in this encounter [facility] 01-05-2022 Miscellaneous Notes DDM CALEB Patient phones requesting refills as follows: Requested Prescriptions Pending Prescriptions Disp Refills warfarin (COUMADIN) 10 mg tablet 30 tablet 3 Sig: Take 1 tablet by mouth daily as directed. Please review and advise. Ayesha Worthington MA documented in this encounter [facility] 12-20-2021 Note HNO ID: [id number] Author: Paty Matthew LPN Service: ? Author Type: LICENSED NURSE Type: Progress Notes Filed: 12/20/2021 11:15 AM Note Text: INR 3.0 decrease TO TAKE 10MG DAILY EXCEPT 5MG SAT/SUN. RECHECK 2 WEEKS. Paty Matthew LPN [facility] 12-20-2021 History of Presen t illness Narrative INR 3.0 decrease TO TAKE 10MG DAILY EXCEPT 5MG SAT/SUN. RECHECK 2 WEEKS. Paty Matthew LPN documented in this encounter [facility] 12-20-2021 Instructions Paty Matthew LPN - 12/20/2021 11:09 AM EST PT TO TAKE 10MG DAILY EXCEPT 5MG SATURDAYS AND SUNDAYS documented in this encounter [facility] 12-13-2021 Note HNO ID: [id number] Author: Rhett Stevenson MD Service: ? Author Type: Physician Type: Progress Notes Filed: 12/13/2021 11:20 AM Note Text: VISIT TYPE: ANNUAL WELL VISIT Nursing Notes: Nisa Ruiz LPN 12/13/2021 10:34 AM Signed No concerns Has not had blood work done, patient is fasting today CHIEF COMPLAINT: Patient presents with: Physical HPI: Rogers Cortes is a 41 year old female here for an Annual Well Visit. No new issues/complaints. History reviewed below. Hypertension. Taking medication as prescribed. No medication side effects noted. Present for years. Condition has been well controlled since last visit. Average out of office BP has been 130/80. SLE. 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 She is still on [...] DUB. Had DANDC in 06/[address]iscoll. She improved for awhile, but then it [...] Rash Keflex [Cephalexin] Hives Levaquin [Levofloxa* Hives [place] [Hydrocodone-* Hives PAST MEDICAL HISTORY Diagnosis Date DUB (dysfunctional uterine bleeding) Dr Driscoll HTN (hypertension) Hypokalemia Idiopathic peripheral neuropathy Lupus [...] Drug use: Never Employer And Job Title: [employer] ([employer]) Years Of Education Completed: Not specified Marital Status: Social History Social History Narrative Not on file PHYSICAL EXAM BP 112/77 (BP Site: Left Arm, BP Position: Sitting, BP Cuff Size: Regular Adult) Pulse 66 Resp 16 Ht 180.3 cm (5' 11) Wt 122.4 kg (269 lb 12.8 oz) SpO2 98% BMI 37.63 kg/m? Physical Exam Constitutional: General: She is not in acute distress. Appearance: Normal appearance. She is obese. HENT: Head: Normocephalic and atraumatic. Ri (more 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 [facility] 11-29-2021 Note HNO ID: [id number] Author: Paty Matthew LPN Service: ? Author Type: LICENSED NURSE Type: Progress Notes Filed: 11/29/2021 11:29 AM Note Text: INR 1.9 no change RECHECK 2 WEEKS. Paty Matthew LPN [facility] 11-15-2021 Note HNO ID: [id number] Author: Paty Matthew LPN Service: ? Author Type: LICENSED NURSE Type: Progress Notes Filed: 11/15/2021 11:17 AM Note Text: INR 1.8 increase TO 10MG DAILY EXCEPT 5MG SAT. RECHECK 2 WEEKS. Paty Matthew LPN [facility] 11-15-2021 History of Presen t illness Narrative INR 1.8 increase TO 10MG DAILY EXCEPT 5MG SAT. RECHECK 2 WEEKS. Paty Matthew LPN documented in this encounter [facility] 11-15-2021 Instructions Paty Matthew LPN - 11/15/2021 11:07 AM EDT PT TO TAKE 10MG DAILY EXCEPT 5MG ON SATURDAYS documented in this encounter [facility] 11-01-2021 Note HNO ID: [id number] Author: Paty Matthew LPN Service: ? Author Type: LICENSED NURSE Type: Progress Notes Filed: 11/01/2021 9:04 AM Note Text: INR 1.8 increase TO 10MG DAILY EXCEPT 5MG SAT/SUN. RECHECK 2 WEEKS. Paty Matthew LPN [facility] 11-01-2021 History of Presen t illness Narrative INR 1.8 increase TO 10MG DAILY EXCEPT 5MG SAT/SUN. RECHECK 2 WEEKS. Paty Matthew LPN documented in this encounter [facility] 11-01-2021 Instructions Paty Matthew LPN - 11/01/2021 9:00 AM EDT PT TO TAKE 10MG DAILY EXCEPT 5MG SATURDAYS/SUNDAYS documented in this encounter [facility] 09-29-2021 Note HNO ID: [id number] Author: Paty Matthew LPN Service: ? Author Type: LICENSED NURSE Type: Progress Notes Filed: 09/29/2021 8:21 AM Note Text: INR 2.7 no change RECHECK 1 MONTH Paty Matthew LPN [facility] 09-29-2021 History of Presen t illness Narrative INR 2.7 no change RECHECK 1 MONTH Paty Matthew LPN documented in this encounter [facility] 09-29-2021 Instructions Paty Matthew LPN - 09/29/2021 8:07 AM EDT PT TO CONTINUE 10MG DAILY EXCEPT 5MG WEDNESDAYS/SATURDAYS/SUNDAYS documented in this encounter [facility] 08-25-2021 Note HNO ID: [id number] Author: Paty Matthew LPN Service: ? Author Type: LICENSED NURSE Type: Progress Notes Filed: 08/25/2021 3:58 PM Note Text: INR 2.1 no change RECHECK 1 MONTH Paty Matthew LPN [facility] 07-27-2021 Instructions Paty Matthew LPN - 07/27/2021 11:03 AM EDT PT TO CONTINUE 10MG DAILY EXCEPT 5MG WED/SAT/SUN. documented in this encounter [facility] 07-26-2021 History of Presen t illness Narrative INR 2.0 no change RECHECK 1 MONTH Paty Matthew LPN documented in this encounter [facility] Evaluation note No assessment inform ation available [facility] Work Phone: Evaluation note Diagnosis Personal history of venous thrombosis and embolism- [facility] [place] [facility] Diagnosis Personal history of venous thrombosis and embolism- Primary documented in this encounter [facility] note* Diagnosis Personal history of venous thrombosis and embolism- Primary documented in this encounter [facility] note* Diagnosis Personal history of DVT (deep vein thrombosis)- Primary Personal history of venous thrombosis and embolism documented in this encounter [facility] note* Diagnosis Generalized epilepsy (HCC) Unspecified epilepsy without mention of intractable epilepsy documented in this encounter [facility] note* Diagnosis Personal history of other venous thrombosis and embolism- Primary documented in this encounter [facility] note* Diagnosis Personal history of other venous thrombosis and embolism- Primary documented in this encounter [facility] note* Diagnosis Personal history of other venous thrombosis and embolism- Primary documented in this encounter [facility] note* Diagnosis Wellness examination- Primary Essential hypertension, benign Systemic lupus erythematosus, unspecified SLE type, unspecified organ involvement status (HCC) Idiopathic neuropathy Mononeuritis of unspecified site Other generalized epilepsy, not intractable, without status epilepticus (HCC) Personal history of other venous thrombosis and embolism Encounter for screening mammogram for malignant neoplasm of breast Other screening mammogram [facility] [place] [facility]* Diagnosis Encounter for screening mammogram for malignant neoplasm of breast Other screening mammogram [facility] [place] [facility]* Diagnosis Personal history of other venous thrombosis and embolism- Primary [facility] this [facility] [place] [facility]* Diagnosis Personal history of other venous thrombosis and embolism- Primary documented in this encounter [facility] note* Diagnosis Personal history of other venous thrombosis and embolism- Primary documented in this encounter [facility] note* Diagnosis Wellness examination- Primary Essential hypertension, benign Systemic lupus erythematosus, unspecified SLE type, unspecified organ involvement status (HCC) Idiopathic neuropathy Mononeuritis of unspecified site Other generalized epilepsy, not intractable, without status epilepticus (HCC) Personal history of DVT (deep vein thrombosis) Personal history of venous thrombosis and embolism Screening for depression Encounter for screening examination for other mental health and behavioral disorders Encounter for screening mammogram for malignant neoplasm of breast Other [facility] Diagnosis Personal history of DVT (deep vein thrombosis)- Primary Personal history of venous thrombosis and embolism documented in this encounter [facility] note* Diagnosis Personal history of DVT (deep vein thrombosis)- Primary Personal history of venous thrombosis and embolism documented in this encounter [facility] note* Diagnosis Generalized epilepsy (HCC)- Primary Unspecified epilepsy without mention of intractable epilepsy Chronic deep vein thrombosis (DVT) of left lower extremity, unspecified vein (HCC) documented in this encounter [facility] note* Diagnosis Encounter for screening mammogram for malignant neoplasm of breast Other screening mammogram documented in this encounter [facility] note* Diagnosis Essential hypertension, benign- Primary documented in this encounter [facility] for referral (narrative)* Diagnostic Procedure Only (Routine) - Authorized Specialty Diagnoses / Procedures Referred By Yan atkinson Referred To Contact [facility] Diagnoses Encounter for screening mammogram for malignant neoplasm of breast Procedures MACARIO SCREENING SCREENING MAMMOGRAPHY BI 2-VIEW BREAST INC Rhett León MD [facility] [address] [address] [place] [address] Referral ID Status Reason Start Date Expiration Date Visits Requested Visits Authorized [id number] Authorized Auto-Generat ed Referral 01/18/2024 1 1 [facility] for referral (narrative)* Diagnostic Procedure Only (Routine) - Pending Review Specialty Diagnoses / Procedures Referred By Yan atkinson Referred To Contact [facility] Diagnoses Encounter for screening mammogram for malignant neoplasm of breast Procedures MACARIO SCREENING SCREENING MAMMOGRAPHY BI 2-VIEW BREAST INC Rhett León MD [address] [address] [facility] [address] [place] [address] Referral ID Status Reason Start Date Expiration Date Visits Requested Visits Authorized [id number] Pending Review Auto-Generat ed Referral 03/09/2024 02/08/2025 1 1 [facility] for referral (narrative)No reason for referral [facility]: Reason for visit Narrative* Diagnostic Procedure Only (Routine) - Closed Specialty Diagnoses / Procedures Referred By Yan t Referred To Contact [facility] Diagnoses Encounter for screening mammogram for malignant neoplasm of breast Procedures MACARIO SCREENING SCREENING MAMMOGRAPHY BI 2-VIEW BREAST INC Rhett León MD [address] [place] [id number] [facility] [address] [place] [address] Referral ID Status Reason Start Date Expiration Date V isits Requested Visits Authorized [id number] Closed Auto-Generate d Referral 12/19/2022 01/18/2024 1 1 [facility] for visit Narrative* Consult, Test, Treat (Routine) - Closed Specialty Diagnoses / Procedures Referred By Yan atkinson Referred To Contact [facility] Diagnoses Encounter for screening mammogram for malignant neoplasm of breast Procedures MACARIO SCREENING SCREENING MAMMOGRAPHY BI 2-VIEW BREAST INC Rhett León MD [facility] [address] [address] Phone: tel: fax: [facility] [address] [place] [address] Referral ID Status Reason Start Date Expiration Date V isits Requested Visits Authorized [id number] Closed Auto-Generate d Referral 03/18/2024 02/04/2025 1 1 [facility] Summary Purpose Family History No Family History Records FoundNo Family History Records FoundNo Family History Records FoundNo Family History Records FoundNo Family History Records FoundNo Family History Records FoundNo Family History Records FoundNo Family History Records FoundNo Family History Records Found Advance Directives No Advanced Directives Records FoundDocuments on File Type Date Recorded 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 Advance Directive(s) 11/06/2017 7:21 AM Documents on File Type Date Recorded 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 Advance Directive(s) 11/06/2017 7:21 AM Chief Complaint and Reason for Visit Chief Complaint PAIN- COPY PCP Chief Complaint PAIN- COPY PCP PAIN- COPY PCP Chief Complaint Admit Date COPY PCP Justin 30th, 2024 8:03am Chief Complaint Admit Date PAIN- COPY PCP July 14, 2024 10:30 am Health Concerns Infection Onset Date Last Indicated Resolved Time COVID-19 Rule-Out 04/12/2020 04/12/2020 04/13/2020 2:42 PM EST Additional Source Comments INFORMATION SOURCE (unrecogn ized section and content) DATE CREATED AUTHOR 11/29/2017 [facility] DATE CREATED AUTHOR AUTHOR'S ORGANIZ ATION 11/06/2019 [facility] DATE CREATED AUTHOR AUTHOR'S ORGANIZ ATION 12/10/2020 [facility] DATE CREATED AUTHOR AUTHOR'S ORGANIZ ATION 07/13/2021 [facility] DATE CREATED AUTHOR AUTHOR'S ORGANIZ ATION 11/30/2021 [facility] nt DATE CREATED AUTHOR AUTHOR'S ORGANIZ ATION 11/15/2022 [facility] DATE CREATED AUTHOR AUTHOR'S ORGANIZ ATION 11/17/2022 [facility] DATE CREATED AUTHOR AUTHOR'S ORGANIZ ATION 10/20/2024 [facility] DATE CREATED AUTHOR AUTHOR'S ORGANIZ ATION 12/16/2024 [facility] Goals (unrecognized section and content) Goals may be documented in a n alternate sectionGoals may be documented in an alternate sectionGoals may be documented in an alternate sectionGoals may be documented in an alternate sectionGoals may be documented in an alternate sectionGoals may be documented in an alternate sectionGoals may be documented in an alternate sectionGoals may be documented in an alternate sectionGoals may be documented in an alternate section Source Comments (unrecognize d section and content) In the event this informatio n is protected by the Federal Confidentiality of Alcohol and Drug Abuse Patient Records regulations: The Federal rules restrict any use of the information to criminally investigate or prosecute any alcohol or drug abuse patient.[facility] the event this information is protected by the Federal Confidentiality of Alcohol and Drug Abuse Patient Records regulations: The Federal rules restrict any use of the information to criminally investigate or prosecute any alcohol or drug abuse patient.[facility] the event this information is protected by the Federal Confidentiality of Alcohol and Drug Abuse Patient Records regulations: The Federal rules restrict any use of the information to criminally investigate or prosecute any alcohol or drug abuse patient.[facility] HospitalIn the event this information is protected by the Federal Confidentiality of Alcohol and Drug Abuse Patient Records regulations: The Federal rules restrict any use of the information to criminally investigate or prosecute any alcohol or drug abuse patient.[facility] HospitalIn the event this information is protected by the Federal Confidentiality of Alcohol and Drug Abuse Patient Records regulations: The Federal rules restrict any use of the information to criminally investigate or prosecute any alcohol or drug abuse patient.[facility] HospitalIn the event this information is protected by the Federal Confidentiality of Alcohol and Drug Abuse Patient Records regulations: The Federal rules restrict any use of the information to criminally investigate or prosecute any alcohol or drug abuse patient.[facility] HospitalIn the event this information is protected by the Federal Confidentiality of Alcohol and Drug Abuse Patient Records regulations: The Federal rules restrict any use of the information to criminally investigate or prosecute any alcohol or drug abuse patient.[facility] HospitalIn the event this information is protected by the Federal Confidentiality of Alcohol and Drug Abuse Patient Records regulations: The Federal rules restrict any use of the information to criminally investigate or prosecute any alcohol or drug abuse patient.[facility] HospitalIn the event this information is protected by the Federal Confidentiality of Alcohol and Drug Abuse Patient Records regulations: The Federal rules restrict any use of the information to criminally investigate or prosecute any alcohol or drug abuse patient.[facility] HospitalIn the event this information is protected by the Federal Confidentiality of Alcohol and Drug Abuse Patient Records regulations: The Federal rules restrict any use of the information to criminally investigate or prosecute any alcohol or drug abuse patient.[facility] HospitalIn the event this information is protected by the Federal Confidentiality of Alcohol and Drug Abuse Patient Records regulations: The Federal rules restrict any use of the information to criminally investigate or prosecute any alcohol or drug abuse patient.[facility] HospitalIn the event this information is protected by the Federal Confidentiality of Alcohol and Drug Abuse Patient Records regulations: The Federal rules restrict any use of the information to criminally investigate or prosecute any alcohol or drug abuse patient.[facility] HospitalIn the event this information is protected by the Federal Confidentiality of Alcohol and Drug Abuse Patient Records regulations: The Federal rules restrict any use of the information to criminally investigate or prosecute any alcohol or drug abuse patient.[facility] HospitalIn the event this information is protected by the Federal Confidentiality of Alcohol and Drug Abuse Patient Records regulations: The Federal rules restrict any use of the information to criminally investigate or prosecute any alcohol or drug abuse patient.[facility] HospitalIn the event this information is protected by the Federal Confidentiality of Alcohol and Drug Abuse Patient Records regulations: The Federal rules restrict any use of the information to criminally investigate or prosecute any alcohol or drug abuse patient.[facility] HospitalIn the event this information is protected by the Federal Confidentiality of Alcohol and Drug Abuse Patient Records regulations: The Federal rules restrict any use of the information to criminally investigate or prosecute any alcohol or drug abuse patient.[facility] HospitalIn the event this information is protected by the Federal Confidentiality of Alcohol and Drug Abuse Patient Records regulations: The Federal rules restrict any use of the information to criminally investigate or prosecute any alcohol or drug abuse patient.[facility] HospitalIn the event this information is protected by the Federal Confidentiality of Alcohol and Drug Abuse Patient Records regulations: The Federal rules restrict any use of the information to criminally investigate or prosecute any alcohol or drug abuse patient.[facility] HospitalIn the event this information is protected by the Federal Confidentiality of Alcohol and Drug Abuse Patient Records regulations: The Federal rules restrict any use of the information to criminally investigate or prosecute any alcohol or drug abuse patient.[facility] HospitalIn the event this information is protected by the Federal Confidentiality of Alcohol and Drug Abuse Patient Records regulations: The Federal rules restrict any use of the information to criminally investigate or prosecute any alcohol or drug abuse patient.[facility] HospitalIn the event this information is protected by the Federal Confidentiality of Alcohol and Drug Abuse Patient Records regulations: The Federal rules restrict any use of the information to criminally investigate or prosecute any alcohol or drug abuse patient.[facility] HospitalIn the event this information is protected by the Federal Confidentiality of Alcohol and Drug Abuse Patient Records regulations: The Federal rules restrict any use of the information to criminally investigate or prosecute any alcohol or drug abuse patient.[facility] HospitalIn the event this information is protected by the Federal Confidentiality of Alcohol and Drug Abuse Patient Records regulations: The Federal rules restrict any use of the information to criminally investigate or prosecute any alcohol or drug abuse patient.[facility] HospitalIn the event this information is protected by the Federal Confidentiality of Alcohol and Drug Abuse Patient Records regulations: The Federal rules restrict any use of the information to criminally investigate or prosecute any alcohol or drug abuse patient.[facility] HospitalIn the event this information is protected by the Federal Confidentiality of Alcohol and Drug Abuse Patient Records regulations: The Federal rules restrict any use of the information to criminally investigate or prosecute any alcohol or drug abuse patient.[facility] HospitalIn the event this information is protected by the Federal Confidentiality of Alcohol and Drug Abuse Patient Records regulations: The Federal rules restrict any use of the information to criminally investigate or prosecute any alcohol or drug abuse patient.[facility] HospitalIn the event this information is protected by the Federal Confidentiality of Alcohol and Drug Abuse Patient Records regulations: The Federal rules restrict any use of the information to criminally investigate or prosecute any alcohol or drug abuse patient.[facility] HospitalIn the event this information is protected by the Federal Confidentiality of Alcohol and Drug Abuse Patient Records regulations: The Federal rules restrict any use of the information to criminally investigate or prosecute any alcohol or drug abuse patient.[facility] HospitalIn the event this information is protected by the Federal Confidentiality of Alcohol and Drug Abuse Patient Records regulations: The Federal rules restrict any use of the information to criminally investigate or prosecute any alcohol or drug abuse patient.[facility] HospitalIn the event this information is protected by the Federal Confidentiality of Alcohol and Drug Abuse Patient Records regulations: The Federal rules restrict any use of the information to criminally investigate or prosecute any alcohol or drug abuse patient.[facility] HospitalIn the event this information is protected by the Federal Confidentiality of Alcohol and Drug Abuse Patient Records regulations: The Federal rules restrict any use of the information to criminally investigate or prosecute any alcohol or drug abuse patient.[facility] HospitalIn the event this information is protected by the Federal Confidentiality of Alcohol and Drug Abuse Patient Records regulations: The Federal rules restrict any use of the information to criminally investigate or prosecute any alcohol or drug abuse patient.[facility] HospitalIn the event this information is protected by the Federal Confidentiality of Alcohol and Drug Abuse Patient Records regulations: The Federal rules restrict any use of the information to criminally investigate or prosecute any alcohol or drug abuse patient.[facility] HospitalIn the event this information is protected by the Federal Confidentiality of Alcohol and Drug Abuse Patient Records regulations: The Federal rules restrict any use of the information to criminally investigate or prosecute any alcohol or drug abuse patient.[facility] HospitalIn the event this information is protected by the Federal Confidentiality of Alcohol and Drug Abuse Patient Records regulations: The Federal rules restrict any use of the information to criminally investigate or prosecute any alcohol or drug abuse patient.[facility] HospitalIn the event this information is protected by the Federal Confidentiality of Alcohol and Drug Abuse Patient Records regulations: The Federal rules restrict any use of the information to criminally investigate or prosecute any alcohol or drug abuse patient.[facility] HospitalIn the event this information is protected by the Federal Confidentiality of Alcohol and Drug Abuse Patient Records regulations: The Federal rules restrict any use of the information to criminally investigate or prosecute any alcohol or drug abuse patient.[facility] HospitalIn the event this information is protected by the Federal Confidentiality of Alcohol and Drug Abuse Patient Records regulations: The Federal rules restrict any use of the information to criminally investigate or prosecute any alcohol or drug abuse patient.[facility] HospitalIn the event this information is protected by the Federal Confidentiality of Alcohol and Drug Abuse Patient Records regulations: The Federal rules restrict any use of the information to criminally investigate or prosecute any alcohol or drug abuse patient.[facility] HospitalIn the event this information is protected by the Federal Confidentiality of Alcohol and Drug Abuse Patient Records regulations: The Federal rules restrict any use of the information to criminally investigate or prosecute any alcohol or drug abuse patient.[facility] HospitalIn the event this information is protected by the Federal Confidentiality of Alcohol and Drug Abuse Patient Records regulations: The Federal rules restrict any use of the information to criminally investigate or prosecute any alcohol or drug abuse patient.[facility] HospitalIn the event this information is protected by the Federal Confidentiality of Alcohol and Drug Abuse Patient Records regulations: The Federal rules restrict any use of the information to criminally investigate or prosecute any alcohol or drug abuse patient.[facility] HospitalIn the event this information is protected by the Federal Confidentiality of Alcohol and Drug Abuse Patient Records regulations: The Federal rules restrict any use of the information to criminally investigate or prosecute any alcohol or drug abuse patient.[facility] HospitalIn the event this information is protected by the Federal Confidentiality of Alcohol and Drug Abuse Patient Records regulations: The Federal rules restrict any use of the information to criminally investigate or prosecute any alcohol or drug abuse patient.[facility] HospitalIn the event this information is protected by the Federal Confidentiality of Alcohol and Drug Abuse Patient Records regulations: The Federal rules restrict any use of the information to criminally investigate or prosecute any alcohol or drug abuse patient.[facility] HospitalIn the event this information is protected by the Federal Confidentiality of Alcohol and Drug Abuse Patient Records regulations: The Federal rules restrict any use of the information to criminally investigate or prosecute any alcohol or drug abuse patient.[facility] HospitalIn the event this information is protected by the Federal Confidentiality of Alcohol and Drug Abuse Patient Records regulations: The Federal rules restrict any use of the information to criminally investigate or prosecute any alcohol or drug abuse patient.[facility] HospitalIn the event this information is protected by the Federal Confidentiality of Alcohol and Drug Abuse Patient Records regulations: The Federal rules restrict any use of the information to criminally investigate or prosecute any alcohol or drug abuse patient.[facility] [place] the event this information is protected by the Federal Confidentiality of Alcohol and Drug Abuse Patient Records regulations: The Federal rules restrict any use of the information to criminally investigate or prosecute any alcohol or drug abuse patient.[facility] HospitalIn the event this information is protected by the Federal Confidentiality of Alcohol and Drug Abuse Patient Records regulations: The Federal rules restrict any use of the information to criminally investigate or prosecute any alcohol or drug abuse patient.[facility] HospitalIn the event this information is protected by the Federal Confidentiality of Alcohol and Drug Abuse Patient Records regulations: The Federal rules restrict any use of the information to criminally investigate or prosecute any alcohol or drug abuse patient.[facility] HospitalIn the event this information is protected by the Federal Confidentiality of Alcohol and Drug Abuse Patient Records regulations: The Federal rules restrict any use of the information to criminally investigate or prosecute any alcohol or drug abuse patient.[facility] HospitalIn the event this information is protected by the Federal Confidentiality of Alcohol and Drug Abuse Patient Records regulations: The Federal rules restrict any use of the information to criminally investigate or prosecute any alcohol or drug abuse patient.[facility] HospitalIn the event this information is protected by the Federal Confidentiality of Alcohol and Drug Abuse Patient Records regulations: The Federal rules restrict any use of the information to criminally investigate or prosecute any alcohol or drug abuse patient.[facility] HospitalIn the event this information is protected by the Federal Confidentiality of Alcohol and Drug Abuse Patient Records regulations: The Federal rules restrict any use of the information to criminally investigate or prosecute any alcohol or drug abuse patient.[facility] HospitalIn the event this information is protected by the Federal Confidentiality of Alcohol and Drug Abuse Patient Records regulations: The Federal rules restrict any use of the information to criminally investigate or prosecute any alcohol or drug abuse patient.[facility] HospitalIn the event this information is protected by the Federal Confidentiality of Alcohol and Drug Abuse Patient Records regulations: The Federal rules restrict any use of the information to criminally investigate or prosecute any alcohol or drug abuse patient.[facility] HospitalIn the event this information is protected by the Federal Confidentiality of Alcohol and Drug Abuse Patient Records regulations: The Federal rules restrict any use of the information to criminally investigate or prosecute any alcohol or drug abuse patient.[facility] HospitalIn the event this information is protected by the Federal Confidentiality of Alcohol and Drug Abuse Patient Records regulations: The Federal rules restrict any use of the information to criminally investigate or prosecute any alcohol or drug abuse patient.[facility] HospitalIn the event this information is protected by the Federal Confidentiality of Alcohol and Drug Abuse Patient Records regulations: The Federal rules restrict any use of the information to criminally investigate or prosecute any alcohol or drug abuse patient.[facility] HospitalIn the event this information is protected by the Federal Confidentiality of Alcohol and Drug Abuse Patient Records regulations: The Federal rules restrict any use of the information to criminally investigate or prosecute any alcohol or drug abuse patient.[facility] HospitalIn the event this information is protected by the Federal Confidentiality of Alcohol and Drug Abuse Patient Records regulations: The Federal rules restrict any use of the information to criminally investigate or prosecute any alcohol or drug abuse patient.[facility] HospitalIn the event this information is protected by the Federal Confidentiality of Alcohol and Drug Abuse Patient Records regulations: The Federal rules restrict any use of the information to criminally investigate or prosecute any alcohol or drug abuse patient.[facility] HospitalIn the event this information is protected by the Federal Confidentiality of Alcohol and Drug Abuse Patient Records regulations: The Federal rules restrict any use of the information to criminally investigate or prosecute any alcohol or drug abuse patient.[facility] HospitalIn the event this information is protected by the Federal Confidentiality of Alcohol and Drug Abuse Patient Records regulations: The Federal rules restrict any use of the information to criminally investigate or prosecute any alcohol or drug abuse patient.[facility] HospitalIn the event this information is protected by the Federal Confidentiality of Alcohol and Drug Abuse Patient Records regulations: The Federal rules restrict any use of the information to criminally investigate or prosecute any alcohol or drug abuse patient.[facility] HospitalIn the event this information is protected by the Federal Confidentiality of Alcohol and Drug Abuse Patient Records regulations: The Federal rules restrict any use of the information to criminally investigate or prosecute any alcohol or drug abuse patient.[facility] HospitalIn the event this information is protected by the Federal Confidentiality of Alcohol and Drug Abuse Patient Records regulations: The Federal rules restrict any use of the information to criminally investigate or prosecute any alcohol or drug abuse patient.[facility] Care Teams (unrecognized sec tion and content) Legend Maker Relationship Specialty Start Date End Date Rhett Stevenson MD [address] [place] [address] [phone] PCP - General Internal Medicine 10/23/17 Legend Maker Relationship Specialty Start Date End Date Rhett Stevenson MD [address] [place] [address] [phone] PCP - General Internal Medicine 10/23/17 Legend Maker Relationship Specialty Start Date End Date Rhett Stevenson MD [address] [place] [address] [phone] PCP - General Internal Medicine 10/23/17 Legend Maker Relationship Specialty Start Date End Date Rhett Stevenson MD [address] [place] [phone] PCP - General Internal Medicine 10/23/17 Legend Maker Relationship Specialty Start Date End Date Rhett Stevenson MD [address] [place] [phone] PCP - General Internal Medicine 10/23/17 Legend Maker Relationship Specialty Start Date End Date Rhett Stevenson MD [address] [phone] PCP - General Internal Medicine 10/23/17 Legend Maker Relationship Specialty Start Date End Date Rhett Stevenson MD [address] [phone] PCP - General Internal Medicine 10/23/17 Legend Maker Relationship Specialty Start Date End Date Rhett Stevenson MD [address] [phone] PCP - General Internal Medicine 10/23/17 Legend Maker Relationship Specialty Start Date End Date Rhett Stevenson MD [address] [phone] PCP - General Internal Medicine 10/23/17 Team Status: Active Member Role Status Dates Dr. Rhett Stevenson MD Family Provider Active Dr. Rhett Stevenson MD Primary Care Provider Active Team Status: Inactive Member Role Status Dates Dr. Rhett Stevenson MD Primary Care Provider Active Dr. Vonnie Griffith MD Attending Provider, Referring Provider Active Legend Maker Relationship Specialty Start Date End Date Rhett Stevenson MD [address] [phone] PCP - General Internal Medicine 10/23/17 Legend Maker Relationship Specialty Start Date End Date Rhett Stevenson MD [address] [phone] PCP - General Internal Medicine 10/23/17 Legend Maker Relationship Specialty Start Date End Date Rhett Stevenson MD 515 [facility][1]E, [address] [phone] PCP - General Internal Medicine 10/23/17 Legend Maker Relationship Specialty Start Date End Date Rhett Stevenson MD [address], [place] [address] [place] [address] PCP - General Internal Medicine 10/23/17 Legend Maker Relationship Specialty Start Date End Date Rhett Stevenson MD [address], [facility] [address] [place] [address] PCP - General Internal Medicine 10/23/17 Legend Maker Relationship Specialty Start Date End Date Rhett Stevenson MD [address], [facility] [address] [place] [address] PCP - General Internal Medicine 10/23/17 Legend Maker Relationship Specialty Start Date End Date Rhett Stevenson MD [address], [facility] [address] [place] [address] PCP - General Internal Medicine 10/23/17 Legend Maker Relationship Specialty Start Date End Date Rhett Stevenson MD [address], [facility] [address] [place] [address] PCP - General Internal Medicine 10/23/17 Legend Maker Relationship Specialty Start Date End Date Rhett Stevenson MD [address], [facility] [address] [place] [address] PCP - General Internal Medicine 10/23/17 Legend Maker Relationship Specialty Start Date End Date Rhett Stevenson MD [address], [facility] [address] [place] [address] PCP - General Internal Medicine 10/23/17 Vonnie Griffith [address] [place] [address] Rheumatology 01/10/24 Nelson Pozo MD [address] [place] [address] Neurology 01/10/24 Jakob Garcia MD [address] [phone] Internal Medicine 01/10/24 Legend Maker Relationship Specialty Start Date End Date Rhett Stevenson MD [address] [place] [address] [phone] PCP - General Internal Medicine 10/23/17 Vonnie Griffith [address] [place] [address] Rheumatology 01/10/24 Nelson Pozo MD [address] [place] [phone] Neurology 01/10/24 Jakob Garcia MD [address] [address] Internal Medicine 01/10/24 Legend Maker Relationship Specialty Start Date End Date Rhett Stevenson MD [address] [place] [address] [phone] PCP - General Internal Medicine 10/23/17 Vonnie Griffith [address] [place] [address] Rheumatology 01/10/24 Nelson Pozo MD [address] [place] [address] Neurology 01/10/24 Jakob Garcia MD [address] [phone] Internal Medicine 01/10/24 Legend Maker Relationship Specialty Start Date End Date Rhett Stevenson MD [address] [phone] PCP - General Internal Medicine 10/23/17 Vonnie Griffith [address] [place] [address] Rheumatology 01/10/24 Nelson Pozo MD [address] [place] [address] Neurology 01/10/24 Jakob Garcia MD [address] [phone] Internal Medicine 01/10/24 Legend Maker Relationship Specialty Start Date End Date Rhett Stevenson MD [address] [phone] PCP - General Internal Medicine 10/23/17 Vonnie Griffith [address] [address] Rheumatology 01/10/24 Nelson Pozo MD [address] [place] [phone] Neurology 01/10/24 Jakob Garcia MD [address] [phone] Internal Medicine 01/10/24 Legend Maker Relationship Specialty Start Date End Date Rhett Stevenson MD [address] [phone] PCP - General Internal Medicine 10/23/17 Vonnie Griffith [address] [address] Rheumatology 01/10/24 Nelson Pozo MD [address] [place] [phone] Neurology 01/10/24 Jakob Garcia MD [address] [phone] Internal Medicine 01/10/24 Legend Maker Relationship Specialty Start Date End Date Rhett Stevenson MD [address] [phone] PCP - General Internal Medicine 10/23/17 Vonnie Griffith [address] [place] [address] Rheumatology 01/10/24 Nelson Pozo MD [address] [place] [phone] Neurology 01/10/24 Jakob Garcia MD [facility] [address] [phone] Internal Medicine 01/10/24 Team Status: Inactive Member Role Status Dates Dr. Rhett Stevenson MD Primary Care Provider Active Start: February 04, 2024 End: February 04, 2024 Dr. Vonnie Griffith MD Attending Provider Active Start: February 04, 2024 End: February 04, 2024 Dr. Vonnie Griffith MD Referring Provider Active Start: February 04, 2024 End: February 04, 2024 Team Status: Inactive Member Role Status Dates Dr. Rhett Stevenson MD Primary Care Provider Active Start: April 18, 2024 End: April 18, 2024 Dr. Vonnie Griffith MD Attending Provider Active Start: April 18, 2024 End: April 18, 2024 Dr. Vonnie Griffith MD Referring Provider Active Start: April 18, 2024 End: April 18, 2024 Legend Maker Relationship Specialty Start Date End Rhett Stevenson MD [address] [place] [phone] PCP - General Internal Medicine 10/23/17 Vonnie Griffith [address] [place] [address] Rheumatology 01/10/24 Nelson Pozo MD [address] [place] [address] Neurology 01/10/24 Jakob Garcia MD [address] [phone] Internal Medicine 01/10/24 Team Status: Inactive Member Role Status Dates Dr. Rhett Stevenson MD Primary Care Provider Active Start: July 14, 2024 End: July 14, 2024 Dr. Vonnie Griffith MD Attending Provider Active Start: July 14, 2024 End: July 14, 2024 Dr. Vonnie Griffith MD Referring Provider Active Start: July 14, 2024 End: July 14, 2024 Legend Maker Relationship Specialty Start Date End Date Rhett Stevenson MD [address] [phone] PCP - General Internal Medicine 10/23/17 Vonnie Griffith [address] [place] [address] Rheumatology 01/10/24 Nelson Pozo MD [address] [place] [phone] Neurology 01/10/24 Jakob Garcia MD [address] [phone] Internal Medicine 01/10/24 Legend Maker Relationship Specialty Start Date End Date Rhett Stevenson MD [address] [phone] PCP - General Internal Medicine 10/23/17 Vonnie Griffith [address] [place] [address] Rheumatology 01/10/24 Nelson Pozo MD [address] [place] [phone] Neurology 01/10/24 Jakob Garcia MD [address] [facility] [address] [place] [phone] Internal Medicine 01/10/24 Team Status: Active Member Role/Relationship Status Dates Dr. Rhett Stevenson MD Family Provider Active Dr. Rhett Stevenson MD Primary Care Provider Active Team Status: Inactive Member Role/Relationship Status Dates Dr. Rhett Stevenson MD Primary Care Provider Active Start: July 14, 2024 End: July 14, 2024 Dr. Vonnie Griffith MD Attending Provider Active Start: July 14, 2024 End: July 14, 2024 Dr. Vonnie Griffith MD Referring Provider Active Start: July 14, 2024 End: July 14, 2024 Team Status: Inactive Member Role/Relationship Status Dates Dr. Rhett Stevenson MD Primary Care Provider Active Start: October 02, 2024 End: October 02, 2024 Dr. Vonnie Griffith MD Attending Provider Active Start: October 02, 2024 End: October 02, 2024 Dr. Vonnie Griffith MD Referring Provider Active Start: October 02, 2024 End: October 02, 2024 Legend Maker Relationship Specialty Start Date End Date Rhett Stevenson MD [address] [place] [address] [phone] PCP - General Internal Medicine 10/23/17 Vonnie Griffith [address] [place] [address] Rheumatology 01/10/24 Nelson Pozo MD [address] [place], [place] Neurology 01/10/24 Jakob Gracia MD [address] [place] [phone] Internal Medicine 01/10/24 Reason for Visit (unrecogniz ed section and content) Specialty Diagnoses / Procedures Referred By Contac t Referred To Contact FAMILY MEDICINE Diagnoses 1 MON Procedures NURSE VISIT Self [address] [address] Referral ID Status Reason Start Date Expiration Date Visits Re quested Visits Authorized [id number] Closed 07/26/2021 02/04/2022 1 1 Specialty Diagnoses / Procedures Referred By Contac t Referred To Contact FAMILY MEDICINE Diagnoses 1 MON Procedures NURSE VISIT SelfMD [address] [address] Referral ID Status Reason Start Date Expiration Date Visits Re quested Visits Authorized [id number] Closed 07/26/2021 02/04/2022 2 2 Specialty Diagnoses / Procedures Referred By Contac t Referred To Contact FAMILY MEDICINE Diagnoses Protime monitoring PROTIME Procedures OFFICE/OUTPATIENT ESTABLISHED MOD MDM 30-39 MIN NURSE VISIT Self [address] [address] Referral ID Status Reason Start Date Expiration Date Visits Re quested Visits Authorized [id number] Closed 11/01/2021 02/04/2022 1 1 Specialty Diagnoses / Procedures Referred By Contac t Referred To Contact FAMILY MEDICINE Diagnoses PROTIME Procedures OFFICE/OUTPATIENT ESTABLISHED MOD MDM 30-39 MIN NURSE VISIT Self [address] [phone] Referral ID Status Reason Start Date Expiration Date V isits Requested Visits Authorized [id number] Authorized 11/15/2021 02/04/2022 2 2 Reason Onset Date Comments Refill Request 01/05/2022 Reason Comments Medication Problem Reason Comments Letter Reason Onset Date Comments Refill Request 05/25/2022 Reason Onset Date Comments Refill Request 10/12/2022 Reason Comments Physical Hypertension Reason Comments Orders Reason Onset Date Comments Refill Request 08/07/2023 Reason Comments Physical Reason 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 [facility]. provides no warranty or guarantee of the accuracy or completeness of information in this document.
[2025-01-02 09:54] LABS: Color, Urine Yellow (Yellow); Glucose, Dipstick Normal (Normal); Ketone-Dipstick Negative (Negative); Leukocyte Esterase-Dipstick Negative /ul (Negative); Nitrite-Dipstick Negative (Negative); Occult Blood-Urine Negative /ul (Negative); Protein-Dipstick 15 mg/dl (Negative); Specific Gravity, Urine 1.020 (1.002-1.030); Urine Bilirubin Dipstick Negative (Negative)
[2025-01-02 09:58] LABS: Hematocrit 43.2 % (37-47); Hemoglobin 13.8 g/dL (12.0-15.0); Immature Granulocytes Count 0.020 X10^3/uL (0.0-0.0); Mean Corp Hgb Conc 31.9 g/dL (32-36); Mean Corpuscular Volume 89.3 fL (81-99); Mean Platelet Vol. 10.8 fl (6.2-12.0); NRBC Flagged by Analyzer 0 % (0-5); Platelet Count 205 K/mm3 (150-450); RBC Distribution Width CV 13.0 % (11.6-14.6); RBC Distribution Width SD 42.2 fl (35.1-43.9); Red Blood Count 4.84 M/mm3 (4.2-5.4); White Blood Count 6.4 K/mm3 (4.4-11.0)
[2025-01-02 10:08] LABS: Creatinine, Urine (random) 93.60 mg/dL (28.00-217.00); Protein, Urine (Random) 11.6 mg/dL (0.0-12.0); Protein:Creat Ratio 124 mg/g CRE (0-200)
[2025-01-02 10:19] LABS: AST(SGOT) 23 U/L (<=31); Alanine Aminotransfer ALT/SGPT 21 U/L (<=34); Albumin, Serum 3.9 g/dL (3.5-5.0); Alkaline Phosphatase 63 U/L (35-104); Anion Gap 12 (5-15); BUN 12 mg/dL (4-19); BUN/Creat Ratio 21.0 RATIO (10-20); Calcium,Total 8.9 mg/dL (7.6-11.0); Carbon Dioxide 25.4 mmol/L (21.0-32.0); Chloride 104 mmol/L (98-108); Globulin 2.9 g/dL (2.2-4.2); Glucose 89 mg/dL (70-99); Potassium 4.2 mmol/L (3.3-5.1)
== END | disposition home or self-care (01) ==
LOC: MTLAB 07:04
PROVIDERS: PCP Internal Medicine; Referring Provider Internal Medicine Rheumatology; Visit Provider Internal Medicine Rheumatology
DX: M32.9 Systemic lupus erythematosus, unspecified (principal); Z79.899 Other long term (current) drug therapy
CPT/HCPCS: 36415; 80053; 81002; 82570; 84156; 85025; 86160